=== PATIENT | male | born 1950 | race Caucasian/White ===

== ENCOUNTER 2016-07-21 13:01 | Inpatient (IN) | payer MEDICARE, OTHER ==
--- NOTE | 2016-07-21 13:27 | ED ---
SOB HPI - General Chief Complaint: Shortness of Breath Stated Complaint: BRITTON Time Seen by Provider: 07/21/16 13:01 Source: patient, RN notes reviewed Mode of arrival: EMS Limitations: no limitations - History of Present Illness Initial Comments: This is a 66-year-old male who was brought in by EMS from his doctor's office after complaining of shortness of breath for the past 4 days get a cough with yellow phlegm fevers and chills hot flashes. He also was noted have a really fast heart rate per EMS. Patient denies any chest pain except for with coughing. 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 No diagnosed history of lung disease. MD Complaint: shortness of breath, cough - Related Data Home Medications Medication Instructions Recorded Confirmed Lansoprazole [Prevacid] 30 mg PO DAILY 07/21/16 07/21/16 amLODIPine [Norvasc] 5 mg PO DAILY 07/21/16 07/21/16 Allergies Allergy/AdvReac Type Severity Reaction Status Date / Time adhesive tape AdvReac Rash/Hives Verified 07/21/16 13:17 SLEEPING AIDS AdvReac Hallucinati Uncoded 07/21/16 14:20 ons Review of Systems ROS Statement: Those systems with pertinent positive or pertinent negative responses have been documented in the HPI. ROS Other: All systems not noted in ROS Statement are negative. Past Medical History Past Medical History: COPD, CVA/TIA, Hyperlipidemia, Hypertension Additional Past Medical History / Comment(s): kidney stones History of Any Multi-Drug Resistant Organisms: None Reported Past Surgical History: Hernia Repair Past Psychological History: No Psychological Hx Reported Smoking Status: Never smoker Past Alcohol Use History: None Reported Past Drug Use History: None Reported General Exam - General Exam Comments Initial Comments: This is a well little pulmonary awake alert oriented 3 male Limitations: no limitations General appearance: alert, in no apparent distress Head exam: Present: atraumatic, normocephalic, normal inspection Eye exam: Present: normal appearance, PERRL, EOMI. Absent: scleral icterus, conjunctival injection, periorbital swelling ENT exam: Present: normal exam, mucous membranes moist Neck exam: Present: normal inspection. Absent: tenderness, meningismus, lymphadenopathy Respiratory exam: Present: wheezes, decreased breath sounds. Absent: respiratory distress, rales, rhonchi, stridor Cardiovascular Exam: Present: tachycardia, irregular rhythm. Absent: systolic murmur, diastolic murmur, rubs, gallop, clicks GI/Abdominal exam: Present: soft, normal bowel sounds. Absent: distended, tenderness, guarding, rebound, rigid Extremities exam: Present: normal inspection, full ROM, normal capillary refill. Absent: tenderness, pedal edema, joint swelling, calf tenderness Back exam: Present: normal inspection Neurological exam: Present: alert, oriented X3, CN II-XII intact Psychiatric exam: Present: normal affect, normal mood Skin exam: Present: warm, dry, intact, normal color. Absent: rash Course Vital Signs 07/21/16 07/21/16 07/21/16 13:07 13:19 13:57 Temperature 98.3 F Pulse Rate 154 H 137 H 82 Respiratory 22 18 18 Rate Blood Pressure 114/77 117/86 O2 Sat by Pulse 100 98 Oximetry 07/21/16 15:41 Temperature Pulse Rate 82 Respiratory 20 Rate Blood Pressure 106/75 O2 Sat by Pulse 98 Oximetry - Reevaluation(s) Reevaluation #1: 07/21/16 14:09 The patient was noted to convert to sinus rhythm on the monitor repeat EKG shows a rate of 85 sinus rhythm with occasional PVC. Interval 156 QRS duration 86 QT/QTC of 358/[address]-T wave changes Medical Decision Making - Medical Decision Making I did discuss findings with patient family and patient has converted to a sinus rhythm. He does also however have: Patient will be admitted with cardiology consultation did discuss the case with the hospitalist. - Lab Data Result diagrams: 07/21/16 13:21 07/21/16 13:21 Lab Results 07/21/16 07/21/16 07/21/16 Range/Units 13:21 13:21 13:21 WBC 4.9 (3.8-10.6) k/uL RBC 5.08 (4.30-5.90) m/uL Hgb 16.4 (13.0-17.5) gm/dL Hct 48.9 (39.0-53.0) % MCV 96.3 (80.0-100.0) fL MCH 32.4 (25.0-35.0) pg MCHC 33.6 (31.0-37.0) g/dL RDW 13.1 (11.5-15.5) % Plt Count 209 (150-450) k/uL Neutrophils % (Manual) 39.5 % Band Neutrophils % 19.5 % Lymphocytes % (Manual) 32.5 % Monocytes % (Manual) 7.5 % Eosinophils % (Manual) 1.0 % Neutrophils # (Manual) 2.9 (1.3-7.7) k/uL Lymphocytes # (Manual) 1.6 (1.0-4.8) k/uL Monocytes # (Manual) 0.4 (0-1.0) k/uL Eosinophils # (Manual) 0.0 (0-0.7) k/uL Nucleated RBCs 0 (0-0) /100 WBC Manual Slide Review Performed Toxic Vacuolation Present Large Platelets Present Polychromasia Present PT (9.0-12.0) sec INR (<1.1) APTT (22.0-30.0) sec Sodium 138 (137-145) mmol/L Potassium 4.6 (3.5-5.1) mmol/L Chloride 103 (98-107) mmol/L Carbon Dioxide 22 (22-30) mmol/L Anion Gap 13 mmol/L BUN 20 (9-20) mg/dL Creatinine 1.52 H (0.66-1.25) mg/dL Est GFR (MDRD) Af Amer 56 (>60 ml/min/1.73 sqM) Est GFR (MDRD) Non-Af 46 (>60 ml/min/1.73 sqM) Glucose 104 H (74-99) mg/dL Plasma Lactic Acid Dat (0.7-2.0) mmol/L Calcium 8.1 L (8.4-10.2) mg/dL Magnesium 2.1 (1.6-2.3) mg/dL Total Bilirubin 0.6 (0.2-1.3) mg/dL AST 30 (17-59) U/L ALT 23 (21-72) U/L Alkaline Phosphatase 85 (38-126) U/L Total Creatine Kinase 166 (55-170) U/L CK-MB (CK-2) 1.5 (0.0-2.4) ng/mL CK-MB (CK-2) Rel Index 0.9 Troponin I 0.310 H* (0.000-0.034) ng/mL NT-Pro-B Natriuret Pep pg/mL Total Protein 7.3 (6.3-8.2) g/dL Albumin 3.8 (3.5-5.0) g/dL Urine Color Urine Appearance (Clear) Urine pH (5.0-8.0) Ur Specific [place] (1.001-1.035) Urine Protein (Negative) Urine Glucose (UA) (Negative) Urine Ketones (Negative) Urine Blood (Negative) Urine Nitrate (Negative) Urine Bilirubin (Negative) Urine Urobilinogen (<2.0) mg/dL Ur Leukocyte Esterase (Negative) Urine RBC (0-5) /hpf Urine WBC (0-5) /hpf Urine Bacteria (None) /hpf Hyaline Casts (0-2) /lpf Urine Mucus (None) /hpf 07/21/16 07/21/16 07/21/16 Range/Units 13:21 13:21 13:21 WBC (3.8-10.6) k/uL RBC (4.30-5.90) m/uL Hgb (13.0-17.5) gm/dL Hct (39.0-53.0) % MCV (80.0-100.0) fL MCH (25.0-35.0) pg MCHC (31.0-37.0) g/dL RDW (11.5-15.5) % Plt Count (150-450) k/uL Neutrophils % (Manual) % Band Neutrophils % % Lymphocytes % (Manual) % Monocytes % (Manual) % Eosinophils % (Manual) % Neutrophils # (Manual) (1.3-7.7) k/uL Lymphocytes # (Manual) (1.0-4.8) k/uL Monocytes # (Manual) (0-1.0) k/uL Eosinophils # (Manual) (0-0.7) k/uL Nucleated RBCs (0-0) /100 WBC Manual Slide Review Toxic Vacuolation Large Platelets Polychromasia PT 10.6 (9.0-12.0) sec INR 1.0 (<1.1) APTT 26.9 (22.0-30.0) sec Sodium (137-145) mmol/L Potassium (3.5-5.1) mmol/L Chloride (98-107) mmol/L Carbon Dioxide (22-30) mmol/L Anion Gap mmol/L BUN (9-20) mg/dL Creatinine (0.66-1.25) mg/dL Est GFR (MDRD) Af Amer (>60 ml/min/1.73 sqM) Est GFR (MDRD) Non-Af (>60 ml/min/1.73 sqM) Glucose (74-99) mg/dL Plasma Lactic Acid Dat 1.4 (0.7-2.0) mmol/L Calcium (8.4-10.2) mg/dL Magnesium (1.6-2.3) mg/dL Total Bilirubin (0.2-1.3) mg/dL AST (17-59) U/L ALT (21-72) U/L Alkaline Phosphatase (38-126) U/L Total Creatine Kinase (55-170) U/L CK-MB (CK-2) (0.0-2.4) ng/mL CK-MB (CK-2) Rel Index Troponin I (0.000-0.034) ng/mL NT-Pro-B Natriuret Pep 646 pg/mL Total Protein (6.3-8.2) g/dL Albumin (3.5-5.0) g/dL Urine Color Urine Appearance (Clear) Urine pH (5.0-8.0) Ur Specific [place] (1.001-1.035) Urine Protein (Negative) Urine Glucose (UA) (Negative) Urine Ketones (Negative) Urine Blood (Negative) Urine Nitrate (Negative) Urine Bilirubin (Negative) Urine Urobilinogen (<2.0) mg/dL Ur Leukocyte Esterase (Negative) Urine RBC (0-5) /hpf Urine WBC (0-5) /hpf Urine Bacteria (None) /hpf Hyaline Casts (0-2) /lpf Urine Mucus (None) /hpf 07/21/16 Range/Units 14:05 WBC (3.8-10.6) k/uL RBC (4.30-5.90) m/uL Hgb (13.0-17.5) gm/dL Hct (39.0-53.0) % MCV (80.0-100.0) fL MCH (25.0-35.0) pg MCHC (31.0-37.0) g/dL RDW (11.5-15.5) % Plt Count (150-450) k/uL Neutrophils % (Manual) % Band Neutrophils % % Lymphocytes % (Manual) % Monocytes % (Manual) % Eosinophils % (Manual) % Neutrophils # (Manual) (1.3-7.7) k/uL Lymphocytes # (Manual) (1.0-4.8) k/uL Monocytes # (Manual) (0-1.0) k/uL Eosinophils # (Manual) (0-0.7) k/uL Nucleated RBCs (0-0) /100 WBC Manual Slide Review Toxic Vacuolation Large Platelets Polychromasia PT (9.0-12.0) sec INR (<1.1) APTT (22.0-30.0) sec Sodium (137-145) mmol/L Potassium (3.5-5.1) mmol/L Chloride (98-107) mmol/L Carbon Dioxide (22-30) mmol/L Anion Gap mmol/L BUN (9-20) mg/dL Creatinine (0.66-1.25) mg/dL Est GFR (MDRD) Af Amer (>60 ml/min/1.73 sqM) Est GFR (MDRD) Non-Af (>60 ml/min/1.73 sqM) Glucose (74-99) mg/dL Plasma Lactic Acid Dat (0.7-2.0) mmol/L Calcium (8.4-10.2) mg/dL Magnesium (1.6-2.3) mg/dL Total Bilirubin (0.2-1.3) mg/dL AST (17-59) U/L ALT (21-72) U/L Alkaline Phosphatase (38-126) U/L Total Creatine Kinase (55-170) U/L CK-MB (CK-2) (0.0-2.4) ng/mL CK-MB (CK-2) Rel Index Troponin I (0.000-0.034) ng/mL NT-Pro-B Natriuret Pep pg/mL Total Protein (6.3-8.2) g/dL Albumin (3.5-5.0) g/dL Urine Color Yellow Urine Appearance Cloudy (Clear) Urine pH 5.5 (5.0-8.0) Ur Specific [place] 1.020 (1.001-1.035) Urine Protein 1+ H (Negative) Urine Glucose (UA) Negative (Negative) Urine Ketones Negative (Negative) Urine Blood Negative (Negative) Urine Nitrate Negative (Negative) Urine Bilirubin Negative (Negative) Urine Urobilinogen <2.0 (<2.0) mg/dL Ur Leukocyte Esterase Negative (Negative) Urine RBC 1 (0-5) /hpf Urine WBC 5 (0-5) /hpf Urine Bacteria Rare H (None) /hpf Hyaline Casts 34 H (0-2) /lpf Urine Mucus Few H (None) /hpf - EKG Data -: EKG Interpreted by Me Rate: tachycardia (Rapid atrial fibrillation the rate was 157 QRS duration 88 QT /QTC at 252/[address]-T wave configuration) - Radiology Data Radiology results: report reviewed (I did review the imaging and report no acute findings.), image reviewed Critical Care Time Critical Care Time: Yes Critical Care Time: 32 minutes of critical care time which includes initial evaluation the patient after monitoring the EMS call and discussed with paramedics history physical lab and x-rays reevaluation the patient. Discussion with the patient family regarding the findings. Discussed with the admitting physician. Admission orders and documentation of the above. Disposition Clinical Impression: Non-ST elevation myocardial infarction (NSTEMI), Paroxysmal atrial fibrillation with RVR Disposition: ADMITTED IP TO THIS HOSP Condition: Stable
[2016-07-21 13:43] LABS: CH 32.6; HCT 48.9 % (39.0-53.0); HDW 2.31; HGB 16.4 gm/dL (13.0-17.5); Immature Gran Flag Moderate; MCH 32.4 pg (25.0-35.0); MCHC 33.6 g/dL (31.0-37.0); MCV 96.3 fL (80.0-100.0); Mean Platelet Volume 7.7; RBC 5.08 m/uL (4.30-5.90); RDW 13.1 % (11.5-15.5); WBC 4.9 k/uL (3.8-10.6); WBC (Perox) 4.62
--- NOTE | 2016-07-21 13:48 | XR ---
EXAMINATION TYPE: XR chest 2V DATE OF EXAM: 07/21/2016 1:36 PM COMPARISON: Prior chest x-ray 01 August 2010 HISTORY: Difficulty breathing, cough TECHNIQUE: Frontal and lateral views of the chest are obtained on a total of 3 images. FINDINGS: Patient is rotated and there are overlying cardiac leads. Cardiac mediastinal silhouette, pulmonary vascularity and jada are stable. No evident pneumonia, pneumothorax, or pleural effusion ev ident. Prominent lung volumes suggests underlying COPD. IMPRESSION: No acute cardiopulmonary process.
[2016-07-21] MEDS: HEPARIN SODIUM,PORCINE 5,000 UNIT/ML 1 ML VIAL IV ONE ×3 (13:50→14:33)
[2016-07-21 13:54] LABS: Partial Thromboplastin Time 26.9 sec (22.0-30.0); Prothrombin Time 10.6 sec (9.0-12.0)
[2016-07-21 13:55] LABS: Calcium 8.1 mg/dL (8.4-10.2); Magnesium 2.1 mg/dL (1.6-2.3); Potassium 4.6 mmol/L (3.5-5.1); Total Bilirubin 0.6 mg/dL (0.2-1.3); Total Protein 7.3 g/dL (6.3-8.2)
[2016-07-21] MEDS ORDERED: DILTIAZEM 125 MG in SODIUM CHLORIDE 0.9% 100 ML IV ONE (14:00)
[2016-07-21] MEDS: HEPARIN SODIUM,PORCINE/D5W PMX 25,000 UNIT in DEXTROSE/WATER 1 500ML.BAG IV SCH ×2 (14:15→14:34)
[2016-07-21 14:16] LABS: Creatine Kinase MB 1.5 ng/mL (0.0-2.4)
[2016-07-21 14:21] LABS: Troponin I 0.31 ng/mL (0.000-0.034)
[2016-07-21 14:22] LABS: Add Differential Manual Differential
[2016-07-21 14:26] LABS: Nucleated Red Blood Cells 0 /100 WBC (0-0)
[2016-07-21 14:36] LABS: Band Neutrophils % 19.5 %; Total Cells Counted 200; Toxic Vacuolation Present
[2016-07-21 14:38] LABS: Appearance,Urine Cloudy (Clear); Bacteria,Urine Rare /hpf; Bilirubin,Urine Negative (Negative); Glucose,Urine (UA) Negative (Negative); Ketones,Urine Negative (Negative); Leukocyte Esterase,Urine Negative (Negative); Mucus,Urine Few /hpf; Nitrite,Urine Negative (Negative); PH, Urine 5.5 (5.0-8.0); Particle Count 13283; Protein,Urine 1+ (Negative); RBC,Urine 1 /hpf (0-5); UA Billing (MACRO vs. MICRO) MICRO; Urobilinogen,Urine <2.0 mg/dL (<2.0); WBC,Urine 5 /hpf (0-5)
[2016-07-21 14:51] LABS: Manual Review Performed; Polychromasia Present
[2016-07-21 14:52] LABS: Large Platelets Present
[2016-07-21] MEDS ORDERED: NITROGLYCERIN SL TABS 0.4 MG TAB SUBLINGUAL PRN (15:45)
[2016-07-21 16:53] VITALS: BMI 25.0
[2016-07-21] MEDS: NITROGLYCERIN OINT 1 INCH/GM PACKET TOPICAL SCH (17:37)
[2016-07-21] MEDS: SODIUM CHLORIDE 0.9% 1,000 ML IV SCH (17:47)
[2016-07-21 21:10] LABS: Creatine Kinase MB 2.1 ng/mL (0.0-2.4)
[2016-07-21 21:12] LABS: Troponin I 0.344 ng/mL (0.000-0.034)
[2016-07-22 02:34] LABS: Creatine Kinase MB 1.9 ng/mL (0.0-2.4)
[2016-07-22 02:45] LABS: Troponin I 0.266 ng/mL (0.000-0.034)
[2016-07-22 07:17] LABS: Cholesterol 183 mg/dL (<200); HDL Cholesterol 42 mg/dL (40-60); Triglycerides 126 mg/dL (<150)
[2016-07-22] MEDS: NITROGLYCERIN OINT 1 INCH/GM PACKET TOPICAL SCH ×3 (07:34→11:58)
[2016-07-22] MEDS ORDERED: ATORVASTATIN 80 MG TAB PO STA (07:48)
[2016-07-22] MEDS ORDERED: ALPRAZolam 0.5 MG TAB PO PRN (07:48)
[2016-07-22] MEDS ORDERED: ALPRAZolam 0.25 MG TAB PO PRN (07:48)
[2016-07-22] MEDS ORDERED: SODIUM CHLORIDE 0.9% 1,000 ML in EMPTY BAG 1 BAG IV ONE (07:48)
[2016-07-22] MEDS ORDERED: NITROGLYCERIN SL TABS 0.4 MG TAB SUBLINGUAL PRN (07:48)
[2016-07-22] MEDS ORDERED: ASPIRIN 325 MG TAB PO STA (07:48)
--- NOTE | 2016-07-22 08:48 | CONS ---
DATE OF CONSULTATION: Mr. Goff is a 66-year-old male with a known history of borderline hypertension and diabetes who presented with symptoms of cough, not feeling well, going on for the last few days, that happened over the weekend. Yesterday he went to see Dr. Arredondo and was having episode of atrial fibrillation. He did not feel the palpitation, but he did not feel well. He is having shoulder discomfort, but predominantly when he coughs. He is not very active physically because of his back, but continues to walk. He has no exertional chest pain in the past. According to him, he underwent cardiac catheterization many years ago and no significant abnormalities were noted. He denies any PND, orthopnea, or peripheral edema. He has no history of syncope and no significant palpitation. His coronary risk factors are positive for hypertension. At times, his pressure is low and he does not take his medications. He has borderline diabetes, but he has adjusted his diet intake and he is not on any medication. On presentation to the emergency room, he had an episode of recurrent paroxysmal atrial fibrillation. His medications at home include amlodipine 5 mg daily and Prevacid. REVIEW OF SYSTEMS: RESPIRATORY SYSTEM: He had a prior history of lung disease related to his exposure to work in the [employer]. He never smoked. GI SYSTEM: He had a prior history of bleeding related to hemorrhoids. SYSTEM: No dysuria or hematuria. NERVOUS SYSTEM: Questionable history of stroke. PHYSICAL EXAMINATION: A 66-year-old male, alert, oriented, in no apparent distress. Blood pressure of 109/70 with the heart rate in the 60s. HEAD: Normocephalic. EYES: Sclerae anicteric. NECK: Good upstroke. No bruit. No jugular venous distention. LUNGS: Clear to auscultation. HEART: Regular rate and rhythm. S1, S2, no S3, no rub with systolic murmur at the base. No diastolic murmur. ABDOMEN: Soft, nontender, positive bowel sounds. No organomegaly. EXTREMITIES: No edema. Intact distal pulses. Lab data revealed troponin 0.31, 0.344, 0.266. BUN and creatinine 20 and 1.52. Hemoglobin of 16.4. Cholesterol 183, LDL of 116. Chest x-ray shows no acute infiltrate. Initial EKG revealed sinus mechanism , normal axis, rare PVCs with no acute changes. Subsequent EKG revealed atrial fibrillation with a rapid ventricular response and nonspecific ST-T wave changes. IMPRESSION: 1. Abnormal troponin consistent with non-ST segment elevation myocardial infarction. 2. Paroxysmal atrial fibrillation of unknown duration. 3. Symptoms suggestive of upper respiratory infection. 4. History of hypertension. 5. Diabetes mellitus. 6. Mild hyperlipidemia. RECOMMENDATIONS: From the cardiac standpoint, I will obtain echocardiogram with Doppler. I will start him on a beta jane, stop the IV Cardizem. I would recommend to proceed with a cardiac catheterization to further assess his status and guide his treatment and depending on those findings, further recommendation will be made regarding alf anticoagulation. I have discussed those findings with the patient as well as risks and complications. He is in full understanding and agreement. Thank you for this consult. We will follow with you.
[2016-07-22] MEDS ORDERED: ASPIRIN 325 MG TAB PO SCH (09:00)
[2016-07-22] MEDS ORDERED: amLODIPine 5 MG TAB PO SCH (09:00)
[2016-07-22] MEDS: METOPROLOL TARTRATE 25 MG TAB PO SCH ×2 (09:44→23:22)
[2016-07-22] MEDS: PANTOPRAZOLE 40 MG TABLET PO SCH (09:44)
[2016-07-22 11:51] LABS: Hemoglobin A1C 5.8 % (4.2-6.1)
[2016-07-22] MEDS ORDERED: diphenhydrAMINE 50 MG/ML 1 ML VIAL ONE (12:12)
[2016-07-22] MEDS ORDERED: fentaNYL (PF) 50 MCG/ML 2 ML AMP ONE (12:13)
[2016-07-22] MEDS ORDERED: VERAPAMIL 2.5 MG/ML 2 ML AMP ONE (12:22)
[2016-07-22] MEDS ORDERED: SODIUM CHLORIDE 0.9% (PF) 10 ML VIAL ONE (12:22)
[2016-07-22] MEDS ORDERED: HEPARIN SODIUM 1,000 UNIT/ML VIAL ONE (12:22)
[2016-07-22] MEDS ORDERED: LIDOCAINE 2% INJ 20 MG/ML (20 ML MDV) ONE (12:26)
[2016-07-22] MEDS ORDERED: diphenhydrAMINE 50 MG/ML 1 ML VIAL IVP ONE (12:30)
[2016-07-22] MEDS ORDERED: fentaNYL (PF) 50 MCG/ML 2 ML AMP IV ONE (12:30)
[2016-07-22] MEDS ORDERED: LIDOCAINE 2% (PF) 20 MG/ML 10ML SQ ONE ×2 (12:32)
[2016-07-22] MEDS ORDERED: VERAPAMIL SYRINGE (5 MG/10 ML) INTRAARTER ONE (12:33)
[2016-07-22] MEDS ORDERED: HEPARIN SODIUM 1,000 UNIT/ML VIAL IV ONE (12:48)
[2016-07-22] MEDS ORDERED: SODIUM CHLORIDE 0.9% 1,000 ML IV ONE (12:49)
[2016-07-22] MEDS ORDERED: IOHEXOL 300 MG/ML 100 ML BOTTLE IV ONE (12:51)
[2016-07-22] MEDS ORDERED: RX INFO: IV CONTRAST WAS GIVEN 1 EACH MISC MISCELLANE PRN (12:54)
[2016-07-22] MEDS ORDERED: SODIUM CHLORIDE 0.9% 1,000 ML IV SCH (13:00)
--- NOTE | 2016-07-22 17:18 | HP ---
DATE OF ADMISSION: Patient is a 66-year-old who was seen in Dr. Arredondo's office with URI-like symptoms. Patient does have bronchitis, was started on doxycycline here. Patient was found to be in atrial fibrillation. Patient has minimally elevated troponins. Patient underwent cardiac catheterization which showed some 20% to 30% occlusion in multiple vessels. Beyond that, there are no stentable lesions. Patient denied any orthopnea, PND. Patient is complaining of cough with yellowish sputum production which is getting better at this point of time. Patient denied any shortness of breath. Patient was started on flecainide. Patient is on heparin IV and anticoagulation as per Cardiology. Echocardiogram is pending at this point of time. Patient is also on beta jane. REVIEW OF SYSTEMS: CONSTITUTIONAL: No fever, no malaise, no fatigue. HEENT: No recent visual problems or hearing problems. Denied any sore throat. CARDIOVASCULAR: No chest pain, orthopnea, PND, no palpitations, no syncope. PULMONARY: As described in HPI. GASTROINTESTINAL: No diarrhea, no nausea, no vomiting, no abdominal pain. Normoactive bowel sounds. NEUROLOGICAL: No headaches, no weakness, no numbness. HEMATOLOGICAL: Denies any bleeding or petechiae. GENITOURINARY: Denies any burning micturition, frequency, or urgency. MUSCULOSKELETAL/RHEUMATOLOGICAL: Denies any joint pain, swelling, or any muscle pain. ENDOCRINE: Denies any polyuria or polydipsia. The rest of the 14 point review of systems is negative. Home medications include amlodipine and Lansoprazole. Past medical history is significant for: 1. COPD. 2. CVA. 3. TIA. 4. Gastroesophageal reflux disease. 5. Hyperlipidemia. 6. Hypertension. FAMILY HISTORY: Significant for cancer. SOCIAL HISTORY: Denied any smoking, alcohol abuse or any drug abuse. PHYSICAL EXAMINATION: VITAL SIGNS: Temperature 98.5, pulse of 59, respiratory rate of 18, blood pressure 111/70. Saturating at 97% on room air. GENERAL: The patient is alert and oriented x3, not in any acute distress. Well developed, well nourished. HEENT: Pupils are round and equally reacting to light. EOMI. No scleral icterus. No conjunctival pallor. Normocephalic, atraumatic. No pharyngeal erythema. No thyromegaly. CARDIOVASCULAR: S1 and S2 present. No murmurs, rubs, or gallops. PULMONARY: Chest is clear to auscultation, no wheezing or crackles. ABDOMEN: Soft, nontender, nondistended, normoactive bowel sounds. No palpable organomegaly. MUSCULOSKELETAL: No joint swelling or deformity. EXTREMITIES: No cyanosis, clubbing, or pedal edema. NEUROLOGICAL: Gross neurological examination did not reveal any focal deficits. SKIN: No rashes. LABORATORY DATA: Already discussed in the HPI itself. UA shows rare bacteria. Creatinine 1.52. I do not have his baseline creatinine. Chest x-ray did not show a pneumonic process or congestive heart failure changes. TSH is 5.230. T4 is 0.96, which needs to be repeated again as an outpatient in about a month. Possibility of sick euthyroid syndrome or subclinical hypothyroidism. ASSESSMENT AND PLAN: 1. Atrial fibrillation. Etiology is unknown. Anticoagulation as per Cardiology. Patient is on a beta jane and flecainide. 2. Coronary artery disease with subcritical stenosis of multiple coronary vessels. Patient has elevated troponins, probably secondary to atrial fibrillation itself. 3. Upper respiratory infection, probably bacterial bronchitis. Patient will be started on doxycycline for that. 4. Hypertension. 5. Type 2 diabetes mellitus. 6. Hyperlipidemia. 7. Sick euthyroid syndrome. 8. Renal failure; unknown whether it is acute or chronic. Patient was started on empiric IV fluids. Will see how he does. Will repeat the kidney function tomorrow. Awaiting echocardiogram.
[2016-07-22] MEDS: DOXYCYCLINE 50 MG CAP PO SCH ×2 (17:19→23:22)
[2016-07-22] MEDS: FLECAINIDE 50 MG TAB PO SCH ×2 (17:19→23:22)
[2016-07-22] MEDS: SODIUM CHLORIDE 0.9% 1,000 ML IV SCH (17:19)
[2016-07-22] MEDS: RIVAROXABAN 10 MG TAB PO SCH (17:20)
--- NOTE | 2016-07-22 23:39 | CC ---
DATE OF SERVICE: Mr. Goff is a 66-year-old male with no prior documented history of coronary artery disease, history of hypertension and borderline diabetes mellitus who recently has been complaining of episodes of progressive dyspnea and cough. He was seen by Dr. Arredondo yesterday and was noted to be in atrial fibrillation. He was subsequently transferred to the ER and had an episode of paroxysmal atrial fibrillation. He has the progressive dyspnea and there was some elevation of his troponin with no clear EKG changes, but because of his presentation and symptoms, recommendation was made regarding cardiac catheterization. The procedure as well as risks and complications were discussed with the patient, who was in full understanding and agreement. PROCEDURE: Patient was brought to the label paster in a fasting, semi-sedated state after receiving fentanyl and Benadryl. He was draped and prepped in conventional fashion. Using Xylocaine anesthesia and Seldinger technique, a 6 Yi sheath was introduced in the right radial artery. Selective right and left coronary angiography was performed using 5 Yi 3-1/2 bend right and left Favio catheters. Multiple views were taken of the arteries, including hemiaxial views that were obtained. Following that, catheter and sheaths were removed. Hemostasis was obtained with deployment of a TR band. There were no immediate complications. Patient was returned to his room in stable condition. Of note, patient received 4000 units of intravenous heparin as well as intra-arterial Verapamil. FINDINGS LEFT MAIN: This is a large-sized vessel, short in distance, bifurcating into left circumflex and left anterior descending artery. Left main coronary artery is without any significant obstructive coronary artery disease. LEFT ANTERIOR DESCENDING ARTERY: This vessel gives rise to 2 diagonal branches. The second one is large in caliber. The LAD beyond that tapers down. The LAD in the proximal and mid segments has mild intimal disease of 30% without any evidence of high-grade stenosis. LEFT CIRCUMFLEX: This is a non-dominant vessel, large in caliber, giving rise to 2 obtuse marginal branches. After the takeoff of the first obtuse marginal branch there is a plaque of about 30% to 40%. The proximal segment of the circumflex has mild intimal disease. The rest of the vessel has no high-grade stenosis. RIGHT CORONARY ARTERY: This is a large dominant vessel bifurcating into PDA and posterolateral segment and branches. The proximal and mid segments of the right coronary artery have mild intimal plaque of 20% to 30%. The rest of the vessel has no high-grade stenosis. LEFT VENTRICULOGRAM: Left ventriculogram was not performed. Duration or the procedure 23 minutes. CONCLUSION: Mild triple-vessel coronary artery disease. RECOMMENDATION: In view of the findings and anatomy, I have recommended continued medical therapy with the aggressive risk factor modifications that have been initiated. The patient will be initiated on anticoagulation in view of the episode of paroxysmal atrial fibrillation. Those findings and recommendations were discussed with the patient and his family, and they are in full understanding and agreement.
--- NOTE | 2016-07-22 23:41 | LTR ---
July 22, 2016 RE: [place] Dear Dr. Arredondo, I had the pleasure of performing cardiac catheterization on Mr. Goff at [facility] on July 22, and a full copy of the procedure note will be forwarded to you. In brief, he was found to have mild triple-vessel coronary artery disease with no evidence of high-grade stenosis. Based on those findings, I have recommended continued medical therapy with the aggressive risk factor modifications that have been initiated. Thank you again for allowing me to participate in his care. Please feel free to call with any questions. Sincerely, CONNIE SHIPLEY MD
[2016-07-23 06:04] LABS: Basophils # (A) 0.1 k/uL (0-0.2); Basophils % (A) 2 %; CHCM 33.6; Eosinophils # (A) 0.1 k/uL (0-0.7); Eosinophils % (A) 3 %; HCT 40.2 % (39.0-53.0); HDW 2.42; HGB 13.9 gm/dL (13.0-17.5); Luc # (Auto) 0.11; Luc % (Auto) 3; Lymphocytes # (A) 1.3 k/uL (1.0-4.8); Lymphocytes % (A) 36 %; MCHC 34.5 g/dL (31.0-37.0); MCV 95.5 fL (80.0-100.0); Mean Platelet Volume 7.7; Monocytes # (A) 0.2 k/uL (0-1.0); Monocytes % (A) 6 %; Neutrophils # (A) 1.8 k/uL (1.3-7.7); Neutrophils % (A) 51 %; RBC 4.21 m/uL (4.30-5.90); RDW 13.1 % (11.5-15.5); WBC 3.4 k/uL (3.8-10.6)
[2016-07-23 06:17] LABS: Anion Gap 8 mmol/L; Blood Urea Nitrogen 18 mg/dL (9-20); Carbon Dioxide 25 mmol/L (22-30); Chloride 109 mmol/L (98-107); Glucose 101 mg/dL (74-99); Non-African American GFR(MDRD) >60 (>60 ml/min/1.73 sqM); Potassium 4.7 mmol/L (3.5-5.1); Sodium 142 mmol/L (137-145)
[2016-07-23] MEDS: DOXYCYCLINE 50 MG CAP PO SCH ×2 (08:29→21:43)
[2016-07-23] MEDS: PANTOPRAZOLE 40 MG TABLET PO SCH (08:30)
[2016-07-23] MEDS: ASPIRIN 81 MG CHEW PO SCH (08:30)
[2016-07-23] MEDS: FLECAINIDE 50 MG TAB PO SCH ×2 (08:30→21:35)
[2016-07-23] MEDS: METOPROLOL TARTRATE 25 MG TAB PO SCH ×2 (08:30→21:36)
[2016-07-23] MEDS: ATORVASTATIN 40 MG TAB PO SCH (08:30)
[2016-07-23] MEDS: SODIUM CHLORIDE 0.9% 1,000 ML IV SCH (15:46)
--- NOTE | 2016-07-23 15:58 | P.PN ---
Subjective Principal diagnosis: Non-STEMI This is a 66-year-old gentleman with history of hypertension, diabetes , who presented to the hospital with symptoms of generalized malaise with associated cough. He went to see his primary care doctor prior to coming here and was having episodes of atrial fibrillation, asymptomatic. Patient also mentioned that he was having exertional chest discomfort. And presentation here patient was found to be in atrial fibrillation. He underwent a cardiac catheterization yesterday which revealed mild triple-vessel coronary artery disease, recommendations were to continue medical therapy and aggressive risk factor modification. Patient continues to be in normal sinus rhythm this morning. At pressure 132/60 with a heart rate in the 60s to 70s. WBC 3.4, hemoglobin 13.9, platelet count 163, potassium 4.7, BUN 18, creatinine 1.0. Patient denies any chest discomfort, breathing is overall stable. Objective - Vital Signs Vital signs: Vital Signs Temp 97.6 F 07/23/16 15:49 Pulse 66 07/23/16 15:49 Resp 16 07/23/16 15:49 BP 133/66 07/23/16 15:49 Pulse Ox 97 07/23/16 15:49 Intake & Output 07/22/16 07/23/16 07/23/16 18:59 06:59 18:59 Intake Total 100 240 320 Balance 100 240 320 Weight 75.5 kg Intake: IV 100 Oral 240 320 Other: Voiding Method Toilet Toilet Toilet # Voids 1 0 1 # Bowel Movements 1 - Exam PHYSICAL EXAMINATION: HEENT: Head is atraumatic, normocephalic. Pupils equal, round. Neck is supple. There is no elevated jugular venous pressure. HEART EXAMINATION: S1 and S2 1 systolic murmur is heard. CHEST EXAMINATION: Lungs are clear to auscultation and precussion. No chest wall tenderness is noted on palpation or with deep breathing. ABDOMEN: Soft, nontender. Bowel sounds are heard. No organomegaly noted. EXTREMITIES: 2+ peripheral pulses with no evidence of peripheral edema and no calf tenderness noted. Right radial site clean and dry, good distal pulse. NEUROLOGIC patient is awake, alert and oriented -3. . - Labs CBC & Chem 7: 07/23/16 05:42 07/23/16 05:42 Labs: Abnormal Lab Results - Last 24 Hours (Table) 07/23/16 07/23/16 Range/Units 05:42 05:42 WBC 3.4 L (3.8-10.6) k/uL RBC 4.21 L (4.30-5.90) m/uL Chloride 109 H (98-107) mmol/L Glucose 101 H (74-99) mg/dL Calcium 8.0 L (8.4-10.2) mg/dL Assessment and Plan (1) HTN (hypertension) Status: Acute (2) Diabetes Status: Acute (3) Hyperlipemia Status: Acute (4) Upper respiratory infection Status: Acute (5) Non-ST elevation myocardial infarction (NSTEMI) Status: Acute (6) Paroxysmal atrial fibrillation with RVR Status: Acute (7) S/P cardiac catheterization Status: Acute Plan: From cardiology's perspective, we will recommend to continue the patient on 81 mg of aspirin, Lipitor 40 mg daily, flecainide 50 mg one tablet by mouth twice a day, metoprolol tartrate 25 mg one tablet by mouth twice a day, Xarelto 20 mg daily. Increase activity as tolerated today. DNP note has been reviewed, I agree with a documented findings and plan of care. Patient was seen and examined.
[2016-07-23] MEDS: RIVAROXABAN 10 MG TAB PO SCH (16:55)
--- NOTE | 2016-07-23 18:58 | PN ---
[id number] admitted with atrial fibrillation. Patient is otherwise clinically doing well. Patient is rate-controlled because he was on and off going into atrial fibrillation all night last night. Will keep him one more night. Patient is on flecainide at this point of time, which will be continued, and metoprolol at this time. REVIEW OF SYSTEMS: CARDIOVASCULAR: No chest pain, no orthopnea, no PND, no palpitations. PULMONARY: Denied any shortness of breath. No cough or hemoptysis. GASTROINTESTINAL: No diarrhea, nausea or vomiting. No abdominal pain. Normoactive bowel sounds. NEUROLOGIC: No headaches, no weakness, no numbness. Medications were reviewed. PHYSICAL EXAMINATION: VITAL SIGNS: Temperature 97.3, pulse of 58, respiratory rate of 16. Blood pressure is 110/65. Saturating at 98% on room air. GENERAL: The patient is alert and oriented x3, not in any acute distress. Well developed, well nourished. HEENT: Pupils are round and equally reacting to light. EOMI. No scleral icterus. No conjunctival pallor. Normocephalic, atraumatic. No pharyngeal erythema. No thyromegaly. CARDIOVASCULAR: S1 and S2 present. No murmurs, rubs, or gallops. PULMONARY: Chest is clear to auscultation, no wheezing or crackles. ABDOMEN: Soft, nontender, nondistended, normoactive bowel sounds. No palpable organomegaly. MUSCULOSKELETAL: No joint swelling or deformity. EXTREMITIES: No cyanosis, clubbing, or pedal edema. NEUROLOGICAL: Gross neurological examination did not reveal any focal deficits. SKIN: No rashes. Laboratory data were reviewed. ASSESSMENT AND PLAN: 1. New-onset atrial fibrillation with mild coronary vascular disease. Patient is on beta jane and flecainide and patient was on Xarelto for anticoagulation. 2. Upper respiratory tract infection with bronchitis. 3. Hypertension. 4. Type 2 diabetes mellitus. 5. Hyperlipidemia. 6. Sick euthyroid syndrome. 7. Renal failure which improved at this point of time with IV fluid resuscitation. PLAN: To continue with present medications. Continue to monitor. Possibility of discharge tomorrow.
[2016-07-24 07:38] VITALS: RESP 17; TEMP 97.8
[2016-07-24] MEDS: DOXYCYCLINE 50 MG CAP PO SCH (07:39)
[2016-07-24] MEDS: ASPIRIN 81 MG CHEW PO SCH (07:39)
[2016-07-24] MEDS: FLECAINIDE 50 MG TAB PO SCH (07:40)
[2016-07-24] MEDS: METOPROLOL TARTRATE 25 MG TAB PO SCH (07:41)
[2016-07-24] MEDS: PANTOPRAZOLE 40 MG TABLET PO SCH (07:41)
[2016-07-24] MEDS: ATORVASTATIN 40 MG TAB PO SCH (08:41)
[2016-07-24] MEDS: SODIUM CHLORIDE 0.9% 1,000 ML IV SCH (10:59)
[2016-07-24 11:02] VITALS: BP 119/65; PULSE 55
--- NOTE | 2016-07-24 12:27 | P.PN ---
Subjective Principal diagnosis: Non-STEMI This is a 66-year-old gentleman with history of hypertension, diabetes , who presented to the hospital with symptoms of generalized malaise with associated cough. He went to see his primary care doctor prior to coming here and was having episodes of atrial fibrillation, asymptomatic. Patient also mentioned that he was having exertional chest discomfort. And presentation here patient was found to be in atrial fibrillation. He underwent a cardiac catheterization yesterday which revealed mild triple-vessel coronary artery disease, recommendations were to continue medical therapy and aggressive risk factor modification. Patient continues to be in normal sinus rhythm this morning. Blood pressure 120/60 with a heart rate in the 60s. Patient denies any chest discomfort, breathing is overall stable. Objective - Vital Signs Vital signs: Vital Signs Temp 97.8 F 07/24/16 07:37 Pulse 55 L 07/24/16 11:01 Resp 17 07/24/16 11:01 BP 119/65 07/24/16 11:01 Pulse Ox 98 07/24/16 11:01 Intake & Output 07/23/16 07/24/16 07/24/16 18:59 06:59 18:59 Intake Total 500 280 Balance 500 280 Weight 75.7 kg Intake: Oral 500 280 Other: Voiding Method Toilet Toilet Toilet # Voids 2 1 - Exam PHYSICAL EXAMINATION: HEENT: Head is atraumatic, normocephalic. Pupils equal, round. Neck is supple. There is no elevated jugular venous pressure. HEART EXAMINATION: S1 and S2 1 systolic murmur is heard. CHEST EXAMINATION: Lungs are clear to auscultation and precussion. No chest wall tenderness is noted on palpation or with deep breathing. ABDOMEN: Soft, nontender. Bowel sounds are heard. No organomegaly noted. EXTREMITIES: 2+ peripheral pulses with no evidence of peripheral edema and no calf tenderness noted. Right radial site clean and dry, good distal pulse. NEUROLOGIC patient is awake, alert and oriented -3. . - Labs CBC & Chem 7: 07/23/16 05:42 07/23/16 05:42 Assessment and Plan (1) HTN (hypertension) Status: Acute (2) Diabetes Status: Acute (3) Hyperlipemia Status: Acute (4) Upper respiratory infection Status: Acute (5) Non-ST elevation myocardial infarction (NSTEMI) Status: Acute (6) Paroxysmal atrial fibrillation with RVR Status: Acute (7) S/P cardiac catheterization Status: Acute Plan: From cardiology's perspective, we will recommend to continue the patient on 81 mg of aspirin, Lipitor 40 mg daily, flecainide 50 mg one tablet by mouth twice a day, metoprolol tartrate 25 mg one tablet by mouth twice a day, Xarelto 20 mg daily. And sublingual nitroglycerin as needed for chest pain. Patient may be able to be discharged home today from cardiology's perspective, a follow-up appointment will be made with Dr. Smith in the office post discharge. Patient has been provided prescriptions for all of his medications, one month supply of medication is also been provided to the patient. DNP note has been reviewed, I agree with a documented findings and plan of care. Patient was seen and examined.
--- NOTE | 2016-07-24 22:21 | DS ---
DATE OF ADMISSION: 07/21/2016 DATE OF DISCHARGE: 07/24/2016 This patient is a 66-year-old admitted with new-onset atrial fibrillation. Patient is rate-controlled at this point of time. Patient underwent cardiac catheterization which showed some non-occlusive coronary vascular disease and patient was started on flecainide and metoprolol. Patient is being discharged on Xarelto as well. Patient was seen and examined on the day of discharge. Vitals are stable. GENERAL: The patient is alert and oriented x3, not in any acute distress. Well developed, well nourished. HEENT: Pupils are round and equally reacting to light. EOMI. No scleral icterus. No conjunctival pallor. Normocephalic, atraumatic. No pharyngeal erythema. No thyromegaly. CARDIOVASCULAR: S1 and S2 present. No murmurs, rubs, or gallops. PULMONARY: Chest is clear to auscultation, no wheezing or crackles. ABDOMEN: Soft, nontender, nondistended, normoactive bowel sounds. No palpable organomegaly. MUSCULOSKELETAL: No joint swelling or deformity. EXTREMITIES: No cyanosis, clubbing, or pedal edema. NEUROLOGICAL: Gross neurological examination did not reveal any focal deficits. SKIN: No rashes. FINAL DIAGNOSES: 1. New-onset atrial fibrillation with mild coronary vascular disease. Patient ( ) flecainide and Xarelto with well-controlled heart rate. 2. Upper respiratory tract infection with bronchitis, for which patient will be discharged on doxycycline. 3. Hypertension. 4. Type 2 diabetes mellitus. 5. Hyperlipidemia. 6. Sick euthyroid syndrome, for which patient will need repeat TSH in about a month. 7. Renal failure, which improved. Patient has acute renal failure secondary to prerenal azotemia, resolved at this point of time. Please refer to my depart summary for details of discharge medication. Patient will follow with Dr. Judy Smith in one week, Dr. Rosibel Arredondo in 3 days. Spent greater than 35 minutes in total discharge process.
--- NOTE | 2016-07-28 10:19 | ECHOF ---
Referral Reason:afib MEASUREMENTS -------- HEIGHT: 172.7 cm WEIGHT: 75.3 kg BP: 109/71 RVIDd: 3.0 cm (< 3.3) IVSd: 1.1 cm (0.6 - 1.1) LVIDd: 5.0 cm (3.9 - 5.3) LVPWd: 1.0 cm (0.6 - 1.1) IVSs: 2.0 cm LVIDs: 3.3 cm LVPWs: 1.7 cm LAESV Index (A-L): 20.11 ml/m Ao Diam: 3.6 cm (2.0 - 3.7) AV Cusp: 1.9 cm (1.5 - 2.6) LA Diam: 3.2 cm (2.7 - 3.8) MV EXCURSION: 6.182 mm (> 18.000) MV EF SLOPE: 34 mm/s (70 - 150) EPSS: 0.9 cm MV E Artie: 0.45 m/s MV DecT: 259 ms MV A Artie: 0.45 m/s MV E/A Ratio: 1.01 AR PHT: 1802 ms RAP: 5.00 mmHg RVSP: 25.42 mmHg FINDINGS -------- Sinus rhythm with extra systolic beats. This was a technically good study. Left ventricular wall thickness is normal. Overall left ventricular systolic function is normal with, an EF between 55 - 60 %. The right ventricle is normal in size. Normal LA size by volume 22+/-6 ml/m2. The right atrium is normal in size. The aortic valve is trileaflet and appears structurally normal. There is mild aortic regurgitation. The mitral valve leaflets are mildly thickened. Mild mitral annular calcification present. Mild mitral regurgitation is present. Mild tricuspid regurgitation present. Right ventricular systolic pressure is normal at < 35 mmHg. Pulmonic valve appears structurally normal. The aortic root is mildy dilated. The inferior vena cava is mildly dilated. Echo free space may represent effusion or a pericardial fat pad. CONCLUSIONS -------- 1. Sinus rhythm with extra systolic beats. 2. The mitral valve leaflets are mildly thickened. 3. Mild mitral annular calcification present. 4. Mild mitral regurgitation is present. 5. Mild tricuspid regurgitation present. 6. Right ventricular systolic pressure is normal at < 35 mmHg. 7. Pulmonic valve appears structurally normal. 8. The aortic root is mildy dilated. 9. The inferior vena cava is mildly dilated. 10. Echo free space may represent effusion or a pericardial fat pad. 11. This was a technically good study. 12. Left ventricular wall thickness is normal. 13. Overall left ventricular systolic function is normal with, an EF between 55 - 60 %. 14. The right ventricle is normal in size. 15. Normal LA size by volume 22+/-6 ml/m2. 16. The right atrium is normal in size. 17. The aortic valve is trileaflet and appears structurally normal. 18. There is mild aortic regurgitation. CLIENT RELATIONS REPRESENTATIVE: Antonio Hansen RDCS
== END 2016-07-24 14:53 | disposition home or self-care (01) | DRG 287 ==
LOC: EC 13:01 → 6SEL 15:45
PROVIDERS: ADMIT Internal Medicine; ATTEND Internal Medicine
PROC: B2111ZZ Fluoroscopy of Multiple Coronary Arteries using Low Osmolar Contrast (ICD-10-PCS; 2016-07-22)
PROC: B2151ZZ Fluoroscopy of Left Heart using Low Osmolar Contrast (ICD-10-PCS; 2016-07-22)
PROC: 4A023N7 Measurement of Cardiac Sampling and Pressure, Left Heart, Percutaneous Approach (ICD-10-PCS; principal; 2016-07-22 12:00)
DX: I48.0 Paroxysmal atrial fibrillation (principal); N17.9 Acute kidney failure, unspecified; J44.9 Chronic obstructive pulmonary disease, unspecified; I10 Essential (primary) hypertension; E78.5 Hyperlipidemia, unspecified; E07.81 Sick-euthyroid syndrome; I25.10 Atherosclerotic heart disease of native coronary artery without angina pectoris; R07.89 Other chest pain; R50.9 Fever, unspecified; I49.3 Ventricular premature depolarization; E11.9 Type 2 diabetes mellitus without complications; J06.9 Acute upper respiratory infection, unspecified; K21.9 Gastro-esophageal reflux disease without esophagitis; R74.8 Abnormal levels of other serum enzymes; R53.81 Other malaise; K64.9 Unspecified hemorrhoids; Z80.9 Family history of malignant neoplasm, unspecified; Z86.73 Personal history of transient ischemic attack (TIA), and cerebral infarction without residual deficits; Z79.899 Other long term (current) drug therapy; Z87.442 Personal history of urinary calculi; Z88.8 Allergy status to other drugs, medicaments and biological substances; Z91.048 Other nonmedicinal substance allergy status; Z57.5 Occupational exposure to toxic agents in other industries
CPT/HCPCS: 36415; 71020; 80048; 80053; 80061; 81001; 82550; 82553; 83036; 83605; 83735; 83880; 84439; 84443; 84484; 85025; 85610; 85730; 87040; 93005; 93306; 93458; 96365; 96366; 96376; 99291

== ENCOUNTER → 2016-09-29 | Outpatient (CLI) | payer MEDICARE, OTHER ==
--- NOTE | 2016-09-29 20:38 | CONS ---
DATE OF CONSULTATION: REASON FOR CONSULTATION: This is a 66-year-old male patient with CAD and paroxysmal atrial fibrillation coming in for a sleep evaluation. His has noted the patient stops breathing on multiple occasions in the middle of the night and he snores very loudly. No recent weight gain. He goes to bed around 10:00 p.m., wakes up at 6:00 a.m. in the morning and he wakes up frequently in the middle of the night and his sleep seems to be quite fragmented. During the day, he does not have much of hypersomnia or sleepiness. His [place] score is only at 7. No nocturnal seizures. No restlessness in the lower extremities. No nocturnal angina or shortness of breath. No recent weight gain or weight loss. Very poor dental condition. Multiple missing teeth and there may be some slight overbite. PAST MEDICAL HISTORY: 1. CAD. 2. Previous myocardial infarction. 3. Paroxysmal atrial fibrillation. 4. History of cerebrovascular accident. PAST SURGICAL HISTORY: Hemorrhoidectomy and hernia repair. DRUG ALLERGIES ARE TO LATEX. Outpatient medication list includes: 1. Hydrocodone APAP. 2. Xarelto. 3. Prevacid. 4. Metoprolol. 5. Flecainide. SOCIAL HISTORY: The patient is a nonsmoker. No history of alcohol. No history of IV drugs. FAMILY HISTORY: Negative for sleep breathing disorder. REVIEW OF SYSTEMS: Twelve-point review of systems was done. The patient denies choking or waking up gasping for air in the middle of the night. He has no ( ) and he wakes up frequently for urination at least 3 to 4 times in the middle of the night. Poor dental hygiene. Multiple missing teeth. No sleepwalking or sleeptalking. No palpitations. Occasional heartburn at nighttime. No depression. No anxiety. Twelve-point review of systems was done; otherwise and the positive findings were mentioned above. BP is 136/95, pulse 60, respirations 16, temperature 97.7, saturation 96% on room air. Weight is 171. Height is 5 feet 8 inches. Neck size is 15-1/4 inches, BMI is 26. GENERAL APPEARANCE: Calm, comfortable. HEENT: Multiple missing teeth both in the upper and lower jaw. The patient has some crowding posterior pharynx. Mallampati class III. There is no goiter, neck masses. Slight overbite. LUNGS: Clear to auscultation. HEART: Heart sounds are regular rate and rhythm. Normal S1, S2. No S3, no S4. No murmurs. ABDOMEN: Soft, nontender. No organomegaly. EXTREMITIES: No edema. No cyanosis or clubbing. IMPRESSION: Obstructive sleep apnea suspected, currently under investigation. My suspicion for obstructive sleep apnea is low based on his underlying symptoms and cardiovascular disease. A screening polysomnogram will be conducted. PLAN: 1. Proceed with PSG. 2. We will make further recommendations based on the results.
== END ==
LOC: SLEEP 13:03
PROVIDERS: ATTEND Internal Medicine Critical Care Medicine
DX: R06.83 Snoring (principal); Z79.891 Long term (current) use of opiate analgesic; Z79.01 Long term (current) use of anticoagulants; Z79.899 Other long term (current) drug therapy
CPT/HCPCS: 99204; 99211

== ENCOUNTER 2023-12-23 21:56 | Inpatient (IN) | payer MEDICARE, OTHER ==
--- NOTE | 2023-12-23 22:38 | ED ---
Arrhythmia/Palpitations HPI - General Chief Complaint: Arrhythmia/Palpitations Stated Complaint: Chest Pain Time Seen by Provider: 12/23/23 22:08 Source: patient, EMS Mode of arrival: EMS Limitations: no limitations - History of Present Illness Initial Comments: Patient is a 73-year-old man who states that he has not been feeling well going back 8 or 9 weeks or so. He states that he has been seeing his primary physician and client insights consultant. Today and into the evening he was feeling worse than he had been. He is experiencing lightheadedness when he stands. He is short of breath. He feels irregular heartbeat. Patient denies chest pain. He has a cough but not productive. He is not having change in urination or bowel movements but he does have some ankle swelling bilaterally. He notes that his client insights consultant had him double some of his medications but he does not recall which ones. MD Complaint: "heart racing" -: hour(s) Context: occurred during rest Arrhythmia History: atrial fibrillation Associated Symptoms: shortness of breath, near-syncope - Related Data Home Medications Medication Instructions Recorded Confirmed Lansoprazole [Prevacid] 30 mg PO HS PRN 07/21/16 12/24/23 Diltiazem Cd [Cardizem CD] 240 mg PO HS 12/24/23 12/24/23 Empagliflozin [Jardiance] 10 mg PO HS 12/24/23 12/24/23 Evolocumab [Repatha Sureclick] 140 mg SQ Q14D 12/24/23 12/24/23 Furosemide [Lasix] 40 mg PO DAILY 12/24/23 12/24/23 Losartan Potassium 50 mg PO HS 12/24/23 12/24/23 Metoprolol Succinate (ER) [Toprol 25 mg PO BID 12/24/23 12/24/23 Xl] Rivaroxaban [Xarelto] 20 mg PO HS 12/24/23 12/24/23 Previous Rx's Medication Instructions Recorded Nitroglycerin Sl Tabs [Nitrostat] 0.4 mg SUBLINGUAL Q5M PRN #25 tab 07/24/16 Allergies Allergy/AdvReac Type Severity Reaction Status Date / Time adhesive tape AdvReac Rash/Hives Verified 12/24/23 08:17 Iodinated Contrast Media AdvReac Nausea & Verified 12/24/23 08:17 Vomiting SLEEPING AIDS AdvReac Hallucinati Uncoded 12/24/23 08:17 ons Review of Systems ROS Statement: Those systems with pertinent positive or pertinent negative responses have been documented in the HPI. ROS Other: All systems not noted in ROS Statement are negative. Constitutional: Denies: fever, chills Respiratory: Reports: cough, dyspnea Cardiovascular: Reports: palpitations, dyspnea on exertion, orthopnea, edema. Denies: chest pain, syncope Gastrointestinal: Reports: nausea. Denies: abdominal pain, vomiting, diarrhea Genitourinary: Denies: dysuria, hematuria Musculoskeletal: Denies: back pain Skin: Denies: rash Neurological: Denies: headache, weakness, numbness Past Medical History Past Medical History: Chest Pain / Angina, COPD, CVA/TIA, GERD/Reflux, Hyperlipidemia, Hypertension Additional Past Medical History / Comment(s): kidney stones, seen for abnormal heart rhythm unsure what was wrong. History of Any Multi-Drug Resistant Organisms: None Reported Past Surgical History: Hernia Repair, Orthopedic Surgery Additional Past Surgical History / Comment(s): wrist surgery Past Anesthesia/Blood Transfusion Reactions: Motion Sickness, Postoperative Nausea & Vomiting (PONV) Past Psychological History: No Psychological Hx Reported Smoking Status: Never smoker Past Alcohol Use History: None Reported Past Drug Use History: None Reported - Past Family History Father Family Medical History: Cancer Mother Family Medical History: Cancer Brother(s) Family Medical History: Cancer General Exam Limitations: no limitations General appearance: alert, in no apparent distress Head exam: Present: atraumatic, normocephalic Eye exam: Present: normal appearance. Absent: scleral icterus, conjunctival injection ENT exam: Present: normal oropharynx Neck exam: Present: normal inspection Respiratory exam: Present: normal lung sounds bilaterally. Absent: respiratory distress, wheezes, rales, rhonchi, stridor, accessory muscle use Cardiovascular Exam: Present: tachycardia, irregular rhythm, normal heart sounds. Absent: systolic murmur, diastolic murmur, rubs, gallop GI/Abdominal exam: Present: soft. Absent: distended, tenderness, guarding, rebound, rigid, mass Extremities exam: Present: normal inspection, normal capillary refill. Absent: pedal edema, calf tenderness Back exam: Present: normal inspection. Absent: CVA tenderness (R), CVA tenderness (L) Neurological exam: Present: alert Skin exam: Present: warm, dry, intact, normal color. Absent: rash Course Vital Signs 12/23/23 12/23/23 12/24/23 22:01 23:11 00:30 Temperature 98.3 F Pulse Rate 131 H 135 H 102 H Respiratory 18 18 18 Rate Blood Pressure 119/100 124/99 115/91 O2 Sat by Pulse 99 96 94 L Oximetry 12/24/23 12/24/23 12/24/23 02:00 03:00 04:00 Temperature Pulse Rate 115 H 101 H 122 H Respiratory 16 16 20 Rate Blood Pressure 99/79 100/74 102/65 O2 Sat by Pulse 95 94 L 95 Oximetry 12/24/23 12/24/23 12/24/23 05:13 05:19 05:25 Temperature Pulse Rate 116 H 101 H 117 H Respiratory 20 18 20 Rate Blood Pressure 127/100 O2 Sat by Pulse 95 Oximetry 12/24/23 12/24/23 12/24/23 05:38 06:21 07:00 Temperature Pulse Rate 106 H 96 116 H Respiratory 18 18 16 Rate Blood Pressure 112/85 118/93 115/93 O2 Sat by Pulse 96 97 97 Oximetry 12/24/23 12/24/23 12/24/23 09:00 10:00 12:00 Temperature Pulse Rate 118 H 120 H 100 Respiratory 16 18 16 Rate Blood Pressure 129/95 110/89 91/65 O2 Sat by Pulse 97 99 96 Oximetry 12/24/23 12/24/23 12/24/23 14:00 18:00 19:58 Temperature Pulse Rate 99 125 H 98 Respiratory 16 16 Rate Blood Pressure 112/84 111/91 O2 Sat by Pulse 96 96 Oximetry 12/24/23 12/24/23 12/24/23 20:04 20:28 21:38 Temperature Pulse Rate 112 H 112 H 111 H Respiratory 20 18 Rate Blood Pressure 124/85 104/76 O2 Sat by Pulse 96 94 L Oximetry EKG Findings - EKG Results: EKG: interpreted by ERMD, normal axis EKG shows: tachycardia (133 bpm), atrial fibrillation - Blocks, Thompson, Hypertrophy, ST Abn: Repolarization changes or abnormalities: nonspecific abnormality, ST segment, and/or T wave Medical Decision Making - Medical Decision Making The patient had chest x-ray that I interpreted as showing probable small pleural effusion. No acute infiltrate or pneumothorax. Was pt. sent in by a medical professional or institution (ELDA Noble, FLOORING INSTALLER, urgent care, hospital, or custodial...) When possible be specific @ -[No] Did you speak to anyone other than the patient for history (EMS, parent, family, police, friend...)? What history was obtained from this source @ -[No] Did you review nursing and triage notes (agree or disagree)? Why? @ -[I reviewed and agree with nursing and triage notes] Were old charts reviewed (outside hosp., previous admission, EMS record, old EKG, old radiological studies, urgent care reports/EKG's, custodial records)? Report findings @ -[No old charts were reviewed] Differential Diagnosis (chest pain, altered mental status, abdominal pain women, abdominal pain men, vaginal bleeding, weakness, fever, dyspnea, syncope, headache, dizziness, GI bleed, back pain, seizure, CVA, palpatations, mental health, musculoskeletal)? @ -[not applicable] EKG interpreted by me (3pts min.). @ -[I interpreted as above X-rays interpreted by me (1pt min.). @ -[I interpreted as above CT interpreted by me (1pt min.). @ -[None done] U/S interpreted by me (1pt. min.). @ -[None done] What testing was considered but not performed or refused? (CT, X-rays, U/S, labs)? Why? @ -[None] What meds were considered but not given or refused? Why? @ -[None] Did you discuss the management of the patient with other professionals (pro fessionals i.e. ELDA Noble, FLOORING INSTALLER, lab, RT, psych nurse, rn social work, care analyst, teacher, product safety officer, case packer and sealer)? Give summary @ -Case discussed with admitting physician and treatment recommendations are incorporated Was smoking cessation discussed for >3mins.? @ -[No] Was critical care preformed (if so, how long)? @ -[No] Were there social determinants of health that impacted care today? How? (Homelessness, low income, unemployed, alcoholism, drug addiction, transportation, low edu. Level, literacy, decrease access to med. care, shelter, rehab)? @ -[No] Was there de-escalation of care discussed even if they declined (Discuss DNR or withdrawal of care, Hospice)? DNR status @ -[No] What co-morbidities impacted this encounter? (DM, HTN, Smoking, COPD, CAD, Cancer, CVA, ARF, Chemo, Hep., AIDS, mental health diagnosis, sleep apnea, morbid obesity)? @ -[None] Was patient admitted / discharged? Hospital course, mention meds given and route, prescriptions, significant lab abnormalities, going to OR and other pertinent info. @ -[Patient is 73-year-old man here to have evaluation for constellation of symptoms including dyspnea, lightheadedness, palpitations. Patient is in atrial fibrillation with rapid ventricular rate. Patient started on medications, will have cardiology consultation. Undiagnosed new problem with uncertain prognosis? @ -[No] Drug Therapy requiring intensive monitoring for toxicity (Heparin, Nitro, Insulin, Cardizem)? @ -[Cardizem Were any procedures done? @ -[No] Diagnosis/symptom? @ -[Acute atrial fibrillation with rapid ventricular rate Acute, or Chronic, or Acute on Chronic? @ -[Acute on chronic Uncomplicated (without systemic symptoms) or Complicated (systemic symptoms)? @ -[Complicated by dyspnea Side effects of treatment? @ -[No] Exacerbation, Progression, or Severe Exacerbation? @ -[No] Poses a threat to life or bodily function? How? (Chest pain, [place], NH, pneumonia, PE, COPD, DKA, ARF, appy, cholecystitis, CVA, Diverticulitis, Homicidal, Suicidal, threat to staff... and all critical care pts) @ -[Yes - Lab Data Result diagrams: 12/25/23 11:14 12/27/23 08:13 Lab Results 12/23/23 12/23/23 12/23/23 Range/Units 22:30 22:30 22:30 WBC 7.6 (3.8-10.6) k/uL RBC 4.34 (4.30-5.90) m/uL Hgb 13.9 (13.0-17.5) gm/dL Hct 42.5 (39.0-53.0) % MCV 97.9 (80.0-100.0) fL MCH 31.9 (25.0-35.0) pg MCHC 32.6 (31.0-37.0) g/dL RDW 14.0 (11.5-15.5) % Plt Count 267 (150-450) k/uL MPV 7.3 Neutrophils % 67 % Lymphocytes % 22 % Monocytes % 5 % Eosinophils % 4 % Basophils % 1 % Neutrophils # 5.0 (1.3-7.7) k/uL Lymphocytes # 1.7 (1.0-4.8) k/uL Monocytes # 0.4 (0-1.0) k/uL Eosinophils # 0.3 (0-0.7) k/uL Basophils # 0.1 (0-0.2) k/uL Hypochromasia Slight PT 14.1 H (10.0-12.5) sec INR 1.3 H (<1.2) APTT 26.5 (22.0-30.0) sec Sodium 139 (137-145) mmol/L Potassium 4.6 (3.5-5.1) mmol/L Chloride 110 H (98-107) mmol/L Carbon Dioxide 20 L (22-30) mmol/L Anion Gap 9 mmol/L BUN 24 H (9-20) mg/dL Creatinine 0.96 (0.66-1.25) mg/dL Est GFR (CKD-EPI)AfAm >90 (>60 ml/min/1.73 sqM) Est GFR (CKD-EPI)NonAf 79 (>60 ml/min/1.73 sqM) Glucose 108 H (74-99) mg/dL Calcium 8.8 (8.4-10.2) mg/dL Magnesium 2.0 (1.6-2.3) mg/dL Total Bilirubin 1.7 H (0.2-1.3) mg/dL AST 29 (17-59) U/L ALT 26 (4-49) U/L Alkaline Phosphatase 157 H (38-126) U/L Troponin I (0.000-0.034) ng/mL Total Protein 6.6 (6.3-8.2) g/dL Albumin 3.6 (3.5-5.0) g/dL 12/23/23 Range/Units 22:30 WBC (3.8-10.6) k/uL RBC (4.30-5.90) m/uL Hgb (13.0-17.5) gm/dL Hct (39.0-53.0) % MCV (80.0-100.0) fL MCH (25.0-35.0) pg MCHC (31.0-37.0) g/dL RDW (11.5-15.5) % Plt Count (150-450) k/uL MPV Neutrophils % % Lymphocytes % % Monocytes % % Eosinophils % % Basophils % % Neutrophils # (1.3-7.7) k/uL Lymphocytes # (1.0-4.8) k/uL Monocytes # (0-1.0) k/uL Eosinophils # (0-0.7) k/uL Basophils # (0-0.2) k/uL Hypochromasia PT (10.0-12.5) sec INR (<1.2) APTT (22.0-30.0) sec Sodium (137-145) mmol/L Potassium (3.5-5.1) mmol/L Chloride (98-107) mmol/L Carbon Dioxide (22-30) mmol/L Anion Gap mmol/L BUN (9-20) mg/dL Creatinine (0.66-1.25) mg/dL Est GFR (CKD-EPI)AfAm (>60 ml/min/1.73 sqM) Est GFR (CKD-EPI)NonAf (>60 ml/min/1.73 sqM) Glucose (74-99) mg/dL Calcium (8.4-10.2) mg/dL Magnesium (1.6-2.3) mg/dL Total Bilirubin (0.2-1.3) mg/dL AST (17-59) U/L ALT (4-49) U/L Alkaline Phosphatase (38-126) U/L Troponin I 0.023 (0.000-0.034) ng/mL Total Protein (6.3-8.2) g/dL Albumin (3.5-5.0) g/dL Disposition Clinical Impression: Atrial fibrillation with rapid ventricular response Disposition: ADMITTED IP TO THIS HOSP Condition: Fair Is patient prescribed a controlled substance at d/c from ED?: No
[2023-12-23 22:44] LABS: Basophils # (A) 0.1 k/uL (0-0.2); Basophils % (A) 1 %; Eosinophils # (A) 0.3 k/uL (0-0.7); Eosinophils % (A) 4 %; HCT 42.5 % (39.0-53.0); HGB 13.9 gm/dL (13.0-17.5); Hypochromasia Slight; Lymphocytes # (A) 1.7 k/uL (1.0-4.8); Lymphocytes % (A) 22 %; MCH 31.9 pg (25.0-35.0); MCHC 32.6 g/dL (31.0-37.0); MCV 97.9 fL (80.0-100.0); Mean Platelet Volume 7.3; Monocytes # (A) 0.4 k/uL (0-1.0); Monocytes % (A) 5 %; Neutrophils % (A) 67 %; Platelet Count 267 k/uL (150-450); RBC 4.34 m/uL (4.30-5.90); WBC 7.6 k/uL (3.8-10.6)
[2023-12-23 22:58] LABS: ALT 26 U/L (4-49); AST 29 U/L (17-59); African American GFR (CKD) >90 (>60 ml/min/1.73 sqM); Albumin 3.6 g/dL (3.5-5.0); Alkaline Phosphatase 157 U/L (38-126); Anion Gap 9 mmol/L; Blood Urea Nitrogen 24 mg/dL (9-20); Calcium 8.8 mg/dL (8.4-10.2); Carbon Dioxide 20 mmol/L (22-30); Chloride 110 mmol/L (98-107); Glucose 108 mg/dL (74-99); Non-African American GFR(CKD) 79 (>60 ml/min/1.73 sqM); Potassium 4.6 mmol/L (3.5-5.1); Sodium 139 mmol/L (137-145); Total Bilirubin 1.7 mg/dL (0.2-1.3); Total Protein 6.6 g/dL (6.3-8.2)
[2023-12-23] MEDS: DILTIAZEM 125 MG in SODIUM CHLORIDE 0.9% 100 ML IV SCH (23:07)
[2023-12-23] MEDS: DILTIAZEM DRIP BOLUS FROM BAG 1 MG SOLN IV ONE (23:07)
[2023-12-23] MEDS: ASPIRIN 81 MG PO STA (23:16)
[2023-12-23 23:35] LABS: INR 1.3 (<1.2); Partial Thromboplastin Time 26.5 sec (22.0-30.0); Prothrombin Time 14.1 sec (10.0-12.5)
[2023-12-24] MEDS: DILTIAZEM DRIP BOLUS FROM BAG 1 MG SOLN IV ONE (00:14)
--- NOTE | 2023-12-24 00:49 | XR ---
EXAM: XR Chest, 1 View CLINICAL HISTORY: XR Reason: dysrhythmia TECHNIQUE: Frontal view of the chest. COMPARISON: March 30, 2017 FINDINGS: Lungs: Hazy increased density in the lower right hemithorax with blunted costophrenic angle consistent with small right pleural effusion and mild right basilar pneumonia, atelectasis, or edema. Pleural space: See above. Heart: The cardiac silhouette is moderately enlarged, increased since previous. Mediastinum: Unremarkable. Normal mediastinal contour. Bones/joints: Mild osteophytosis in the lower thoracic spine. No acute fracture. Vasculature: The aortic arch is mildly tortuous, similar to previous. IMPRESSION: 1. Hazy increased density in the lower right hemithorax with blunted costophrenic angle consistent with small right pleural effusion and mild right basilar pneumonia, atelectasis, or edema. 2. The cardiac silhouette is moderately enlarged, increased since previous.
[2023-12-24] MEDS: AZITHROMYCIN 500 MG TAB PO STA (04:59)
[2023-12-24] MEDS: ALBUTEROL NEBULIZED 2.5 MG/3 ML INHALATION STA (05:13)
[2023-12-24] MEDS: NITROGLYCERIN SL TABS 0.4 MG TAB SUBLINGUAL PRN ×2 (05:27→20:44)
[2023-12-24] MEDS ORDERED: ATORVASTATIN 40 MG TAB PO SCH (09:00)
[2023-12-24] MEDS ORDERED: METOPROLOL TARTRATE 25 MG TAB PO SCH (09:00)
[2023-12-24] MEDS ORDERED: FLECAINIDE 50 MG TAB PO SCH (09:00)
[2023-12-24] MEDS: RIVAROXABAN 20 MG TAB PO SCH (09:38)
[2023-12-24] MEDS: PANTOPRAZOLE 40 MG TABLET PO SCH (09:38)
--- NOTE | 2023-12-24 16:49 | P.HPIM ---
History of Present Illness H&P Date: 12/24/23 Chief Complaint: Palpitations 73-year-old male patient with history of hypertension, hyperlipidemia, COPD, GERD, CVA/TIA, who states that he has not been feeling well going back 8 or 9 weeks or so. He states that he has been seeing his primary physician and newsstand vendor. Today and into the evening he was feeling worse than he had been. He is experiencing lightheadedness when he stands. He is short of breath. He feels irregular heartbeat. Patient denies chest pain. He has a cough but not productive. He is not having change in urination or bowel movements but he does have some ankle swelling bilaterally. He notes that his newsstand vendor had him double some of his medications but he does not recall which ones. Blood work completed in ED reveals a WBC of 7.6, hemoglobin of 13.9 and platelet count of 267, sodium 139, potassium 4.6, BUNs/creatinine of 24/0.96 and blood glucose of 108, total bilirubin of 1.7 EKG reveals atrial fibrillation with RVR Review of Systems REVIEW OF SYSTEMS: CONSTITUTIONAL: No fever, no malaise, no fatigue. HEENT: No recent visual problems or hearing problems. Denied any sore throat. CARDIOVASCULAR: No chest pain, orthopnea, PND, no palpitations, no syncope. PULMONARY: No shortness of breath, no cough, no hemoptysis. GASTROINTESTINAL: No diarrhea, no nausea, no vomiting, no abdominal pain. NEUROLOGICAL: No headaches, no weakness, no numbness. HEMATOLOGICAL: Denies any bleeding or petechiae. GENITOURINARY: Denies any burning micturition, frequency, or urgency. MUSCULOSKELETAL/RHEUMATOLOGICAL: Denies any joint pain, swelling, or any muscle pain. ENDOCRINE: Denies any polyuria or polydipsia. The rest of the 14-point review of systems is negative. Past Medical History Past Medical History: Chest Pain / Angina, COPD, CVA/TIA, GERD/Reflux, Hyperlipidemia, Hypertension Additional Past Medical History / Comment(s): kidney stones, seen for abnormal heart rhythm unsure what was wrong. History of Any Multi-Drug Resistant Organisms: None Reported Past Surgical History: Hernia Repair, Orthopedic Surgery Additional Past Surgical History / Comment(s): wrist surgery Past Anesthesia/Blood Transfusion Reactions: Motion Sickness, Postoperative Nausea & Vomiting (PONV) Past Psychological History: No Psychological Hx Reported Smoking Status: Never smoker Past Alcohol Use History: None Reported Past Drug Use History: None Reported - Past Family History Father Family Medical History: Cancer Mother Family Medical History: Cancer Brother(s) Family Medical History: Cancer Medications and Allergies Home Medications Medication Instructions Recorded Confirmed Type Lansoprazole [Prevacid] 30 mg PO HS PRN 07/21/16 12/24/23 History Nitroglycerin Sl Tabs [Nitrostat] 0.4 mg SUBLINGUAL Q5M PRN #25 tab 07/24/16 12/24/23 Rx Diltiazem Cd [Cardizem CD] 240 mg PO HS 12/24/23 12/24/23 History Empagliflozin [Jardiance] 10 mg PO HS 12/24/23 12/24/23 History Evolocumab [Repatha Sureclick] 140 mg SQ Q14D 12/24/23 12/24/23 History Furosemide [Lasix] 40 mg PO DAILY 12/24/23 12/24/23 History Losartan Potassium 50 mg PO HS 12/24/23 12/24/23 History Metoprolol Succinate (ER) [Toprol 25 mg PO BID 12/24/23 12/24/23 History Xl] Rivaroxaban [Xarelto] 20 mg PO HS 12/24/23 12/24/23 History Allergies Allergy/AdvReac Type Severity Reaction Status Date / Time adhesive tape AdvReac Rash/Hives Verified 12/24/23 08:17 Iodinated Contrast Media AdvReac Nausea & Verified 12/24/23 08:17 Vomiting SLEEPING AIDS AdvReac Hallucinati Uncoded 12/24/23 08:17 ons Physical Exam Vitals: Vital Signs Temp Pulse Resp BP Pulse Ox 12/24/23 09:00 118 H 16 129/95 97 12/24/23 07:00 116 H 16 115/93 97 12/24/23 06:21 96 18 118/93 97 12/24/23 05:38 106 H 18 112/85 96 12/24/23 05:25 117 H 20 127/100 95 12/24/23 05:19 101 H 18 12/24/23 05:13 116 H 20 12/24/23 04:00 122 H 20 102/65 95 12/24/23 03:00 101 H 16 100/74 94 L 12/24/23 02:00 115 H 16 99/79 95 12/24/23 00:30 102 H 18 115/91 94 L 12/23/23 23:11 135 H 18 124/99 96 12/23/23 22:01 98.3 F 131 H 18 119/100 99 Intake and Output 12/23/23 12/24/23 12/24/23 22:59 06:59 14:59 Other: Weight 83.915 kg General appearance: alert, in no apparent distress Head exam: Present: atraumatic, normocephalic Eye exam: Present: normal appearance. Absent: scleral icterus, conjunctival injection ENT exam: Present: normal oropharynx Neck exam: Present: normal inspection Respiratory exam: Present: normal lung sounds bilaterally. Absent: respiratory distress, wheezes, rales, rhonchi, stridor, accessory muscle use Cardiovascular Exam: Present: tachycardia, irregular rhythm, normal heart sounds. Absent: systolic murmur, diastolic murmur, rubs, gallop GI/Abdominal exam: Present: soft. Absent: distended, tenderness, guarding, rebound, rigid, mass Extremities exam: Present: normal inspection, normal capillary refill. Absent: pedal edema, calf tenderness Back exam: Present: normal inspection. Absent: CVA tenderness (R), CVA tenderness (L) Neurological exam: Present: alert Skin exam: Present: warm, dry, intact, normal color. Absent: rash Results CBC & Chem 7: 12/23/23 22:30 12/23/23 22:30 Labs: Abnormal Lab Results - Last 24 Hours (Table) 12/23/23 12/23/23 Range/Units 22:30 22:30 PT 14.1 H (10.0-12.5) sec INR 1.3 H (<1.2) Chloride 110 H (98-107) mmol/L Carbon Dioxide 20 L (22-30) mmol/L BUN 24 H (9-20) mg/dL Glucose 108 H (74-99) mg/dL Total Bilirubin 1.7 H (0.2-1.3) mg/dL Alkaline Phosphatase 157 H (38-126) U/L Assessment and Plan Assessment: 1. Atrial fibrillation with RVR -Patient remains on IV Cardizem infusion at rate of 5 mg/h; we will titrate to keep heart rate below 110 -Continue with Xarelto 20 mg daily -We will admit to telemetry and monitor EKG and trend troponin -Recommend 2D echo Cardiology is consulted 2. Hyperbilirubinemia; patient denies any specific complaints; rest of liver enzymes are within normal limits -We will repeat liver enzymes in next 24 hours with plans to obtain right upper quadrant ultrasound if bilirubin remains elevated 3. Hypertension; patient takes Cardizem to 40 mg at home along with Lasix 40 mg daily, losartan 50 mg nightly and metoprolol 25 mg twice daily 4. History of CHF; stable on Lasix 40 mg daily, losartan 50 mg nightly and Jardiance 10 mg daily 5. Gastroesophageal reflux disease; continue with PPI 6. Hyperlipidemia; patient takes Repatha 140 mg subcu q. 14 days DVT prophylaxis; SCDs/Xarelto CODE STATUS; full code
[2023-12-24] MEDS: DILTIAZEM ORAL 60 MG TAB PO SCH (18:46)
[2023-12-24] MEDS: MAGNESIUM SULFATE-D5W PMX 1 GM in DEXTROSE/WATER 1 100ML.BAG IVPB SCH (18:46)
[2023-12-24] MEDS: methylPREDNISolone SOD SUCCI 40 MG/ML 1 ML VIAL IV SCH (18:50)
[2023-12-24] MEDS: SPIRONOLACTONE 25 MG TAB PO SCH (18:58)
[2023-12-24] MEDS: BUDESONIDE 0.25 MG/2 ML NEBU INHALATION SCH (19:13)
[2023-12-24] MEDS: IPRATROPIUM-ALBUTEROL 3 ML NEB INHALATION SCH (19:56)
[2023-12-24] MEDS: METOPROLOL SUCCINATE (ER) 25 MG TAB.ER.24H PO SCH (20:45)
[2023-12-24] MEDS: LOSARTAN 50 MG TAB PO SCH (20:45)
[2023-12-24] MEDS ORDERED: DAPAGLIFLOZIN PROPANEDIOL 5 MG TABLET PO SCH (21:00)
--- NOTE | 2023-12-24 22:17 | P.CRDCN ---
History of Present Illness Consult date: 12/24/23 History of present illness: HISTORY OF PRESENTING ILLNESS 73-year-old with PMH of HTN, dyslipidemia, COPD, CVA, GERD, prior history of atrial fibrillation on Xarelto. He presents to the hospital because of worsening shortness of breath, palpitation symptoms. Patient to use diuretics inhaler at home and since then he was having significantly high heart rates. On admission his ECG showed atrial fibrillation with RVR. Hb 13, BUN 24, creatinine 0.6, tropes were negative, BNP 2800, REVIEW OF SYSTEMS 14 point review of system is negative except what is mentioned above in HPI. PHYSICAL EXAMINATION Vital signs reviewed. Head: Normocephalic. Eyes: Sclerae nonicteric. Neck: Brisk carotid upstroke, elevated JVD Lungs: Diminished breath sounds, crackles and wheezing audible in bilateral lung bates mild rhonchi audible Heart: Irregularly irregular pulse S1-S2, no S3, no murmur or rub. Abdomen: Soft nontender, positive bowel sounds. Extremities: 1+ edema, intact distal pulses. Neuro: Alert, oritented, no focal deficits. Detailed neuro exam was not performe d. ASSESSMENT Acute hypoxic respiratory failure due to CHF and COPD exacerbation A-fib RVR Acute CHF exacerbation, EF unknown Acute COPD exacerbation PLAN Metoprolol 25 mg twice daily, Xarelto 20, Aldactone 12.5, losartan 50, Lasix 40, Farxiga 10 Obtain echocardiogram Obtain procalcitonin level Obtain TSH level Start inhaler therapy with DuoNeb and inhaled corticosteroids Give 3 doses of stress dose steroids. Further to be assessed by primary rounding team Jai Moeller MD, FACC, RPVI Thank you for allowing [facility] to participate in this patient's care. Feel free to reach out in case of any followup questions. Past Medical History Past Medical History: Chest Pain / Angina, COPD, CVA/TIA, GERD/Reflux, Hyperlipidemia, Hypertension Additional Past Medical History / Comment(s): kidney stones, seen for abnormal heart rhythm unsure what was wrong. History of Any Multi-Drug Resistant Organisms: None Reported Past Surgical History: Hernia Repair, Orthopedic Surgery Additional Past Surgical History / Comment(s): wrist surgery Past Anesthesia/Blood Transfusion Reactions: Motion Sickness, Postoperative Nausea & Vomiting (PONV) Past Psychological History: No Psychological Hx Reported Smoking Status: Never smoker Past Alcohol Use History: None Reported Past Drug Use History: None Reported - Past Family History Father Family Medical History: Cancer Mother Family Medical History: Cancer Brother(s) Family Medical History: Cancer Medications and Allergies Home Medications Medication Instructions Recorded Confirmed Type Lansoprazole [Prevacid] 30 mg PO HS PRN 07/21/16 12/24/23 History Nitroglycerin Sl Tabs [Nitrostat] 0.4 mg SUBLINGUAL Q5M PRN #25 tab 07/24/16 12/24/23 Rx Diltiazem Cd [Cardizem CD] 240 mg PO HS 12/24/23 12/24/23 History Empagliflozin [Jardiance] 10 mg PO HS 12/24/23 12/24/23 History Evolocumab [Repatha Sureclick] 140 mg SQ Q14D 12/24/23 12/24/23 History Furosemide [Lasix] 40 mg PO DAILY 12/24/23 12/24/23 History Losartan Potassium 50 mg PO HS 12/24/23 12/24/23 History Metoprolol Succinate (ER) [Toprol 25 mg PO BID 12/24/23 12/24/23 History Xl] Rivaroxaban [Xarelto] 20 mg PO HS 12/24/23 12/24/23 History Allergies Allergy/AdvReac Type Severity Reaction Status Date / Time adhesive tape AdvReac Rash/Hives Verified 12/24/23 08:17 Iodinated Contrast Media AdvReac Nausea & Verified 12/24/23 08:17 Vomiting SLEEPING AIDS AdvReac Hallucinati Uncoded 12/24/23 08:17 ons Physical Exam Vitals: Vital Signs Pulse Resp BP Pulse Ox 12/24/23 21:38 111 H 18 104/76 94 L 12/24/23 20:28 112 H 20 124/85 96 12/24/23 20:04 112 H 12/24/23 19:58 98 12/24/23 18:00 125 H 16 111/91 96 12/24/23 14:00 99 16 112/84 96 12/24/23 12:00 100 16 91/65 96 12/24/23 10:00 120 H 18 110/89 99 12/24/23 09:00 118 H 16 129/95 97 12/24/23 07:00 116 H 16 115/93 97 12/24/23 06:21 96 18 118/93 97 12/24/23 05:38 106 H 18 112/85 96 12/24/23 05:25 117 H 20 127/100 95 12/24/23 05:19 101 H 18 12/24/23 05:13 116 H 20 12/24/23 04:00 122 H 20 102/65 95 12/24/23 03:00 101 H 16 100/74 94 L 12/24/23 02:00 115 H 16 99/79 95 12/24/23 00:30 102 H 18 115/91 94 L 12/23/23 23:11 135 H 18 124/99 96 Intake and Output 12/24/23 12/24/23 12/24/23 06:59 14:59 22:59 Intake Total 85.75 Balance 85.75 Intake: Intake, IV Titration 85.75 Amount Diltiazem 125 mg In 85.75 Sodium Chloride 0.9% 100 ml @ 5 MG/HR 5 mls/hr IV .Q24H [facility] Rx#:[id number] Results 12/23/23 22:30 12/23/23 22:30 Cardiac Enzymes 12/23/23 12/23/23 12/24/23 Range/Units 22:30 22:30 07:21 AST 29 (17-59) U/L Troponin I 0.023 0.027 (0.000-0.034) ng/mL Coagulation 12/23/23 Range/Units 22:30 PT 14.1 H (10.0-12.5) sec APTT 26.5 (22.0-30.0) sec CBC 12/23/23 Range/Units 22:30 WBC 7.6 (3.8-10.6) k/uL RBC 4.34 (4.30-5.90) m/uL Hgb 13.9 (13.0-17.5) gm/dL Hct 42.5 (39.0-53.0) % Plt Count 267 (150-450) k/uL Comprehensive Metabolic Panel 12/23/23 Range/Units 22:30 Sodium 139 (137-145) mmol/L Potassium 4.6 (3.5-5.1) mmol/L Chloride 110 H (98-107) mmol/L Carbon Dioxide 20 L (22-30) mmol/L BUN 24 H (9-20) mg/dL Creatinine 0.96 (0.66-1.25) mg/dL Glucose 108 H (74-99) mg/dL Calcium 8.8 (8.4-10.2) mg/dL AST 29 (17-59) U/L ALT 26 (4-49) U/L Alkaline Phosphatase 157 H (38-126) U/L Total Protein 6.6 (6.3-8.2) g/dL Albumin 3.6 (3.5-5.0) g/dL Current Medications Generic Name Dose Route Start Last Admin Trade Name Freq PRN Reason Stop Dose Admin Albuterol/Ipratropium 3 ml 12/24/23 20:00 12/24/23 19:56 Ipratropium-Albuterol 3 Ml Neb INHALATION 3 ml RT-QID SOHAIL Administration Dapagliflozin 10 mg 12/25/23 08:00 Dapagliflozin Propanediol 10 Mg Tablet PO HS SOHAIL Diltiazem HCl 60 mg 12/24/23 18:15 12/24/23 18:57 Diltiazem Oral 60 Mg Tab PO 60 mg QID SOHAIL Administration Furosemide 40 mg 12/25/23 09:00 Furosemide 40 Mg Tab PO DAILY SOHAIL Diltiazem HCl 125 mg/ Sodium 125 mls @ 5 mls/hr 12/23/23 23:00 12/24/23 16:16 Chloride IV 5 mg/hr .Q24H SOHAIL 5 mls/hr Administration 5 MG/HR Losartan Potassium 50 mg 12/24/23 21:00 12/24/23 20:45 Losartan 50 Mg Tab PO 50 mg HS SOHAIL Administration Methylprednisolone Sodium Succinate 40 mg 12/24/23 18:30 12/24/23 18:50 Methylprednisolone Sod Succi 40 Mg/Ml 1 Ml Vial IV 12/25/23 21:01 40 mg Q12HR SOHAIL Administration Metoprolol Succinate 25 mg 12/24/23 21:00 12/24/23 20:45 Metoprolol Succinate (Er) 25 Mg Tab.Er.24h PO 25 mg BID SOHAIL Administration Nitroglycerin 0.4 mg 12/24/23 02:28 12/24/23 20:44 Nitroglycerin Sl Tabs 0.4 Mg Tab SUBLINGUAL 0.4 mg Q5M PRN Administration Chest Pain Pantoprazole Sodium 40 mg 12/24/23 09:00 12/24/23 09:38 Pantoprazole 40 Mg Tablet PO 40 mg DAILY SOHAIL Administration Rivaroxaban 20 mg 12/25/23 14:00 Rivaroxaban 20 Mg Tab PO HS [facility] Protocol Spironolactone 12.5 mg 12/24/23 18:30 12/24/23 18:58 Spironolactone 25 Mg Tab PO 12.5 mg DAILY [facility] Administration Intake and Output 12/24/23 12/24/23 12/24/23 06:59 14:59 22:59 Intake Total 85.75 Balance 85.75 Intake: Intake, IV Titration 85.75 Amount Diltiazem 125 mg In 85.75 Sodium Chloride 0.9% 100 ml @ 5 MG/HR 5 mls/hr IV .Q24H [facility] Rx#:[id number] 12/23/23 22:30 12/23/23 22:30
--- NOTE | 2023-12-24 22:17 | P.PN ---
Subjective Progress Note Date: 12/24/23 HISTORY OF PRESENTING ILLNESS 73-year-old with PMH of HTN, dyslipidemia, COPD, CVA, GERD, prior history of atrial fibrillation on Xarelto. He presents to the hospital because of worsening shortness of breath, palpitation symptoms. Patient to use diuretics inhaler at home and since then he was having significantly high heart rates. On admission his ECG showed atrial fibrillation with RVR. Hb 13, BUN 24, creatinine 0.6, tropes were negative, BNP 2800, REVIEW OF SYSTEMS 14 point review of system is negative except what is mentioned above in HPI. PHYSICAL EXAMINATION Vital signs reviewed. Head: Normocephalic. Eyes: Sclerae nonicteric. Neck: Brisk carotid upstroke, elevated JVD Lungs: Diminished breath sounds, crackles and wheezing audible in bilateral lung bates mild rhonchi audible Heart: Irregularly irregular pulse S1-S2, no S3, no murmur or rub. Abdomen: Soft nontender, positive bowel sounds. Extremities: 1+ edema, intact distal pulses. Neuro: Alert, oritented, no focal deficits. Detailed neuro exam was not performed. ASSESSMENT Acute hypoxic respiratory failure due to CHF and COPD exacerbation A-fib RVR Acute CHF exacerbation, EF unknown Acute COPD exacerbation PLAN Metoprolol 25 mg twice daily, Xarelto 20, Aldactone 12.5, losartan 50, Lasix 40, Farxiga 10 Obtain echocardiogram Obtain procalcitonin level Obtain TSH level Start inhaler therapy with DuoNeb and inhaled corticosteroids Give 3 doses of stress dose steroids. Further to be assessed by primary rounding team Jai Moeller MD, FACC, RPVI Thank you for allowing [facility] to participate in this patient's care. Feel free to reach out in case of any followup questions. Objective - Vital Signs Vital signs: Vital Signs Temp 98.3 F 12/23/23 22:01 Pulse 111 H 12/24/23 21:38 Resp 18 12/24/23 21:38 BP 104/76 12/24/23 21:38 Pulse Ox 94 L 12/24/23 21:38 FiO2 Intake & Output 12/24/23 12/24/23 12/25/23 06:59 18:59 06:59 Intake Total 85.75 Balance 85.75 Weight 83.915 kg Intake: Intake, IV Titration 85.75 Amount Diltiazem 125 mg In 85.75 Sodium Chloride 0.9% 100 ml @ 5 MG/HR 5 mls/hr IV .Q24H [facility] Rx#:[id number] - Labs CBC & Chem 7: 12/23/23 22:30 12/23/23 22:30 Labs: Abnormal Lab Results - Last 24 Hours (Table) 12/23/23 12/23/23 Range/Units 22:30 22:30 PT 14.1 H (10.0-12.5) sec INR 1.3 H (<1.2) Chloride 110 H (98-107) mmol/L Carbon Dioxide 20 L (22-30) mmol/L BUN 24 H (9-20) mg/dL Glucose 108 H (74-99) mg/dL Total Bilirubin 1.7 H (0.2-1.3) mg/dL Alkaline Phosphatase 157 H (38-126) U/L
[2023-12-25] MEDS: FUROSEMIDE 40 MG TAB PO SCH (08:42)
[2023-12-25] MEDS: DAPAGLIFLOZIN PROPANEDIOL 10 MG TABLET PO SCH (08:45)
[2023-12-25 11:59] LABS: Basophils % (A) 0 %; Eosinophils % (A) 0 %; HCT 45.7 % (39.0-53.0); HGB 14.6 gm/dL (13.0-17.5); Hypochromasia Moderate; Lymphocytes # (A) 0.5 k/uL (1.0-4.8); Lymphocytes % (A) 5 %; MCH 31.6 pg (25.0-35.0); MCHC 31.8 g/dL (31.0-37.0); MCV 99.3 fL (80.0-100.0); Mean Platelet Volume 7.4; Monocytes # (A) 0.2 k/uL (0-1.0); Monocytes % (A) 2 %; Neutrophils # (A) 9.5 k/uL (1.3-7.7); Neutrophils % (A) 92 %; Platelet Count 342 k/uL (150-450); RDW 14.1 % (11.5-15.5); WBC 10.3 k/uL (3.8-10.6)
[2023-12-25 12:09] LABS: African American GFR (CKD) 84 (>60 ml/min/1.73 sqM); Anion Gap 9 mmol/L; Blood Urea Nitrogen 25 mg/dL (9-20); Calcium 8.9 mg/dL (8.4-10.2); Carbon Dioxide 22 mmol/L (22-30); Chloride 108 mmol/L (98-107); Glucose 153 mg/dL (74-99); Non-African American GFR(CKD) 73 (>60 ml/min/1.73 sqM); Potassium 4.4 mmol/L (3.5-5.1); Sodium 139 mmol/L (137-145)
[2023-12-25] MEDS: RIVAROXABAN 20 MG TAB PO SCH (12:38)
[2023-12-25] MEDS: AZITHROMYCIN 500 MG TAB PO SCH (12:38)
--- NOTE | 2023-12-25 16:13 | P.PN ---
Subjective Progress Note Date: 12/25/23 73-year-old male patient with history of hypertension, hyperlipidemia, COPD, GERD, CVA/TIA, who states that he has not been feeling well going back 8 or 9 weeks or so. 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 Today and into the evening he was feeling worse than he had been. He is experiencing lightheadedness when he stands. He is short of breath. He feels irregular heartbeat. Patient denies chest pain. He has a cough but not productive. He is not having change in urination or bowel movements but he does have some ankle swelling bilaterally. He notes that his baked and graphite inspector had him double some of his medications but he does not recall which ones. Blood work completed in ED reveals a WBC of 7.6, hemoglobin of 13.9 and platelet count of 267, sodium 139, potassium 4.6, BUNs/creatinine of 24/0.96 and blood glucose of 108, total bilirubin of 1.7 EKG reveals atrial fibrillation with RVR -- Patient remains rate controlled on metoprolol 25 mg twice daily; remains on Xarelto 20 mg daily -Acute exacerbation CHF; cardiology recommending to continue on with diuresis with Lasix 40 mg every 12 hours, Aldactone 12.5 mg daily; Farxiga 10 mg daily has been added -Acute exacerbation COPD; Solu-Medrol 40 mg IV every 12 hours; plan to transition to oral; continue with bronchodilator nebulizer treatments Objective - Vital Signs Vital signs: Vital Signs Temp 97.6 F 12/25/23 03:50 Pulse 112 H 12/25/23 09:27 Resp 16 12/25/23 08:00 BP 118/74 12/25/23 08:00 Pulse Ox 97 12/25/23 08:00 FiO2 Intake & Output 12/24/23 12/25/23 12/25/23 18:59 06:59 18:59 Intake Total 85.75 120 Output Total 200 Balance 85.75 -200 120 Weight 78.7 kg Intake: Intake, IV Titration 85.75 Amount Diltiazem 125 mg In 85.75 Sodium Chloride 0.9% 100 ml @ 5 MG/HR 5 mls/hr IV .Q24H [facility] Rx#:[id number] Oral 120 Output: Urine 200 Other: Voiding Method Urinal Urinal # Voids 1 # Bowel Movements 1 - Exam General appearance: alert, in no apparent distress Head exam: Present: atraumatic, normocephalic Eye exam: Present: normal appearance. Absent: scleral icterus, conjunctival injection ENT exam: Present: normal oropharynx Neck exam: Present: normal inspection Respiratory exam: Present: normal lung sounds bilaterally. Absent: respiratory distress, wheezes, rales, rhonchi, stridor, accessory muscle use Cardiovascular Exam: Present: tachycardia, irregular rhythm, normal heart sounds. Absent: systolic murmur, diastolic murmur, rubs, gallop GI/Abdominal exam: Present: soft. Absent: distended, tenderness, guarding, rebound, rigid, mass Extremities exam: Present: normal inspection, normal capillary refill. Absent: pedal edema, calf tenderness Back exam: Present: normal inspection. Absent: CVA tenderness (R), CVA tenderness (L) Neurological exam: Present: alert Skin exam: Present: warm, dry, intact, normal color. Absent: rash - Labs CBC & Chem 7: 12/25/23 11:14 12/25/23 11:14 Assessment and Plan Assessment: 1. Atrial fibrillation with RVR -Patient remains on IV Cardizem infusion at rate of 5 mg/h; we will titrate to keep heart rate below 110 -Continue with Xarelto 20 mg daily -We will admit to telemetry and monitor EKG and trend troponin -Recommend 2D echo Cardiology is consulted 2. Hyperbilirubinemia; patient denies any specific complaints; rest of liver enzymes are within normal limits -We will repeat liver enzymes in next 24 hours with plans to obtain right upper quadrant ultrasound if bilirubin remains elevated 3. Hypertension; patient takes Cardizem to 40 mg at home along with Lasix 40 mg daily, losartan 50 mg nightly and metoprolol 25 mg twice daily 4. History of CHF; stable on Lasix 40 mg daily, losartan 50 mg nightly and Jardiance 10 mg daily 5. Gastroesophageal reflux disease; continue with PPI 6. Hyperlipidemia; patient takes Repatha 140 mg subcu q. 14 days DVT prophylaxis; SCDs/Xarelto CODE STATUS; full code
[2023-12-25] MEDS: BUDESONIDE 0.5 MG/2 ML NEBU INHALATION SCH (16:15)
--- NOTE | 2023-12-25 20:10 | P.PN ---
Subjective Progress Note Date: 12/25/23 HISTORY OF PRESENTING ILLNESS 73-year-old with PMH of HTN, dyslipidemia, COPD, CVA, GERD, prior history of atrial fibrillation on Xarelto. He presents to the hospital because of worsening shortness of breath, palpitation symptoms. Patient to use diuretics inhaler at home and since then he was having significantly high heart rates. On admission his ECG showed atrial fibrillation with RVR. Hb 13, BUN 24, creatinine 0.6, tropes were negative, BNP 2800, Progress note 12/25/2023 Patient is still significantly tight. Continues to have significant wheezing, still has atrial fibrillation with RVR PHYSICAL EXAMINATION Vital signs reviewed. Head: Normocephalic. Eyes: Sclerae nonicteric. Neck: Brisk carotid upstroke, elevated JVD Lungs: Diminished breath sounds, crackles and wheezing audible in bilateral lung bates mild rhonchi audible Heart: Irregularly irregular pulse S1-S2, no S3, no murmur or rub. Abdomen: Soft nontender, positive bowel sounds. Extremities: 1+ edema, intact distal pulses. Neuro: Alert, oritented, no focal deficits. Detailed neuro exam was not performed. ASSESSMENT Acute hypoxic respiratory failure due to CHF and COPD exacerbation A-fib RVR Acute CHF exacerbation, EF unknown Acute COPD exacerbation PLAN Metoprolol 25 mg twice daily, Xarelto 20, Aldactone 12.5, losartan 50, Lasix 40, Farxiga 10 Obtain echocardiogram Obtain procalcitonin level Obtain TSH level Start inhaler therapy with DuoNeb and inhaled corticosteroids Give 3 doses of stress dose steroids. Further to be assessed by primary rounding team Add Pulmicort, consider pulmonology consult Once respiratory status stabilizes, and if patient's continues to maintain atrial fibrillation, consider cardioversion Outpatient ischemic evaluation recommended Jai Moeller MD, FACC, RPVI Thank you for allowing [facility] to participate in this patient's care. Feel free to reach out in case of any followup questions. Objective - Vital Signs Vital signs: Vital Signs Temp 97.6 F 12/25/23 19:47 Pulse 120 H 12/25/23 19:47 Resp 16 12/25/23 19:47 BP 111/84 12/25/23 19:47 Pulse Ox 94 L 12/25/23 19:47 FiO2 Intake & Output 08/08/1412/25/23 12/26/23 06:59 18:59 06:59 Intake Total 440 Output Total 200 700 Balance -200 -260 Weight 78.7 kg Intake: Oral 440 Output: Urine 200 700 Other: Voiding Method Urinal Urinal # Voids 1 # Bowel Movements 1 - Labs CBC & Chem 7: 12/25/23 11:14 12/25/23 11:14 Labs: Abnormal Lab Results - Last 24 Hours (Table) 12/25/23 12/25/23 Range/Units 11:14 11:14 Neutrophils # 9.5 H (1.3-7.7) k/uL Lymphocytes # 0.5 L (1.0-4.8) k/uL Chloride 108 H (98-107) mmol/L BUN 25 H (9-20) mg/dL Glucose 153 H (74-99) mg/dL
[2023-12-26 06:55] LABS: Chol/HDL Ratio 3.19 Ratio; LDL Cholesterol,Calculated 100.7 mg/dL (0.0-131.0); VLDL Calculation 18.04 mg/dL (5.00-40.00)
[2023-12-26 08:13] LABS: African American GFR (CKD) 72 (>60 ml/min/1.73 sqM); Anion Gap 6 mmol/L; Blood Urea Nitrogen 34 mg/dL (9-20); Calcium 8.9 mg/dL (8.4-10.2); Carbon Dioxide 24 mmol/L (22-30); Chloride 109 mmol/L (98-107); Glucose 124 mg/dL (74-99); Non-African American GFR(CKD) 62 (>60 ml/min/1.73 sqM); Potassium 5.1 mmol/L (3.5-5.1); Sodium 139 mmol/L (137-145)
--- NOTE | 2023-12-26 18:29 | P.PN ---
Subjective Progress Note Date: 12/26/23 HISTORY OF PRESENTING ILLNESS 73-year-old with PMH of HTN, dyslipidemia, COPD, CVA, GERD, prior history of atrial fibrillation on Xarelto. He presents to the hospital because of worsening shortness of breath, palpitation symptoms. Patient to use diuretics inhaler at home and since then he was having significantly high heart rates. On admission his ECG showed atrial fibrillation with RVR. Hb 13, BUN 24, creatinine 0.6, tropes were negative, BNP 2800, Progress note 12/25/2023 Patient is still significantly tight. Continues to have significant wheezing, still has atrial fibrillation with RVR 12/26/23 Patient seen and examined at bedside this a.m. He continues to still have significant wheezing and conversational dyspnea he still is in atrial fibrillation with RVR. PHYSICAL EXAMINATION Vital signs reviewed. Head: Normocephalic. Eyes: Sclerae nonicteric. Neck: Brisk carotid upstroke, elevated JVD Lungs: Diminished breath sounds, crackles and wheezing audible in bilateral lung bates mild rhonchi audible Heart: Irregularly irregular pulse S1-S2, no S3, no murmur or rub. Abdomen: Soft nontender, positive bowel sounds. Extremities: 1+ edema, intact distal pulses. Neuro: Alert, oritented, no focal deficits. Detailed neuro exam was not performed. ASSESSMENT Acute hypoxic respiratory failure due to CHF and COPD exacerbation A-fib RVR Acute CHF exacerbation, EF unknown Acute COPD exacerbation PLAN Consider Pulmonology cosult Metoprolol 25 mg twice daily, Xarelto 20, Aldactone 12.5, losartan 50, Lasix 40, Farxiga 10 Start inhaler therapy with DuoNeb and inhaled corticosteroids Give 3 doses of stress dose steroids. Further to be assessed by primary rounding team Add Pulmicort, consider pulmonology consult Once respiratory status stabilizes, and if patient's continues to maintain atrial fibrillation, consider DOLORES cardioversion Outpatient ischemic evaluation recommended Jai Moeller MD, FACC, RPVI Thank you for allowing [facility] to participate in this patient's care. Feel free to reach out in case of any followup questions. Objective - Vital Signs Vital signs: Vital Signs Temp 97.3 F L 12/26/23 08:00 Pulse 104 H 12/26/23 16:00 Resp 16 08/04/24 16:00 BP 116/79 12/26/23 16:00 Pulse Ox 96 12/26/23 16:00 FiO2 Intake & Output 12/25/23 12/26/23 12/26/23 18:59 06:59 18:59 Intake Total 440 480 Output Total 700 650 650 Balance -260 -650 -170 Weight 78.6 kg Intake: Oral 440 480 Output: Urine 700 650 650 Other: Voiding Method Urinal Urinal Urinal - Labs CBC & Chem 7: 12/25/23 11:14 12/26/23 07:35 Labs: Abnormal Lab Results - Last 24 Hours (Table) 12/26/23 Range/Units 07:35 Chloride 109 H (98-107) mmol/L BUN 34 H (9-20) mg/dL Glucose 124 H (74-99) mg/dL
[2023-12-27 00:21] VITALS: TEMP 97.7
[2023-12-27] MEDS: IPRATROPIUM-ALBUTEROL 3 ML NEB INHALATION PRN (04:30)
[2023-12-27 05:24] VITALS: BP 119/86; PULSE 111; RESP 22
[2023-12-27] MEDS: FUROSEMIDE 10 MG/ML 4 ML VIAL IV STA (05:52)
[2023-12-27] MEDS ORDERED: PANTOPRAZOLE 40 MG TABLET PO ONE (09:59)
[2023-12-27] MEDS ORDERED: METOPROLOL SUCCINATE (ER) 25 MG TAB.ER.24H PO ONE ×2 (09:59→20:57)
[2023-12-27] MEDS ORDERED: DILTIAZEM ORAL 60 MG TAB ONE ×4 (09:59→20:57)
[2023-12-27] MEDS ORDERED: FUROSEMIDE 40 MG TAB ONE (09:59)
[2023-12-27] MEDS ORDERED: SPIRONOLACTONE 25 MG TAB ONE (09:59)
[2023-12-27] MEDS ORDERED: IPRATROPIUM-ALBUTEROL 3 ML NEB ONE (19:36)
[2023-12-27] MEDS ORDERED: BUDESONIDE 0.5 MG/2 ML NEBU ONE (19:36)
[2023-12-27] MEDS ORDERED: LOSARTAN 50 MG TAB ONE (20:57)
[2023-12-27] MEDS ORDERED: RIVAROXABAN 20 MG TAB PO ONE (20:57)
[2023-12-27] MEDS ORDERED: DAPAGLIFLOZIN PROPANEDIOL 10 MG TABLET ONE (20:57)
[2023-12-28] MEDS ORDERED: IPRATROPIUM-ALBUTEROL 3 ML NEB ONE ×5 (05:56→20:22)
[2023-12-28] MEDS ORDERED: guaiFENesin SYRUP 100MG/5ML 200 MG/10 ML CUP ONE ×2 (06:05)
[2023-12-28] MEDS ORDERED: BUDESONIDE 0.5 MG/2 ML NEBU ONE ×2 (07:55→20:22)
[2023-12-28] MEDS ORDERED: METOPROLOL SUCCINATE (ER) 25 MG TAB.ER.24H PO ONE ×2 (07:56→19:58)
[2023-12-28] MEDS ORDERED: SPIRONOLACTONE 25 MG TAB ONE (07:56)
[2023-12-28] MEDS ORDERED: PANTOPRAZOLE 40 MG TABLET PO ONE (07:56)
[2023-12-28] MEDS ORDERED: DILTIAZEM ORAL 60 MG TAB ONE ×4 (07:56→19:58)
[2023-12-28] MEDS ORDERED: FUROSEMIDE 40 MG TAB ONE (07:56)
[2023-12-28] MEDS ORDERED: LOSARTAN 50 MG TAB ONE (19:57)
[2023-12-28] MEDS ORDERED: DAPAGLIFLOZIN PROPANEDIOL 10 MG TABLET ONE (19:58)
[2023-12-28] MEDS ORDERED: RIVAROXABAN 20 MG TAB PO ONE (19:58)
[2023-12-28] MEDS ORDERED: METOPROLOL SUCCINATE (ER) 50 MG TAB.ER.24H PO ONE (20:03)
[2023-12-29] MEDS ORDERED: BUDESONIDE 0.5 MG/2 ML NEBU ONE ×2 (00:01→07:52)
[2023-12-29] MEDS ORDERED: IPRATROPIUM-ALBUTEROL 3 ML NEB ONE ×3 (00:01→11:52)
[2023-12-29] MEDS ORDERED: FUROSEMIDE 10 MG/ML 4 ML VIAL ONE ×2 (01:04)
[2023-12-29 03:19] LABS: Glucose,Whole Blood 112 mg/dL (70-110)
[2023-12-29] MEDS ORDERED: SPIRONOLACTONE 25 MG TAB ONE (08:36)
[2023-12-29] MEDS ORDERED: DILTIAZEM ORAL 60 MG TAB ONE ×4 (08:36→19:51)
[2023-12-29] MEDS ORDERED: PANTOPRAZOLE 40 MG TABLET PO ONE (08:36)
[2023-12-29] MEDS ORDERED: FUROSEMIDE 40 MG TAB ONE (08:36)
[2023-12-29] MEDS ORDERED: METOPROLOL SUCCINATE (ER) 25 MG TAB.ER.24H PO ONE ×2 (08:36→19:51)
[2023-12-29] MEDS ORDERED: METOPROLOL SUCCINATE (ER) 50 MG TAB.ER.24H PO ONE (08:38)
[2023-12-29] MEDS ORDERED: DAPAGLIFLOZIN PROPANEDIOL 10 MG TABLET ONE (19:51)
[2023-12-29] MEDS ORDERED: RIVAROXABAN 20 MG TAB PO ONE (19:51)
[2023-12-29] MEDS ORDERED: LOSARTAN 50 MG TAB ONE (19:51)
[2023-12-30] MEDS ORDERED: BUDESONIDE 0.5 MG/2 ML NEBU ONE ×3 (00:01→20:00)
[2023-12-30] MEDS ORDERED: IPRATROPIUM-ALBUTEROL 3 ML NEB ONE ×4 (00:01→20:00)
[2023-12-30] MEDS ORDERED: PANTOPRAZOLE 40 MG TABLET PO ONE (08:55)
[2023-12-30] MEDS ORDERED: SPIRONOLACTONE 25 MG TAB ONE (08:55)
[2023-12-30] MEDS ORDERED: FUROSEMIDE 40 MG TAB ONE (08:56)
[2023-12-30] MEDS ORDERED: DILTIAZEM ORAL 60 MG TAB ONE ×4 (08:56→20:57)
[2023-12-30] MEDS ORDERED: METOPROLOL SUCCINATE (ER) 50 MG TAB.ER.24H PO ONE (08:56)
[2023-12-30] MEDS ORDERED: LOSARTAN 50 MG TAB ONE (20:56)
[2023-12-30] MEDS ORDERED: RIVAROXABAN 20 MG TAB PO ONE (20:57)
[2023-12-30] MEDS ORDERED: DAPAGLIFLOZIN PROPANEDIOL 10 MG TABLET ONE (20:57)
[2023-12-30] MEDS ORDERED: METOPROLOL SUCCINATE (ER) 25 MG TAB.ER.24H PO ONE (20:57)
[2023-12-31] MEDS ORDERED: IPRATROPIUM-ALBUTEROL 3 ML NEB ONE ×2 (07:51→19:37)
[2023-12-31] MEDS ORDERED: BUDESONIDE 0.5 MG/2 ML NEBU ONE ×2 (07:51→19:37)
[2023-12-31] MEDS ORDERED: SPIRONOLACTONE 25 MG TAB ONE (09:47)
[2023-12-31] MEDS ORDERED: PANTOPRAZOLE 40 MG TABLET PO ONE (09:47)
[2023-12-31] MEDS ORDERED: DILTIAZEM ORAL 60 MG TAB ONE ×2 (09:48→14:36)
[2023-12-31] MEDS ORDERED: METOPROLOL SUCCINATE (ER) 25 MG TAB.ER.24H PO ONE (09:48)
[2023-12-31] MEDS ORDERED: FUROSEMIDE 40 MG TAB ONE (09:48)
[2023-12-31] MEDS ORDERED: predniSONE 20 MG TAB ONE (14:33)
[2024-01-02] MEDS ORDERED: carvediloL 3.125 MG TAB ONE (21:29)
[2024-01-02] MEDS ORDERED: INSULIN ASPART (NovoLOG) 100 UNIT/ML VIAL SQ ONE (21:30)
[2024-01-02] MEDS ORDERED: HYDROmorphone 1 MG/ML 1 ML SYRINGE ONE ×2 (21:30)
[2024-01-02] MEDS ORDERED: HEPARIN SODIUM,PORCINE 5,000 UNIT/ML 1 ML VIAL ONE (23:23)
[2024-01-02] MEDS ORDERED: HYDROcodone/APAP 5-325MG 1 EACH TAB ONE ×2 (23:23)
[2024-01-03] MEDS ORDERED: INSULIN ASPART (NovoLOG) 100 UNIT/ML VIAL SQ ONE ×2 (06:23→20:14)
[2024-01-03] MEDS ORDERED: HYDROmorphone 1 MG/ML 1 ML SYRINGE ONE ×2 (06:30)
[2024-01-03] MEDS ORDERED: hydrALAZINE HCL 50 MG TAB ONE (20:13)
[2024-01-03] MEDS ORDERED: carvediloL 12.5 MG TAB ONE (20:14)
[2024-01-03] MEDS ORDERED: HEPARIN SODIUM,PORCINE 5,000 UNIT/ML 1 ML VIAL ONE (23:26)
[2024-01-19 11:29] LABS: Glucose 124 mg/dL (74-99); Sodium 138 mmol/L (137-145)
[2024-01-19 11:30] LABS: African American GFR (CKD) 67 (>60 ml/min/1.73 sqM); Anion Gap 9 mmol/L; Blood Urea Nitrogen 39 mg/dL (9-20); Calcium 9.1 mg/dL (8.4-10.2); Carbon Dioxide 21 mmol/L (22-30); Chloride 108 mmol/L (98-107); Non-African American GFR(CKD) 58 (>60 ml/min/1.73 sqM)
--- NOTE | 2024-01-20 23:23 | CONS ---
CONSULTATION HISTORY OF PRESENT ILLNESS: Mr. Goff is a 73-year-old gentleman, followed for some time by Dr. Smith. He has a longstanding history of aortic insufficiency and cardiomyopathy. Recently, he has become increasingly fatigued and dyspneic to the point where he really cannot do very much at all. Echocardiogram shows reduced ejection fraction with an ejection fraction around 32%. There is global hypokinesis with severe inferobasilar akinesis. The patient has a history of previous stenting of the RCA. Cardiac catheterization demonstrates occlusion of the RCA with filling of the PDA by tict-pe-xnyeg collaterals. The right ventricular function is diminished. There is a large acute marginal branch that fills from the right from the occluded right coronary artery. The left-sided vessels have only mild disease. Echocardiogram reveals moderate aortic insufficiency with sphpwyya-[id number] mitral insufficiency, and moderate tricuspid insufficiency. DOLORES confirms the presence of 3+ MR, 3+ aortic insufficiency as well as moderate tricuspid regurgitation. Left ventricular function is severely diminished, and right ventricular function is also significantly diminished. Met with the patient and his . I explained to them that he is already on fairly maximal medical therapy, and this is not helping him, explained to them that if we operate on his heart, we can make the valves more efficient. We cannot guarantee improvement in the left ventricular function. However, planned operation would be aortic valve replacement, mitral valve repair, and modified Valdez-maze for chronic atrial fibrillation, possible tricuspid repair as well as bypass of the PDA and acute marginal branches. I explained to the patient that his risk is at least 10% to 20%, and then, he really should take some time thinking about this. The patient said he is not worth the damn the way he is and that if this can help make him better, he would be willing to take the risk for the surgery. He does have some bad teeth that need to be pulled, and we gave him the paperwork for obtaining a dental clearance. He does have a history of sleep apnea, for which he does not wear CPAP, and we gave him a referral to see Dr. Macedo. I would like to get complete pulmonary function testing on him, carotid duplex, and noncontrast CT of the chest to evaluate the ascending aorta as well as the lungs and saphenous vein mapping. Following obtaining these studies, we will schedule a date for his surgery. MMODL / IJN: [id number] /
--- NOTE | 2024-01-27 17:08 | CDI ---
Documentation Clarification Form Date: 01/27/2024 04:57:08 PM From: Yue Jones Phone: Admit Date: 12/24/2023 02:28:00 AM Patient Name: Nicolas Goff Visit Number: [id number] Discharge Date: 12/31/2023 08:10:00 PM ATTENTION: The Clinical Documentation Specialists (CDI) and [facility] Coding Staff appreciate your assistance in clarifying documentation. Please respond to the clarification below the line at the bottom and electronically sign. The CDI & [facility] Coding staff will review the response and follow-up if needed. Please note: Queries are made part of the Legal Health Record. If you have any questions, please contact the author of this message via ITS. Doctor/Provider: Javad Esparza Your patient has the documented diagnosis of AcuteCHFexacerbation per Progress Note 8/2. Additional information regarding the type of CHF is requested. History/Risk Factors: 73yo M, chronic A Fib, HTN, HLD, AECOPD, GERD,Hx CVA/TIA, ACHRF Clinical Indicators: VS/Pulse OX: 94-99 BNP: 2860 Echocardiogram:reducedEF with an EF around 32%.There is global hypokinesis with severe inferobasilarakinesis. Chest x ray: Hazy increaseddensityin the lower right hemithorax with blunted costophrenic angle consistent with small rightpleural effusionand mild RT basilarpneumonia,atelectasis, oredema. 2. The cardiac silhouette is moderatelyenlarged, increased since previous. Treatment: stable on Lasix 40 mg daily, losartan 50 mg nightly and Jardiance 10 mg daily; Obtainechocardiogram. Obtain procalcitonin level. Obtain TSH level. Start inhalertherapywith DuoNeb and inhaled corticosteroids. Give 3 doses ofstressdose steroids. Further to be assessed by primary rounding team. In your professional opinion, can you please clarify the type of CHF if known? [ @@@ ] Acute on Chronic Systolic Heart Failure (reduced EF) [ ] Other, please specify [ ] Unable to determine (Template Last Revised: June 2020) MTDD
== END 2023-12-31 20:10 | disposition home or self-care (01) | DRG 308 ==
LOC: EC 21:56 → 3SCARD 12-24 02:28
PROVIDERS: ADMIT Internal Medicine; ATTEND Internal Medicine
DX: I48.20 Chronic atrial fibrillation, unspecified (principal); I50.23 Acute on chronic systolic (congestive) heart failure; J96.01 Acute respiratory failure with hypoxia; J44.1 Chronic obstructive pulmonary disease with (acute) exacerbation; I42.9 Cardiomyopathy, unspecified; I11.0 Hypertensive heart disease with heart failure; I08.3 Combined rheumatic disorders of mitral, aortic and tricuspid valves; E78.5 Hyperlipidemia, unspecified; E80.6 Other disorders of bilirubin metabolism; K21.9 Gastro-esophageal reflux disease without esophagitis; G47.30 Sleep apnea, unspecified; Z79.84 Long term (current) use of oral hypoglycemic drugs; Z79.01 Long term (current) use of anticoagulants; Z79.899 Other long term (current) drug therapy; Z91.048 Other nonmedicinal substance allergy status; Z91.041 Radiographic dye allergy status; Z88.8 Allergy status to other drugs, medicaments and biological substances; Z86.73 Personal history of transient ischemic attack (TIA), and cerebral infarction without residual deficits
CPT/HCPCS: 36415; 71045; 80048; 80053; 80061; 83735; 83880; 84145; 84443; 84484; 85025; 85610; 85730; 93005; 94640; 94760; 96365; 96366; 96368; 99285

== ENCOUNTER 2024-01-11 06:44 | Day surgery (SDC) | payer MEDICARE, OTHER ==
[~2024-01-11 06:44] MED LIST: BENZOCAINE SPRAY 1 EACH MM ONE; HEPARIN SODIUM,PORCINE 10,000 UNIT/ML 1 ML VIAL ONE; SODIUM CHLORIDE 0.9% 1,000 ML BAG ONE; SODIUM CHLORIDE 0.9% 250 ML BAG ONE
[2024-01-11] MEDS ORDERED: ASPIRIN 325 MG TAB ONE ×2 (06:53)
[2024-01-11] MEDS ORDERED: HEPARIN SODIUM 1,000 UN/ML (10ML VL) ONE ×2 (09:30)
[2024-01-11] MEDS ORDERED: MIDAZOLAM 2 MG/2 ML VIAL ONE ×2 (09:30)
[2024-01-11] MEDS ORDERED: fentaNYL (PF) 50 MCG/ML 2 ML AMP ONE ×2 (09:30)
[2024-01-11] MEDS ORDERED: VERAPAMIL 2.5 MG/ML 2 ML AMP ONE ×2 (09:30)
[2024-01-11] MEDS ORDERED: LIDOCAINE 1% INJ 10MG/ML (20 ML MDV) ONE ×2 (09:30)
[2024-01-11] MEDS ORDERED: methylPREDNISolone SOD SUCCI 125 MG/2 ML VIAL ONE ×2 (10:01)
[2024-01-11] MEDS: IOPAMIDOL-370 200ML BTL INJ ONE (10:45)
--- NOTE | 2024-01-14 15:56 | CC ---
CARDIAC CATHETERIZATION REPORT Mr. Goff is a 73-year-old male, with a history of mild CAD by cardiac catheterization in 2006, who recently presented with symptoms of progressive dyspnea, evidence of CHF, and atrial fibrillation with significant progression of his valvular disease. In view of that, recommendation was made regarding cardiac catheterization. The procedure as well as risks and complications were discussed with the patient, who is in full understanding and agreement. PROCEDURE DESCRIPTION: Patient was brought to the labor custodian in a fasting, semi-sedated state after receiving fentanyl and Benadryl and achieving moderate conscious sedated state. Using Xylocaine anesthesia and Seldinger technique, a 6-Wallisian sheath was introduced in the right radial artery. Subsequently, the intravenous catheter in the right basilic vein was exchanged to a 6-Wallisian sheath, right heart catheterization was performed using [place]- [place] catheter. Multiple pressure and samples were obtained. Cardiac output by thermodilution was calculated. Following that, selective right and left coronary angiography performed with 5-Wallisian 3.5 bend right and left Favio catheter. Multiple views of the coronary arteries including rob-axial views were obtained. Following that, a 5-Wallisian tight pigtail catheter was slid into the ascending aorta and URDU view of the ascending aorta was performed. Following that, catheter and sheath were removed. Hemostasis was obtained with deployment of a TR band on the right radial artery and compression of the venous access. The patient was returned to his room in stable condition. Of note, the patient received a total of 4000 units of intravenous heparin. There was no immediate complication. HEMODYNAMICS: Pulmonary artery systolic pressure of 40 with a diastolic of 15 and a mean of 27 mmHg. Pulmonary capillary wedge pressure V-wave of 22 with a mean of 20 mmHg. Right ventricular systolic pressure of 38 with an end-diastolic of 4 mmHg. Right atrium, V- wave of 8 with a mean of 5 mmHg. Cardiac output by thermodilution of 4.5 L/minute and cardiac index of 2.4 L/minute/m sq. Right atrial saturation of 67%, pulmonary artery saturation of 68%, femoral arterial saturation 94%. Cardiac output by Denise of 4.8 L/minute with an index of 2.5 L/minute/sq m. CORONARIES: 1. Left main: This is a large-sized vessel bifurcating into left circumflex, left anterior descending artery. Left main coronary artery has no significant obstructive disease. 2. Left anterior descending coronary artery: This is a large-sized vessel reaching to the apex giving rise to a large diagonal branch. The LAD has mild intimal disease in the mid segment of 20% to 30% without any high-grade stenosis. 3. Left circumflex: This is a large nondominant vessel giving rise to a large first obtuse marginal branch, that has a 20% to 30% plaque proximally. The AV groove, left circumflex after the takeoff of the first obtuse marginal branch has a 50% to 60% eccentric lesion. The rest of the vessel has no high-grade stenosis. 4. Right coronary artery: This vessel is totally occluded proximally with minimal antegrade flow. There is collateral from the septal erp manager towards the distal RCA, the PDA, and the PLV. LEFT VENTRICULOGRAM: Left ventriculogram was not performed. AORTOGRAM: Aortogram was performed in the URDU view and revealed evidence of 3 to 4+ aortic regurgitation. CONCLUSION: 1. Chronically occluded proximal RCA. 2. Mild pulmonary hypertension. 3. 3 to 4+ aortic regurgitation. RECOMMENDATIONS: I will continue medical therapy at this time. The patient will be further evaluated regarding the need to undergo multivalvular intervention. In the meantime, I will continue on maximal medical treatment and depending on his progress, further recommendations will be made. Those findings and recommendations were discussed with the patient and his family, and they are in full understanding and agreement. DURATION OF SEDATION: 34 minutes. DEE DEE / EMILY: [id number] /
== END 2024-01-11 15:05 | disposition home or self-care (01) ==
LOC: CATHCVL 06:44
PROVIDERS: ATTEND Internal Medicine Interventional Cardiology
DX: I08.1 Rheumatic disorders of both mitral and tricuspid valves (principal); I25.10 Atherosclerotic heart disease of native coronary artery without angina pectoris; I27.20 Pulmonary hypertension, unspecified; Z79.01 Long term (current) use of anticoagulants; Z79.899 Other long term (current) drug therapy
CPT/HCPCS: 93456; 93567

== ENCOUNTER 2024-01-27 15:41 | Inpatient (IN) | payer MEDICARE ==
--- NOTE | 2024-01-27 15:58 | ED ---
SOB HPI - General Chief Complaint: Shortness of Breath Stated Complaint: SOB, abn labs Time Seen by Provider: 01/27/24 15:56 Source: patient Mode of arrival: wheelchair Limitations: no limitations - History of Present Illness Initial Comments: 73-year-old male who is a patient of Dr. Christianson presents to the emergency department reporting palpitations. He states that they started around 1 PM. He came to the hospital to have preop testing and laboratory studies. Admits to a history of A-fib and states he will have occasional palpitations but lasts for only 15 minutes and then he bounces out of it. States today it has lasted much longer than he is used to. He did take his morning medications and denies any missed doses. He is on Xarelto. Patient does have planned cardiothoracic surgery with Dr. Ye. He denies any chest pain. No other alleviating, precipitating or modifying factors - Related Data Home Medications Medication Instructions Recorded Confirmed Diltiazem Cd [Cardizem CD] 240 mg PO HS 12/24/23 01/27/24 Empagliflozin [Jardiance] 10 mg PO HS 12/24/23 01/27/24 Evolocumab [Repatha Sureclick] 140 mg SQ Q14D 12/24/23 01/27/24 Furosemide [Lasix] 40 mg PO DAILY 12/24/23 01/27/24 Losartan Potassium 50 mg PO HS 12/24/23 01/27/24 Rivaroxaban [Xarelto] 20 mg PO DIRECTED 12/24/23 01/27/24 Metoprolol Succinate (ER) [Toprol 50 mg PO DAILY 01/27/24 01/27/24 Xl] Previous Rx's Medication Instructions Recorded Nitroglycerin Sl Tabs [Nitrostat] 0.4 mg SUBLINGUAL Q5M PRN #25 tab 07/24/16 Allergies Allergy/AdvReac Type Severity Reaction Status Date / Time adhesive tape AdvReac Rash/Hives Verified 01/27/24 18:09 Iodinated Contrast Media AdvReac Nausea & Verified 01/27/24 18:09 Vomiting SLEEPING AIDS AdvReac Hallucinati Uncoded 01/27/24 18:09 ons Review of Systems ROS Statement: Those systems with pertinent positive or pertinent negative responses have been documented in the HPI. ROS Other: All systems not noted in ROS Statement are negative. Past Medical History Past Medical History: Chest Pain / Angina, COPD, CVA/TIA, GERD/Reflux, Hyperlipidemia, Hypertension Additional Past Medical History / Comment(s): kidney stones, seen for abnormal heart rhythm unsure what was wrong. History of Any Multi-Drug Resistant Organisms: None Reported Past Surgical History: Hernia Repair, Orthopedic Surgery Additional Past Surgical History / Comment(s): wrist surgery Past Anesthesia/Blood Transfusion Reactions: Motion Sickness, Postoperative Nausea & Vomiting (PONV) Past Psychological History: No Psychological Hx Reported Smoking Status: Never smoker Past Alcohol Use History: None Reported Past Drug Use History: None Reported - Past Family History Father Family Medical History: Cancer Mother Family Medical History: Cancer Brother(s) Family Medical History: Cancer General Exam Limitations: no limitations General appearance: alert, in no apparent distress Head exam: Present: atraumatic, normocephalic, normal inspection Eye exam: Present: normal appearance, PERRL, EOMI. Absent: scleral icterus, conjunctival injection, periorbital swelling ENT exam: Present: normal exam, mucous membranes moist Neck exam: Present: normal inspection. Absent: tenderness, meningismus, lymphadenopathy Respiratory exam: Present: normal lung sounds bilaterally. Absent: respiratory distress, wheezes, rales, rhonchi, stridor Cardiovascular Exam: Present: tachycardia, irregular rhythm, normal heart sounds. Absent: systolic murmur, diastolic murmur, rubs, gallop, clicks GI/Abdominal exam: Present: soft, normal bowel sounds. Absent: distended, tenderness, guarding, rebound, rigid Extremities exam: Present: normal inspection, full ROM, normal capillary refill. Absent: tenderness, pedal edema, joint swelling, calf tenderness Back exam: Present: normal inspection Neurological exam: Present: alert, oriented X3, CN II-XII intact Psychiatric exam: Present: normal affect, normal mood Skin exam: Present: warm, dry, intact, normal color. Absent: rash Course Vital Signs 01/27/24 01/27/24 01/27/24 15:42 16:30 17:50 Temperature 98.2 F Pulse Rate 133 H 134 H 115 H Respiratory 18 20 20 Rate Blood Pressure 144/106 138/104 133/99 O2 Sat by Pulse 98 97 97 Oximetry 01/27/24 01/27/24 01/27/24 20:00 20:24 20:44 Temperature Pulse Rate 100 103 H 110 H Respiratory 15 Rate Blood Pressure 129/98 O2 Sat by Pulse 96 Oximetry 01/27/24 22:00 Temperature Pulse Rate 90 Respiratory 20 Rate Blood Pressure 120/97 O2 Sat by Pulse 96 Oximetry Medical Decision Making - Medical Decision Making Was pt. sent in by a medical professional or institution (ELDA Noble, FLOOR SANDING MACHINE OPERATOR, urgent care, hospital, or long-term...) When possible be specific @ -Patient was sent in from the outpatient lab Did you speak to anyone other than the patient for history (EMS, parent, family, police, friend...)? What history was obtained from this source @ -No Did you review nursing and triage notes (agree or disagree)? Why? @ -I reviewed and agree with nursing and triage notes Were old charts reviewed (outside hosp., previous admission, EMS record, old EKG, old radiological studies, urgent care reports/EKG's, long-term records)? Report findings @ -No old charts were reviewed Differential Diagnosis (chest pain, altered mental status, abdominal pain women, abdominal pain men, vaginal bleeding, weakness, fever, dyspnea, syncope, headache, dizziness, GI bleed, back pain, seizure, CVA, palpatations, mental health, musculoskeletal)? @ -Differential Palpitations Ventricular arrhythmias, atrial arrhythmias, myocardial infarction, anemia, thyrotoxicosis, electrolyte imbalance, hypokalemia, pulmonary embolism, pulmonary disease, drugs, alcohol, anxiety, stress.... This is not meant to be an all-inclusive list. EKG interpreted by me (3pts min.). @ -Yes and demonstrates A-fib with a rate of 133. QRS 106. QTc of 376. No acute ST segment elevations or depressions X-rays interpreted by me (1pt min.). @ -yes and demonstrates no acute process CT interpreted by me (1pt min.). @ -None done U/S interpreted by me (1pt. min.). @ -None done What testing was considered but not performed or refused? (CT, X-rays, U/S, labs)? Why? @ -None What meds were considered but not given or refused? Why? @ -None Did you discuss the management of the patient with other professionals (professionals i.e. , ELDA, FLOOR SANDING MACHINE OPERATOR, lab, RT, psych nurse, social science research assistant, senior enterprise architect, teacher, chief safety officer, high risk case manager)? Give summary @ -Spoke with Charmaine from [facility] for admission Was smoking cessation discussed for >3mins.? @ -No Was critical care preformed (if so, how long)? @ -40 minutes for management of Cardizem drip Were there social determinants of health that impacted care today? How? (Homelessness, low income, unemployed, alcoholism, drug addiction, transportation, low edu. Level, literacy, decrease access to med. care, usp, rehab)? @ -No Was there de-escalation of care discussed even if they declined (Discuss DNR or withdrawal of care, Hospice)? DNR status @ -No What co-morbidities impacted this encounter? (DM, HTN, Smoking, COPD, CAD, Cancer, CVA, ARF, Chemo, Hep., AIDS, mental health diagnosis, sleep apnea, morbid obesity)? @ -A-fib, valvular disease Was patient admitted / discharged? Hospital course, mention meds given and route, prescriptions, significant lab abnormalities, going to OR and other pertinent info. @ -On arrival patient seen and evaluated in room 5. He does arrive in A-fib with RVR. He is placed on the cardiac monitor technician. IV is established. Laboratory studies are conducted. Chest x-ray is performed. Patient initiated on a Cardizem drip. He does have improvement in his heart rate to less than 100. He does not convert at this time. Patient will be admitted for cardiology consultation. Spoke with Charmaine for the admission Undiagnosed new problem with uncertain prognosis? @ -No Drug Therapy requiring intensive monitoring for toxicity (Heparin, Nitro, Insulin, Cardizem)? @ -No Were any procedures done? @ -No Diagnosis/symptom? @ -Acute palpitations, A-fib with RVR Acute, or Chronic, or Acute on Chronic? @ -Acute on chronic Uncomplicated (without systemic symptoms) or Complicated (systemic symptoms)? @ -Complicated Side effects of treatment? @ -No Exacerbation, Progression, or Severe Exacerbation? @ -No Poses a threat to life or bodily function? How? (Chest pain, [place], GA, pneumonia, PE, COPD, DKA, ARF, appy, cholecystitis, CVA, Diverticulitis, Homicidal, Suicidal, threat to staff... and all critical care pts) @ -No - Lab Data Result diagrams: 01/27/24 16:36 01/27/24 16:36 Lab Results 01/27/24 01/27/24 01/27/24 Range/Units 16:36 16:36 16:36 WBC 8.6 (3.8-10.6) k/uL RBC 4.26 L (4.30-5.90) m/uL Hgb 13.4 (13.0-17.5) gm/dL Hct 41.3 (39.0-53.0) % MCV 97.0 (80.0-100.0) fL MCH 31.4 (25.0-35.0) pg MCHC 32.4 (31.0-37.0) g/dL RDW 14.2 (11.5-15.5) % Plt Count 283 (150-450) k/uL MPV 7.2 Neutrophils % 67 % Lymphocytes % 21 % Monocytes % 4 % Eosinophils % 6 % Basophils % 1 % Neutrophils # 5.8 (1.3-7.7) k/uL Lymphocytes # 1.8 (1.0-4.8) k/uL Monocytes # 0.4 (0-1.0) k/uL Eosinophils # 0.5 (0-0.7) k/uL Basophils # 0.1 (0-0.2) k/uL Sodium 140 (137-145) mmol/L Potassium 4.5 (3.5-5.1) mmol/L Chloride 109 H (98-107) mmol/L Carbon Dioxide 26 (22-30) mmol/L Anion Gap 5 mmol/L BUN 18 (9-20) mg/dL Creatinine 0.92 (0.66-1.25) mg/dL Est GFR (CKD-EPI)AfAm >90 (>60 ml/min/1.73 sqM) Est GFR (CKD-EPI)NonAf 83 (>60 ml/min/1.73 sqM) Glucose 91 (74-99) mg/dL Calcium 8.9 (8.4-10.2) mg/dL Magnesium 1.8 (1.6-2.3) mg/dL Total Bilirubin 1.1 (0.2-1.3) mg/dL AST 25 (17-59) U/L ALT 20 (4-49) U/L Alkaline Phosphatase 128 H (38-126) U/L Troponin I <0.012 (0.000-0.034) ng/mL Total Protein 6.7 (6.3-8.2) g/dL Albumin 3.7 (3.5-5.0) g/dL TSH 1.450 (0.465-4.680) mIU/L Disposition Clinical Impression: Atrial fibrillation with RVR Disposition: ADMITTED IP TO THIS HOSP Condition: Stable Is patient prescribed a controlled substance at d/c from ED?: No Time of Disposition: 18:40 Decision to Admit Reason: Admit from EC Decision Date: 01/27/24 Decision Time: 18:40
[2024-01-27] MEDS: DILTIAZEM DRIP BOLUS FROM BAG 1 MG SOLN IV ONE ×2 (16:48→19:27)
[2024-01-27] MEDS: DILTIAZEM 125 MG in SODIUM CHLORIDE 0.9% 100 ML IV SCH (16:50)
[2024-01-27] MEDS: MAGNESIUM SULFATE-D5W PMX 1 GM in DEXTROSE/WATER 1 100ML.BAG IVPB ONE (16:51)
--- NOTE | 2024-01-27 17:10 | XR ---
EXAMINATION TYPE: XR chest 2V DATE OF EXAM: 01/27/2024 COMPARISON: 12/23/2023 INDICATION: Dysrhythmia, short of breath TECHNIQUE: Frontal and lateral views of the chest are obtained. FINDINGS: The heart size is enlarged. The pulmonary vasculature is normal. Previous right lower lobe infiltrate has largely resolved.. IMPRESSION: 1. Cardiomegaly
[2024-01-27 17:13] LABS: Basophils # (A) 0.1 k/uL (0-0.2); Basophils % (A) 1 %; Eosinophils # (A) 0.5 k/uL (0-0.7); Eosinophils % (A) 6 %; HCT 41.3 % (39.0-53.0); HGB 13.4 gm/dL (13.0-17.5); Lymphocytes # (A) 1.8 k/uL (1.0-4.8); Lymphocytes % (A) 21 %; MCH 31.4 pg (25.0-35.0); MCHC 32.4 g/dL (31.0-37.0); Mean Platelet Volume 7.2; Monocytes # (A) 0.4 k/uL (0-1.0); Monocytes % (A) 4 %; Neutrophils # (A) 5.8 k/uL (1.3-7.7); Neutrophils % (A) 67 %; Platelet Count 283 k/uL (150-450); RBC 4.26 m/uL (4.30-5.90); RDW 14.2 % (11.5-15.5); WBC 8.6 k/uL (3.8-10.6)
[2024-01-27 17:27] LABS: ALT 20 U/L (4-49); AST 25 U/L (17-59); African American GFR (CKD) >90 (>60 ml/min/1.73 sqM); Albumin 3.7 g/dL (3.5-5.0); Alkaline Phosphatase 128 U/L (38-126); Anion Gap 5 mmol/L; Blood Urea Nitrogen 18 mg/dL (9-20); Calcium 8.9 mg/dL (8.4-10.2); Carbon Dioxide 26 mmol/L (22-30); Chloride 109 mmol/L (98-107); Glucose 91 mg/dL (74-99); Magnesium 1.8 mg/dL (1.6-2.3); Non-African American GFR(CKD) 83 (>60 ml/min/1.73 sqM); Potassium 4.5 mmol/L (3.5-5.1); Sodium 140 mmol/L (137-145); Total Bilirubin 1.1 mg/dL (0.2-1.3); Total Protein 6.7 g/dL (6.3-8.2)
[2024-01-27] MEDS ORDERED: NALOXONE 0.4 MG/ML 1 ML VIAL IV PRN (18:40)
[2024-01-27] MEDS: IPRATROPIUM-ALBUTEROL 3 ML NEB INHALATION STA (20:23)
[2024-01-27] MEDS: DAPAGLIFLOZIN PROPANEDIOL 5 MG TABLET PO SCH (20:39)
[2024-01-27] MEDS: RIVAROXABAN 20 MG TAB PO SCH (20:40)
[2024-01-28 05:57] LABS: Basophils # (A) 0.1 k/uL (0-0.2); Basophils % (A) 1 %; Eosinophils # (A) 0.5 k/uL (0-0.7); Eosinophils % (A) 8 %; HCT 41.6 % (39.0-53.0); HGB 13.3 gm/dL (13.0-17.5); Lymphocytes # (A) 1.5 k/uL (1.0-4.8); Lymphocytes % (A) 25 %; MCH 30.9 pg (25.0-35.0); MCV 96.6 fL (80.0-100.0); Mean Platelet Volume 6.9; Monocytes # (A) 0.4 k/uL (0-1.0); Monocytes % (A) 6 %; Neutrophils # (A) 3.6 k/uL (1.3-7.7); Neutrophils % (A) 59 %; Platelet Count 280 k/uL (150-450); RBC 4.31 m/uL (4.30-5.90); RDW 14.2 % (11.5-15.5)
[2024-01-28 06:12] LABS: African American GFR (CKD) >90 (>60 ml/min/1.73 sqM); Anion Gap 7 mmol/L; Blood Urea Nitrogen 16 mg/dL (9-20); Calcium 8.8 mg/dL (8.4-10.2); Carbon Dioxide 24 mmol/L (22-30); Chloride 107 mmol/L (98-107); Glucose 88 mg/dL (74-99); Non-African American GFR(CKD) 86 (>60 ml/min/1.73 sqM); Potassium 4.1 mmol/L (3.5-5.1); Sodium 138 mmol/L (137-145)
[2024-01-28] MEDS: IPRATROPIUM-ALBUTEROL 3 ML NEB INHALATION PRN (08:04)
[2024-01-28] MEDS: FUROSEMIDE 40 MG TAB PO SCH (08:54)
[2024-01-28] MEDS: METOPROLOL SUCCINATE (ER) 50 MG TAB.ER.24H PO SCH (08:54)
[2024-01-28] MEDS ORDERED: METOPROLOL SUCCINATE (ER) 50 MG TAB.ER.24H PO SCH (09:00)
--- NOTE | 2024-01-28 10:31 | P.CRDCN ---
History of Present Illness History of present illness: HISTORY OF PRESENT ILLNESS: This is a 73-year-old male with a past medical history significant for hypertension, hyperlipidemia, severe aortic regurgitation, permanent atrial fibrillation, and CAD. Patient follows in the office with Dr. Smith. We have been asked to see the patient in consultation for A-fib with RVR. Patient examined at the bedside in the emergency room. Patient states he was getting some test performed yesterday that were ordered by Dr. Ye for his upcoming valve surgery. He states that he was feeling short of breath and came to the emergency room for further evaluation. The patient was found to be in A-fib with RVR. He remains in atrial fibrillation with controlled ventricular rate at the time of examination. He is currently on IV Cardizem at 10 mg an hour. He denies any chest pain or pressure. DIAGNOSTICS: - EKG reveals A-fib with RVR - Chest xray cardiomegaly - Laboratory data: WBC 6.0. Hemoglobin 13.3. Platelet count 280. Sodium 138. Potassium 4.1. BUN 16. Creatinine 0.88. Troponin negative x 3. TSH 1.450. - Current home cardiac medications include losartan 50 mg at night, Jardiance 10 mg at night, Xarelto 20 mg daily, metoprolol succinate 50 mg daily, Lasix 40 mg daily, Repatha 140 mg every 14 days, and Cardizem CD 240 mg at night -Patient underwent DOLORES in December 2023 revealing ejection fraction 32%, moderate to severe AR, PFO, moderate MR, moderate TR - Cardiac catheterization history on January 11, 2024 revealed chronically occluded proximal RCA, mild pulm hypertension, 3-4+ aortic regurgitation REVIEW OF SYSTEMS: At the time of my exam: CONSTITUTIONAL: Denies fever or chills. HEENT: Denies blurred vision, vision changes, or eye pain. Denies hemoptysis CARDIOVASCULAR: Denies chest pain. Denies orthopnea. Denies PND. Denies palpitations RESPIRATORY: Denies shortness of breath. GASTROINTESTINAL: Denies abdominal pain. Denies nausea or vomiting. HEMATOLOGIC: Denies bleeding disorders. GENITOURINARY: Denies any blood in urine. SKIN: Denies pruitis. Denies rash. PHYSICAL EXAM: VITAL SIGNS: Reviewed. GENERAL: Well-developed in no acute distress. HEENT: Head is normocephalic. Pupils are equal, round. Sclerae anicteric. Mucous membranes of the mouth are moist. Neck supple. No JVD or thyromegaly LUNGS: Respirations even and unlabored. Lungs essentially clear to auscultation bilaterally. HEART: Regular rate and rhythm. S1 and S2 heard. Systolic murmur noted. ABDOMEN: Soft. Nondistended. Nontender. EXTREMITIES: Normal range of motion. No clubbing or cyanosis. Peripheral pulses intact. No lower extremity edema NEUROLOGIC: Awake and alert. Oriented x 3. ASSESSMENT: Permanent atrial fibrillation with RVR Valvular heart disease including moderate to severe AR, moderate MR, moderate TR Coronary artery disease with chronically occluded proximal RCA Nonischemic cardiomyopathy Hypertension Hyperlipidemia PLAN: Continue IV Cardizem for [address] Garcia Hold oral cardizem. Do not resume at discharge. Increase oral metoprolol to 50 mg twice a day. Will increase dosage tomorrow to 100 mg twice a day per Dr. Garcia Continue telemetry monitoring Further recommendations pending patient course Nurse practitioner note has been reviewed by physician. Signing provider agrees with the documented findings, assessment, and plan of care documented by FOREST MANAGEMENT PROFESSOR as a scribe. Past Medical History Past Medical History: Atrial Fibrillation, Chest Pain / Angina, COPD, CVA/TIA, GERD/Reflux, Hyperlipidemia, Hypertension Additional Past Medical History / Comment(s): kidney stones, seen for abnormal heart rhythm unsure what was wrong. "leaky valves" History of Any Multi-Drug Resistant Organisms: None Reported Past Surgical History: Hernia Repair, Orthopedic Surgery Additional Past Surgical History / Comment(s): wrist surgery Past Anesthesia/Blood Transfusion Reactions: Motion Sickness, Postoperative Nausea & Vomiting (PONV) Past Psychological History: No Psychological Hx Reported Smoking Status: Never smoker Past Alcohol Use History: None Reported Past Drug Use History: None Reported - Past Family History Father Family Medical History: Cancer Mother Family Medical History: Cancer Brother(s) Family Medical History: Cancer Medications and Allergies Home Medications Medication Instructions Recorded Confirmed Type Nitroglycerin Sl Tabs [Nitrostat] 0.4 mg SUBLINGUAL Q5M PRN #25 tab 07/24/16 01/27/24 Rx Diltiazem Cd [Cardizem CD] 240 mg PO HS 12/24/23 01/27/24 History Empagliflozin [Jardiance] 10 mg PO HS 12/24/23 01/27/24 History Evolocumab [Repatha Sureclick] 140 mg SQ Q14D 12/24/23 01/27/24 History Furosemide [Lasix] 40 mg PO DAILY 12/24/23 01/27/24 History Losartan Potassium 50 mg PO HS 12/24/23 01/27/24 History Rivaroxaban [Xarelto] 20 mg PO DIRECTED 12/24/23 01/27/24 History Metoprolol Succinate (ER) [Toprol 50 mg PO DAILY 01/27/24 01/27/24 History Xl] Allergies Allergy/AdvReac Type Severity Reaction Status Date / Time adhesive tape AdvReac Rash/Hives Verified 01/27/24 18:09 Iodinated Contrast Media AdvReac Nausea & Verified 01/27/24 18:09 Vomiting SLEEPING AIDS AdvReac Hallucinati Uncoded 01/27/24 18:09 ons Physical Exam Vitals: Vital Signs Temp Pulse Pulse Resp BP BP Pulse Ox 01/28/24 08:11 73 16 01/28/24 08:04 77 16 01/28/24 07:51 97.9 F 80 20 123/96 96 01/28/24 03:27 78 17 120/86 97 01/27/24 23:25 82 17 116/80 96 01/27/24 22:00 90 20 120/97 96 01/27/24 20:44 110 H 01/27/24 20:24 103 H 01/27/24 20:00 100 15 129/98 96 01/27/24 17:50 115 H 20 133/99 97 01/27/24 16:30 134 H 20 138/104 97 01/27/24 15:42 98.2 F 133 H 18 144/106 98 Intake and Output 01/27/24 01/28/24 01/28/24 22:59 06:59 14:59 Intake Total 63.667 Output Total 500 Balance -436.333 Intake: Intake, IV Titration 63.667 Amount Diltiazem 125 mg In 63.667 Sodium Chloride 0.9% 100 ml @ 10 MG/HR 10 mls/hr IV .[id number] [facility] Rx#: [id number] Output: Urine 500 Other: Voiding Method Urinal Urinal Weight 77.111 kg 77.111 kg Results 01/28/24 05:31 01/28/24 05:31 Cardiac Enzymes 01/27/24 01/27/24 01/27/24 Range/Units 16:36 16:36 21:22 AST 25 (17-59) U/L Troponin I <0.012 0.015 (0.000-0.034) ng/mL 01/28/24 Range/Units 00:47 AST (17-59) U/L Troponin I 0.018 (0.000-0.034) ng/mL CBC 01/27/24 01/28/24 Range/Units 16:36 05:31 WBC 8.6 6.0 (3.8-10.6) k/uL RBC 4.26 L 4.31 (4.30-5.90) m/uL Hgb 13.4 13.3 (13.0-17.5) gm/dL Hct 41.3 41.6 (39.0-53.0) % Plt Count 283 280 (150-450) k/uL Comprehensive Metabolic Panel 01/27/24 01/28/24 Range/Units 16:36 05:31 Sodium 140 138 (137-145) mmol/L Potassium 4.5 4.1 (3.5-5.1) mmol/L Chloride 109 H 107 (98-107) mmol/L Carbon Dioxide 26 24 (22-30) mmol/L BUN 18 16 (9-20) mg/dL Creatinine 0.92 0.88 (0.66-1.25) mg/dL Glucose 91 88 (74-99) mg/dL Calcium 8.9 8.8 (8.4-10.2) mg/dL AST 25 (17-59) U/L ALT 20 (4-49) U/L Alkaline Phosphatase 128 H (38-126) U/L Total Protein 6.7 (6.3-8.2) g/dL Albumin 3.7 (3.5-5.0) g/dL Current Medications Generic Name Dose Route Start Last Admin Trade Name Freq PRN Reason Stop Dose Admin Albuterol/Ipratropium 3 ml 01/27/24 20:43 01/28/24 08:04 Ipratropium-Albuterol 3 Ml Neb INHALATION 3 ml RT-QID PRN Administration Shortness Of Breath Or Wheezing Dapagliflozin 5 mg 01/27/24 21:00 01/27/24 20:40 Dapagliflozin Propanediol 5 Mg Tablet PO 5 mg HS SOHAIL Administration Furosemide 40 mg 01/28/24 09:00 01/28/24 08:54 Furosemide 40 Mg Tab PO 40 mg DAILY SOHAIL Administration Metoprolol Succinate 50 mg 01/28/24 09:00 01/28/24 08:54 Metoprolol Succinate (Er) 50 Mg Tab.Er.24h PO 50 mg BID SOHAIL Administration Naloxone HCl 0.2 mg 01/27/24 18:40 Naloxone 0.4 Mg/Ml 1 Ml Vial IV Q2M PRN Opioid Reversal Rivaroxaban 20 mg 01/27/24 19:15 01/27/24 20:40 Rivaroxaban 20 Mg Tab PO 20 mg W/SUPPER SOHAIL Administration Protocol Intake and Output 01/27/24 01/28/24 01/28/24 22:59 06:59 14:59 Intake Total 63.667 Output Total 500 Balance -436.333 Intake: Intake, IV Titration 63.667 Amount Diltiazem 125 mg In 63.667 Sodium Chloride 0.9% 100 ml @ 10 MG/HR 10 mls/hr IV .[id number] [facility] Rx#: [id number] Output: Urine 500 Other: Voiding Method Urinal Urinal Weight 77.111 kg 77.111 kg 01/28/24 05:31 01/28/24 05:31
[2024-01-28] MEDS: DILTIAZEM 125 MG in SODIUM CHLORIDE 0.9% 100 ML IV SCH (11:42)
--- NOTE | 2024-01-28 12:02 | P.HPIM ---
History of Present Illness H&P Date: 01/28/24 Patient is a 73-year-old male with A-fib maintained on Xarelto who presented to the emergency department yesterday afternoon with palpitations and shortness of breath that started while he was undergoing pre-op clearance, ordered by Dr. Ye. Normally these palpitations last 15 minutes or less at this time and has not stopped. He was found to be in atrial fibrillation with rapid ventricular rate. He endorses compliance with his medications and denies any missed doses. He has a planned cardiothoracic surgery with Dr. Ye for CABG, aortic valve repair/replacement, and mitral valve repair/replacement "soon" with no set date. He has no associated symptoms or aggravating/relieving factors. He is currently in A-fib with controlled ventricular rate on IV Cardizem. He denies chest pain, shortness of breath, chills, abdominal pain, or extremity swelling. He endorses mild shortness of breath and mildly productive cough. EKG showed atrial fibrillation with rapid ventricular rate. Chest x-ray showed cardiomegaly. Labs unremarkable, troponins: <0.012, 0.015, 0.018. BP 120s/90s, HR initially 130s - given Cardizem drip and heart rate has been controlled. Currently in A-fib with controlled ventricular rate. COPD ED documentation reviewed. Review of systems: Pertinent positives and negatives as discussed in HPI, a complete review of systems was performed and all other systems are negative. 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 Physical examination: Vital signs reviewed General: non toxic, no distress, appears at stated age, normal weight Derm: no unusual rashes/lesions, warm Head: atraumatic, normocephalic, symmetric Eyes: EOMI, no lid lag, anicteric sclera, pupils equal round reactive to light ENT: Nose and ears atraumatic Neck: No cervical lymphadenopathy, trachea midline, supple Mouth: no lip lesion, mucus membranes moist Cardiovascular: S1S2 present, systolic murmur noted, no rubs or gallops Lungs: CTA bilateral, no rhonchi, no rales, no accessory muscle use Abdominal: soft, nontender to palpation, no guarding Ext: muscle strength 5 out of 5 in all 4 extremities grossly, no gross muscle atrophy, no contractures, positive dorsalis pedis pulse bilateral, no edema Neuro: CN II-XI grossly intact, no gross focal neuro deficits Psych: Alert, oriented, appropriate affect and mood Assessment/Plan: #. Permanent atrial fibrillation with rapid ventricular rate Cardiology consulted Continue meds as per cardiology #. Hypertension Continue telemetry monitoring Continue meds as per cardiology Chronic conditions: Atrial fibrillation with rapid ventricular rate, COPD, hypertension, hyperlipidemia, valvular heart disease including moderate to severe AR, moderate MR, moderate TR, coronary artery disease with chronically occluded proximal RCA The patient is admitted with an anticipated less than than 2 midnight stay for evaluation of palpitations. CODE STATUS: Full code Discussed with: Patient Anticipated discharge place: Home Past Medical History Past Medical History: Atrial Fibrillation, Chest Pain / Angina, COPD, CVA/TIA, GERD/Reflux, Hyperlipidemia, Hypertension Additional Past Medical History / Comment(s): kidney stones, seen for abnormal heart rhythm unsure what was wrong. "leaky valves" History of Any Multi-Drug Resistant Organisms: None Reported Past Surgical History: Hernia Repair, Orthopedic Surgery Additional Past Surgical History / Comment(s): wrist surgery Past Anesthesia/Blood Transfusion Reactions: Motion Sickness, Postoperative Nausea & Vomiting (PONV) Past Psychological History: No Psychological Hx Reported Smoking Status: Never smoker Past Alcohol Use History: None Reported Past Drug Use History: None Reported - Past Family History Father Family Medical History: Cancer Mother Family Medical History: Cancer Brother(s) Family Medical History: Cancer Medications and Allergies Home Medications Medication Instructions Recorded Confirmed Type Nitroglycerin Sl Tabs [Nitrostat] 0.4 mg SUBLINGUAL Q5M PRN #25 tab 07/24/16 01/27/24 Rx Diltiazem Cd [Cardizem CD] 240 mg PO HS 12/24/23 01/27/24 History Empagliflozin [Jardiance] 10 mg PO HS 12/24/23 01/27/24 History Evolocumab [Repatha Sureclick] 140 mg SQ Q14D 12/24/23 01/27/24 History Furosemide [Lasix] 40 mg PO DAILY 12/24/23 01/27/24 History Losartan Potassium 50 mg PO HS 12/24/23 01/27/24 History Rivaroxaban [Xarelto] 20 mg PO DIRECTED 12/24/23 01/27/24 History Metoprolol Succinate (ER) [Toprol 50 mg PO DAILY 01/27/24 01/27/24 History Xl] Allergies Allergy/AdvReac Type Severity Reaction Status Date / Time adhesive tape AdvReac Rash/Hives Verified 01/27/24 18:09 Iodinated Contrast Media AdvReac Nausea & Verified 01/27/24 18:09 Vomiting SLEEPING AIDS AdvReac Hallucinati Uncoded 01/27/24 18:09 ons Physical Exam Vitals: Vital Signs Temp Pulse Pulse Resp BP BP Pulse Ox 01/28/24 03:27 78 17 120/86 97 01/27/24 23:25 82 17 116/80 96 01/27/24 22:00 90 20 120/97 96 01/27/24 20:44 110 H 01/27/24 20:24 103 H 01/27/24 20:00 100 15 129/98 96 01/27/24 17:50 115 H 20 133/99 97 01/27/24 16:30 134 H 20 138/104 97 01/27/24 15:42 98.2 F 133 H 18 144/106 98 Intake and Output 01/27/24 01/28/24 01/28/24 22:59 06:59 14:59 Intake Total 63.667 Output Total 500 Balance -436.333 Intake: Intake, IV Titration 63.667 Amount Diltiazem 125 mg In 63.667 Sodium Chloride 0.9% 100 ml @ 10 MG/HR 10 mls/hr IV .[id number] [facility] Rx#: [id number] Output: Urine 500 Other: Voiding Method Urinal Urinal Weight 77.111 kg 77.111 kg Results CBC & Chem 7: 01/28/24 05:31 01/28/24 05:31 Labs: Abnormal Lab Results - Last 24 Hours (Table) 01/27/24 01/27/24 Range/Units 16:36 16:36 RBC 4.26 L (4.30-5.90) m/uL Chloride 109 H (98-107) mmol/L Alkaline Phosphatase 128 H (38-126) U/L Thrombosis Risk Factor Assmnt - Choose All That Apply Any of the Below Risk Factors Present?: No Other Risk Factors: Yes Each Risk Factor Represents 2 Points: Age 61-74 years Other congenital or acquired thrombophilia - If yes, enter type in comment: No Thrombosis Risk Factor Assessment Total Risk Factor Score: 2 Thrombosis Risk Factor Assessment Level: Low Risk
--- NOTE | 2024-01-29 14:02 | P.PN ---
Subjective Progress Note Date: 01/29/24 Progress note Patient is doing well from cardiovascular standpoint. His heart rate is around 80s, atrial fibrillation rate controlled, no signs of congestive heart failure exacerbation. Appears to be euvolemic with normal JVP and no swelling in the legs HISTORY OF PRESENT ILLNESS: This is a 73-year-old male with a past medical history significant for hypertension, hyperlipidemia, severe aortic regurgitation, permanent atrial fibrillation, and CAD. Patient follows in the office with Dr. Smith. We have been asked to see the patient in consultation for A-fib with RVR. Patient examined at the bedside in the emergency room. Patient states he was getting some test performed yesterday that were ordered by Dr. Ye for his upcoming valve surgery. He states that he was feeling short of breath and came to the emergency room for further evaluation. The patient was found to be in A-fib with RVR. He remains in atrial fibrillation with controlled ventricular rate at the time of examination. He is currently on IV Cardizem at 10 mg an hour. He denies any chest pain or pressure. DIAGNOSTICS: - EKG reveals A-fib with RVR - Chest xray cardiomegaly - Laboratory data: WBC 6.0. Hemoglobin 13.3. Platelet count 280. Sodium 138. Potassium 4.1. BUN 16. Creatinine 0.88. Troponin negative x 3. TSH 1.450. - Current home cardiac medications include losartan 50 mg at night, Jardiance 10 mg at night, Xarelto 20 mg daily, metoprolol succinate 50 mg daily, Lasix 40 mg daily, Repatha 140 mg every 14 days, and Cardizem CD 240 mg at night -Patient underwent DOLORES in December 2023 revealing ejection fraction 32%, moderate to severe AR, PFO, moderate MR, moderate TR - Cardiac catheterization history on January 11, 2024 revealed chronically occluded proximal RCA, mild pulm hypertension, 3-4+ aortic regurgitation PHYSICAL EXAM: VITAL SIGNS: Reviewed. GENERAL: Well-developed in no acute distress. HEENT: Head is normocephalic. Pupils are equal, round. Sclerae anicteric. Mucous membranes of the mouth are moist. Neck supple. No JVD or thyromegaly LUNGS: Respirations even and unlabored. Lungs essentially clear to auscultation bilaterally. HEART: Regular rate and rhythm. S1 and S2 heard. Systolic murmur noted. ABDOMEN: Soft. Nondistended. Nontender. EXTREMITIES: Normal range of motion. No clubbing or cyanosis. Peripheral pulses intact. No lower extremity edema NEUROLOGIC: Awake and alert. Oriented x 3. ASSESSMENT: Permanent atrial fibrillation with RVR Valvular heart disease including moderate to severe AR, moderate MR, moderate TR Coronary artery disease with chronically occluded proximal RCA Nonischemic cardiomyopathy Hypertension Hyperlipidemia PLAN: Discontinue Cardizem drip. Do not resume Cardizem on discharge. Increase metoprolol succinate to 100 mg twice daily Continue SGLT2. Continue Lasix 40 mg daily. Add Aldactone 12.5 mg daily Monitor telemetry Replace magnesium with 1 g of magnesium sulfate If blood pressure and heart rate are stable tomorrow, cleared to be discharged tomorrow a.m. Patient will eventually need surgical aortic valve replacement and mitral valve repair along with possible grafting of right coronary artery. He is being scheduled to follow-up with Dr. Ye. Please make sure that patient has a follow-up with Dr. Ye the time of discharge. Objective - Vital Signs Vital signs: Vital Signs Temp 98.4 F 01/29/24 08:43 Pulse 90 01/29/24 12:58 Resp 15 01/29/24 11:21 BP 124/80 01/29/24 11:21 Pulse Ox 97 01/29/24 11:21 FiO2 Intake & Output 01/28/24 01/29/24 01/29/24 18:59 06:59 18:59 Intake Total 118 776 Balance 118 776 Weight 73.3 kg Intake: Oral 118 776 Other: Voiding Method Urinal Urinal Urinal # Voids 1 - Labs CBC & Chem 7: 01/28/24 05:31 01/28/24 05:31
[2024-01-29] MEDS: METOPROLOL SUCCINATE (ER) 25 MG TAB.ER.24H PO STA ×2 (14:12)
[2024-01-29] MEDS: MAGNESIUM SULFATE-D5W PMX 1 GM in DEXTROSE/WATER 1 100ML.BAG IVPB ONE (14:13)
[2024-01-29] MEDS: SPIRONOLACTONE 25 MG TAB PO SCH (14:17)
--- NOTE | 2024-01-29 15:44 | P.PN ---
Subjective Progress Note Date: 01/29/24 Patient is a 73-year-old male with A-fib maintained on Xarelto who presented to the emergency department yesterday afternoon with palpitations and shortness of breath that started while he was undergoing pre-op clearance, ordered by Dr. Ye. Normally these palpitations last 15 minutes or less at this time and has not stopped. He was found to be in atrial fibrillation with rapid ventricular rate. He endorses compliance with his medications and denies any missed doses. He has a planned cardiothoracic surgery with Dr. Ye for CABG, aortic valve repair/replacement, and mitral valve repair/replacement "soon" with no set date. He has no associated symptoms or aggravating/relieving factors. Eliana carter is currently in A-fib with controlled ventricular rate on IV Cardizem. He denies chest pain, shortness of breath, chills, abdominal pain, or extremity swelling. He endorses mild shortness of breath and mildly productive cough. On admission: EKG showed atrial fibrillation with rapid ventricular rate. Chest x-ray showed cardiomegaly. Labs unremarkable, troponins: <0.012, 0.015, 0.018. BP 120s/90s, HR initially 130s - given Cardizem drip and heart rate has been controlled. Currently in A-fib with controlled ventricular rate. 01/28. Patient seen and examined sitting comfortably in bed. He states that he feels better and the palpitations have improved. Denies chest pain, abdominal p ain, nausea, vomiting. Endorses mild shortness of breath unchanged from prior. Patient still in A-fib with controlled ventricular rate. Review of systems: Pertinent positives and negatives as discussed in HPI, a complete review of systems was performed and all other systems are negative. Physical examination: Vital signs reviewed General: non toxic, no distress, appears at stated age, normal weight Derm: no unusual rashes/lesions, warm Head: atraumatic, normocephalic, symmetric Eyes: EOMI, no lid lag, anicteric sclera, pupils equal round reactive to light ENT: Nose and ears atraumatic Neck: No cervical lymphadenopathy, trachea midline, supple Mouth: no lip lesion, mucus membranes moist Cardiovascular: S1S2 present, systolic murmur noted, no rubs or gallops Lungs: CTA bilateral, no rhonchi, no rales, no accessory muscle use Abdominal: soft, nontender to palpation, no guarding Ext: muscle strength 5 out of 5 in all 4 extremities grossly, no gross muscle atrophy, no contractures, positive dorsalis pedis pulse bilateral, no edema Neuro: CN II-XI grossly intact, no gross focal neuro deficits Psych: Alert, oriented, appropriate affect and mood Assessment/Plan: #. Permanent atrial fibrillation with rapid ventricular rate #. Valvular heart disease including moderate to severe AR, moderate MR, moderate TR #. Coronary artery disease with chronically occluded proximal RCA #. Nonischemic cardiomyopathy #. Hypertension #. Hyperlipidemia Continue telemetry monitoring Medication recommendations per cardiology If blood pressure and heart rate are stable tomorrow, cleared to be discharged tomorrow morning - per cardiology Attestation: I have personally seen and examined the patient with Resident, reviewed the documentation and participated and agree with the assessment and p kasey as written. Objective - Vital Signs Vital signs: Vital Signs Temp 98.4 F 01/29/24 08:43 Pulse 90 01/29/24 12:58 Resp 15 01/29/24 11:21 BP 124/80 01/29/24 11:21 Pulse Ox 97 01/29/24 11:21 FiO2 Intake & Output 01/28/24 01/29/24 01/29/24 18:59 06:59 18:59 Intake Total 118 776 Balance 118 776 Weight 73.3 kg Intake: Oral 118 776 Other: Voiding Method Urinal Urinal Urinal # Voids 1 3 - Labs CBC & Chem 7: 01/28/24 05:31 01/28/24 05:31
[2024-01-29] MEDS ORDERED: METOPROLOL SUCCINATE (ER) 50 MG TAB.ER.24H PO SCH (21:00)
[2024-01-29] MEDS: METOPROLOL SUCCINATE (ER) 100 MG TAB.ER.24H PO SCH (21:12)
[2024-01-29] MEDS: DAPAGLIFLOZIN PROPANEDIOL 10 MG TABLET PO SCH (21:12)
[2024-01-29] MEDS: guaiFENesin SYRUP 100MG/5ML 200 MG/10 ML CUP PO PRN (21:13)
--- NOTE | 2024-01-29 23:33 | XR ---
EXAM: XR chest 1V portable CLINICAL INDICATION:Male, 73 years old with history of Cough/congestion; [facility] COMPARISON: 01/27/2024 TECHNIQUE: Chest single view. FINDINGS: The heart size is stably moderately enlarged. Tortuous aorta again noted.. The pulmonary vasculature is normal. Lungs appear essentially unchanged with no new or worsening infiltrate, pleural effusion, or pneumoth orax. Osseous structures appear grossly stable and intact. IMPRESSION: Cardiomegaly without evidence of failure. No significant interval change.
[2024-01-30 01:03] LABS: Glucose,Whole Blood 100 mg/dL (70-110)
[2024-01-30] MEDS: DILTIAZEM 125 MG in SODIUM CHLORIDE 0.9% 100 ML IV SCH (03:52)
[2024-01-30] MEDS: SYMBICORT 80-4.5 MCG INHALER INHALATION SCH (14:43)
[2024-01-30] MEDS: ACETYLCYSTEINE 800 MG/4 ML VIAL INHALATION STA (15:12)
--- NOTE | 2024-01-30 15:52 | P.PN ---
Subjective Progress Note Date: 01/30/24 Interval History: Patient is a 73-year-old male with A-fib maintained on Xarelto who presented to the emergency department yesterday afternoon with palpitations and shortness of breath that started while he was undergoing pre-op clearance, ordered by Dr. Ye. Normally these palpitations last 15 minutes or less at this time and has not stopped. He was found to be in atrial fibrillation with rapid karlos tricular rate. He endorses compliance with his medications and denies any missed doses. He has a planned cardiothoracic surgery with Dr. Ye for CABG, aortic valve repair/replacement, and mitral valve repair/replacement "soon" with no set date. He has no associated symptoms or aggravating/relieving factors. He is currently in A-fib with controlled ventricular rate on IV Cardizem. He denies chest pain, shortness of breath, chills, abdominal pain, or extremity swelling. He endorses mild shortness of breath and mildly productive cough. On admission: EKG showed atrial fibrillation with rapid ventricular rate. Chest x-ray showed cardiomegaly. Labs unremarkable, troponins: <0.012, 0.015, 0.018. BP 120s/90s, HR initially 130s - given Cardizem drip and heart rate has been controlled. Currently in A-fib with controlled ventricular rate. 01/28. Patient seen and examined sitting comfortably in bed. He states that he feels better and the palpitations have improved. Denies chest pain, abdominal pain, nausea, vomiting. Endorses mild shortness of breath unchanged from prior. Patient still in A-fib with controlled ventricular rate. 01/30/2024--- patient went into A-fib with RVR overnight again, required Cardizem drip overnight. Remains on Xarelto. Asymptomatic. Assessment and plan: #. Permanent atrial fibrillation with rapid ventricular rate #. Valvular heart disease including moderate to severe AR, moderate MR, moderate TR #. Coronary artery disease with chronically occluded proximal RCA #. Nonischemic cardiomyopathy #. Hypertension #. Hyperlipidemia Plan: Initially required Cardizem drip, later on turned off, went into atrial fibrillation with RVR overnight again requiring Cardizem again. Continue metoprolol, Xarelto. Cardiology consultedfollowing Continue home meds including Lasix, SGLT2 inhibitor, Aldactone added per cardiology. Monitor with tractor engine mechanic electrolytes and replace as needed. Patient being worked up for aortic valve replacement and mitral valve repair along with grafting of RCA with Dr. Ye as outpatient. PHYSICAL EXAMINATION: GENERAL: The patient is A&O x3, NAD HEENT: EOMI, Sclerae anicteric, Moist Mucous membranes Neck: Supple, Non tender, No JVD PULMONARY: Equal breath souds B/L, No wheezing, No crackles. CARDIOVASCULAR: S1, S2 present. No murmurs, rubs, or gallops. ABDOMEN: Soft, nontender, nondistended, normoactive bowel sounds. No guarding or rebound tenderness. MUSCULOSKELETAL: No edema, No cyanosis. No clubbing. Normal ROM. Intact peripheral pulses. EXTREMITIES: No cyanosis, clubbing, or pedal edema. NEUROLOGICAL: CN 2-12 grossly intact. No FND Skin: No Rash REVIEW OF SYSTEMS: CONSTITUTIONAL: No fever or chills. CARDIOVASCULAR: No chest pain, palpitations or syncope. PULMONARY: No shortness of breath, no cough, sore throat. GASTROINTESTINAL: No nausea, vomiting, diarrhea, abdominal pain. : No Dysuria, urgency, frequency. Extremities: No edema. NEUROLOGICAL: No headaches, no weakness, or numbness Dictation was produced using [employer] dictation software. please excuse any grammatical, word or spelling errors. Objective - Vital Signs Vital signs: Vital Signs Temp 97.9 F 01/30/24 08:09 Pulse 68 01/30/24 15:31 Resp 16 01/30/24 15:25 BP 96/64 01/30/24 15:25 Pulse Ox 96 01/30/24 15:25 FiO2 Intake & Output 01/29/24 01/30/24 01/30/24 18:59 06:59 18:59 Intake Total 1316 458.833 Balance 1316 458.833 Weight 72.1 kg Intake: Intake, IV Titration 98.833 Amount Diltiazem 125 mg In 98.833 Sodium Chloride 0.9% 100 ml @ 10 MG/HR 10 mls/hr IV .[id number] [facility] Rx#: [id number] Oral 1316 360 Other: Voiding Method Urinal Urinal # Voids 3 2 - Labs CBC & Chem 7: 01/28/24 05:31 01/28/24 05:31
--- NOTE | 2024-01-30 18:35 | P.PN ---
Subjective Progress Note Date: 01/30/24 Progress note Patient is doing well from cardiovascular standpoint. His heart rate is around 80s, atrial fibrillation rate controlled, no signs of congestive heart failure exacerbation. Appears to be euvolemic with normal JVP and no swelling in the legs January 30, 2024, Last night patient had a rapid response called because of respiratory distress. On today's evaluation I feel that patient is having moderate COPD exacerbation. On examination he has diffuse wheezing in bilateral lung bates. Chest x-ray does not show significant congestion or pneumonia. I will start him on breathing treatments with albuterol, Symbicort and Mucomyst. Would recommend primary team to evaluate. HISTORY OF PRESENT ILLNESS: This is a 73-year-old male with a past medical history significant for hypertension, hyperlipidemia, severe aortic regurgitation, permanent atrial fibrillation, and CAD. Patient follows in the office with Dr. Smith. We have been asked to see the patient in consultation for A-fib with RVR. Patient examined at the bedside in the emergency room. Patient states he was getting some test performed yesterday that were ordered by Dr. Ye for his upcoming valve surgery. He states that he was feeling short of breath and came to the emergency room for further evaluation. The patient was found to be in A-fib with RVR. He remains in atrial fibrillation with controlled ventricular rate at the time of examination. He is currently on IV Cardizem at 10 mg an hour. He denies any chest pain or pressure. DIAGNOSTICS: - EKG reveals A-fib with RVR - Chest xray cardiomegaly - Laboratory data: WBC 6.0. Hemoglobin 13.3. Platelet count 280. Sodium 138. Potassium 4.1. BUN 16. Creatinine 0.88. Troponin negative x 3. TSH 1.450. - Current home cardiac medications include losartan 50 mg at night, Jardiance 10 mg at night, Xarelto 20 mg daily, metoprolol succinate 50 mg daily, Lasix 40 mg daily, Repatha 140 mg every 14 days, and Cardizem CD 240 mg at night -Patient underwent DOLORES in December 2023 revealing ejection fraction 32%, moderate to severe AR, PFO, moderate MR, moderate TR - Cardiac catheterization history on January 11, 2024 revealed chronically occluded proximal RCA, mild pulm hypertension, 3-4+ aortic regurgitation PHYSICAL EXAM: VITAL SIGNS: Reviewed. GENERAL: Well-developed in no acute distress. HEENT: Head is normocephalic. Pupils are equal, round. Sclerae anicteric. Mucous membranes of the mouth are moist. Neck supple. No JVD or thyromegaly LUNGS: Respirations even and unlabored. Lungs essentially clear to auscultation bilaterally. HEART: Regular rate and rhythm. S1 and S2 heard. Systolic murmur noted. ABDOMEN: Soft. Nondistended. Nontender. EXTREMITIES: Normal range of motion. No clubbing or cyanosis. Peripheral pulses intact. No lower extremity edema NEUROLOGIC: Awake and alert. Oriented x 3. ASSESSMENT: Permanent atrial fibrillation with RVR, currently rate controlled Moderate to severe exacerbation Valvular heart disease including moderate to severe AR, moderate MR, moderate TR Coronary artery disease with chronically occluded proximal RCA Nonischemic cardiomyopathy Hypertension Hyperlipidemia PLAN: Discontinue Cardizem drip. Do not resume Cardizem on discharge. Continue metoprolol succinate to 100 mg twice daily Continue SGLT2. Continue Lasix 40 mg daily. Aldactone 12.5 mg daily Monitor telemetry Mucomyst, albuterol, Symbicort. Request primary team to evaluate for COPD exacerbation. Consult CT surgery to make sure patient has appropriate follow-up for valvular surgery, possible RCA CABG and maze procedure. Anticipate discharge in next 24 to 48 hours Objective - Vital Signs Vital signs: Vital Signs Temp 97.9 F 01/30/24 08:09 Pulse 68 01/30/24 15:31 Resp 16 01/30/24 15:25 BP 96/64 01/30/24 15:25 Pulse Ox 96 01/30/24 15:25 FiO2 Intake & Output 01/29/24 01/30/24 01/30/24 18:59 06:59 18:59 Intake Total 1316 578.833 Balance 1316 578.833 Weight 72.1 kg Intake: Intake, IV Titration 98.833 Amount Diltiazem 125 mg In 98.833 Sodium Chloride 0.9% 100 ml @ 10 MG/HR 10 mls/hr IV .[id number] [facility] Rx#: [id number] Oral 1316 480 Other: Voiding Method Urinal Urinal # Voids 3 2 - Labs CBC & Chem 7: 01/28/24 05:31 01/28/24 05:31
[2024-01-30] MEDS ORDERED: SYMBICORT 80-4.5 MCG INHALER INHALATION SCH (20:00)
[2024-01-31] MEDS: DEXTROSE 5% IN WATER 100 ML with AMIODARONE 150 MG IV ONE (08:32)
[2024-01-31] MEDS: AMIODARONE 360 MG in DEXTROSE 5% IN WATER 200 ML IV ONE (08:50)
--- NOTE | 2024-01-31 11:47 | P.PN ---
Subjective Progress Note Date: 01/31/24 HISTORY OF PRESENT ILLNESS: This is a 73-year-old male with a past medical history significant for hype rtension, hyperlipidemia, severe aortic regurgitation, permanent atrial fibrillation, and CAD. Patient follows in the office with Dr. Smith. We have been asked to see the patient in consultation for A-fib with RVR. Patient examined at the bedside in the emergency room. Patient states he was getting some test performed yesterday that were ordered by Dr. Ye for his upcoming valve surgery. He states that he was feeling short of breath and came to the emergency room for further evaluation. The patient was found to be in A-fib with RVR. He remains in atrial fibrillation with controlled ventricular rate at the time of examination. He is currently on IV Cardizem at 10 mg an hour. He denies any chest pain or pressure. DIAGNOSTICS: - EKG reveals A-fib with RVR - Chest xray cardiomegaly - Laboratory data: WBC 6.0. Hemoglobin 13.3. Platelet count 280. Sodium 138. Potassium 4.1. BUN 16. Creatinine 0.88. Troponin negative x 3. TSH 1.450. - Current home cardiac medications include losartan 50 mg at night, Jardiance 10 mg at night, Xarelto 20 mg daily, metoprolol succinate 50 mg daily, Lasix 40 mg daily, Repatha 140 mg every 14 days, and Cardizem CD 240 mg at night -Patient underwent DOLORES in December 2023 revealing ejection fraction 32%, moderate to severe AR, PFO, moderate MR, moderate TR - Cardiac catheterization history on January 11, 2024 revealed chronically occluded proximal RCA, mild pulm hypertension, 3-4+ aortic regurgitation Progress note Patient is doing well from cardiovascular standpoint. His heart rate is around 80s, atrial fibrillation rate controlled, no signs of congestive heart failure exacerbation. Appears to be euvolemic with normal JVP and no swelling in the legs January 30, 2024, Last night patient had a rapid response called because of respiratory distress. On today's evaluation I feel that patient is having moderate COPD exacerbation. On examination he has diffuse wheezing in bilateral lung bates. Chest x-ray does not show significant congestion or pneumonia. I will start him on breathing treatments with albuterol, Symbicort and Mucomyst. Would recommend primary team to evaluate. 01/30 Patient is seen today in follow-up. Patient is in A-fib with RVR at 141 bpm. Blood pressure 122/90. Patient is maintained on Toprol-XL 100 mg twice daily. He has been on and off Cardizem twice during this hospitalization. Bilateral wheezing PHYSICAL EXAM: VITAL SIGNS: Reviewed. GENERAL: Well-developed in no acute distress. HEENT: Head is normocephalic. Pupils are equal, round. Sclerae anicteric. Mucous membranes of the mouth are moist. Neck supple. No JVD or thyromegaly LUNGS: Respirations even and unlabored. Lungs wheezing and crackles bilaterally. HEART: Irregular rate and rhythm. S1 and S2 heard. Systolic murmur noted. Tachycardic ABDOMEN: Soft. Nondistended. Nontender. EXTREMITIES: Normal range of motion. No clubbing or cyanosis. Peripheral pulses intact. No lower extremity edema NEUROLOGIC: Awake and alert. Oriented x 3. ASSESSMENT: Permanent atrial fibrillation with RVR, currently RVR Moderate to severe exacerbation Valvular heart disease including moderate to severe AR, moderate MR, moderate TR Coronary artery disease with chronically occluded proximal RCA Nonischemic cardiomyopathy Hypertension Hyperlipidemia PLAN: Start patient on amiodarone bolus followed by drip. Continue metoprolol succinate 100 mg twice daily Continue SGLT2. Continue Lasix 40 mg daily. Aldactone 12.5 mg daily Resume aldactone Monitor telemetry Request primary team to evaluate for COPD exacerbation. Consult CT surgery to make sure patient has appropriate follow-up for valvular surgery, possible RCA CABG and maze procedure. Nurse practitioner note has been reviewed, I agree with documented findings and plan of care. Patient was seen and examined. Objective - Vital Signs Vital signs: Vital Signs Temp 97.2 F L 01/30/24 20:10 Pulse 129 H 01/31/24 04:20 Resp 16 01/31/24 04:20 BP 122/90 01/31/24 04:20 Pulse Ox 95 01/31/24 04:20 FiO2 Intake & Output 01/30/24 01/31/24 01/31/24 18:59 06:59 18:59 Intake Total 578.833 Balance 578.833 Weight 71 kg Intake: Intake, IV Titration 98.833 Amount Diltiazem 125 mg In 98.833 Sodium Chloride 0.9% 100 ml @ 10 MG/HR 10 mls/hr IV .[id number] [facility] Rx#: [id number] Oral 480 Other: # Voids 2 1 - Labs CBC & Chem 7: 01/28/24 05:31 01/28/24 05:31
--- NOTE | 2024-01-31 12:12 | P.PN ---
Subjective Progress Note Date: 01/31/24 Patient is a 73-year-old male with A-fib maintained on Xarelto who presented to the emergency department yesterday afternoon with palpitations and shortness of breath that started while he was undergoing pre-op clearance, ordered by Dr. Ye. Normally these palpitations last 15 minutes or less at this time and has not stopped. He was found to be in atrial fibrillation with rapid ventricular rate. He endorses compliance with his medications and denies any missed doses. He has a planned cardiothoracic surgery with Dr. Ye for CABG, aortic valve repair/replacement, and mitral valve repair/replacement "soon" with no set date. He has no associated symptoms or aggravating/relieving factors. Eliana carter is currently in A-fib with controlled ventricular rate on IV Cardizem. He denies chest pain, shortness of breath, chills, abdominal pain, or extremity swelling. He endorses mild shortness of breath and mildly productive cough. On admission: EKG showed atrial fibrillation with rapid ventricular rate. Chest x-ray showed cardiomegaly. Labs unremarkable, troponins: <0.012, 0.015, 0.018. BP 120s/90s, HR initially 130s - given Cardizem drip and heart rate has been controlled. Currently in A-fib with controlled ventricular rate. 01/28. Patient seen and examined sitting comfortably in bed. He states that he feels better and the palpitations have improved. Denies chest pain, abdominal p ain, nausea, vomiting. Endorses mild shortness of breath unchanged from prior. Patient still in A-fib with controlled ventricular rate. 01/29. Patient went into A-fib with RVR overnight again, required Cardizem drip overnight. Remains on Xarelto. Asymptomatic. 01/30. Patient still in A-fib with RVR. Endorses continued cough and shortness of breath with exertion. Cardizem drip stopped. Currently on amiodarone drip. Review of systems: Pertinent positives and negatives as discussed in HPI, a complete review of systems was performed and all other systems are negative. Physical examination: Vital signs reviewed General: non toxic, no distress, appears at stated age, normal weight Derm: no unusual rashes/lesions, warm Head: atraumatic, normocephalic, symmetric Eyes: EOMI, no lid lag, anicteric sclera, pupils equal round reactive to light ENT: Nose and ears atraumatic Neck: No cervical lymphadenopathy, trachea midline, supple Mouth: no lip lesion, mucus membranes moist Cardiovascular: S1S2 present, systolic murmur noted, no rubs or gallops Lungs: CTA bilateral, bilateral wheezing present, no rhonchi, no rales, no accessory muscle use Abdominal: soft, nontender to palpation, no guarding Ext: muscle strength 5 out of 5 in all 4 extremities grossly, no gross muscle atrophy, no contractures, positive dorsalis pedis pulse bilateral, no edema Neuro: CN II-XI grossly intact, no gross focal neuro deficits Psych: Alert, oriented, appropriate affect and mood Assessment/Plan: #. Permanent atrial fibrillation with rapid ventricular rate #. Valvular heart disease including moderate to severe AR, moderate MR, moderate TR #. Coronary artery disease with chronically occluded proximal RCA #. Nonischemic cardiomyopathy #. Hypertension #. Hyperlipidemia Continue telemetry monitoring Medication recommendations per cardiology . Dr. Nakita MD I have performed a history and physical examination and medical decision making of this patient, discussed the same with the the resident, and agree with the assessment and plan as written. I performed brief physical exam. Objective - Vital Signs Vital signs: Vital Signs Temp 97.2 F L 01/30/24 20:10 Pulse 129 H 01/31/24 04:20 Resp 16 01/31/24 04:20 BP 122/90 01/31/24 04:20 Pulse Ox 95 01/31/24 04:20 FiO2 Intake & Output 01/30/24 01/31/24 01/31/24 18:59 06:59 18:59 Intake Total 578.833 Balance 578.833 Weight 71 kg Intake: Intake, IV Titration 98.833 Amount Diltiazem 125 mg In 98.833 Sodium Chloride 0.9% 100 ml @ 10 MG/HR 10 mls/hr IV .[id number] [facility] Rx#: [id number] Oral 480 Other: # Voids 2 1 - Labs CBC & Chem 7: 01/28/24 05:31 01/28/24 05:31
[2024-01-31] MEDS: predniSONE 20 MG TAB PO SCH (13:47)
[2024-01-31] MEDS: PANTOPRAZOLE 40 MG TABLET PO SCH (13:47)
[2024-01-31] MEDS: AMIODARONE 450 MG in DEXTROSE 5% IN WATER 250 ML IV SCH (14:31)
--- NOTE | 2024-01-31 14:54 | P.GSCN ---
History of Present Illness Consult date: 01/31/24 Reason for Consult: Valvular heart disease with moderate to severe aortic valve insufficiency, moderate mitral valve regurgitation, moderate tricuspid valve regurgitation and coronary artery disease with chronically occluded proximal right coronary artery. He has a past medical history significant for hypertension, hyperlipidemia, severe aortic valve insufficiency, persistent atrial fibrillation on Xarelto for anticoagulation as an outpatient, coronary artery disease, cardiomyopathy with an ejection fraction of around 30%, COPD, obstructive sleep apnea without home CPAP use, CVA/TIA, is a lifetime non-smoker and has poor dentition. The patient was seen by Dr. Ye in the office on January 20, 2024 for evaluation of his valvular heart disease and coronary artery disease. During the patient's visit with Dr. Ye, it was explained to the patient that he would be a high risk patient of at least 10 to 20% and some preoperative workup was initiated at that time. The patient's dental clearance is pending and once his dental clearance has been obtained he will be scheduled for aortic valve replacement, mitral valve repair, modified Valdez-Maze and possible tricuspid valve repair, as well as coronary artery bypass grafting of the PDA and acute marginal branches. According to the patient he was undergoing some preoperative workup here at the hospital when he started to feel short of breath and came to the emergency department for further evaluation and treatment recommendations. A twelve-lead EKG was completed and the patient was found to be in atrial fibrillation with rapid ventricular response. He was subsequently started on a Cardizem drip and admitted to the hospital. He denies any fever, chills, nausea, vomiting, diarrhea, constipation, headache, presyncope, syncope, chest pain or chest pressure. Serial troponins were negative x 3. S ubsequently, due to the patient being known to our service a consult was placed to Dr. Kee Ye for further evaluation and treatment recommendations. Requesting physician: Judy Smith History of present illness: This is a 73-year-old gentleman who follows on an outpatient basis with Dr. Rosibel Arredondo for his primary care and with Dr. Smith for his cardiology care. Review of Systems A review of systems was completed and was negative except as mentioned in the HPI. Past Medical History Past Medical History: Atrial Fibrillation, Chest Pain / Angina, COPD, CVA/TIA, GERD/Reflux, Hyperlipidemia, Hypertension Additional Past Medical History / Comment(s): kidney stones, seen for abnormal heart rhythm unsure what was wrong. "leaky valves" History of Any Multi-Drug Resistant Organisms: None Reported Past Surgical History: Hernia Repair, Orthopedic Surgery Additional Past Surgical History / Comment(s): wrist surgery Past Anesthesia/Blood Transfusion Reactions: Motion Sickness, Postoperative Nausea & Vomiting (PONV) Past Psychological History: No Psychological Hx Reported Smoking Status: Never smoker Past Alcohol Use History: None Reported Past Drug Use History: None Reported - Past Family History Father Family Medical History: Cancer Mother Family Medical History: Cancer Brother(s) Family Medical History: Cancer Medications and Allergies Home Medications Medication Instructions Recorded Confirmed Type Nitroglycerin Sl Tabs [Nitrostat] 0.4 mg SUBLINGUAL Q5M PRN #25 tab 07/24/16 01/27/24 Rx Diltiazem Cd [Cardizem CD] 240 mg PO HS 12/24/23 01/27/24 History Empagliflozin [Jardiance] 10 mg PO HS 12/24/23 01/27/24 History Evolocumab [Repatha Sureclick] 140 mg SQ Q14D 12/24/23 01/27/24 History Furosemide [Lasix] 40 mg PO DAILY 12/24/23 01/27/24 History Losartan Potassium 50 mg PO HS 12/24/23 01/27/24 History Rivaroxaban [Xarelto] 20 mg PO DIRECTED 12/24/23 01/27/24 History Metoprolol Succinate (ER) [Toprol 50 mg PO DAILY 01/27/24 01/27/24 History Xl] Allergies Allergy/AdvReac Type Severity Reaction Status Date / Time adhesive tape AdvReac Rash/Hives Verified 01/27/24 18:09 Iodinated Contrast Media AdvReac Nausea & Verified 01/27/24 18:09 Vomiting SLEEPING AIDS AdvReac Hallucinati Uncoded 01/27/24 18:09 ons Surgical - Exam Vital Signs Temp Pulse Resp BP Pulse Ox 98.2 F 133 H 18 144/106 98 01/27/24 15:42 01/27/24 15:42 01/27/24 15:42 01/27/24 15:42 01/27/24 15:42 - General well developed, well nourished, no distress, no pain, chronically ill - Eyes PERRL, normal ocular movement, no pale, no icteric - ENT normal pinna, normal nares, normal mucosa, no hearing loss, no congestion, poor custodial - Neck No lymphadenopathy, neck is supple. no masses, no bruits, trachea midline, no venous distension - Respiratory Respirations are symmetrical and nonlabored. Essentially clear throughout, diminished to his bilateral bases. No wheezes, rhonchi or crackles. - Cardiovascular Irregular rhythm and tachycardic rate. S1 and S2 present, negative for S3 or gallop. Positive systolic murmur. - Abdomen Abdomen is soft, nontender and nondistended. Active bowel sounds present all 4 abdominal quadrants. No guarding or rigidity. - Genitourinary Deferred - Rectum Deferred - Integumentary Skin is warm and dry. No clubbing or cyanosis is present. no rash, no growths, no abnormal pigmentation - Neurologic No focal deficits. - Musculoskeletal Strength is equal bilateral. normal gait, normal posture - Psychiatric oriented to time, oriented to person, oriented to place, speech is normal, memory intact Results - Labs 01/28/24 05:31 01/28/24 05:31 - Imaging CT scan - chest: report reviewed, image reviewed EKG: image reviewed Assessment and Plan Assessment: Persistent atrial fibrillation with rapid ventricular response, on Xarelto for anticoagulation as an outpatient Valvular heart disease including moderate to severe aortic insufficiency, moderate mitral regurg, moderate tricuspid regurg Coronary artery disease with chronically occluded proximal RCA Nonischemic cardiomyopathy, with an ejection fraction of 30% Hypertension Hyperlipidemia COPD Obstructive sleep apnea without home CPAP use History of CVA/TIA Lifetime non-smoker Plan: The patient was seen and examined at his bedside on the third floor cardiac stepdown unit in conjunction with Dr. Kee Ye, his chart and diagnostics were reviewed. The patient's preoperative testing and preoperative teaching is in progress. The patient is still trying to obtain dental clearance as he needs some dental work done according to the patient. Once the patient's dental clearance has been obtained he will be scheduled for surgery, aortic valve replacement, mitral valve repair, modified Valdez-Maze and possible tricuspid valve repair, as well as coronary artery bypass grafting of the PDA and acute marginal branches to be completed by Dr. Kee Ye. The patient has been instructed to contact Dr. Ye's office once his dental clearance has been obtained. Dr. Ye discussed with the patient how important obtaining the preoperative testing and preoperative clearance are as the patient is already considered a high risk surgical candidate. Medical management and other comorbidities per primary care and cardiology service. We will continue to follow the patient on an as-needed basis. Please contact for further questions. Thank you for this consult and we look forward to working with you in the care of this patient. I have personally seen and examined the patient, performed the documentation and the assessment and plan as written. Number of minutes spent on the visit: 30. LORENE Morales Time with Patient: Greater than 30
[2024-01-31] MEDS: LOSARTAN 50 MG TAB PO SCH (20:30)
[2024-02-01] MEDS: AMIODARONE 200 MG TAB PO SCH (08:46)
--- NOTE | 2024-02-01 10:39 | P.PN ---
Subjective Progress Note Date: 02/01/24 Principal diagnosis: Valvular heart disease with moderate to severe aortic valve insufficiency, moderate mitral valve regurgitation, moderate tricuspid valve regurgitation and coronary artery disease with chronically occluded proximal right coronary artery. He has a past medical history significant for hypertension, hyperlipidemia, severe aortic valve insufficiency, persistent atrial fibrillation on Xarelto for anticoagulation as an outpatient, coronary artery disease, cardiomyopathy with an ejection fraction of around 30%, COPD, obstructive sleep apnea without home CPAP use, CVA/TIA, is a lifetime non-smoker and has poor dentition. The patient was seen and examined in follow-up today February 01, 2024 at his bedside on the third floor cardiac stepdown unit. The patient is up ambulating in his room without difficulty, he is awake, alert, oriented x 3 and is in no acute apparent distress. Discussed with the patient the importance of following up with [facility] for care of his poor dentition. 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 The patient states that he understands the instructions and will follow-up with [facility] upon discharge. The patient has been instructed to call Dr. Ye's office after his dental care has been completed and he will be scheduled for surgery as discussed with Dr. Ye. Objective - Vital Signs Vital signs: Vital Signs Temp 97.5 F L 02/01/24 08:00 Pulse 116 H 02/01/24 08:00 Resp 21 02/01/24 08:00 BP 117/83 02/01/24 08:00 Pulse Ox 96 02/01/24 08:00 FiO2 Intake & Output 01/31/24 02/01/24 02/01/24 18:59 06:59 18:59 Intake Total 1080 0 Balance 1080 0 Weight 71.5 kg Intake: Oral 1080 0 Other: Voiding Method Urinal Toilet Toilet # Voids 2 1 - Exam CONSTITUTIONAL: Up ambulating in his room, appears comfortable, cooperative, no apparent acute distress. HEENT: Neck is supple, no JVD, no lymphadenopathy. Poor dentition. RESPIRATORY: Lungs sounds essentially clear throughout, diminished to his bilateral bases. Respirations are symmetrical and nonlabored. CARDIOVASCULAR: Irregular rhythm and tachycardic rate. S1 and S2 present, negative for S3 or gallop. Positive systolic murmur. GASTROINTESTINAL: Abdomen soft, nontender, nondistended. Active bowel sounds present 4 quadrants. Tolerating diet. Passing flatus. No guarding or rigidity. GENITOURINARY: Continues to void. INTEGUMENTARY: Skin is warm and dry with no evidence of clubbing or cyanosis. NEUROLOGIC: Cranial nerves II through XII intact. No focal deficits. MUSKULOSKELETAL: Able to move all extremities, strength equal bilaterally, although has some residual right-sided weakness to his right arm status post TIA several years ago. PSYCHIATRIC: Alert and oriented to person place and time, appropriate affect, intact judgment and insight. - Allied health notes Allied health notes reviewed: nursing - Labs CBC & Chem 7: 01/28/24 05:31 01/28/24 05:31 Assessment and Plan Assessment: Persistent atrial fibrillation with rapid ventricular response, on Xarelto for anticoagulation as an outpatient Valvular heart disease including moderate to severe aortic insufficiency, moderate mitral regurg, moderate tricuspid regurg Coronary artery disease with chronically occluded proximal RCA Nonischemic cardiomyopathy, with an ejection fraction of 30% Hypertension Hyperlipidemia COPD Obstructive sleep apnea without home CPAP use History of CVA/TIA with some residual right upper extremity weakness Lifetime non-smoker Plan: Reinforced with the patient the importance of following up with [facility] to have his dental work completed to clear him for cardiac surgery. He has been instructed once his dental work has been completed to please call Dr. Ye's office to schedule surgery. Medical management and other comorbidities per primary care and cardiology services. We will continue to follow the patient on an as-needed basis. Time with Patient: Less than 30
[2024-02-01 11:56] VITALS: BP 103/76; PULSE 111; RESP 15; TEMP 97.8
--- NOTE | 2024-02-01 12:40 | P.DS ---
Providers Date of admission: 01/31/24 07:27 Attending physician: Ermias Tavarez Consults: 01/27/24 18:52 Consult Physician Urgent Consulting Provider: [facility] Consult Reason/Comments: afib with rvr Do you want consulting provider notified?: Yes 01/30/24 18:31 Consult Physician Routine Consulting Provider: Kee Ye Consult Reason/Comments: Making sure patient is on schedule for valve surgery, will need MAZE Do you want consulting provider notified?: Yes Primary care physician: Rosibel Mace MD I have performed a history and physical examination and medical decision making of this patient, discussed the same with the the resident, and agree with the assessment and plan as written. I performed brief physical exam. Hospital Course: Discharge diagnoses; #. Permanent atrial fibrillation with rapid ventricular rate #. Valvular heart disease including moderate to severe AR, moderate MR, moderate TR #. Coronary artery disease with chronically occluded proximal RCA #. Nonischemic cardiomyopathy #. Hypertension #. Hyperlipidemia Hospital course; Patient is a 73-year-old male with A-fib maintained on Xarelto who presented to the emergency department yesterday afternoon with palpitations and shortness of breath that started while he was undergoing pre-op clearance, ordered by Dr. Ye. Normally these palpitations last 15 minutes or less at this time and has not stopped. He was found to be in atrial fibrillation with rapid ventricular rate. He endorses compliance with his medications and denies any missed doses. He has a planned cardiothoracic surgery with Dr. Ye for CABG, aortic valve repair/replacement, and mitral valve repair/replacement "soon" with no set date. He has no associated symptoms or aggravating/relieving factors. He is currently in A-fib with controlled ventricular rate on IV Cardizem. He denies chest pain, shortness of breath, chills, abdominal pain, or extremity swelling. He endorses mild shortness of breath and mildly productive cough. On admission: EKG showed atrial fibrillation with rapid ventricular rate. Chest x-ray showed cardiomegaly. Labs unremarkable, troponins: <0.012, 0.015, 0.018. BP 120s/90s, HR initially 130s - given Cardizem drip and heart rate has been controlled. Currently in A-fib with controlled ventricular rate. 01/28. Patient seen and examined sitting comfortably in bed. He states that he feels better and the palpitations have improved. Denies chest pain, abdominal pain, nausea, vomiting. Endorses mild shortness of breath unchanged from prior. Patient still in A-fib with controlled ventricular rate. 01/29. Patient went into A-fib with RVR overnight again, required Cardizem drip overnight. Remains on Xarelto. Asymptomatic. 01/30. Patient still in A-fib with RVR. Endorses continued cough and shortness of breath with exertion. Cardizem drip stopped. Currently on amiodarone drip. 01/31 - Patient seen at bedside today. Per cardiothoracic surgery consult the patient's preoperative testing and preoperative teaching is in progress. Stating the patient is still attempting to obtain dental clearance as he needs some dental work done, and once he has done that he will be scheduled for surgery. The patient is due to undergo an aortic valve replacement, mitral valve repair, modified Coxmaze and possible tricuspid valve repair, as well as coronary artery bypass grafting of the PDA and acute marginal branches to be completed by Dr. Kee Ye. He continues to be in atrial fibrillation with RVR, noting ST segment depressions and inverted T waves on most recent telemetry reading. Patient's blood pressure is 117/85, heart rate of 108, oxygen saturation 96% on room air. Patient has been cleared for discharge by cardiology as well as cardiothoracic surgery. Cardiothoracic surgery discussed the importance of the patient following up with [facility] to acquire clearance needed for possible surgical procedure down the line. Patient states understanding of this, and knows to call Dr. Ye's office following his dental care being completed. PHYSICAL EXAMINATION: GENERAL: The patient is alert and oriented x3, not in any acute distress. Well developed, well nourished. HEENT: Pupils are round and equally reacting to light. EOMI. No scleral icterus. No conjunctival pallor. Normocephalic, atraumatic. No pharyngeal erythema. No thyromegaly. CARDIOVASCULAR: S1 and S2 present. No murmurs, rubs, or gallops. PULMONARY: Chest is clear to auscultation, no wheezing or crackles. ABDOMEN: Soft, nontender, nondistended, normoactive bowel sounds. No palpable organomegaly. MUSCULOSKELETAL: No joint swelling or deformity. EXTREMITIES: No cyanosis, clubbing, or pedal edema. NEUROLOGICAL: Gross neurological examination did not reveal any focal deficits. SKIN: No rashes. Dictation was produced using Tagged dictation software. please excuse any grammatical, word or spelling errors. Patient Condition at Discharge: Stable Plan - Discharge Summary New Discharge Prescriptions: New Amiodarone [Cordarone] 100 mg PO DAILY #88 tablet predniSONE See Taper PO DIRECTED 12 Days #30 tab Metoprolol Succinate (ER) [Toprol XL] 100 mg PO BID 30 Days #60 tab Spironolactone [Aldactone] 12.5 mg PO DAILY 30 Days #15 tab Discontinued Nitroglycerin Sl Tabs [Nitrostat] 0.4 mg SUBLINGUAL Q5M PRN #25 tab PRN Reason: Chest Pain Empagliflozin [Jardiance] 10 mg PO HS Diltiazem Cd [Cardizem CD] 240 mg PO HS Evolocumab [Repatha Sureclick] 140 mg SQ Q14D Metoprolol Succinate (ER) [Toprol Xl] 50 mg PO DAILY Losartan Potassium 50 mg PO HS Rivaroxaban [Xarelto] 20 mg PO DIRECTED Furosemide [Lasix] 40 mg PO DAILY Discharge Medication List Amiodarone [Cordarone] 100 mg PO DAILY #88 tablet 02/01/24 [Rx] Metoprolol Succinate (ER) [Toprol XL] 100 mg PO BID 30 Days #60 tab 02/01/24 [Rx] Spironolactone [Aldactone] 12.5 mg PO DAILY 30 Days #15 tab 02/01/24 [Rx] predniSONE See Taper PO DIRECTED 12 Days #30 tab 02/01/24 [Rx] Follow up Appointment(s)/Referral(s): Judy Smith MD [STAFF PHYSICIAN] - 1 Week (Call to make follow up appointment. ) Kee Ye MD [STAFF PHYSICIAN] - 2 Weeks (Follow up with Dr. Ye following dental work to move forward regarding procedure.) Rosibel Arredondo MD [Primary Care Provider] - 1-2 days Patient Instructions/Handouts: A-fib (Atrial Fibrillation) (DC) Discharge Disposition: HOME SELF-CARE
--- NOTE | 2024-02-01 13:50 | P.PN ---
Subjective Progress Note Date: 02/01/24 HISTORY OF PRESENT ILLNESS: This is a 73-year-old male with a past medical history significant for hype rtension, hyperlipidemia, severe aortic regurgitation, permanent atrial fibrillation, and CAD. Patient follows in the office with Dr. Smith. We have been asked to see the patient in consultation for A-fib with RVR. Patient examined at the bedside in the emergency room. Patient states he was getting some test performed yesterday that were ordered by Dr. Ye for his upcoming valve surgery. He states that he was feeling short of breath and came to the emergency room for further evaluation. The patient was found to be in A-fib with RVR. He remains in atrial fibrillation with controlled ventricular rate at the time of examination. He is currently on IV Cardizem at 10 mg an hour. He denies any chest pain or pressure. DIAGNOSTICS: - EKG reveals A-fib with RVR - Chest xray cardiomegaly - Laboratory data: WBC 6.0. Hemoglobin 13.3. Platelet count 280. Sodium 138. Potassium 4.1. BUN 16. Creatinine 0.88. Troponin negative x 3. TSH 1.450. - Current home cardiac medications include losartan 50 mg at night, Jardiance 10 mg at night, Xarelto 20 mg daily, metoprolol succinate 50 mg daily, Lasix 40 mg daily, Repatha 140 mg every 14 days, and Cardizem CD 240 mg at night -Patient underwent DOLORES in December 2023 revealing ejection fraction 32%, moderate to severe AR, PFO, moderate MR, moderate TR - Cardiac catheterization history on January 11, 2024 revealed chronically occluded proximal RCA, mild pulm hypertension, 3-4+ aortic regurgitation Progress note Patient is doing well from cardiovascular standpoint. His heart rate is around 80s, atrial fibrillation rate controlled, no signs of congestive heart failure exacerbation. Appears to be euvolemic with normal JVP and no swelling in the legs January 30, 2024, Last night patient had a rapid response called because of respiratory distress. On today's evaluation I feel that patient is having moderate COPD exacerbation. On examination he has diffuse wheezing in bilateral lung bates. Chest x-ray does not show significant congestion or pneumonia. I will start him on breathing treatments with albuterol, Symbicort and Mucomyst. Would recommend primary team to evaluate. 01/30 Patient is seen today in follow-up. Patient is in A-fib with RVR at 141 bpm. Blood pressure 122/90. Patient is maintained on Toprol-XL 100 mg twice daily. He has been on and off Cardizem twice during this hospitalization. Bilateral wheezing 01/31 Yesterday, patient was started on amnio bolus followed by amiodarone drip. He remains in atrial fibrillation heart rate is in the 100-110 range. Blood pressure 103/76, pulse ox 96% on room air. Regarding open heart surgery, patient is waiting to complete some dental issues before this is scheduled. PHYSICAL EXAM: VITAL SIGNS: Reviewed. GENERAL: Well-developed in no acute distress. HEENT: Head is normocephalic. Pupils are equal, round. Sclerae anicteric. Mucous membranes of the mouth are moist. Neck supple. No JVD or thyromegaly LUNGS: Respirations even and unlabored. Lungs wheezing and crackles bilaterally. HEART: Irregular rate and rhythm. S1 and S2 heard. Systolic murmur noted. Tachycardic ABDOMEN: Soft. Nondistended. Nontender. EXTREMITIES: Normal range of motion. No clubbing or cyanosis. Peripheral pulses intact. No lower extremity edema NEUROLOGIC: Awake and alert. Oriented x 3. ASSESSMENT: Permanent atrial fibrillation with RVR, currently RVR Moderate to severe exacerbation Valvular heart disease including moderate to severe AR, moderate MR, moderate TR Coronary artery disease with chronically occluded proximal RCA Nonischemic cardiomyopathy Hypertension Hyperlipidemia PLAN: Transition IV amiodarone to 400 mg twice daily with tapering dose, prescription has been sent to his pharmacy Continue metoprolol succinate 100 mg twice daily Continue SGLT2. Continue Lasix 40 mg daily. Aldactone 12.5 mg daily Patient is cleared for discharge from cardiology May follow-up in the office in 1 to 2 weeks. Nurse practitioner note has been reviewed, I agree with documented findings and plan of care. Patient was seen and examined. Objective - Vital Signs Vital signs: Vital Signs Temp 98.7 F 02/01/24 03:57 Pulse 108 H 02/01/24 03:57 Resp 18 02/01/24 03:57 BP 117/85 02/01/24 03:57 Pulse Ox 96 02/01/24 03:57 FiO2 Intake & Output 01/31/24 02/01/24 02/01/24 18:59 06:59 18:59 Intake Total 1080 0 Balance 1080 0 Weight 71.5 kg Intake: Oral 1080 0 Other: Voiding Method Urinal Toilet # Voids 2 1 - Labs CBC & Chem 7: 01/28/24 05:31 01/28/24 05:31
== END 2024-02-04 15:21 | disposition home or self-care (01) | DRG 309 ==
LOC: EC 15:41 → 3NCARDOBS 18:40 → 3SCARD 18:40 → UNDOADMOB 18:40 → 3SCARD 18:53 → UNDOADMOB 18:53 → INTOOBSV 18:53 → 3SCARD 20:30 → OBSVTOIN 01-31 07:27 → INTOOBSV 01-31 07:27 → UNDODISIN 02-01 14:03
PROVIDERS: ADMIT Hospitalist; ATTEND Hospitalist
DX: I48.21 Permanent atrial fibrillation (principal); J44.1 Chronic obstructive pulmonary disease with (acute) exacerbation; I42.8 Other cardiomyopathies; I25.82 Chronic total occlusion of coronary artery; I10 Essential (primary) hypertension; I25.10 Atherosclerotic heart disease of native coronary artery without angina pectoris; I08.3 Combined rheumatic disorders of mitral, aortic and tricuspid valves; G47.33 Obstructive sleep apnea (adult) (pediatric); E78.5 Hyperlipidemia, unspecified; Z79.01 Long term (current) use of anticoagulants; Z79.84 Long term (current) use of oral hypoglycemic drugs; Z79.899 Other long term (current) drug therapy; Z91.041 Radiographic dye allergy status; Z86.73 Personal history of transient ischemic attack (TIA), and cerebral infarction without residual deficits
CPT/HCPCS: 71045; 80048; 84484; 85025; 87636; 93005; 94640; 96365; 96366; 96367; 99291

== ENCOUNTER → 2024-01-27 | Outpatient (CLI) | payer MEDICARE ==
[2024-01-27 16:38] LABS: Basophils # (A) 0.1 k/uL (0-0.2); Basophils % (A) 1 %; Eosinophils # (A) 0.5 k/uL (0-0.7); Eosinophils % (A) 7 %; HCT 44.1 % (39.0-53.0); Hypochromasia Slight; Lymphocytes # (A) 1.8 k/uL (1.0-4.8); Lymphocytes % (A) 23 %; MCH 31.4 pg (25.0-35.0); MCHC 31.8 g/dL (31.0-37.0); MCV 98.5 fL (80.0-100.0); Mean Platelet Volume 7.3; Monocytes # (A) 0.4 k/uL (0-1.0); Monocytes % (A) 5 %; Neutrophils % (A) 64 %; Platelet Count 305 k/uL (150-450); RBC 4.48 m/uL (4.30-5.90); RDW 14.1 % (11.5-15.5); WBC 7.8 k/uL (3.8-10.6)
[2024-01-27 16:46] LABS: African American GFR (CKD) 84 (>60 ml/min/1.73 sqM); Anion Gap 5 mmol/L; Blood Urea Nitrogen 18 mg/dL (9-20); Carbon Dioxide 29 mmol/L (22-30); Chloride 107 mmol/L (98-107); Glucose 95 mg/dL (74-99); Non-African American GFR(CKD) 73 (>60 ml/min/1.73 sqM); Potassium 4.8 mmol/L (3.5-5.1); Sodium 141 mmol/L (137-145)
[2024-01-27 16:47] LABS: Partial Thromboplastin Time 23.7 sec (22.0-30.0); Prothrombin Time 10.7 sec (10.0-12.5)
[2024-01-27 19:00] LABS: Appearance,Urine Clear (Clear); Bilirubin,Urine Negative (Negative); Blood,Urine Negative (Negative); Color,Urine Yellow (Yellow); Ketones,Urine Negative (Negative); Nitrite,Urine Negative (Negative); Specific Gravity,Urine 1.019 (1.001-1.030); Urobilinogen,Urine 0.2 E.U./DL
== END | disposition home or self-care (01) ==
LOC: LABPAT 14:30
PROVIDERS: ATTEND Thoracic Surgery (Cardiothoracic Vascular Surgery)
DX: Z01.818 Encounter for other preprocedural examination
CPT/HCPCS: 36415; 80051; 81003; 82565; 82947; 84520; 85025; 85610; 85730; 86850; 86900; 86901; 87070; 87086

== ENCOUNTER → 2024-01-27 | Outpatient (CLI) | payer MEDICARE ==
--- NOTE | 2024-01-27 14:45 | CT ---
EXAMINATION TYPE: CT chest wo con CT DLP: 255.4 mGycm, Automated exposure control for dose reduction was used. DATE OF EXAM: 01/27/2024 2:18 PM COMPARISON: 03/30/2017 CLINICAL INDICATION: Male, 73 years old with history of I25.10 ATHSCL HEART DISEASE OF NATIV, I35.0, I34.0; PHH, heart disease TECHNIQUE: Multiple axial images were obtained through the chest. Sagittal and coronal reformats were created for review. Contrast used: mL of (None if empty) Oral contrast used: (None if empty) FINDINGS: LUNGS/ PLEURA: No airspace consolidation, pneumothorax or pleural effusion. Intrafissural lymph nodes along the left major fissure. AIRWAY: Dilation of the lower lobe airways. HEART: Size within normal limits. Mild atherosclerosis of the coronary arteries. MEDIASTINUM: No gross evidence of adenopathy. VASCULATURE: No aortic aneurysm. MUSCULOSKELETAL: No acute osseous abnormalities SOFT TISSUES/LYMPH NODES: Unremarkable. LOWER NECK: No significant findings. UPPER ABDOMEN: Nonobstructing bilateral renal calculi measuring up to 5 mm in the right and 2 mm in t he left. IMPRESSION: 1. Mild atherosclerosis of the coronary arteries. The heart is prominent in size. 2. Right lower lobe large airways demonstrating dilation correlate for COPD.. 3. No acute process. Follow up recommendations for incidental pulmonary nodules, if there are any, are per [employer] [employer] or [employer]. https://radiopaedia.org/articles/rirtqkcloq-[email or web address]?lang=us
--- NOTE | 2024-01-27 15:13 | US ---
EXAMINATION TYPE: US vein mapping BILAT DATE OF EXAM: 01/27/2024 3:03 PM COMPARISON: NONE CLINICAL INDICATION: Male, 73 years old with history of I25.10 ATHSCL HEART DISEASE OF NATIV, I35.0, I34.0; open heart SIDE PERFORMED: Bilateral TECHNIQUE: Lower extremity saphenous vein is examined and measured utilizing real time linear array sonography. DUPLEX FINDINGS: Greater Saphenous: Color flow seen Lesser Saphenous: Color flow seen Measurements in mm: Right Greater Saphenous: Groin: 7.5 x 7.4 mm High Thigh: 8.3 x 6.4 mm Mid Thigh: 3.2 x 2.3 mm Above Knee: 3.0 x 2.2 mm Knee: 2.7 x 1.9 mm Below Knee: 2.3 x 1.5 mm Mid Calf: 2.0 x 1.2 mm At Ankle: 2.9 x 2.5 mm Left Greater Saphenous: Groin: 4.1 x 5.5 mm High Thigh: 5.0 x 3.5 mm Mid Thigh: 3.1 x 2.9 mm Above Knee: 5.0 x 3.4 mm Knee: 3.8 x 3.3 mm Below Knee: 3.6 x 3.1 mm Mid Calf: 4.9 x 3.2 mm At Ankle: 3.4 x 2.7 mm IMPRESSION: 1. Bilateral GSV measurements listed above. 2. Performing surgeon to determine viability as conduit.
--- NOTE | 2024-01-27 15:50 | US ---
EXAMINATION TYPE: US carotid duplex BILAT DATE OF EXAM: 01/27/2024 COMPARISON: NONE CLINICAL INDICATION: Male, 73 years old with history of I25.10 ATHSCL HEART DISEASE OF NATIV, I35.0, I34.0; TECHNIQUE: Carotid duplex ultrasound examination. Indirect Doppler criteria was utilized. FINDINGS: EXAM MEASUREMENTS: RIGHT: Peak Systolic Velocity (PSV) cm/sec ----- Right CCA: 61.1 ----- Right ICA: 64.4 ----- Right ECA: 38.2 ICA/CCA ratio: 1.1 RIGHT: End Diastole cm/sec ----- Right CCA: 19.3 ----- Right ICA: 35.8 ----- Right ECA: 8.3 LEFT: Peak Systolic Velocity (PSV) cm/sec ----- Left CCA: 77.5 ----- Left ICA: 54.1 ----- Left ECA: 47.2 ICA/CCA ratio: 0.7 LEFT: End Diastole cm/sec ----- Left CCA: 25.9 ----- Left ICA: 22.3 ----- Left ECA: 12.0 VERTEBRALS (direction of flow): Right Vertebral: Antegrade Left Vertebral: Antegrade Rhythm: Arrhythmia DATA OPERATIONS DIRECTOR NOTES: No plaque seen. No significantly elevated velocities seen IMPRESSION: No hemodynamically significant internal carotid artery stenosis on either side. Criteria for Assigning % of Stenosis / Diameter reduction (Estimation based on the indirect measurements of the internal carotid artery velocities (ICA PSV). 1. Normal (no stenosis)=ICA PSV < 125 cm/s: ratio < 2.0: ICA EDV<40 cm/s. 2. Less than 50% stenosis=ICA PSV < 125 cm/s: ratio < 2.0: ICA EDV<40 cm/s. 3. 50 to 69% stenosis=ICA PSV of 125 to 230 cm/s: ration 2.0 ? 4.0: ICA EDV 40-100 cm/s. 4. Greater than 70% stenosis to near occlusion= ICA PSV > 230 cm/s: ratio > 4.0: ICA EDV > 100 cm/s. 5. Near occlusion= ICA PSV velocities may be low or undetectable: variable ratio and ICA EDV. 6. Total occlusion=unable to detect flow.
== END | disposition home or self-care (01) ==
LOC: RADCTMAIN 13:49
PROVIDERS: ATTEND Thoracic Surgery (Cardiothoracic Vascular Surgery)
DX: Z01.818 Encounter for other preprocedural examination (principal); I25.10 Atherosclerotic heart disease of native coronary artery without angina pectoris; I35.0 Nonrheumatic aortic (valve) stenosis; I34.0 Nonrheumatic mitral (valve) insufficiency
CPT/HCPCS: 71250; 93880; 93970

== ENCOUNTER → 2024-02-04 | Outpatient (CLI) | payer MEDICARE ==
--- NOTE | 2024-02-04 16:00 | US ---
EXAMINATION TYPE: US arterial LE single level DATE OF EXAM: 02/04/2024 3:46 PM CLINICAL INDICATION: Male, 73 years old with history of OPEN HEART; Pre op cardiac surgery History of: Smoker: No Hypertension: Yes Diabetic: No Hyperlipidemia: Yes TIA/CVA: Yes - 12+ years ago Previous Vascular Surgery: No [place]: No Vascular Ulcers: No Claudication: No Gangrene: No Doppler Waveforms: Right: Biphasic Left: Biphasic Right Brachial Pressure: 117 Left Brachial Pressure: 124 Ankle-Brachial Indices: Right: 1.23 Left: 1.31 (Vessel hardening > 1.4; Normal 0.9 - 1.4, Moderate 0.7 - 0.9, Severe 0.5-0.7) IMPRESSION: Normal ankle brachial indices bilaterally.
--- NOTE | 2024-02-04 17:17 | P.PN ---
Progress Note - Text Progress Note Date: 02/04/24 A 5 m walk score was completed with the patient today and the patient tolerated well, time 1: 2.06 seconds, time 2: 2.31 seconds, time 3: 2.15 seconds. There is no restratification STS score for the surgery the patient is undergoing. A clinical frailty score was calculated, with a score equaling 3.
[2024-02-04 20:46] LABS: Hepatitis A Antibody IgM Nonreactive (Nonreactive); Hepatitis B Core IgM Nonreactive (Nonreactive); Hepatitis B Surface Antigen Nonreactive (Nonreactive); Hepatitis C IgG Antibody Nonreactive (Nonreactive)
== END | disposition home or self-care (01) ==
LOC: LABWHC1 13:05
PROVIDERS: ATTEND Thoracic Surgery (Cardiothoracic Vascular Surgery)
DX: Z01.818 Encounter for other preprocedural examination (principal); I34.0 Nonrheumatic mitral (valve) insufficiency; I25.10 Atherosclerotic heart disease of native coronary artery without angina pectoris; I35.0 Nonrheumatic aortic (valve) stenosis
CPT/HCPCS: 36415; 80074; 83036; 93922

== ENCOUNTER 2024-02-10 05:54 | Inpatient (IN) | payer MEDICARE ==
[~2024-02-10 05:54] MED LIST changes: +ALBUMIN HUMAN 25% 50 ML IV ONE; +ALBUMIN HUMAN 5% 500 ML IVPB ONE; +ATORVASTATIN 10 MG TAB PO ONE; -BENZOCAINE SPRAY 1 EACH MM ONE; +CALCIUM CHLORIDE 100 MG/ML 10 ML SYRINGE IV ONE; +CARDIOPLEGIC SOLN (K+ 16 MEQ/L 1,000 ML with SODIUM BICARB (1 MEQ/ML) 20 ML, LIDOCAINE ... PERFUSION ONE; +CHLORHEXIDINE GLUCONATE 15 ML CUP MUCOUS MEM ONE; +CLEVIDIPINE BUTYRATE 25 MG in EMPTY BAG 1 BAG IV ONE; +HEPARIN SODIUM 1,000 UN/ML (10ML VL) IV ONE; +HEPARIN SODIUM,PORCINE (1 ML) 5,000 UNIT in SODIUM CHLORIDE 0.9% 500 ML 500 ML IV ONE; -HEPARIN SODIUM,PORCINE 10,000 UNIT/ML 1 ML VIAL ONE; +INSULIN REGULAR 100 UNIT in SODIUM CHLORIDE 0.9% 100 ML IV ONE; +MAGNESIUM SULFATE 16.24 MEQ in EMPTY SYRINGE 1 SYR IV ONE; +MANNITOL 25% 12.5 GM/50 ML VIAL IV ONE; +NITROGLYCERIN SL TABS 0.4 MG TAB SUBLINGUAL ONE; +NITROGLYCERIN-D5W PMX 25 MG/250 ML BTL IV ONE; +NITROGLYCERIN-D5W PMX 50 MG in DEXTROSE/WATER 1 250ML.BAG IV ONE; +NOREPINEPHRINE 4 MG in SODIUM CHLORIDE 0.9% 250 ML IV ONE; +PAPAVERINE 360 MG in SODIUM CHLORIDE 0.9% 90 ML IV ONE; +PHENYLEPHRINE 10 MG/ML VIAL IV ONE; +PHENYLEPHRINE 40 MG in SODIUM CHLORIDE 0.9% 250 ML IV ONE; +PROTAMINE SULFATE 10 MG/ML 25 ML VIAL IV ONE; +PROTAMINE SULFATE 250 MG in EMPTY BAG 1 BAG IV ONE; +SODIUM BICARB 8.4% 50 ML SYR (1 MEQ/ML) IV ONE; -SODIUM CHLORIDE 0.9% 1,000 ML BAG ONE; +SODIUM CHLORIDE 0.9% 1,000 ML IV ONE; -SODIUM CHLORIDE 0.9% 250 ML BAG ONE; +TRANEXAMIC ACID 2,000 MG in SODIUM CHLORIDE 0.9% 80 ML IV ONE; +ceFAZolin 1,000 MG in SODIUM CHLORIDE 0.9% IRRIGATIO 1,000 ML IRRIGATION ONE; +propofoL 1,000 MG/100 ML VIAL IV ONE
[2024-02-10] MEDS ORDERED: EPINEPHrine 4 MG in DEXTROSE 5% IN WATER 250 ML IV ONE (06:30)
[2024-02-10] MEDS: LACTATED RINGERS 1,000 ML IV ONE (06:30)
[2024-02-10] MEDS: IV FLUID CONTINUATION 1,000 ML IV ONE (06:30)
[2024-02-10] MEDS: METOPROLOL TARTRATE 5 MG/5 ML VIAL IVP STA (06:35)
[2024-02-10 06:41] LABS: Glucose,Whole Blood 110 mg/dL (70-110)
[2024-02-10] MEDS: ASPIRIN 325 MG TAB PO ONE (07:04)
[2024-02-10] MEDS: ONDANSETRON 4 MG/2 ML VIAL IVP STA (07:22)
[2024-02-10] MEDS: DEXTROSE 5% IN WATER 100 ML with AMIODARONE 150 MG IV ONE (08:10)
[2024-02-10] MEDS: AMIODARONE 360 MG in DEXTROSE 5% IN WATER 200 ML IV ONE (08:22)
[2024-02-10] MEDS ORDERED: Potassium Replacement Protocol 1 EACH MISC MISCELLANE PRN (08:24)
[2024-02-10] MEDS ORDERED: ACETAMINOPHEN TAB 325 MG TAB PO PRN (08:24)
[2024-02-10] MEDS ORDERED: Magnesium Replacement Protocol 1 EACH MISC MISCELLANE PRN (08:24)
[2024-02-10] MEDS: METOPROLOL TARTRATE 12.5 MG TAB PO ONE (08:44)
[2024-02-10 09:07] LABS: Glucose,Whole Blood 103 mg/dL (70-110)
[2024-02-10 09:15] LABS: Basophils # (A) 0.1 k/uL (0-0.2); Basophils % (A) 1 %; Eosinophils # (A) 0.5 k/uL (0-0.7); Eosinophils % (A) 7 %; HCT 42.8 % (39.0-53.0); HGB 13.6 gm/dL (13.0-17.5); Lymphocytes # (A) 1.1 k/uL (1.0-4.8); Lymphocytes % (A) 15 %; MCH 31.1 pg (25.0-35.0); MCHC 31.7 g/dL (31.0-37.0); MCV 98.2 fL (80.0-100.0); Mean Platelet Volume 6.9; Monocytes # (A) 0.2 k/uL (0-1.0); Monocytes % (A) 2 %; Neutrophils # (A) 5.5 k/uL (1.3-7.7); Neutrophils % (A) 74 %; Platelet Count 301 k/uL (150-450); RBC 4.36 m/uL (4.30-5.90); RDW 14.5 % (11.5-15.5); WBC 7.5 k/uL (3.8-10.6)
[2024-02-10] MEDS ORDERED: DEXTROSE 50% SYRINGE 50 ML IVP PRN ×2 (09:38)
--- NOTE | 2024-02-10 10:04 | P.CNPUL ---
History of Present Illness Consult date: 02/10/24 Requesting physician: Kee Ye Chief complaint: Valvular heart disease. History of present illness: Pulmonary consult dated February 10, 2024. This is a 73-year-old male who is scheduled to have aortic valve replacement, mitral valve repair, and a Valdez-Maze procedure. Apparently, the surgery will be done on February 10. He comes to the intensive care unit, for further monitoring and management. He is placed in room 251. The patient is currently on a couple liters of oxygen. He is getting saline at 20 cc an hour. He is getting amiodarone drip at 1 mg/min. The surgery will be done either today or tomorrow. The patient also has a history of atrial fibrillation. The patient apparently will be coming back to the intensive care unit, with a balloon pump. In addition to atrial fibrillation, and valvular heart disease, the patient does have a history of hypertension. Also, the patient has a history of hyperlipidemia, gastroesophageal reflux disease, CVA, and angina. Laboratory data today includes a white count 7.5, hemoglobin 13.6, hematocrit 42.8, and a platelet count of 301,000. Glucose is 103. Magnesium is 1.9. Review of Systems REVIEW OF SYSTEMS: CONSTITUTIONAL: [Negative.] NEUROLOGIC: [ Negative.] HEENT: [ Negative.] CARDIAC: Palpitations. PULMONARY: Shortness of breath. GI: [Negative.] : [Negative.] RHEUMATOLOGIC: [ Negative.] IMMUNOLOGIC: [ Negative.] ENDOCRINE: [Negative. ] DERMATOLOGIC: [Negative.] Past Medical History Past Medical History: Atrial Fibrillation, Chest Pain / Angina, COPD, CVA/TIA, GERD/Reflux, Hyperlipidemia, Hypertension, Osteoarthritis (OA) Additional Past Medical History / Comment(s): Edema in feet. Hx CVA 12-13 yrs ago, had right arm weakness, which resolved. Hx multiple TIA's. Hx kidney stones. "2 leaky valves, vein 99% blocked." Migraines. History of Any Multi-Drug Resistant Organisms: None Reported Past Surgical History: Hernia Repair, Orthopedic Surgery Additional Past Surgical History / Comment(s): Left wrist surgery, inguinal hernia repair with mesh, colonoscopies. Past Anesthesia/Blood Transfusion Reactions: Motion Sickness, Postoperative Nausea & Vomiting (PONV) Additional Past Anesthesia/Blood Transfusion Reaction / Comment(s): "PONV from Iodine." Smoking Status: Never smoker - Past Family History Father Family Medical History: Cancer Mother Family Medical History: Cancer Brother(s) Family Medical History: Cancer Daughter(s) Family Medical History: Cancer Medications and Allergies Home Medications Medication Instructions Recorded Confirmed Type Albuterol Nebulized [Ventolin 2.5 mg INHALATION QID PRN 02/07/24 02/10/24 History Nebulized] Diltiazem Cd [Cardizem CD] 240 mg PO HS 02/07/24 02/10/24 History Empagliflozin [Jardiance] 10 mg PO DAILY 02/07/24 02/10/24 History Evolocumab [Repatha Sureclick] 0 mg SQ Q14D 02/07/24 02/10/24 History Furosemide [Lasix] 40 mg PO DAILY 02/07/24 02/10/24 History Losartan [Cozaar] 50 mg PO DAILY 02/07/24 02/10/24 History Metoprolol Succinate (ER) [Toprol 50 mg PO BID 02/07/24 02/10/24 History Xl] Nitroglycerin Sl Tabs [Nitrostat] 0.4 mg SUBLINGUAL Q5M PRN 02/07/24 02/10/24 History Rivaroxaban [Xarelto] 15 mg PO DAILY 02/07/24 02/10/24 History Allergies Allergy/AdvReac Type Severity Reaction Status Date / Time adhesive tape AdvReac Rash/Hives Verified 02/04/24 13:22 Iodinated Contrast Media AdvReac Nausea & Verified 02/04/24 13:22 Vomiting steroids Allergy Heart Uncoded 02/04/24 13:34 racing SLEEPING AIDS AdvReac Hallucinati Uncoded 02/04/24 13:22 ons Physical Exam Osteopathic Statement: *. No significant issues noted on an osteopathic structural exam other than those noted in the History and Physical/Consult. Vitals: Vital Signs Temp Pulse Pulse Resp BP BP Pulse Ox 02/10/24 09:00 97.6 F 94 17 116/88 93 L 02/10/24 08:50 89 13 116/88 95 02/10/24 08:40 101 H 21 94 L 02/10/24 08:35 59 H 02/10/24 08:30 104 H 18 124/75 99 02/10/24 08:10 107 H 16 115/73 99 02/10/24 07:22 120 H 16 112/73 99 02/10/24 07:10 118 H 16 121/79 99 02/10/24 07:00 120 H 16 126/81 98 02/10/24 06:40 116 H 16 132/91 97 02/10/24 06:24 97.5 F L 132 H 18 120/94 98 Intake and Output 02/09/24 02/10/24 02/10/24 22:59 06:59 14:59 Intake Total 100 Balance 100 Intake: IV 100 Other: Weight 74 kg No acute distress, oriented 3. Currently on 2 L. HEENT examination is grossly unremarkable. Mucous membranes are moist. No oral lesions. Neck supple. Full range of motion. No adenopathy thyromegaly or neck vein distention. Cardiovascular examination reveals an irregular rhythm and rate. Heart rate 97 bpm. No heart murmur. Lungs reveal clear breath sounds. Breath sounds are equal bilaterally. No adventitious lung sounds including wheezes rhonchi or crackles. Abdomen soft bowel sounds are heard. No masses or tenderness. Extremities are intact. No cyanosis clubbing or edema. Skin is without rash or lesion. Neurologic examination is brief but nonfocal. Results - Laboratory Findings CBC and BMP: 02/10/24 08:51 02/10/24 06:38 Abnormal lab findings: Abnormal Labs 02/04/24 14:57 Crossmatch See Detail - Diagnostic Findings Chest x-ray: image reviewed Assessment and Plan Assessment: Valvular heart disease, which will require a aortic valve replacement, and mitr al valve repair. History of atrial fibrillation with rapid ventricular response. History of hypertension. History of hyperlipidemia. History of CVA. History of gastroesophageal reflux disease. Lifelong non-smoker. Plan: Plan dated February 10, 2024. The patient is seen in the intensive care unit. The patient just came back from the catheterization laboratory. The patient will have either surgery today or tomorrow. He is anticipated to have an aortic valve replacement and mitral valve repair, as well as a Valdez-Maze procedure. The patient is a lifelong non- smoker. He is currently on nasal O2 at 2 L. He is getting saline at 20 cc an hour. He is also on amiodarone at 1 mg/min. Labs, x-rays, medications are reviewed. We will continue to follow make recommendations along the way. Time with Patient: Greater than 30
[2024-02-10] MEDS: LACTATED RINGERS 1,000 ML IV SCH (10:20)
[2024-02-10] MEDS: FUROSEMIDE 10 MG/ML 4 ML VIAL IV SCH (10:44)
[2024-02-10] MEDS: METOPROLOL TARTRATE 50 MG TAB PO SCH (10:44)
[2024-02-10] MEDS: PANTOPRAZOLE 40 MG/10 ML VIAL IV SCH (10:45)
[2024-02-10 11:11] LABS: Glucose,Whole Blood 103 mg/dL (70-110)
[2024-02-10] MEDS: INSULIN ASPART (NovoLOG) 100 UNIT/ML VIAL SQ SCH (11:39)
--- NOTE | 2024-02-10 12:23 | P.GSHP ---
History of Present Illness H&P Date: 02/10/24 Chief Complaint: Valvular heart disease with moderate to severe aortic valve insufficiency This is a 73-year-old gentleman who follows outpatient with Dr. Arredondo for primary care and Dr. Smith for cardiology. He has a previous medical history of hypertension, hyperlipidemia, severe aortic valve insufficiency, persistent atrial fibrillation on Xarelto for anticoagulation as an outpatient, coronary artery disease, cardiomyopathy/heart failure with reduced ejection fraction, COPD, obstructive sleep apnea without home CPAP use, CVA/TIA, and lifelong non- smoker. He has been coming increasingly fatigued and dyspneic to the point where he really could not do much at all. He was evaluated by Dr. Smith with echocardiogram and heart catheterization. Echo demonstrated reduced ejection fraction around 32%, global hypokinesis with severe inferobasilar akinesis, moderate aortic sufficiency with moderate to severe mitral insufficiency and moderate tricuspid insufficiency. Heart catheterization demonstrated occlusion of the right coronary artery with filling of the PDA by [id number] collaterals, large acute marginal branch that fills from the occluded right coronary artery and mild disease of the left sided vessels. Of note the patient has had stenting to the RCA in the past. For further evaluation the patient underwent DOLORES confirming presence of 3+ mitral regurgitation, 3+ aortic insufficiency, as well as moderate tricuspid regurgitation with diminished left ventricular systolic function and right ventricular function. The patient was seen by Dr. Ye in the office on January 20, 2024. He was recommended to undergo aortic valve replacement, mitral valve repair, possible tricuspid valve repair, modified Valdez-Maze for his chronic atrial fibrillation, as well as coronary bypass. At that time it was explained to the patient that he would be considered very high risk and he may take some time to think about it, at which time the patient was adamant he wanted surgery. He did have to obtain dental clearance and then would be scheduled for surgery electively. Unfortunately not long after the patient did present to the emergency room at [facility] with heart failure symptoms and rapid atrial ventricular response. He was treated and released, obtained dental clearance and presented back to [facility] for elective surgery this morning February 10, 2024. Again he was found to be in rapid atrial fibrillation and surgery was postponed until tomorrow to try and gain control of his heart rate. - Review of Systems Comment: Review of systems was completed and was negative except as noted - Cardiovascular Cardiovascular: Reports decreased exercise tolerance, Reports rapid heart beat, Reports shortness of breath Past Medical History Past Medical History: Atrial Fibrillation, Coronary Artery Disease (CAD), Chest Pain / Angina, Heart Failure, COPD, CVA/TIA, GERD/Reflux, Hyperlipidemia, Hypertension, Osteoarthritis (OA) Additional Past Medical History / Comment(s): Edema in feet. Hx CVA 12-13 yrs ago, had right arm weakness, which resolved. Hx multiple TIA's. Hx kidney stones. Migraines. History of Any Multi-Drug Resistant Organisms: None Reported Past Surgical History: Hernia Repair, Orthopedic Surgery Additional Past Surgical History / Comment(s): Left wrist surgery, inguinal hernia repair with mesh, colonoscopies. Past Anesthesia/Blood Transfusion Reactions: Motion Sickness, Postoperative Nausea & Vomiting (PONV) Additional Past Anesthesia/Blood Transfusion Reaction / Comment(s): "PONV from Iodine." Past Psychological History: No Psychological Hx Reported Smoking Status: Never smoker Past Alcohol Use History: None Reported Past Drug Use History: None Reported - Past Family History Father Family Medical History: Cancer Mother Family Medical History: Cancer Brother(s) Family Medical History: Cancer Daughter(s) Family Medical History: Cancer Medications and Allergies Home Medications Medication Instructions Recorded Confirmed Type Albuterol Nebulized [Ventolin 2.5 mg INHALATION QID PRN 02/07/24 02/10/24 History Nebulized] Diltiazem Cd [Cardizem CD] 240 mg PO HS 02/07/24 02/10/24 History Empagliflozin [Jardiance] 10 mg PO DAILY 02/07/24 02/10/24 History Evolocumab [Repatha Sureclick] 0 mg SQ Q14D 02/07/24 02/10/24 History Furosemide [Lasix] 40 mg PO DAILY 02/07/24 02/10/24 History Losartan [Cozaar] 50 mg PO DAILY 02/07/24 02/10/24 History Metoprolol Succinate (ER) [Toprol 50 mg PO BID 02/07/24 02/10/24 History Xl] Nitroglycerin Sl Tabs [Nitrostat] 0.4 mg SUBLINGUAL Q5M PRN 02/07/24 02/10/24 History Rivaroxaban [Xarelto] 15 mg PO DAILY 02/07/24 02/10/24 History Allergies Allergy/AdvReac Type Severity Reaction Status Date / Time adhesive tape AdvReac Rash/Hives Verified 02/04/24 13:22 Iodinated Contrast Media AdvReac Nausea & Verified 02/04/24 13:22 Vomiting steroids Allergy Heart Uncoded 02/04/24 13:34 racing SLEEPING AIDS AdvReac Hallucinati Uncoded 02/04/24 13:22 ons Surgical - Exam Vital Signs Temp Pulse Resp BP Pulse Ox 97.5 F L 132 H 18 120/94 98 02/10/24 06:24 02/10/24 06:24 02/10/24 06:24 02/10/24 06:24 02/10/24 06:24 CONSTITUTIONAL: Awake and alert, appears comfortable, cooperative, well- developed, well-nourished, no pain, no acute distress EYES: Pupils equal, round, reactive to light, normal ocular movement ENT: Moist mucous membranes without oral lesions present NECK: No masses, no bruits, trachea midline RESPIRATORY: Lungs sounds clear to auscultation bilaterally. Respirations even, nonlabored. Currently on room air with oxygen saturation 95%. Strong cough. No chest wall deformities. No clubbing or cyanosis present CARDIOVASCULAR: S1, S2 present, systolic murmur present. Irregular rate and rhythm, atrial fibrillation on telemetry. Palpable peripheral pulses bilaterally. No edema present GASTROINTESTINAL: Abdomen soft, nontender, nondistended without masses or organomegaly noted. There is no rebound or guarding present. Active bowel sounds present 4 quadrants. GENITOURINARY: Deferred INTEGUMENTARY: Skin is warm and dry NEUROLOGIC: Cranial nerves II through XII intact, normal coordination, no obvious motor or sensory deficits, speech is normal MUSKULOSKELETAL: Able to move all extremities, strength equal bilaterally except some mild residual right arm weakness, normal posture PSYCHIATRIC: Alert and oriented to person place and time, appropriate affect, intact judgment and insight CLINICAL FRAILTY SCORE 3 Results - Labs 02/10/24 08:51 02/10/24 06:38 Diabetes panel 02/10/24 Range/Units 06:38 Potassium 4.2 (3.5-5.1) mmol/L Pituitary panel 02/10/24 Range/Units 06:38 Potassium 4.2 (3.5-5.1) mmol/L Adrenal panel 02/10/24 Range/Units 06:38 Potassium 4.2 (3.5-5.1) mmol/L Assessment and Plan Assessment: Severe aortic insufficiency, moderate mitral regurgitation, moderate tricuspid regurgitation Persistent atrial fibrillation, on Xarelto for anticoagulation, last dose 02/06/24 Cardiomyopathy/heart failure with reduced ejection fraction Coronary artery disease History of hypertension Hyperlipidemia COPD Obstructive sleep apnea without home CPAP use CVA/TIA Lifelong non-smoker Plan: Our plan is for aortic valve replacement, mitral valve repair, possible tricuspid valve repair, coronary artery bypass, modified Valdez-Maze, ligation of left atrial appendage, and placement of intra-aortic balloon pump tomorrow, February 11, [address] Ye Patient will be n.p.o. after midnight Continue current medication regimen, amiodarone IV started and to be continued until surgery Continue to hold Xarelto, Cozaar, Cardizem Wean O2 as tolerated Increase activity as tolerated Cardiology, internal medicine, price accuracy supervisor consulted Incentive spirometry ordered and should be encouraged Will continue to monitor and make further recommendations as appropriate
[2024-02-10] MEDS: ALBUTEROL NEBULIZED 2.5 MG/3 ML INHALATION PRN (12:46)
[2024-02-10] MEDS ORDERED: MD COMMUNICATION TO PHARMACY 1 EACH MISC PO ONE ×3 (13:49)
[2024-02-10] MEDS ORDERED: PHENYLEPHRINE 10 MG/ML VIAL IV ONE (13:49)
[2024-02-10] MEDS: AMIODARONE 450 MG in DEXTROSE 5% IN WATER 250 ML IV SCH (14:26)
[2024-02-10 15:00] LABS: ALT 18 U/L (4-49); AST 25 U/L (17-59); African American GFR (CKD) 74 (>60 ml/min/1.73 sqM); Albumin 3.6 g/dL (3.5-5.0); Alkaline Phosphatase 108 U/L (38-126); Anion Gap 7 mmol/L; Blood Urea Nitrogen 20 mg/dL (9-20); Calcium 8.8 mg/dL (8.4-10.2); Carbon Dioxide 27 mmol/L (22-30); Chloride 106 mmol/L (98-107); Glucose 119 mg/dL (74-99); Non-African American GFR(CKD) 64 (>60 ml/min/1.73 sqM); Potassium 4.7 mmol/L (3.5-5.1); Sodium 140 mmol/L (137-145); Total Protein 6.3 g/dL (6.3-8.2)
[2024-02-10] MEDS: ALBUTEROL NEBULIZED 2.5 MG/3 ML INHALATION SCH (15:20)
[2024-02-10 17:26] LABS: Glucose,Whole Blood 155 mg/dL (70-110)
[2024-02-10 22:02] LABS: Glucose,Whole Blood 99 mg/dL (70-110)
[2024-02-10] MEDS: SENNOSIDES 8.6 MG TAB PO SCH (22:03)
[2024-02-10] MEDS: MAGNESIUM SULFATE-D5W PMX 1 GM in DEXTROSE/WATER 1 100ML.BAG IVPB ONE (22:03)
--- NOTE | 2024-02-10 22:58 | CONS ---
CONSULTATION REASON FOR CONSULTATION: Regarding COPD and other medical issues, requested by Cardiothoracic Surgery. HISTORY OF PRESENT ILLNESS: This is a 73-year-old gentleman with a past medical history of multiple medical problems including COPD, history of atrial fibrillation, who is being admitted for severe aortic insufficiency, moderate mitral regurgitation, and moderate tricuspid regurgitation, persistent atrial fibrillation for aortic valve replacement, aortic valve repair and possible tricuspid valve repair and multiple other problems. The patient is monitored in ICU at this time. The patient is currently stable. The patient has some wheezing. Bronchodilators ordered. There is no history of any fever, rigors, or chills. PAST MEDICAL HISTORY: History of atrial fibrillation, COPD, CHF. Rest of the history and rest of the chart is also reviewed. HOME MEDICATIONS: Reviewed include Xarelto, dose and rest of medications reviewed. ALLERGIES: Reviewed include steroids. FAMILY HISTORY: History of cancer. SOCIAL HISTORY: No history of smoking, or alcohol. 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 REVIEW OF SYSTEMS: A 14-point review is negative except as mentioned earlier. PHYSICAL EXAMINATION: VITAL SIGNS: Pulse is 75, blood pressure 109/84, respirations 18. CHEST: Conjunctivae normal. CARDIOVASCULAR: S1, S2 normal with ejection systolic murmur. RESPIRATIONS: Bilateral scattered rhonchi and crackles. Expiratory wheezing. ABDOMEN: Soft. LEGS: No edema. NERVOUS SYSTEM: Nonfocal. LABORATORY DATA: CBC within normal limits. Otherwise, previous chemistry was also normal. ASSESSMENT: 1. Severe aortic insufficiency, moderate mitral regurgitation, moderate tricuspid regurgitation. 2. Persistent atrial fibrillation. 3. Cardiomyopathy. 4. History of coronary artery disease. 5. Hypertension. 6. Hyperlipidemia. 7. Chronic obstructive pulmonary disease. 8. Degenerative joint disease. 9. History of cerebrovascular accident remotely. RECOMMENDATIONS AND DISCUSSION: In this 73-year-old gentleman, who presented with multiple complex medical issues, we will monitor the patient closely. Continue the current medications, continue symptomatic treatment. Otherwise, at this time, I would recommend resume the home medications, bronchodilators. Closely monitor. A carotid ultrasound showed no hemodynamically significant stenosis. Closely follow with Cardiothoracic Surgery. Further recommendations to follow. MMODL / IJN: [id number] /
[2024-02-11] MEDS: ALBUTEROL NEBULIZED 2.5 MG/3 ML INHALATION PRN (00:30)
[2024-02-11] MEDS ORDERED: ATORVASTATIN 10 MG TAB PO ONE (05:00)
[2024-02-11] MEDS ORDERED: LACTATED RINGERS 1,000 ML IV SCH (05:00)
[2024-02-11] MEDS ORDERED: ASPIRIN 325 MG TAB PO ONE (05:00)
[2024-02-11] MEDS ORDERED: ALBUMIN HUMAN 25% 50 ML in EMPTY BAG 1 BAG IVPB ONE (05:00)
[2024-02-11] MEDS ORDERED: PROTAMINE SULFATE 10 MG/ML 25 ML VIAL IV ONE ×2 (05:00→07:55)
[2024-02-11] MEDS ORDERED: METOPROLOL TARTRATE 25 MG TAB PO ONE (05:00)
[2024-02-11] MEDS ORDERED: CHLORHEXIDINE GLUCONATE 15 ML CUP MUCOUS MEM ONE (05:00)
[2024-02-11] MEDS ORDERED: INSULIN REGULAR 100 UNIT in SODIUM CHLORIDE 0.9% 100 ML IV SCH (05:00)
[2024-02-11] MEDS ORDERED: NOREPINEPHRINE 4 MG in SODIUM CHLORIDE 0.9% 250 ML IV SCH (05:00)
[2024-02-11] MEDS ORDERED: SODIUM CHLORIDE 0.9% 1,000 ML IV SCH (05:00)
[2024-02-11] MEDS ORDERED: CALCIUM CHLORIDE 100 MG/ML 10 ML SYRINGE IVP ONE (05:00)
[2024-02-11] MEDS ORDERED: HEPARIN SODIUM,PORCINE (1 ML) 5,000 UNIT in SODIUM CHLORIDE 0.9% 500 ML 500 ML IV ONE (05:00)
[2024-02-11] MEDS ORDERED: ALBUMIN HUMAN 5% 500 ML in EMPTY BAG 1 BAG IVPB ONE ×6 (05:00)
[2024-02-11] MEDS ORDERED: PHENYLEPHRINE 40 MG in SODIUM CHLORIDE 0.9% 250 ML IV ONE (05:00)
[2024-02-11] MEDS ORDERED: CARDIOPLEGIC SOLN (K+ 16 MEQ/L 1,000 ML with SOD BICARB SYR 8.4% (1 MEQ/ML) 20 ML, LIDO... PERFUSION NR (05:00)
[2024-02-11] MEDS ORDERED: PROTAMINE SULFATE 250 MG in EMPTY BAG 1 BAG IV ONE (05:00)
[2024-02-11] MEDS ORDERED: HEPARIN SODIUM 1,000 UN/ML (10ML VL) IV ONE (05:00)
[2024-02-11] MEDS ORDERED: NITROGLYCERIN-D5W PMX 50 MG in DEXTROSE/WATER 1 250ML.BAG IV SCH ×2 (05:00→13:57)
[2024-02-11] MEDS ORDERED: NITROGLYCERIN-D5W PMX 25 MG/250 ML BTL IV ONE (05:00)
[2024-02-11] MEDS ORDERED: MANNITOL 25% 12.5 GM/50 ML VIAL IV ONE ×2 (05:00)
[2024-02-11] MEDS ORDERED: MAGNESIUM SULFATE 16.24 MEQ in EMPTY SYRINGE 1 SYR IV ONE (05:00)
[2024-02-11] MEDS ORDERED: CLEVIDIPINE BUTYRATE 25 MG in EMPTY BAG 1 BAG IV SCH (05:00)
[2024-02-11] MEDS ORDERED: TRANEXAMIC ACID 2,000 MG in SODIUM CHLORIDE 0.9% 80 ML IV ONE (05:00)
[2024-02-11] MEDS ORDERED: ceFAZolin 1,000 MG in SODIUM CHLORIDE 0.9% IRRIGATIO 1,000 ML IRRIGATION ONE (05:00)
[2024-02-11] MEDS ORDERED: SODIUM BICARB 8.4% 50 ML SYR (1 MEQ/ML) IV ONE (05:00)
[2024-02-11] MEDS ORDERED: PAPAVERINE 360 MG in SODIUM CHLORIDE 0.9% 90 ML IV ONE (05:00)
[2024-02-11] MEDS ORDERED: EPINEPHrine 4 MG in DEXTROSE 5% IN WATER 250 ML IV ONE (06:30)
[2024-02-11] MEDS ORDERED: HEPARIN SODIUM,PORCINE 10,000 UNIT/ML 1 ML VIAL ONE (07:55)
[2024-02-11] MEDS ORDERED: EPINEPHrine 10 ML SYRINGE (0.1 MG/ML) ONE (07:55)
[2024-02-11] MEDS ORDERED: NOREPINEPHRINE 1 MG/ML 4 ML VIAL IV ONE (07:55)
[2024-02-11] MEDS ORDERED: NITROGLYCERIN-D5W PMX 50 MG/250 ML BOTTLE IV ONE (07:55)
[2024-02-11] MEDS ORDERED: fentaNYL (PF) 50 MCG/ML 50 ML VIAL ONE (07:55)
[2024-02-11] MEDS ORDERED: HEPARIN SODIUM,PORCINE 5,000 UNIT/ML 1 ML VIAL ONE (07:55)
[2024-02-11] MEDS ORDERED: VECURONIUM 10 MG VIAL IV ONE (07:55)
[2024-02-11] MEDS ORDERED: PROPOFOL 10 MG/ML 20 ML VIAL IV ONE (07:55)
[2024-02-11] MEDS ORDERED: TRANEXAMIC 1,000 MG/100ML-NACL PREMIX BAG ONE (07:55)
[2024-02-11] MEDS ORDERED: MIDAZOLAM HCL 10 MG/10 ML VIAL ONE (07:55)
[2024-02-11 08:25] LABS: ABG Base Excess -0.1 mmol/L; ABG Glucose Whole Blood 137 mg/dL (75-99); ABG HCO3 25 mmol/L (21-25); ABG Hematocrit 43 % (34.0-46.0); ABG Ionized Calcium 4.6 mg/dL (4.5-5.3); ABG Lactic Acid Whole Blood 0.9 mmol/L (0.5-1.6); ABG Oxygen Saturation 97.4 % (94-97); ABG PCO2 43 mmHg (35-45); ABG PH 7.38 (7.35-7.45); ABG PO2 117 mmHg (83-108); ABG Potassium Whole Blood 4.9 mmol/L (3.4-4.5); ABG Sodium Whole Blood 141 mmol/L (135-146); ABG TCO2 23 mmol/L (19-24); Allen Test Performed? Yes
[2024-02-11] MEDS ORDERED: VASOPRESSIN 20 UNIT in SODIUM CHLORIDE 0.9% 50 ML IV ONE (09:15)
[2024-02-11] MEDS: SODIUM CHLORIDE 0.9% 500 ML 500 ML with HEPARIN SODIUM,PORCINE (1 ML) 5,000 UNIT IV ONE (09:44)
[2024-02-11] MEDS: ceFAZolin 1,000 MG in SODIUM CHLORIDE 0.9% 1,000 ML IRRIGATION ONE (09:45)
[2024-02-11] MEDS: PAPAVERINE 360 MG in SODIUM CHLORIDE 0.9% 90 ML IV ONE (09:45)
[2024-02-11 09:51] LABS: ABG Base Excess -0.2 mmol/L; ABG Glucose Whole Blood 125 mg/dL (75-99); ABG HCO3 25 mmol/L (21-25); ABG Hematocrit 38 % (34.0-46.0); ABG Ionized Calcium 4.4 mg/dL (4.5-5.3); ABG Lactic Acid Whole Blood 0.8 mmol/L (0.5-1.6); ABG Oxygen Saturation 99.4 % (94-97); ABG PCO2 40 mmHg (35-45); ABG PO2 245 mmHg (83-108); ABG Potassium Whole Blood 4.4 mmol/L (3.4-4.5); ABG Sodium Whole Blood 141 mmol/L (135-146); ABG TCO2 22 mmol/L (19-24); Allen Test Performed? Yes
--- NOTE | 2024-02-11 09:54 | P.ANPRN ---
Procedure Note - Anesthesia - Invasive Line Right Arterial Line Time Out Performed: Yes Date of Procedure: 02/11/24 Time of Procedure: 07:30 Location of Patient: PreOp Preparation: Sterile Prep, Sterile Dressing Arterial Line Location: Briachial Ultrasound Used: Yes Purpose - Visualization and Identification of Vasculature: Yes Needle Guage: 20 Image Stored and Saved: Yes Narrative: After several attempts at radial arterial line placement by APPRENTICE ARCHITECT, right antebrachial region prepped and draped. Lidocaine 1% 3 ml infiltrated subq. 20 g needle guided by ultrasound into R brachial artery. Pulsatile flow obtained. Wire inserted and catheter inserted over wire. Line sutured in place and sterile antibacterial dressing applied. Right Central Line Time Out Performed: Yes Date of Procedure: 02/11/24 Time of Procedure: 07:40 Location of Patient: PreOp Preparation: Sterile Prep, Sterile Dressing Central Line Location: Internal Jugular Ultrasound Used: Yes Purpose - Visualization and Identification of Vasculature: Yes Needle Guage: 18 Image Stored and Saved: Yes Narrative: Right neck prepped and draped. 1% lidocaine 5 ml infiltrated subq. Under ultrasound guidance, 18 g needle inserted into RIJ. Wire inserted and position in R IJ confirmed on u/s. Small incision over wire and Cordis inserted using Seldinger technique. Line sutured in place and sterile antibacterial dressing applied. Right [place] Time Out Performed: Yes Date of Procedure: 02/11/24 Time of Procedure: 07:50 Location of Patient: PreOp Preparation: Sterile Prep, Sterile Dressing [place] Line Location: Internal Jugular Ultrasound Used: No Purpose - Visualization and Identification of Vasculature: No Image Stored and Saved: No Narrative: JR had all ports flushed and balloon tested. Advanced to 20 cm. Balloon inflated. Advanced until RV and then PA waveforms obtained. Balloon deflated and line secured at 49 cm. Position confirmed on DOLORES
--- NOTE | 2024-02-11 10:18 | P.PN ---
Subjective Progress Note Date: 02/11/24 Principal diagnosis: Valvular heart disease. Pulmonary consult dated February 10, 2024. This is a 73-year-old male who is scheduled to have aortic valve replacement, mitral valve repair, and a Valdez-Maze procedure. Apparently, the surgery will be done on February 10. He comes to the intensive care unit, for further monitoring and management. He is placed in room 251. The patient is currently on a couple liters of oxygen. He is getting saline at 20 cc an hour. He is ge tting amiodarone drip at 1 mg/min. The surgery will be done either today or tomorrow. The patient also has a history of atrial fibrillation. The patient apparently will be coming back to the intensive care unit, with a balloon pump. In addition to atrial fibrillation, and valvular heart disease, the patient does have a history of hypertension. Also, the patient has a history of hyperlipidemia, gastroesophageal reflux disease, CVA, and angina. Laboratory data today includes a white count 7.5, hemoglobin 13.6, hematocrit 42.8, and a platelet count of 301,000. Glucose is 103. Magnesium is 1.9. Progress note dated February 11, 2024. 73-year-old male seen in consultation yesterday. The patient has a history of valvular heart disease, and will have surgery today, with Dr. Ye. The patient is expected to have an aortic valve replacement, mitral valve replacement, possible tricuspid valve replacement, possible bypass grafting, and insertion of the intra-aortic balloon pump. Currently, the patient is on room air. In no acute distress. No new laboratory data today. Laboratory data from yesterday have been reviewed. The patient was on amiodarone, for his atrial fibrillation, but that has been discontinued. Objective - Vital Signs Vital signs: Vital Signs Temp 98.1 F 02/11/24 05:05 Pulse 96 02/11/24 06:14 Resp 12 02/11/24 06:00 BP 114/102 02/11/24 06:00 Pulse Ox 93 L 02/11/24 06:00 FiO2 Intake & Output 02/10/24 02/11/24 02/11/24 18:59 06:59 18:59 Intake Total 620 340 3 Output Total 1750 225 Balance -1130 115 3 Intake: IV 80 340 3 0.9 @ KVO 80 240 Magnesium Sulfate-D5w Pmx 100 1 gm In Dextrose/Water 1 100ml.bag @ 100 mls/hr IVPB ONCE ONE Rx#: [id number] Oral 540 Output: Urine 1750 225 Other: Voiding Method Urinal Urinal # Voids 1 # Bowel Movements 1 1 - Exam No acute distress, oriented 3. Currently on room air. Saturations are 95%. HEENT examination is grossly unremarkable. Mucous membranes are moist. No oral lesions. Neck supple. Full range of motion. No adenopathy thyromegaly or neck vein distention. Cardiovascular examination reveals an irregular rhythm and rate. Heart rate 96 bpm. No heart murmur. Lungs reveal clear breath sounds. Breath sounds are equal bilaterally. No adventitious lung sounds including wheezes rhonchi or crackles. Abdomen soft bowel sounds are heard. No masses or tenderness. Extremities are intact. No cyanosis clubbing or edema. Skin is without rash or lesion. Neurologic examination is brief but nonfocal. - Labs CBC & Chem 7: 02/10/24 08:51 02/10/24 08:51 Labs: Abnormal Lab Results - Last 24 Hours (Table) 02/04/24 02/10/24 02/10/24 Range/Units 14:57 08:51 17:24 Glucose 119 H (74-99) mg/dL POC Glucose (mg/dL) 155 H (70-110) mg/dL Crossmatch See Detail Assessment and Plan Assessment: Valvular heart disease, which will require a aortic valve replacement, and mitral valve repair. In addition, the patient may need a bypass, tricuspid valve repair, insertion of a intra-aortic balloon pump, and Valdez-Maze procedure. History of atrial fibrillation with rapid ventricular response. History of hypertension. History of hyperlipidemia. History of CVA. History of gastroesophageal reflux disease. Lifelong non-smoker. Plan: Plan dated February 10, 2024. The patient is seen in the intensive care unit. The patient just came back from the catheterization laboratory. The patient will have either surgery today or tomorrow. He is anticipated to have an aortic valve replacement and mitral valve repair, as well as a Valdez-Maze procedure. The patient is a lifelong non- smoker. He is currently on nasal O2 at 2 L. He is getting saline at 20 cc an hour. He is also on amiodarone at 1 mg/min. Labs, x-rays, medications are reviewed. We will continue to follow make recommendations along the way. Plan dated February 11, 2024. I will see the patient after surgery, for ventilator management, and general ICU management. Labs, x-rays, medications are reviewed. We will continue to follow make recommendations along the way. No additional recommendations at this time. Time with Patient: Less than 30
[2024-02-11 10:25] LABS: ABG Base Excess 4.5 mmol/L; ABG Glucose Whole Blood 101 mg/dL (75-99); ABG HCO3 28 mmol/L (21-25); ABG Hematocrit 29 % (34.0-46.0); ABG Ionized Calcium 3.7 mg/dL (4.5-5.3); ABG Lactic Acid Whole Blood 1.1 mmol/L (0.5-1.6); ABG Oxygen Saturation >99.4 % (94-97); ABG PCO2 37 mmHg (35-45); ABG PH 7.49 (7.35-7.45); ABG PO2 413 mmHg (83-108); ABG Potassium Whole Blood 4.3 mmol/L (3.4-4.5); ABG Sodium Whole Blood 143 mmol/L (135-146); Allen Test Performed? Yes
[2024-02-11 11:06] LABS: ABG Base Excess 2.3 mmol/L; ABG Glucose Whole Blood 85 mg/dL (75-99); ABG HCO3 26 mmol/L (21-25); ABG Hematocrit 31 % (34.0-46.0); ABG Ionized Calcium 4.1 mg/dL (4.5-5.3); ABG Lactic Acid Whole Blood 1.6 mmol/L (0.5-1.6); ABG Oxygen Saturation >99.4 % (94-97); ABG PCO2 36 mmHg (35-45); ABG PH 7.47 (7.35-7.45); ABG Potassium Whole Blood 4.7 mmol/L (3.4-4.5); ABG Sodium Whole Blood 141 mmol/L (135-146); Allen Test Performed? Yes
[2024-02-11 11:37] LABS: ABG Base Excess 1.3 mmol/L; ABG Glucose Whole Blood 88 mg/dL (75-99); ABG HCO3 25 mmol/L (21-25); ABG Hematocrit 30 % (34.0-46.0); ABG Ionized Calcium 4.2 mg/dL (4.5-5.3); ABG Lactic Acid Whole Blood 1.6 mmol/L (0.5-1.6); ABG Oxygen Saturation >99.4 % (94-97); ABG PCO2 36 mmHg (35-45); ABG PH 7.45 (7.35-7.45); ABG Potassium Whole Blood 4.8 mmol/L (3.4-4.5); ABG Sodium Whole Blood 141 mmol/L (135-146); Allen Test Performed? Yes
[2024-02-11 12:05] LABS: ABG Base Excess 0.9 mmol/L; ABG Glucose Whole Blood 97 mg/dL (75-99); ABG HCO3 24 mmol/L (21-25); ABG Hematocrit 28 % (34.0-46.0); ABG Lactic Acid Whole Blood 1.6 mmol/L (0.5-1.6); ABG Oxygen Saturation >99.4 % (94-97); ABG PCO2 33 mmHg (35-45); ABG PH 7.47 (7.35-7.45); ABG PO2 381 mmHg (83-108); ABG Potassium Whole Blood 4.9 mmol/L (3.4-4.5); ABG Sodium Whole Blood 141 mmol/L (135-146); Allen Test Performed? Yes
[2024-02-11 13:08] LABS: ABG PO2 >420 mmHg (83-108)
[2024-02-11 13:09] LABS: ABG PO2 >420 mmHg (83-108)
[2024-02-11 13:19] LABS: ABG Base Excess -1.4 mmol/L; ABG Glucose Whole Blood 126 mg/dL (75-99); ABG HCO3 24 mmol/L (21-25); ABG Hematocrit 31 % (34.0-46.0); ABG Ionized Calcium 3.8 mg/dL (4.5-5.3); ABG Lactic Acid Whole Blood 1.6 mmol/L (0.5-1.6); ABG Oxygen Saturation 99.3 % (94-97); ABG PCO2 40 mmHg (35-45); ABG PH 7.38 (7.35-7.45); ABG Potassium Whole Blood 4.2 mmol/L (3.4-4.5); ABG Sodium Whole Blood 142 mmol/L (135-146); ABG TCO2 22 mmol/L (19-24); Allen Test Performed? Yes
[2024-02-11 13:38] LABS: ABG PO2 >420 mmHg (83-108)
--- NOTE | 2024-02-11 13:49 | P.ANPRN ---
Procedure Note - Anesthesia - DOLORES Intraop Pre Bypass DOLORES Intraop - Anesthesia Indication: CAD, AI, MR, TR Date of Procedure: 02/11/24 Pre-operative Diagnosis: CAD, AI, MR, TR Post-operative Diagnosis: CAD, AI, MR Surgeon: Kee Ye Left Ventricle: EF 30%, severe global hypokinesis. Akinesis anterior, septal and inferior guerra Ejection Fraction: Other Regional Wall Motion Abnormalities: Other Left Ventricle Hypertrophy: Yes R. Ventricle Function: Hypokinesis Moderate Anatomy: Trileaflet Aortic Stenosis: None Aortic Regurgitation: Moderate Other Findings: Trileaflet w/ RCC smaller leading to asymetry. AI jet posteriorly directed Mitral Valve: Type 3B Mitral Stenosis: None Mitral Regurgitation: Moderate Tricuspid Stenosis: None Tricuspid Regurgitation: Trace Pulmonic Stenosis: None Pulmonic Regurgitation: None R. Atrial Dilation: No R. Atrial PFO: Yes (L to R shunt) L. Atrial Dilation: Yes Aortic Dissection: No Aortic Calcification: Mild Plural Effusion: None - DOLORES Intraop Post Bypass DOLORES Intraop Post Bypass Procedure Performed: CABG x 1, AVR, MVr, LA appendage ligation, cryoablation Left Ventricle: EF 40% w/ improved anterior, septal and inferior wall motion Ejection Fraction: Normal R. Ventricle Function: Hypokinesis Mild Aortic Valve: Mean 13 mmHg, No perivalvular leak Mitral Valve: Trace MR, Mean 3 mmHg, no periprosthetic ring leak Tricuspid: Unchanged Pulmonic: Unchanged Aortic Dissection: No
[2024-02-11] MEDS ORDERED: Magnesium Replacement Protocol 1 EACH MISC MISCELLANE PRN (13:57)
[2024-02-11] MEDS ORDERED: METOCLOPRAMIDE 5 MG/ML 2 ML VIAL IVP PRN (13:57)
[2024-02-11] MEDS ORDERED: Potassium Replacement Protocol 1 EACH MISC MISCELLANE PRN (13:57)
[2024-02-11] MEDS ORDERED: DEXTROSE 50% SYRINGE 50 ML IVP PRN ×2 (13:57)
[2024-02-11] MEDS ORDERED: hydrALAZINE HCL 20 MG/ML 1 ML VIAL IVP PRN (13:57)
[2024-02-11 14:40] LABS: Glucose,Whole Blood 153 mg/dL (70-110)
[2024-02-11] MEDS: IPRATROPIUM-ALBUTEROL 3 ML NEB INHALATION SCH ×2 (14:48→20:15)
--- NOTE | 2024-02-11 14:53 | P.PN ---
Subjective Progress Note Date: 02/11/24 This is a 73-year-old male who was recently admitted under cardiothoracic services for moderate to severe aortic valve insufficiency and undergoing aortic valve replacement, mitral valve repair, possible tricuspid valve repair, modified Valdez-Maze for his chronic A-fib as well as coronary bypass. Patient remains in surgery and will await official report as he was tentatively scheduled for 02/10/2024 although found to be in atrial fibrillation with RVR. Multiple consultations following and patient will be in the ICU after surgery. Patient follows with Dr. Arredondo outpatient with significant history of COPD, atrial fibrillation, severe aortic insufficiency with moderate mitral regurgitation and tricuspid regurgitation in need of surgical intervention as patient continued to be symptomatic. Patient considered high risk although persistent and adamant to proceed with surgery. Will await official surgery report and follow with consultations in the ICU. Review of systems: Unable to assess as patient is in surgery Active Medications Albuterol/Ipratropium (Ipratropium-Albuterol 3 Ml Neb) 3 ml INHALATION RT-Q2H PRN PRN Reason: Shortness Of Breath Or Wheezing Albuterol/Ipratropium (Ipratropium-Albuterol 3 Ml Neb) 3 ml INHALATION RT-Q4H [facility] Stop: 02/11/24 19:44 Last Admin: 02/11/24 14:48 Dose: Not Given Albuterol/Ipratropium (Ipratropium-Albuterol 3 Ml Neb) 3 ml INHALATION RT-QID [facility] Aspirin (Aspirin 325 Mg Tab) 325 mg PO DAILY [facility] Atorvastatin Calcium (Atorvastatin 40 Mg Tab) 40 mg PO DAILY [facility] Benzocaine/Menthol (Benzocaine/Menthol Lozeng 1 Each Lozenge) 1 each MUCOUS MEM Q2H PRN PRN Reason: Sore Throat Bisacodyl (Bisacodyl 10 Mg Supp) 10 mg RECTAL DAILY PRN PRN Reason: Constipation Clopidogrel Bisulfate (Clopidogrel 75 Mg Tab) 75 mg PO DAILY [facility] Dextrose/Water (Dextrose 50% Syringe 50 Ml) 25 ml IVP PER PROTOCOL PRN; Protocol PRN Reason: Hypoglycemia Dextrose/Water (Dextrose 50% Syringe 50 Ml) 50 ml IVP PER PROTOCOL PRN; Protocol PRN Reason: Hypoglycemia Heparin Sodium (Porcine) (Heparin Sodium,Porcine 5,000 Unit/Ml 1 Ml Vial) 5,000 unit SQ Q8HR [facility] Hydralazine HCl (Hydralazine Hcl 20 Mg/Ml 1 Ml Vial) 10 mg IVP Q1H PRN PRN Reason: Blood Pressure - High Clevidipine 25 mg/ IV Solution 50 mls @ 2 mls/hr IV .Q24H [facility]; Protocol Norepinephrine Bitartrate 4 mg (/ Sodium Chloride) 254 mls @ 5.639 mls/hr IV .Q24H [facility]; Protocol Epinephrine HCl 4 mg/ Dextrose (/Water) 250 mls @ 2.775 mls/hr IV .Q24H [facility]; Protocol Albumin Human 250 ml/ IV (Solution) 250 mls @ 250 mls/hr IVPB Q1HR PRN; Protocol PRN Reason: For Volume Stop: 02/13/24 13:56 Propofol 1,000 mg/ IV Solution 100 mls @ 0 mls/hr IV .Q0M [facility]; Protocol Dexmedetomidine HCl 400 mcg/ (IV Solution) 100 mls @ 0 mls/hr IV .Q0M [facility]; Protocol Stop: 02/12/24 13:59 Acetaminophen 1,000 mg/ IV (Solution) 100 mls @ 400 mls/hr IVPB Q6HR [facility] Stop: 02/12/24 12:14 Cefazolin Sodium 2 gm/ Sodium (Chloride) 50 mls @ 100 mls/hr IVPB Q8HR [facility]; Protocol Stop: 02/12/24 08:29 Calcium Gluconate/Sodium (Chloride 2 gm/ IV Solution) 100 mls @ 100 mls/hr IVPB ONCE PRN PRN Reason: Ionized Calcium less than 4.4 Stop: 03/12/24 13:56 Insulin Human Regular 100 unit (/ Sodium Chloride) 101 mls @ 0 mls/hr IV .Q0M [facility]; Protocol Milrinone Lactate/Dextrose 20 (mg/ IV Solution) 100 mls @ 8.325 mls/hr IV .Q12H1M [facility] Sodium Chloride (Saline 0.9%) 1,000 mls @ 50 mls/hr IV .Q20H [facility] Amiodarone HCl 450 mg/ (Dextrose/Water) 250 mls @ 16.667 mls/hr IV .Q15H [facility]; Protocol Magnesium Hydroxide (Magnesium Hydroxide 2,400 Mg/30 Ml Cup) 2,400 mg PO BID PRN PRN Reason: Constipation Metoclopramide HCl (Metoclopramide 5 Mg/Ml 2 Ml Vial) 10 mg IVP Q4H PRN PRN Reason: Nausea And Vomiting Metoprolol Tartrate (Metoprolol Tartrate 12.5 Mg Tab) 12.5 mg PO BID [facility] Miscellaneous Information (Potassium Replacement Protocol 1 Each Misc) 1 each MISCELLANE DAILY PRN; Protocol PRN Reason: Per Protocol Miscellaneous Information (Magnesium Replacement Protocol 1 Each Misc) 1 each MISCELLANE DAILY PRN; Protocol PRN Reason: Per Protocol Ondansetron HCl (Ondansetron 4 Mg/2 Ml Vial) 4 mg IVP Q6HR PRN PRN Reason: Nausea And Vomiting Oxycodone HCl (Oxycodone Hcl 5 Mg Tab) 5 mg PO Q4HR PRN PRN Reason: Moderate Pain (Scale 4 to 6) Oxycodone HCl (Oxycodone Hcl 5 Mg Tab) 10 mg PO Q4HR PRN PRN Reason: Severe Pain (Scale 7 to 10) Pantoprazole Sodium (Pantoprazole 40 Mg/10 Ml Vial) 40 mg IVP DAILY [facility] Senna/Docusate Sodium (Sennosides-Docusate Sodium 1 Each Tab) 2 each PO HS [facility] Sodium Chloride (Sodium Chloride 0.9% Flush 10 Ml Syringe) 10 ml IV BID [facility] PHYSICAL EXAMINATION: GENERAL: The patient is alert and oriented x4, Well developed, well nourished. HEENT: Pupils are round and equally reacting to light. EOMI. no scleral icterus. No conjunctival pallor. Normocephalic, atraumatic. No pharyngeal erythema. No thyromegaly. CARDIOVASCULAR: S1 and S2 muffled PULMONARY: diminished breath sounds bilaterally with no wheezing, coarse rhonchi noted. ABDOMEN: soft. Nontender on exam. non-distended, normoactive bowel sounds. No palpable organomegaly. MUSCULOSKELETAL: No joint swelling or deformity. EXTREMITIES: No cyanosis, clubbing, or pedal edema. NEUROLOGICAL: Gross neurological examination did not reveal any focal deficits. SKIN: No rashes. Assessment: Severe aortic insufficiency, moderate mitral and tricuspid regurgitation Persistent atrial fibrillation history, acute atrial fibrillation with RVR yesterday and surgery was postponed till today 02/11/2024 Cardiomyopathy History of coronary artery disease History of hypertension History of hyperlipidemia Chronic obstructive pulmonary disease history History of degenerative joint disease History of CVA GI prophylaxis DVT prophylaxis Full code Plan: Recommend to continue with current medications and management per CT surgery services. Patient is considered high risk although adamant and persistent with proceeding with surgery and will await official surgical report Appropriate home medications reviewed and resumed and will monitor closely We will continue to follow and make further recommendations pending clinical course Thank you kindly for this consultation. The impression and plan of care has been dictated by Charmaine Stover, nurse practitioner as directed. Dr. Corby MD I have performed a history and examination and MDM of this patient, discussed the same with the dictator, and agree with the dictator's assessment and plan as written ,documented as a scribe. Based on total visit time, I have performed more than 50% of the visit. Any additional findings or plans will be noted. Objective - Vital Signs Vital signs: Vital Signs Temp 98.1 F 02/11/24 05:05 Pulse 96 02/11/24 06:14 Resp 12 02/11/24 06:00 BP 114/102 02/11/24 06:00 Pulse Ox 93 L 02/11/24 06:00 FiO2 Intake & Output 02/10/24 02/11/24 02/11/24 18:59 06:59 18:59 Intake Total 620 340 3 Output Total 1750 225 Balance -1130 115 3 Intake: IV 80 340 3 0.9 @ KVO 80 240 Magnesium Sulfate-D5w Pmx 100 1 gm In Dextrose/Water 1 100ml.bag @ 100 mls/hr IVPB ONCE ONE Rx#: [id number] Oral 540 Output: Urine 1750 225 Other: Voiding Method Urinal Urinal # Voids 1 # Bowel Movements 1 1 - Labs CBC & Chem 7: 02/10/24 08:51 02/10/24 08:51 Labs: Abnormal Lab Results - Last 24 Hours (Table) 02/04/24 02/10/24 02/10/24 Range/Units 14:57 08:51 17:24 Glucose 119 H (74-99) mg/dL POC Glucose (mg/dL) 155 H (70-110) mg/dL Crossmatch See Detail
[2024-02-11 15:09] LABS: ABG Base Excess -1.3 mmol/L; ABG HCO3 24 mmol/L (21-25); ABG PCO2 40 mmHg (35-45); ABG PH 7.38 (7.35-7.45); ABG PO2 405 mmHg (83-108); ABG TCO2 25 mmol/L (19-24)
[2024-02-11 15:11] LABS: Allen Test Performed? no
[2024-02-11] MEDS: INSULIN REGULAR 100 UNIT in SODIUM CHLORIDE 0.9% 100 ML IV SCH (15:11)
[2024-02-11] MEDS: AMIODARONE 450 MG in DEXTROSE 5% IN WATER 250 ML IV SCH (15:14)
[2024-02-11] MEDS: NOREPINEPHRINE 4 MG in SODIUM CHLORIDE 0.9% 250 ML IV SCH (15:16)
[2024-02-11] MEDS: EPINEPHrine 4 MG in DEXTROSE 5% IN WATER 250 ML IV SCH (15:16)
[2024-02-11] MEDS: MILRINONE-D5W PMX 20 MG in DEXTROSE/WATER 1 100ML.BAG IV SCH (15:24)
[2024-02-11] MEDS: SODIUM CHLORIDE 0.9% 1,000 ML IV SCH (15:24)
--- NOTE | 2024-02-11 15:24 | P.OP ---
Date of Procedure: 02/11/24 Preoperative Diagnosis: Coronary artery disease, aortic valvular insufficiency, mitral valvular insufficiency, chronic atrial fibrillation, patent foramen valve, chronic systolic heart failure Postoperative Diagnosis: Same Procedure(s) Performed: CABG x 1 with vein graft to PDA and endovascular vein harvest, aortic valve replacement with 23 mm Avalus bovine pericardial valve, mitral valve annuloplasty with 28 mm physio 2 ring, modified Valdez-Maze procedure with complete left-sided lesion sets including both RF and cryoablation was and 40 mm AtriCure clip to base of left atrial appendage, closure of patent foramen ovale, right femoral transcutaneous placement of intra-aortic balloon pump. Implants: 23 mm bovine pericardial valve, 28 mm mitral annuloplasty ring, 40 mm AtriClip, intra-aortic balloon pump Anesthesia: GETA Surgeon: Kee Ye [employer] Specialist #1: Ray Kaur [employer] Ret[employer] Specialist #2: Gabriel Armstrong Estimated Blood Loss (ml): 500 IV fluids (ml): 2,000 Urine output (ml): 300 Pathology: none sent (Aortic valve) Condition: critical Disposition: ICU Indications for Procedure: 73-year-old male presents with worsening heart failure. Workup by Dr. Smith revealed moderate to severe aortic insufficiency, moderate mitral insufficiency, severe left ventricular dysfunction with left ventricular ejection fraction of 30%, complete occlusion of the right coronary artery with [id number] collaterals, patent foramen ovale. The patient was seen in the office and scheduled for surgery. Several days prior to surgery he presented in congestive heart failure with a hemoglobin of 5-1/2. He was resuscitated and no source of the bleeding was ever identified. He spent nearly a month in the hospital recuperating from this event. He was discharged home and readmitted at this time for elective surgery. On the day of admission he was noted to be in A-fib with RVR. He had developed the A-fib during the previous admission. It a bit unresponsive to cardioversion. It was decided to delay his surgery by 1 day in order to obtain control of his atrial fibrillation before operating. Operative Findings: DOLORES demonstrated moderate mitral regurgitation which was central with normal valve structural function. Left ventricular ejection fraction was markedly diminished with global hypokinesia. Aortic insufficiency was moderate. There was no tricuspid regurgitation. Right ventricular function was good. Good PDA target was identified intraoperatively. Good saphenous vein was harvested. Right femoral arterial line had been placed and we were easily able to pass a wire into the descending thoracic aorta. On completion of the operation, DOLORES demonstrated improved left ventricular ejection fraction with much better motion of the anterior wall, granted this was with inotropic and balloon support. Repaired mitral valve demonstrated only trivial mitral regurgitation. Replaced aortic valve demonstrated excellent valvular function with no paravalvular leak and low gradient across the aortic valve. Completion DOLORES demonstrated excellent occlusion of the left atrial appendage at its base. Description of Procedure: Patient was brought to the operating room and placed supine on the operating table. Monitoring lines have been placed in the preop holding area. General anesthesia was induced and the anterior torso and bilateral lower extremities were sterilely prepped and draped in standard fashion. Saphenous vein was harvested from the left thigh using endovascular harvest technique and was of good quality. It was prepared on the back table. A right femoral arterial line was easily placed and a wire threaded proximally into the descending thoracic aorta under DOLORES guidance. Femoral arterial line was placed over the wire and it was removed. Femoral arterial line was flushed with heparin saline and capped. Was secured in place with silk suture. Midline sternotomy was performed. Left pleural space was opened widely. A small rent was made in the right pleural space. The pericardium was opened in the midline. The heart was exposed with pericardial sutures. Patient was systemically heparinized. Patient was cannulated for cardiopulmonary bypass with a 7 mm soft flow cannula in the distal ascending aorta, 34 mm straight venous cannula through the right atrial a ppendage into the inferior vena cava and a 28 right angle cannula in the superior vena cava. Antegrade and retrograde cardioplegia lines were placed in standard fashion. Patient was placed on cardiopulmonary bypass and stabilized. Caval tapes were passed. Blunt dissection was carried out around the right- sided pulmonary veins and they were encircled and a AtriCure clamp placed across the left atrium at the insertion of the right sided pulmonary veins. The atrium was ablated with 3 parallel lines here. Next we exposed the left sided pulmonary veins. The ligament of Carmelo was divided with electrocautery. We encircled the pulmonary veins and ablated the left atrium at the insertion of the left pulmonary veins with 3 parallel lines using the AtriCure clamp. 40 mm AtriCure cure clip was placed at the base of the left atrial appendage. Aorta was now crossclamped and the heart arrested with cold antegrade followed by retrograde cardioplegia. Posterior descending coronary artery was opened proximally and grafted with a saphenous vein using running 7-0 Prolene suture. On completion of the graft, it was flushed with cold blood cardioplegia and flushed easily. It was connected to the same line that delivered retrograde cardioplegia and intermittent doses of retrograde cardioplegia were given at the appropriate time intervals through the remainder of the cross-clamp time. Next, the interatrial groove was developed and the left atrium entered through the interatrial groove. There was a large patent foramen ovale and this was closed with running 4-0 Prolene suture. Rupesh retractor was used to expose the mitral valve. Cryoablation was performed from the atriotomy incision onto the posterior annulus of the mitral valve. Roof and floor lesions were created connecting the previously performed pulmonary vein lesions using the AtriCure clamp. Annuloplasty sutures were placed circumferentially around the entire annulus of the mitral valve. The anterior leaflet was sized and a 28 mm physio 2 ring was chosen. Annuloplasty sutures were passed through the ring it was seated and the sutures were secured with core knots. The valve was tested and noted to be competent. The left atriotomy was closed with running 3-0 Prolene suture. Left atrial vent was left in place and the suture was not tied at this point in time. Epicardial cryoablation line was performed from the coronary sinus onto the atriotomy. Transverse aortotomy was performed the aortic valve was visualized. The aortic valve was excised. Circumferential valve sutures of pledgeted 2-0 Tycron were placed with the pledgets on the ventricular side to allow a supra annular valvular implantation. The annulus was sized and a 23 mm Medtronic Avalus bovine pericardial valve prosthesis was chosen. It was opened onto the field and appropriately washed. Valve sutures were placed through the sewing ring of the valve and the valve was seated without difficulty. The sutures were secured with core knots. Coronary ostia were free. Aortotomy was closed with a running 2 layer 4-0 Prolene closure. Proximal anastomosis of the vein graft was performed to the ascending aorta with a 4 mm punch hole. 6-0 Prolene suture was used for the anastomosis. Vein was cut to appropriate length performed prior to anastomosis. On completion of the anastomosis, bulldog clamp was applied to the graft. The patient was placed in Trendelenburg. Left atrial vent was removed and the left atrial suture was tied after appropriate de-airing maneuvers. Cross-clamp was removed and the vein graft de-aired with needle holes and opened. Retrograde cardioplegia line was removed and atrial and ventricular pacing wires were placed. Patient was AV paced. Patient was de- aired in standard fashion under DOLORES guidance and then the aortic vent line was removed and reinforced with 4 oh pledgeted Prolene suture. Guidewire was threaded from the right femoral artery catheter up into the descending thoracic aorta under DOLORES guidance and catheter removed. The site was dilated with a two- stage dilator and intra-aortic balloon pump was placed sheathless into the descending thoracic aorta and positioned with DOLORES. Intra-aortic balloon pumping was then begun. Patient was weaned from cardiopulmonary bypass with the use of some Primacor, epinephrine and Levophed. He easily and remained hemodynamically stable. Heparin was reversed with protamine and hemostasis was obtained throughout. He was somewhat oozy and was given 2 rounds of platelets as well as 2 units of fresh frozen plasma. Good hemostasis was thus obtained. The left pleural space was drained with a 32 Slovak chest tube. The pericardial space was drained with 236 Slovak chest tubes. These were brought out through separate stab incisions and secured with 0 Ethibond sutures. After assuring good hemostasis and hemodynamic stability, chest was irrigated with antibiotic solution and the sternum closed with 8 sternal wires. Fascia was closed with 0 Ethibond. Subcutaneous and subcuticular layers were closed with layers of Vicryl suture. Patient was transferred to ICU in stable hemodynamic condition with inotropes and balloon pump running. No packed red blood cells were transfused.
--- NOTE | 2024-02-11 15:36 | XR ---
EXAMINATION TYPE: XR chest 1V portable DATE OF EXAM: 02/11/2024 Comparison: 01/29/2024 Clinical History: 73-year-old male Post Operative Cardiac Surgery Findings: ET and NG tubes satisfactory. Mediastinal drain is present. 2 left-sided chest tubes. Right IJ [place]-G anz catheter tip at the proximal right main pulmonary artery level. Median sternotomy wires with elia loplasty ring. The heart is enlarged and there is diffuse interstitial opacity with patchy bibasilar opacity. Suspec t trace left pleural effusion. No appreciable pneumothorax. Some mild subcutaneous emphysema at the b ase of the neck on both sides. Impression: 1. Median sternotomy with annuloplasty ring. 2. Correlate for CHF with mild interstitial pulmonary edema. 3. Trace left pleural effusion with patchy bibasilar densities, likely patchy pulmonary edema. [facility], , 02/11/2024 3:33 PM
[2024-02-11 15:54] LABS: Glucose,Whole Blood 165 mg/dL (70-110)
[2024-02-11 16:01] LABS: Basophils % (A) 0 %; Eosinophils # (A) 0.3 k/uL (0-0.7); Eosinophils % (A) 2 %; HCT 28.4 % (39.0-53.0); Lymphocytes # (A) 1.1 k/uL (1.0-4.8); Lymphocytes % (A) 7 %; MCH 31.4 pg (25.0-35.0); MCHC 32.1 g/dL (31.0-37.0); MCV 97.7 fL (80.0-100.0); Mean Platelet Volume 7.9; Monocytes # (A) 0.5 k/uL (0-1.0); Monocytes % (A) 3 %; Neutrophils # (A) 13.6 k/uL (1.3-7.7); Neutrophils % (A) 87 %; Platelet Count 196 k/uL (150-450); RDW 14.4 % (11.5-15.5); WBC 15.5 k/uL (3.8-10.6)
[2024-02-11 16:25] LABS: HGB 9.1 gm/dL (13.0-17.5)
[2024-02-11 16:28] LABS: INR 1.2 (<1.2); Partial Thromboplastin Time 25.3 sec (22.0-30.0); Prothrombin Time 12.7 sec (10.0-12.5)
[2024-02-11 16:32] LABS: Ionized Calcium 4.2 mg/dL (4.5-5.3)
[2024-02-11 16:42] LABS: ALT 16 U/L (4-49); African American GFR (CKD) 86 (>60 ml/min/1.73 sqM); Albumin 2.7 g/dL (3.5-5.0); Anion Gap 6 mmol/L; Blood Urea Nitrogen 21 mg/dL (9-20); Calcium 7.6 mg/dL (8.4-10.2); Carbon Dioxide 24 mmol/L (22-30); Chloride 109 mmol/L (98-107); Glucose 136 mg/dL (74-99); Non-African American GFR(CKD) 74 (>60 ml/min/1.73 sqM); Sodium 139 mmol/L (137-145); Total Bilirubin 1.2 mg/dL (0.2-1.3); Total Protein 4.6 g/dL (6.3-8.2)
[2024-02-11 16:44] LABS: AST 70 U/L (17-59); Alkaline Phosphatase 49 U/L (38-126); Magnesium 3.5 mg/dL (1.6-2.3); Potassium 4.4 mmol/L (3.5-5.1)
[2024-02-11] MEDS: CLEVIDIPINE BUTYRATE 25 MG in EMPTY BAG 1 BAG IV SCH (16:58)
[2024-02-11 17:04] LABS: Glucose,Whole Blood 173 mg/dL (70-110)
[2024-02-11] MEDS: HEPARIN SODIUM,PORCINE 5,000 UNIT/ML 1 ML VIAL SQ SCH (17:07)
[2024-02-11] MEDS: ACETAMINOPHEN IV (For NPO) 1,000 MG in EMPTY BAG 1 BAG IVPB SCH (17:42)
[2024-02-11 17:44] LABS: Basophils % (A) 0 %; Eosinophils % (A) 0 %; HCT 28.1 % (39.0-53.0); HGB 9.2 gm/dL (13.0-17.5); Lymphocytes # (A) 0.7 k/uL (1.0-4.8); Lymphocytes % (A) 4 %; MCHC 32.7 g/dL (31.0-37.0); Monocytes # (A) 0.4 k/uL (0-1.0); Monocytes % (A) 3 %; Neutrophils # (A) 14.4 k/uL (1.3-7.7); Neutrophils % (A) 92 %; Platelet Count 202 k/uL (150-450); RBC 2.86 m/uL (4.30-5.90); RDW 14.5 % (11.5-15.5); WBC 15.6 k/uL (3.8-10.6)
[2024-02-11 18:02] LABS: Glucose,Whole Blood 153 mg/dL (70-110)
[2024-02-11] MEDS: CALCIUM GLUCONATE IN NACL 2 GM in SALINE 1 100ML.BAG IVPB PRN (18:17)
[2024-02-11 19:00] LABS: Glucose,Whole Blood 146 mg/dL (70-110)
[2024-02-11] MEDS: ALBUMIN HUMAN 5% 250 ML in EMPTY BAG 1 BAG IVPB PRN (19:34)
[2024-02-11 20:01] LABS: Glucose,Whole Blood 145 mg/dL (70-110)
[2024-02-11 20:41] LABS: Basophils % (A) 0 %; Eosinophils % (A) 0 %; HGB 8.6 gm/dL (13.0-17.5); Lymphocytes # (A) 0.6 k/uL (1.0-4.8); Lymphocytes % (A) 4 %; MCH 32.3 pg (25.0-35.0); MCHC 33.1 g/dL (31.0-37.0); MCV 97.7 fL (80.0-100.0); Monocytes # (A) 0.4 k/uL (0-1.0); Monocytes % (A) 3 %; Neutrophils # (A) 12.4 k/uL (1.3-7.7); Neutrophils % (A) 92 %; Platelet Count 186 k/uL (150-450); RBC 2.66 m/uL (4.30-5.90); RDW 14.4 % (11.5-15.5); WBC 13.5 k/uL (3.8-10.6)
[2024-02-11 21:21] LABS: Glucose,Whole Blood 134 mg/dL (70-110)
[2024-02-11] MEDS: SENNOSIDES-DOCUSATE SODIUM 1 EACH TAB PO SCH (21:43)
[2024-02-11 22:04] LABS: Glucose,Whole Blood 125 mg/dL (70-110)
[2024-02-11 22:56] LABS: Glucose,Whole Blood 124 mg/dL (70-110)
[2024-02-11 23:53] LABS: Glucose,Whole Blood 117 mg/dL (70-110)
[2024-02-12 01:01] LABS: Glucose,Whole Blood 126 mg/dL (70-110)
[2024-02-12 01:52] LABS: Glucose,Whole Blood 124 mg/dL (70-110)
[2024-02-12 02:55] LABS: Glucose,Whole Blood 118 mg/dL (70-110)
[2024-02-12 04:02] LABS: Glucose,Whole Blood 110 mg/dL (70-110)
[2024-02-12 05:14] LABS: Glucose,Whole Blood 135 mg/dL (70-110)
[2024-02-12 06:03] LABS: Basophils % (A) 0 %; Eosinophils % (A) 0 %; HCT 21.8 % (39.0-53.0); HGB 7.3 gm/dL (13.0-17.5); Lymphocytes # (A) 1.4 k/uL (1.0-4.8); Lymphocytes % (A) 15 %; MCH 32.4 pg (25.0-35.0); MCHC 33.4 g/dL (31.0-37.0); MCV 97.1 fL (80.0-100.0); Mean Platelet Volume 8.5; Monocytes # (A) 0.5 k/uL (0-1.0); Monocytes % (A) 6 %; Neutrophils # (A) 7.4 k/uL (1.3-7.7); Neutrophils % (A) 78 %; Platelet Count 152 k/uL (150-450); RBC 2.24 m/uL (4.30-5.90); RDW 15.3 % (11.5-15.5); WBC 9.4 k/uL (3.8-10.6)
[2024-02-12 06:04] LABS: ABG Base Excess -2.7 mmol/L; ABG HCO3 22 mmol/L (21-25); ABG PCO2 37 mmHg (35-45); ABG PH 7.39 (7.35-7.45); ABG PO2 218 mmHg (83-108); ABG TCO2 23 mmol/L (19-24); Allen Test Performed? Yes
[2024-02-12 06:10] LABS: Ionized Calcium 4.4 mg/dL (4.5-5.3)
[2024-02-12 06:20] LABS: ALT 12 U/L (4-49); AST 73 U/L (17-59); African American GFR (CKD) 75 (>60 ml/min/1.73 sqM); Albumin 3.2 g/dL (3.5-5.0); Alkaline Phosphatase 49 U/L (38-126); Anion Gap -1 mmol/L; Blood Urea Nitrogen 24 mg/dL (9-20); Calcium 7.7 mg/dL (8.4-10.2); Carbon Dioxide 25 mmol/L (22-30); Chloride 110 mmol/L (98-107); Glucose 123 mg/dL (74-99); Magnesium 2.7 mg/dL (1.6-2.3); Non-African American GFR(CKD) 65 (>60 ml/min/1.73 sqM); Potassium 4.5 mmol/L (3.5-5.1); Sodium 134 mmol/L (137-145); Total Bilirubin 0.9 mg/dL (0.2-1.3); Total Protein 4.9 g/dL (6.3-8.2)
[2024-02-12 06:49] LABS: Glucose,Whole Blood 121 mg/dL (70-110)
[2024-02-12] MEDS: CALCIUM GLUCONATE IN NACL 1 GM in SALINE 1 100ML.BAG IVPB ONE (06:54)
--- NOTE | 2024-02-12 07:10 | P.PN ---
Subjective Progress Note Date: 02/12/24 Principal diagnosis: Severe aortic insufficiency, moderate mitral regurgitation Persistent atrial fibrillation, on Xarelto for anticoagulation, last dose 02/06/24 Patent foramen ovale Cardiomyopathy/chronic heart failure with reduced ejection fraction Coronary artery disease History of hypertension Hyperlipidemia COPD Obstructive sleep apnea without home CPAP use CVA/TIA Lifelong non-smoker POD #1 CABG x 1 with vein graft to PDA and endovascular vein harvest, aortic valve replacement with 23 mm Avalus bovine pericardial valve, mitral valve annuloplasty with 28 mm physio 2 ring, modified Valdez-Maze procedure with complete left-sided lesion sets including both RF and cryoablation and 40 mm AtriCure clip to base of left atrial appendage, closure of patent foramen ovale, right femoral transcutaneous placement of intra-aortic balloon pump The patient was seen and examined this morning laying in bed in the intensive care unit, remains mechanically ventilated and sedated. Currently atrially paced at 70 bpm, however nursing did have significant difficulty with capture on the pacemaker last night. Underlying rhythm is junctional with heart rate in the 50s. Hemodynamically stable on epi, levo, Primacor, amiodarone. Intra- aortic balloon pump in place with 1:1 augmentation. Per nursing patient does open his eyes and follow commands, moves all extremities. Right internal jugular [place]/Cordis, right brachial arterial line, mediastinal/left pleural chest tubes present. Chest x-ray, labs reviewed. Objective - Vital Signs Vital signs: Vital Signs Temp 98.4 F 02/12/24 04:00 Pulse 70 02/12/24 06:15 Resp 17 02/12/24 06:15 BP 114/72 02/11/24 14:56 Pulse Ox 98 02/12/24 06:15 FiO2 40 02/12/24 06:06 Intake & Output 02/11/24 02/11/24 02/12/24 06:59 18:59 06:59 Intake Total 340 9505.370 4383.220 Output Total 225 1790 735 Balance 115 -300.188 4113.220 Weight 80.1 kg Intake: IV 985 142 7934 0.9 @ KVO 240 ACETAMINOPHEN IV (For NPO 200 ) 1,000 mg In Empty Bag 1 bag @ 400 mls/hr IVPB Q6HR [facility] Rx#:[id number] Albumin Human 5% 250 ml 1250 In Empty Bag 1 bag @ 250 mls/hr IVPB Q1HR PRN Rx#: [id number] CO/CI 240 170 Magnesium Sulfate-D5w Pmx 100 1 gm In Dextrose/Water 1 100ml.bag @ 100 mls/hr IVPB ONCE ONE Rx#: [id number] Sodium Chloride 0.9% 1, 200 550 000 ml @ 50 mls/hr IV . Q20H [facility] Rx#:[id number] ceFAZolin 2 gm In Sodium 50 Chloride 0.9% 50 ml @ 100 mls/hr IVPB ONCE ONE Rx# :[id number] pressure bag 36 99 Intake, IV Titration 25.845 603.220 Amount Amiodarone 450 mg In 250 Dextrose 5% in Water 250 ml @ 0.5 MG/MIN 16.667 mls/hr IV .Q15H [facility] Rx#: [id number] EPINEPHrine 4 mg In 18.177 Dextrose 5% in Water 250 ml @ 0.01 MCG/KG/MIN 2. 775 mls/hr IV .Q24H [facility] Rx#:[id number] Insulin Regular 100 unit 7.668 37.791 In Sodium Chloride 0.9% 100 ml @ Per Protocol IV .Q0M [facility] Rx#:[id number] Milrinone-D5w Pmx 20 mg 59.968 In Dextrose/Water 1 100ml .bag @ 0.375 MCG/KG/MIN 8 .325 mls/hr IV .Q12H1M [facility] Rx#:[id number] Norepinephrine 4 mg In 104.834 Sodium Chloride 0.9% 250 ml @ 0.02 MCG/KG/MIN 5. 639 mls/hr IV .Q24H [facility] Rx#:[id number] propofoL 1,000 mg In 150.627 Empty Bag 1 bag @ Titrate IV .Q0M [facility] Rx#: [id number] Blood Product 1104 Ffp 24 Pher Acda Unit 385 [id number] Ffp 24 Pher Acda Cnt1 0 Unit [id number] Platelet Pheresis Pas 358 Psoralen Unit [id number] Platelet Pheresis Pas 361 Psoralen Unit [id number] Output: Chest Tube Drainage 360 370 Chest Tube Left Pleural 0 90 Chest Tube Mediastinal 360 280 Urine 225 930 365 Estimated Blood Loss 500 Other: Voiding Method Urinal Indwelling Catheter Indwelling Catheter # Bowel Movements 1 ABP, PAP, CO, CI - Last Documented Arterial Blood Pressure 98/56 Pulmonary Artery Pressure 33/17 Cardiac Output 3.8 Cardiac Index 2 - Exam CONSTITUTIONAL: Appears comfortable, no acute distress, remains sedated and mechanically ventilated RESPIRATORY: Lungs sounds coarse in the bases bilaterally. Respirations even, nonlabored. Currently ventilator settings assist-control mode, FiO2 40%, tidal volume 500, respiratory rate 14, PEEP of 5. 8.5 ET tube present, 24 at the lip. CARDIOVASCULAR: S1, S2 present. Regular rate and rhythm, atrially paced on telemetry with underlying rhythm junctional in the 50s. Sternum stable. Palpable peripheral pulses bilaterally. No edema present. No calf pain or tenderness noted. Heart hugger, antiembolism stockings, SCDs present. GASTROINTESTINAL: Abdomen soft, nontender, nondistended. Hypoactive bowel sounds present 4 quadrants. OG tube present to low intermittent suction, minimal output GENITOURINARY: Osuna present draining clear, yellow urine. Output overnight 25-40 mL per hour INTEGUMENTARY: Skin is warm and dry with evidence of good perfusion. Anterior chest incision well approximated and covered with dry intact dressing. Left thigh EVH site well approximated without redness or drainage. NEUROLOGIC: Cranial nerves II through XII intact MUSKULOSKELETAL: Currently sedated but able to move all extremities per nursing PSYCHIATRIC: Currently sedated but does wake up and follow commands per nursing INVASIVE LINES AND TUBES: Mediastinal/left pleural chest tubes present and connected to wall suction, no air leaks present. Mediastinal tube with 180 mL serosanguineous drainage overnight, 650 mL since surgery. Left pleural chest tube with 60 mL serosanguineous drainage overnight, 120 mL since surgery. A/V epicardial pacemaker wires present, connected to generator, AAI mode with rate 70 bpm. Right internal jugular [place]/Cordis, right brachial arterial line present. Last CO/CI 4.8/2.6, PA 37/18, CVP 16. - Allied health notes Allied health notes reviewed: nursing - Labs CBC & Chem 7: 02/12/24 05:30 02/12/24 05:30 Labs: Abnormal Lab Results - Last 24 Hours (Table) 02/04/24 02/11/24 02/11/24 Range/Units 14:57 08:29 09:56 WBC (3.8-10.6) k/uL RBC (4.30-5.90) m/uL Hgb (13.0-17.5) gm/dL Hct (39.0-53.0) % Neutrophils # (1.3-7.7) k/uL Lymphocytes # (1.0-4.8) k/uL PT (10.0-12.5) sec INR (<1.2) ABG pH (7.35-7.45) ABG pCO2 (35-45) mmHg ABG pO2 117 H 245 H (83-108) mmHg ABG HCO3 (21-25) mmol/L ABG Total CO2 (19-24) mmol/L ABG O2 Saturation 97.4 H 99.4 H (94-97) % ABG Hematocrit (34.0-46.0) % ABG Potassium 4.9 H (3.4-4.5) mmol/L ABG Ionized Calcium 4.4 L (4.5-5.3) mg/dL ABG Glucose 137 H 125 H (75-99) mg/dL Hemoglobin 12.5 L (13.0-17.5) gm/dL Sodium (137-145) mmol/L Chloride (98-107) mmol/L BUN (9-20) mg/dL Glucose (74-99) mg/dL POC Glucose (mg/dL) (70-110) mg/dL Calcium (8.4-10.2) mg/dL Ionized Calcium Enrrique (4.5-5.3) mg/dL Magnesium (1.6-2.3) mg/dL AST (17-59) U/L Total Protein (6.3-8.2) g/dL Albumin (3.5-5.0) g/dL Arterial Blood Potassium 4.9 H (3.4-4.5) mmol/L Arterial Blood Glucose 137 H 125 H (75-99) mg/dL Crossmatch See Detail 02/11/24 02/11/24 02/11/24 Range/Units 10:29 11:10 11:42 WBC (3.8-10.6) k/uL RBC (4.30-5.90) m/uL Hgb (13.0-17.5) gm/dL Hct (39.0-53.0) % Neutrophils # (1.3-7.7) k/uL Lymphocytes # (1.0-4.8) k/uL PT (10.0-12.5) sec INR (<1.2) ABG pH 7.49 H 7.47 H (7.35-7.45) ABG pCO2 (35-45) mmHg ABG pO2 413 H >420 H >420 H (83-108) mmHg ABG HCO3 28 H 26 H (21-25) mmol/L ABG Total CO2 (19-24) mmol/L ABG O2 Saturation >99.4 H >99.4 H >99.4 H (94-97) % ABG Hematocrit 29 L 31 L 30 L (34.0-46.0) % ABG Potassium 4.7 H 4.8 H (3.4-4.5) mmol/L ABG Ionized Calcium 3.7 L 4.1 L 4.2 L (4.5-5.3) mg/dL ABG Glucose 101 H (75-99) mg/dL Hemoglobin 9.5 L 10.1 L 9.7 L (13.0-17.5) gm/dL Sodium (137-145) mmol/L Chloride (98-107) mmol/L BUN (9-20) mg/dL Glucose (74-99) mg/dL POC Glucose (mg/dL) (70-110) mg/dL Calcium (8.4-10.2) mg/dL Ionized Calcium Enrrique (4.5-5.3) mg/dL Magnesium (1.6-2.3) mg/dL AST (17-59) U/L Total Protein (6.3-8.2) g/dL Albumin (3.5-5.0) g/dL Arterial Blood Potassium 4.7 H 4.8 H (3.4-4.5) mmol/L Arterial Blood Glucose 101 H (75-99) mg/dL Crossmatch 02/11/24 02/11/24 02/11/24 Range/Units 12:10 13:30 14:38 WBC (3.8-10.6) k/uL RBC (4.30-5.90) m/uL Hgb (13.0-17.5) gm/dL Hct (39.0-53.0) % Neutrophils # (1.3-7.7) k/uL Lymphocytes # (1.0-4.8) k/uL PT (10.0-12.5) sec INR (<1.2) ABG pH 7.47 H (7.35-7.45) ABG pCO2 33 L (35-45) mmHg ABG pO2 381 H >420 H (83-108) mmHg ABG HCO3 (21-25) mmol/L ABG Total CO2 (19-24) mmol/L ABG O2 Saturation >99.4 H 99.3 H (94-97) % ABG Hematocrit 28 L 31 L (34.0-46.0) % ABG Potassium 4.9 H (3.4-4.5) mmol/L ABG Ionized Calcium 4.0 L 3.8 L (4.5-5.3) mg/dL ABG Glucose 126 H (75-99) mg/dL Hemoglobin 9.3 L 10.0 L (13.0-17.5) gm/dL Sodium (137-145) mmol/L Chloride (98-107) mmol/L BUN (9-20) mg/dL Glucose (74-99) mg/dL POC Glucose (mg/dL) 153 H (70-110) mg/dL Calcium (8.4-10.2) mg/dL Ionized Calcium Enrrique (4.5-5.3) mg/dL Magnesium (1.6-2.3) mg/dL AST (17-59) U/L Total Protein (6.3-8.2) g/dL Albumin (3.5-5.0) g/dL Arterial Blood Potassium 4.9 H (3.4-4.5) mmol/L Arterial Blood Glucose 126 H (75-99) mg/dL Crossmatch 02/11/24 02/11/24 02/11/24 Range/Units 14:38 14:38 14:38 WBC 15.5 H (3.8-10.6) k/uL RBC 2.90 L (4.30-5.90) m/uL Hgb 9.1 L D (13.0-17.5) gm/dL Hct 28.4 L (39.0-53.0) % Neutrophils # 13.6 H (1.3-7.7) k/uL Lymphocytes # (1.0-4.8) k/uL PT 12.7 H (10.0-12.5) sec INR 1.2 H (<1.2) ABG pH (7.35-7.45) ABG pCO2 (35-45) mmHg ABG pO2 (83-108) mmHg ABG HCO3 (21-25) mmol/L ABG Total CO2 (19-24) mmol/L ABG O2 Saturation (94-97) % ABG Hematocrit (34.0-46.0) % ABG Potassium (3.4-4.5) mmol/L ABG Ionized Calcium (4.5-5.3) mg/dL ABG Glucose (75-99) mg/dL Hemoglobin (13.0-17.5) gm/dL Sodium (137-145) mmol/L Chloride 109 H (98-107) mmol/L BUN 21 H (9-20) mg/dL Glucose 136 H (74-99) mg/dL POC Glucose (mg/dL) (70-110) mg/dL Calcium 7.6 L (8.4-10.2) mg/dL Ionized Calcium Enrrique 4.2 L (4.5-5.3) mg/dL Magnesium 3.5 H (1.6-2.3) mg/dL AST 70 H (17-59) U/L Total Protein 4.6 L (6.3-8.2) g/dL Albumin 2.7 L (3.5-5.0) g/dL Arterial Blood Potassium (3.4-4.5) mmol/L Arterial Blood Glucose (75-99) mg/dL Crossmatch 02/11/24 02/11/24 02/11/24 Range/Units 15:08 15:52 17:03 WBC (3.8-10.6) k/uL RBC (4.30-5.90) m/uL Hgb (13.0-17.5) gm/dL Hct (39.0-53.0) % Neutrophils # (1.3-7.7) k/uL Lymphocytes # (1.0-4.8) k/uL PT (10.0-12.5) sec INR (<1.2) ABG pH (7.35-7.45) ABG pCO2 (35-45) mmHg ABG pO2 405 H (83-108) mmHg ABG HCO3 (21-25) mmol/L ABG Total CO2 25 H (19-24) mmol/L ABG O2 Saturation 100.0 H (94-97) % ABG Hematocrit (34.0-46.0) % ABG Potassium (3.4-4.5) mmol/L ABG Ionized Calcium (4.5-5.3) mg/dL ABG Glucose (75-99) mg/dL Hemoglobin 9.4 L (13.0-17.5) gm/dL Sodium (137-145) mmol/L Chloride (98-107) mmol/L BUN (9-20) mg/dL Glucose (74-99) mg/dL POC Glucose (mg/dL) 165 H 173 H (70-110) mg/dL Calcium (8.4-10.2) mg/dL Ionized Calcium Enrrique (4.5-5.3) mg/dL Magnesium (1.6-2.3) mg/dL AST (17-59) U/L Total Protein (6.3-8.2) g/dL Albumin (3.5-5.0) g/dL Arterial Blood Potassium (3.4-4.5) mmol/L Arterial Blood Glucose (75-99) mg/dL Crossmatch 02/11/24 02/11/24 02/11/24 Range/Units 17:30 17:59 18:58 WBC 15.6 H (3.8-10.6) k/uL RBC 2.86 L (4.30-5.90) m/uL Hgb 9.2 L (13.0-17.5) gm/dL Hct 28.1 L (39.0-53.0) % Neutrophils # 14.4 H (1.3-7.7) k/uL Lymphocytes # 0.7 L (1.0-4.8) k/uL PT (10.0-12.5) sec INR (<1.2) ABG pH (7.35-7.45) ABG pCO2 (35-45) mmHg ABG pO2 (83-108) mmHg ABG HCO3 (21-25) mmol/L ABG Total CO2 (19-24) mmol/L ABG O2 Saturation (94-97) % ABG Hematocrit (34.0-46.0) % ABG Potassium (3.4-4.5) mmol/L ABG Ionized Calcium (4.5-5.3) mg/dL ABG Glucose (75-99) mg/dL Hemoglobin (13.0-17.5) gm/dL Sodium (137-145) mmol/L Chloride (98-107) mmol/L BUN (9-20) mg/dL Glucose (74-99) mg/dL POC Glucose (mg/dL) 153 H 146 H (70-110) mg/dL Calcium (8.4-10.2) mg/dL Ionized Calcium Enrrique (4.5-5.3) mg/dL Magnesium (1.6-2.3) mg/dL AST (17-59) U/L Total Protein (6.3-8.2) g/dL Albumin (3.5-5.0) g/dL Arterial Blood Potassium (3.4-4.5) mmol/L Arterial Blood Glucose (75-99) mg/dL Crossmatch 02/11/24 02/11/24 02/11/24 Range/Units 19:59 20:30 21:20 WBC 13.5 H (3.8-10.6) k/uL RBC 2.66 L (4.30-5.90) m/uL Hgb 8.6 L (13.0-17.5) gm/dL Hct 26.0 L (39.0-53.0) % Neutrophils # 12.4 H (1.3-7.7) k/uL Lymphocytes # 0.6 L (1.0-4.8) k/uL PT (10.0-12.5) sec INR (<1.2) ABG pH (7.35-7.45) ABG pCO2 (35-45) mmHg ABG pO2 (83-108) mmHg ABG HCO3 (21-25) mmol/L ABG Total CO2 (19-24) mmol/L ABG O2 Saturation (94-97) % ABG Hematocrit (34.0-46.0) % ABG Potassium (3.4-4.5) mmol/L ABG Ionized Calcium (4.5-5.3) mg/dL ABG Glucose (75-99) mg/dL Hemoglobin (13.0-17.5) gm/dL Sodium (137-145) mmol/L Chloride (98-107) mmol/L BUN (9-20) mg/dL Glucose (74-99) mg/dL POC Glucose (mg/dL) 145 H 134 H (70-110) mg/dL Calcium (8.4-10.2) mg/dL Ionized Calcium Enrrique (4.5-5.3) mg/dL Magnesium (1.6-2.3) mg/dL AST (17-59) U/L Total Protein (6.3-8.2) g/dL Albumin (3.5-5.0) g/dL Arterial Blood Potassium (3.4-4.5) mmol/L Arterial Blood Glucose (75-99) mg/dL Crossmatch 02/11/24 02/11/24 02/11/24 Range/Units 22:02 22:55 23:50 WBC (3.8-10.6) k/uL RBC (4.30-5.90) m/uL Hgb (13.0-17.5) gm/dL Hct (39.0-53.0) % Neutrophils # (1.3-7.7) k/uL Lymphocytes # (1.0-4.8) k/uL PT (10.0-12.5) sec INR (<1.2) ABG pH (7.35-7.45) ABG pCO2 (35-45) mmHg ABG pO2 (83-108) mmHg ABG HCO3 (21-25) mmol/L ABG Total CO2 (19-24) mmol/L ABG O2 Saturation (94-97) % ABG Hematocrit (34.0-46.0) % ABG Potassium (3.4-4.5) mmol/L ABG Ionized Calcium (4.5-5.3) mg/dL ABG Glucose (75-99) mg/dL Hemoglobin (13.0-17.5) gm/dL Sodium (137-145) mmol/L Chloride (98-107) mmol/L BUN (9-20) mg/dL Glucose (74-99) mg/dL POC Glucose (mg/dL) 125 H 124 H 117 H (70-110) mg/dL Calcium (8.4-10.2) mg/dL Ionized Calcium Enrrique (4.5-5.3) mg/dL Magnesium (1.6-2.3) mg/dL AST (17-59) U/L Total Protein (6.3-8.2) g/dL Albumin (3.5-5.0) g/dL Arterial Blood Potassium (3.4-4.5) mmol/L Arterial Blood Glucose (75-99) mg/dL Crossmatch 02/12/24 02/12/24 02/12/24 Range/Units 00:59 01:50 02:53 WBC (3.8-10.6) k/uL RBC (4.30-5.90) m/uL Hgb (13.0-17.5) gm/dL Hct (39.0-53.0) % Neutrophils # (1.3-7.7) k/uL Lymphocytes # (1.0-4.8) k/uL PT (10.0-12.5) sec INR (<1.2) ABG pH (7.35-7.45) ABG pCO2 (35-45) mmHg ABG pO2 (83-108) mmHg ABG HCO3 (21-25) mmol/L ABG Total CO2 (19-24) mmol/L ABG O2 Saturation (94-97) % ABG Hematocrit (34.0-46.0) % ABG Potassium (3.4-4.5) mmol/L ABG Ionized Calcium (4.5-5.3) mg/dL ABG Glucose (75-99) mg/dL Hemoglobin (13.0-17.5) gm/dL Sodium (137-145) mmol/L Chloride (98-107) mmol/L BUN (9-20) mg/dL Glucose (74-99) mg/dL POC Glucose (mg/dL) 126 H 124 H 118 H (70-110) mg/dL Calcium (8.4-10.2) mg/dL Ionized Calcium Enrrique (4.5-5.3) mg/dL Magnesium (1.6-2.3) mg/dL AST (17-59) U/L Total Protein (6.3-8.2) g/dL Albumin (3.5-5.0) g/dL Arterial Blood Potassium (3.4-4.5) mmol/L Arterial Blood Glucose (75-99) mg/dL Crossmatch 02/12/24 02/12/24 02/12/24 Range/Units 05:07 05:30 05:30 WBC (3.8-10.6) k/uL RBC 2.24 L (4.30-5.90) m/uL Hgb 7.3 L (13.0-17.5) gm/dL Hct 21.8 L (39.0-53.0) % Neutrophils # (1.3-7.7) k/uL Lymphocytes # (1.0-4.8) k/uL PT (10.0-12.5) sec INR (<1.2) ABG pH (7.35-7.45) ABG pCO2 (35-45) mmHg ABG pO2 (83-108) mmHg ABG HCO3 (21-25) mmol/L ABG Total CO2 (19-24) mmol/L ABG O2 Saturation (94-97) % ABG Hematocrit (34.0-46.0) % ABG Potassium (3.4-4.5) mmol/L ABG Ionized Calcium (4.5-5.3) mg/dL ABG Glucose (75-99) mg/dL Hemoglobin (13.0-17.5) gm/dL Sodium 134 L (137-145) mmol/L Chloride 110 H (98-107) mmol/L BUN 24 H (9-20) mg/dL Glucose 123 H (74-99) mg/dL POC Glucose (mg/dL) 135 H (70-110) mg/dL Calcium 7.7 L (8.4-10.2) mg/dL Ionized Calcium Enrrique 4.4 L (4.5-5.3) mg/dL Magnesium 2.7 H (1.6-2.3) mg/dL AST 73 H (17-59) U/L Total Protein 4.9 L (6.3-8.2) g/dL Albumin 3.2 L (3.5-5.0) g/dL Arterial Blood Potassium (3.4-4.5) mmol/L Arterial Blood Glucose (75-99) mg/dL Crossmatch 02/12/24 02/12/24 Range/Units 05:57 06:47 WBC (3.8-10.6) k/uL RBC (4.30-5.90) m/uL Hgb (13.0-17.5) gm/dL Hct (39.0-53.0) % Neutrophils # (1.3-7.7) k/uL Lymphocytes # (1.0-4.8) k/uL PT (10.0-12.5) sec INR (<1.2) ABG pH (7.35-7.45) ABG pCO2 (35-45) mmHg ABG pO2 218 H (83-108) mmHg ABG HCO3 (21-25) mmol/L ABG Total CO2 (19-24) mmol/L ABG O2 Saturation 100.0 H (94-97) % ABG Hematocrit (34.0-46.0) % ABG Potassium (3.4-4.5) mmol/L ABG Ionized Calcium (4.5-5.3) mg/dL ABG Glucose (75-99) mg/dL Hemoglobin 7.5 L (13.0-17.5) gm/dL Sodium (137-145) mmol/L Chloride (98-107) mmol/L BUN (9-20) mg/dL Glucose (74-99) mg/dL POC Glucose (mg/dL) 121 H (70-110) mg/dL Calcium (8.4-10.2) mg/dL Ionized Calcium Enrrique (4.5-5.3) mg/dL Magnesium (1.6-2.3) mg/dL AST (17-59) U/L Total Protein (6.3-8.2) g/dL Albumin (3.5-5.0) g/dL Arterial Blood Potassium (3.4-4.5) mmol/L Arterial Blood Glucose (75-99) mg/dL Crossmatch - Imaging and Cardiology Chest x-ray: image reviewed Assessment and Plan Assessment: Severe aortic insufficiency, status post aortic valve replacement Moderate mitral regurgitation, status post mitral valve annuloplasty Persistent atrial fibrillation, on Xarelto for anticoagulation, last dose 4, status post modified Valdez-Maze procedure with complete left-sided lesion sets including both RF and cryoablation and 40 mm AtriCure clip to base of left atrial appendage Patent foramen ovale, status post closure Cardiomyopathy/chronic heart failure with reduced ejection fraction, EF 30-35%, status post placement of intra-aortic balloon pump Coronary artery disease, status post single-vessel CABG History of hypertension Hyperlipidemia Diabetes with preoperative hemoglobin A1c 7%, on Jardiance outpatient Moderate COPD, preoperative FEV1 55% of predicted, DLCO 77% of predicted Obstructive sleep apnea without home CPAP use CVA 12 years ago Lifelong non-smoker Family history of premature coronary artery disease with father diagnosed in his 50s Plan: Continue to maximize medical therapy with aspirin, statin, Plavix. Hold beta- jane for now while patient has underlying bradycardia and remains on pressors, wean pressors as tolerated Continue Primacor, will decrease to 0.2 after balloon pump pulled Continue amiodarone for A-fib prophylaxis, transition to oral. Will restart anticoagulation at discharge Wean from mechanical ventilation. Once extubated encourage incentive spirometry use 10 times every hour while awake. Bronchodilators per pulmonology Once extubated increase activity as tolerated. PT/OT/cardiac rehab consulted Will monitor daily labs and x-rays. Electrolyte replacement per protocol GI/DVT prophylaxis Insulin management per internal medicine, patient should remain on IV insulin for 48 hours then may switch to subcutaneous per protocol Pain control per current medication regimen IABP placed to 1:2 augmentation, will monitor for 2 hours then likely discontinue Continue chest tubes for another 24 hours, monitor output Continue Osuna catheter for another 24 hours, continue to record strict accurate intake and output Continue [place]/Cordis for another 24 hours More recommendations to follow
--- NOTE | 2024-02-12 07:19 | XR ---
EXAMINATION TYPE: XR chest 1V portable DATE OF EXAM: 02/12/2024 COMPARISON: 02/11/2024 INDICATION: Postop cardiac surgery TECHNIQUE: Single frontal view of the chest is obtained. FINDINGS: The heart size is enlarged. The pulmonary vasculature is normal. Left lower lobe silhouetting the diaphragm may be present. Pleural effusion be considered. Some plat elike atelectasis appears to be in the right lower lobe. Left-sided chest tube is present. Endotracheal tube above the brennan. [place]-Edin catheter is present. Nasogastric tube tip in the proximal left upper quadrant abdomen. Mediastinal present. IMPRESSION: 1. Multiple lines and catheters discussed above. 2. Left lower lobe atelectasis and/or pleural effusion. Some minimal atelectasis may be right lung. [facility], , 02/12/2024 7:17 AM
[2024-02-12 07:57] LABS: Glucose,Whole Blood 108 mg/dL (70-110)
[2024-02-12] MEDS: ATORVASTATIN 40 MG TAB PO SCH (08:13)
[2024-02-12] MEDS: PANTOPRAZOLE 40 MG/10 ML VIAL IVP SCH (08:13)
[2024-02-12] MEDS: CLOPIDOGREL 75 MG TAB PO SCH (08:13)
[2024-02-12] MEDS: ASPIRIN 325 MG TAB PO SCH (08:13)
[2024-02-12] MEDS ORDERED: MAGNESIUM HYDROXIDE 2,400 MG/30 ML CUP PO PRN (09:00)
[2024-02-12] MEDS ORDERED: bisacodyL 10 MG SUPP RECTAL PRN (09:00)
[2024-02-12] MEDS ORDERED: METOPROLOL TARTRATE 12.5 MG TAB PO SCH (09:00)
[2024-02-12 09:14] LABS: Glucose,Whole Blood 120 mg/dL (70-110)
[2024-02-12] MEDS: AMIODARONE 200 MG TAB PO SCH (09:20)
--- NOTE | 2024-02-12 09:43 | P.PN ---
Subjective Progress Note Date: 02/12/24 Principal diagnosis: Valvular heart disease. Pulmonary consult dated February 10, 2024. This is a 73-year-old male who is scheduled to have aortic valve replacement, mitral valve repair, and a Valdez-Maze procedure. Apparently, the surgery will be done on February 10. He comes to the intensive care unit, for further monitoring and management. He is placed in room 251. The patient is currently on a couple liters of oxygen. He is getting saline at 20 cc an hour. He is ge tting amiodarone drip at 1 mg/min. The surgery will be done either today or tomorrow. The patient also has a history of atrial fibrillation. The patient apparently will be coming back to the intensive care unit, with a balloon pump. In addition to atrial fibrillation, and valvular heart disease, the patient does have a history of hypertension. Also, the patient has a history of hyperlipidemia, gastroesophageal reflux disease, CVA, and angina. Laboratory data today includes a white count 7.5, hemoglobin 13.6, hematocrit 42.8, and a platelet count of 301,000. Glucose is 103. Magnesium is 1.9. Progress note dated February 11, 2024. 73-year-old male seen in consultation yesterday. The patient has a history of valvular heart disease, and will have surgery today, with Dr. Ye. The patient is expected to have an aortic valve replacement, mitral valve replacement, possible tricuspid valve replacement, possible bypass grafting, and insertion of the intra-aortic balloon pump. Currently, the patient is on room air. In no acute distress. No new laboratory data today. Laboratory data from yesterday have been reviewed. The patient was on amiodarone, for his atrial fibrillation, but that has been discontinued. Progress note dated February 15, 2024. This is a 74-year-old male who is postoperative day #1. The patient had a one- vessel bypass grafting, aortic valve replacement, mitral valve repair, a modified Valdez-Maze procedure, closure of a patent foramen ovale, insertion of an intra-aortic balloon pump. The patient is seen today in room 267. The patient remains on mechanical ventilator. Ventilator settings include volume assist- control, rate 14, tidal volume 500, FiO2 40%, PEEP of 5. Blood gases done on the same settings, except 50%, show pO2 of 218, pCO2 of 37, and pH is 7.39. The patient is on a number of drips including epinephrine at 0.01 mcg/kg/min, saline at 50 cc an hour, amiodarone at 0.5 mcg/min, Primacor 0.3 mcg/kg/min, norepinephrine at 0.8 mcg/min, propofol at 25 mcg/kg/min, and insulin is currently on hold. White count is 9.4, hemoglobin 7.3, hematocrit 21.8, platelet count is 152,000. Sodium 134, potassium 4.5, chlorides 110, CO2 25, BUN 24, and creatinine 1.13. Glucose is 120. Calcium is 7.7. Albumin is 3.2. Chest x-ray shows some small effusion, and left lower lobe atelectasis. Objective - Vital Signs Vital signs: Vital Signs Temp 98.1 F 02/12/24 08:00 Pulse 70 02/12/24 09:17 Resp 15 02/12/24 09:00 BP 114/72 02/11/24 14:56 Pulse Ox 100 02/12/24 09:00 FiO2 40 02/12/24 09:00 Intake & Output 02/11/24 02/12/24 02/12/24 18:59 06:59 18:59 Intake Total 3784.144 8956.086 382.623 Output Total 1790 735 170 Balance -545.717 8997.086 212.623 Weight 80.1 kg Intake: IV 479 2319 267 ACETAMINOPHEN IV (For NPO 200 ) 1,000 mg In Empty Bag 1 bag @ 400 mls/hr IVPB Q6HR [facility] Rx#:[id number] Albumin Human 5% 250 ml 1250 In Empty Bag 1 bag @ 250 mls/hr IVPB Q1HR PRN Rx#: [id number] CO/CI 240 170 60 Sodium Chloride 0.9% 1, 200 550 130 000 ml @ 30 mls/hr IV . Q24H [facility] Rx#:[id number] ceFAZolin 2 gm In Sodium 50 50 Chloride 0.9% 50 ml @ 100 mls/hr IVPB ONCE ONE Rx# :[id number] pressure bag 36 99 27 Intake, IV Titration 25.845 709.086 115.623 Amount Amiodarone 450 mg In 250 Dextrose 5% in Water 250 ml @ 0.5 MG/MIN 16.667 mls/hr IV .Q15H [facility] Rx#: [id number] Calcium Gluconate in NaCl 100 1 gm In Saline 1 100ml. bag @ 100 mls/hr IVPB ONCE ONE Rx#:[id number] EPINEPHrine 4 mg In 18.177 105.866 12.719 Dextrose 5% in Water 250 ml @ 0.01 MCG/KG/MIN 2. 775 mls/hr IV .Q24H [facility] Rx#:[id number] Insulin Regular 100 unit 7.668 37.791 2.904 In Sodium Chloride 0.9% 100 ml @ Per Protocol IV .Q0M [facility] Rx#:[id number] Milrinone-D5w Pmx 20 mg 59.968 In Dextrose/Water 1 100ml .bag @ 0.3 MCG/KG/MIN 6. 66 mls/hr IV .Q15H1M [facility] Rx#:[id number] Norepinephrine 4 mg In 104.834 Sodium Chloride 0.9% 250 ml @ 0.02 MCG/KG/MIN 5. 639 mls/hr IV .Q24H [facility] Rx#:[id number] propofoL 1,000 mg In 150.627 Empty Bag 1 bag @ Titrate IV .Q0M [facility] Rx#: [id number] Blood Product 1104 Ffp 24 Pher Acda Unit 385 [id number] Ffp 24 Pher Acda Cnt1 0 Unit [id number] Platelet Pheresis Pas 358 Psoralen Unit [id number] Platelet Pheresis Pas 361 Psoralen Unit [id number] Output: Chest Tube Drainage 360 370 75 Chest Tube Left Pleural 0 90 5 Chest Tube Mediastinal 360 280 70 Urine 930 365 95 Estimated Blood Loss 500 Other: Voiding Method Indwelling Catheter Indwelling Catheter ABP, PAP, CO, CI - Last Documented Arterial Blood Pressure 126/62 Pulmonary Artery Pressure 36/17 Cardiac Output 4.4 Cardiac Index 2.3 - Exam No acute distress, sedated, with an orally placed endotracheal tube. HEENT examination is grossly unremarkable. Mucous membranes are moist. No oral lesions. Neck supple. Full range of motion. No adenopathy thyromegaly or neck vein dis tention. Cardiovascular examination reveals an irregular rhythm and rate. Heart rate 70 bpm. No heart murmur. Lungs reveal clear breath sounds. Breath sounds are equal bilaterally. No adventitious lung sounds including wheezes rhonchi or crackles. Abdomen soft bowel sounds are heard. No masses or tenderness. Extremities are intact. No cyanosis clubbing or edema. Skin is without rash or lesion. Neurologic examination is unable to be evaluated. - Labs CBC & Chem 7: 02/12/24 05:30 02/12/24 05:30 Labs: Abnormal Lab Results - Last 24 Hours (Table) 02/04/24 02/11/24 02/11/24 Range/Units 14:57 08:29 09:56 WBC (3.8-10.6) k/uL RBC (4.30-5.90) m/uL Hgb (13.0-17.5) gm/dL Hct (39.0-53.0) % Neutrophils # (1.3-7.7) k/uL Lymphocytes # (1.0-4.8) k/uL PT (10.0-12.5) sec INR (<1.2) ABG pH (7.35-7.45) ABG pCO2 (35-45) mmHg ABG pO2 117 H 245 H (83-108) mmHg ABG HCO3 (21-25) mmol/L ABG Total CO2 (19-24) mmol/L ABG O2 Saturation 97.4 H 99.4 H (94-97) % ABG Hematocrit (34.0-46.0) % ABG Potassium 4.9 H (3.4-4.5) mmol/L ABG Ionized Calcium 4.4 L (4.5-5.3) mg/dL ABG Glucose 137 H 125 H (75-99) mg/dL Hemoglobin 12.5 L (13.0-17.5) gm/dL Sodium (137-145) mmol/L Chloride (98-107) mmol/L BUN (9-20) mg/dL Glucose (74-99) mg/dL POC Glucose (mg/dL) (70-110) mg/dL Calcium (8.4-10.2) mg/dL Ionized Calcium Enrrique (4.5-5.3) mg/dL Magnesium (1.6-2.3) mg/dL AST (17-59) U/L Total Protein (6.3-8.2) g/dL Albumin (3.5-5.0) g/dL Arterial Blood Potassium 4.9 H (3.4-4.5) mmol/L Arterial Blood Glucose 137 H 125 H (75-99) mg/dL Crossmatch See Detail 02/11/24 02/11/24 02/11/24 Range/Units 10:29 11:10 11:42 WBC (3.8-10.6) k/uL RBC (4.30-5.90) m/uL Hgb (13.0-17.5) gm/dL Hct (39.0-53.0) % Neutrophils # (1.3-7.7) k/uL Lymphocytes # (1.0-4.8) k/uL PT (10.0-12.5) sec INR (<1.2) ABG pH 7.49 H 7.47 H (7.35-7.45) ABG pCO2 (35-45) mmHg ABG pO2 413 H >420 H >420 H (83-108) mmHg ABG HCO3 28 H 26 H (21-25) mmol/L ABG Total CO2 (19-24) mmol/L ABG O2 Saturation >99.4 H >99.4 H >99.4 H (94-97) % ABG Hematocrit 29 L 31 L 30 L (34.0-46.0) % ABG Potassium 4.7 H 4.8 H (3.4-4.5) mmol/L ABG Ionized Calcium 3.7 L 4.1 L 4.2 L (4.5-5.3) mg/dL ABG Glucose 101 H (75-99) mg/dL Hemoglobin 9.5 L 10.1 L 9.7 L (13.0-17.5) gm/dL Sodium (137-145) mmol/L Chloride (98-107) mmol/L BUN (9-20) mg/dL Glucose (74-99) mg/dL POC Glucose (mg/dL) (70-110) mg/dL Calcium (8.4-10.2) mg/dL Ionized Calcium Enrrique (4.5-5.3) mg/dL Magnesium (1.6-2.3) mg/dL AST (17-59) U/L Total Protein (6.3-8.2) g/dL Albumin (3.5-5.0) g/dL Arterial Blood Potassium 4.7 H 4.8 H (3.4-4.5) mmol/L Arterial Blood Glucose 101 H (75-99) mg/dL Crossmatch 02/11/24 02/11/24 02/11/24 Range/Units 12:10 13:30 14:38 WBC (3.8-10.6) k/uL RBC (4.30-5.90) m/uL Hgb (13.0-17.5) gm/dL Hct (39.0-53.0) % Neutrophils # (1.3-7.7) k/uL Lymphocytes # (1.0-4.8) k/uL PT (10.0-12.5) sec INR (<1.2) ABG pH 7.47 H (7.35-7.45) ABG pCO2 33 L (35-45) mmHg ABG pO2 381 H >420 H (83-108) mmHg ABG HCO3 (21-25) mmol/L ABG Total CO2 (19-24) mmol/L ABG O2 Saturation >99.4 H 99.3 H (94-97) % ABG Hematocrit 28 L 31 L (34.0-46.0) % ABG Potassium 4.9 H (3.4-4.5) mmol/L ABG Ionized Calcium 4.0 L 3.8 L (4.5-5.3) mg/dL ABG Glucose 126 H (75-99) mg/dL Hemoglobin 9.3 L 10.0 L (13.0-17.5) gm/dL Sodium (137-145) mmol/L Chloride (98-107) mmol/L BUN (9-20) mg/dL Glucose (74-99) mg/dL POC Glucose (mg/dL) 153 H (70-110) mg/dL Calcium (8.4-10.2) mg/dL Ionized Calcium Enrrique (4.5-5.3) mg/dL Magnesium (1.6-2.3) mg/dL AST (17-59) U/L Total Protein (6.3-8.2) g/dL Albumin (3.5-5.0) g/dL Arterial Blood Potassium 4.9 H (3.4-4.5) mmol/L Arterial Blood Glucose 126 H (75-99) mg/dL Crossmatch 02/11/24 02/11/24 02/11/24 Range/Units 14:38 14:38 14:38 WBC 15.5 H (3.8-10.6) k/uL RBC 2.90 L (4.30-5.90) m/uL Hgb 9.1 L D (13.0-17.5) gm/dL Hct 28.4 L (39.0-53.0) % Neutrophils # 13.6 H (1.3-7.7) k/uL Lymphocytes # (1.0-4.8) k/uL PT 12.7 H (10.0-12.5) sec INR 1.2 H (<1.2) ABG pH (7.35-7.45) ABG pCO2 (35-45) mmHg ABG pO2 (83-108) mmHg ABG HCO3 (21-25) mmol/L ABG Total CO2 (19-24) mmol/L ABG O2 Saturation (94-97) % ABG Hematocrit (34.0-46.0) % ABG Potassium (3.4-4.5) mmol/L ABG Ionized Calcium (4.5-5.3) mg/dL ABG Glucose (75-99) mg/dL Hemoglobin (13.0-17.5) gm/dL Sodium (137-145) mmol/L Chloride 109 H (98-107) mmol/L BUN 21 H (9-20) mg/dL Glucose 136 H (74-99) mg/dL POC Glucose (mg/dL) (70-110) mg/dL Calcium 7.6 L (8.4-10.2) mg/dL Ionized Calcium Enrrique 4.2 L (4.5-5.3) mg/dL Magnesium 3.5 H (1.6-2.3) mg/dL AST 70 H (17-59) U/L Total Protein 4.6 L (6.3-8.2) g/dL Albumin 2.7 L (3.5-5.0) g/dL Arterial Blood Potassium (3.4-4.5) mmol/L Arterial Blood Glucose (75-99) mg/dL Crossmatch 02/11/24 02/11/24 02/11/24 Range/Units 15:08 15:52 17:03 WBC (3.8-10.6) k/uL RBC (4.30-5.90) m/uL Hgb (13.0-17.5) gm/dL Hct (39.0-53.0) % Neutrophils # (1.3-7.7) k/uL Lymphocytes # (1.0-4.8) k/uL PT (10.0-12.5) sec INR (<1.2) ABG pH (7.35-7.45) ABG pCO2 (35-45) mmHg ABG pO2 405 H (83-108) mmHg ABG HCO3 (21-25) mmol/L ABG Total CO2 25 H (19-24) mmol/L ABG O2 Saturation 100.0 H (94-97) % ABG Hematocrit (34.0-46.0) % ABG Potassium (3.4-4.5) mmol/L ABG Ionized Calcium (4.5-5.3) mg/dL ABG Glucose (75-99) mg/dL Hemoglobin 9.4 L (13.0-17.5) gm/dL Sodium (137-145) mmol/L Chloride (98-107) mmol/L BUN (9-20) mg/dL Glucose (74-99) mg/dL POC Glucose (mg/dL) 165 H 173 H (70-110) mg/dL Calcium (8.4-10.2) mg/dL Ionized Calcium Enrrique (4.5-5.3) mg/dL Magnesium (1.6-2.3) mg/dL AST (17-59) U/L Total Protein (6.3-8.2) g/dL Albumin (3.5-5.0) g/dL Arterial Blood Potassium (3.4-4.5) mmol/L Arterial Blood Glucose (75-99) mg/dL Crossmatch 02/11/24 02/11/24 02/11/24 Range/Units 17:30 17:59 18:58 WBC 15.6 H (3.8-10.6) k/uL RBC 2.86 L (4.30-5.90) m/uL Hgb 9.2 L (13.0-17.5) gm/dL Hct 28.1 L (39.0-53.0) % Neutrophils # 14.4 H (1.3-7.7) k/uL Lymphocytes # 0.7 L (1.0-4.8) k/uL PT (10.0-12.5) sec INR (<1.2) ABG pH (7.35-7.45) ABG pCO2 (35-45) mmHg ABG pO2 (83-108) mmHg ABG HCO3 (21-25) mmol/L ABG Total CO2 (19-24) mmol/L ABG O2 Saturation (94-97) % ABG Hematocrit (34.0-46.0) % ABG Potassium (3.4-4.5) mmol/L ABG Ionized Calcium (4.5-5.3) mg/dL ABG Glucose (75-99) mg/dL Hemoglobin (13.0-17.5) gm/dL Sodium (137-145) mmol/L Chloride (98-107) mmol/L BUN (9-20) mg/dL Glucose (74-99) mg/dL POC Glucose (mg/dL) 153 H 146 H (70-110) mg/dL Calcium (8.4-10.2) mg/dL Ionized Calcium Enrrique (4.5-5.3) mg/dL Magnesium (1.6-2.3) mg/dL AST (17-59) U/L Total Protein (6.3-8.2) g/dL Albumin (3.5-5.0) g/dL Arterial Blood Potassium (3.4-4.5) mmol/L Arterial Blood Glucose (75-99) mg/dL Crossmatch 02/11/24 02/11/24 02/11/24 Range/Units 19:59 20:30 21:20 WBC 13.5 H (3.8-10.6) k/uL RBC 2.66 L (4.30-5.90) m/uL Hgb 8.6 L (13.0-17.5) gm/dL Hct 26.0 L (39.0-53.0) % Neutrophils # 12.4 H (1.3-7.7) k/uL Lymphocytes # 0.6 L (1.0-4.8) k/uL PT (10.0-12.5) sec INR (<1.2) ABG pH (7.35-7.45) ABG pCO2 (35-45) mmHg ABG pO2 (83-108) mmHg ABG HCO3 (21-25) mmol/L ABG Total CO2 (19-24) mmol/L ABG O2 Saturation (94-97) % ABG Hematocrit (34.0-46.0) % ABG Potassium (3.4-4.5) mmol/L ABG Ionized Calcium (4.5-5.3) mg/dL ABG Glucose (75-99) mg/dL Hemoglobin (13.0-17.5) gm/dL Sodium (137-145) mmol/L Chloride (98-107) mmol/L BUN (9-20) mg/dL Glucose (74-99) mg/dL POC Glucose (mg/dL) 145 H 134 H (70-110) mg/dL Calcium (8.4-10.2) mg/dL Ionized Calcium Enrrique (4.5-5.3) mg/dL Magnesium (1.6-2.3) mg/dL AST (17-59) U/L Total Protein (6.3-8.2) g/dL Albumin (3.5-5.0) g/dL Arterial Blood Potassium (3.4-4.5) mmol/L Arterial Blood Glucose (75-99) mg/dL Crossmatch 02/11/24 02/11/24 02/11/24 Range/Units 22:02 22:55 23:50 WBC (3.8-10.6) k/uL RBC (4.30-5.90) m/uL Hgb (13.0-17.5) gm/dL Hct (39.0-53.0) % Neutrophils # (1.3-7.7) k/uL Lymphocytes # (1.0-4.8) k/uL PT (10.0-12.5) sec INR (<1.2) ABG pH (7.35-7.45) ABG pCO2 (35-45) mmHg ABG pO2 (83-108) mmHg ABG HCO3 (21-25) mmol/L ABG Total CO2 (19-24) mmol/L ABG O2 Saturation (94-97) % ABG Hematocrit (34.0-46.0) % ABG Potassium (3.4-4.5) mmol/L ABG Ionized Calcium (4.5-5.3) mg/dL ABG Glucose (75-99) mg/dL Hemoglobin (13.0-17.5) gm/dL Sodium (137-145) mmol/L Chloride (98-107) mmol/L BUN (9-20) mg/dL Glucose (74-99) mg/dL POC Glucose (mg/dL) 125 H 124 H 117 H (70-110) mg/dL Calcium (8.4-10.2) mg/dL Ionized Calcium Enrrique (4.5-5.3) mg/dL Magnesium (1.6-2.3) mg/dL AST (17-59) U/L Total Protein (6.3-8.2) g/dL Albumin (3.5-5.0) g/dL Arterial Blood Potassium (3.4-4.5) mmol/L Arterial Blood Glucose (75-99) mg/dL Crossmatch 02/12/24 02/12/24 02/12/24 Range/Units 00:59 01:50 02:53 WBC (3.8-10.6) k/uL RBC (4.30-5.90) m/uL Hgb (13.0-17.5) gm/dL Hct (39.0-53.0) % Neutrophils # (1.3-7.7) k/uL Lymphocytes # (1.0-4.8) k/uL PT (10.0-12.5) sec INR (<1.2) ABG pH (7.35-7.45) ABG pCO2 (35-45) mmHg ABG pO2 (83-108) mmHg ABG HCO3 (21-25) mmol/L ABG Total CO2 (19-24) mmol/L ABG O2 Saturation (94-97) % ABG Hematocrit (34.0-46.0) % ABG Potassium (3.4-4.5) mmol/L ABG Ionized Calcium (4.5-5.3) mg/dL ABG Glucose (75-99) mg/dL Hemoglobin (13.0-17.5) gm/dL Sodium (137-145) mmol/L Chloride (98-107) mmol/L BUN (9-20) mg/dL Glucose (74-99) mg/dL POC Glucose (mg/dL) 126 H 124 H 118 H (70-110) mg/dL Calcium (8.4-10.2) mg/dL Ionized Calcium Enrrique (4.5-5.3) mg/dL Magnesium (1.6-2.3) mg/dL AST (17-59) U/L Total Protein (6.3-8.2) g/dL Albumin (3.5-5.0) g/dL Arterial Blood Potassium (3.4-4.5) mmol/L Arterial Blood Glucose (75-99) mg/dL Crossmatch 02/12/24 02/12/24 02/12/24 Range/Units 05:07 05:30 05:30 WBC (3.8-10.6) k/uL RBC 2.24 L (4.30-5.90) m/uL Hgb 7.3 L (13.0-17.5) gm/dL Hct 21.8 L (39.0-53.0) % Neutrophils # (1.3-7.7) k/uL Lymphocytes # (1.0-4.8) k/uL PT (10.0-12.5) sec INR (<1.2) ABG pH (7.35-7.45) ABG pCO2 (35-45) mmHg ABG pO2 (83-108) mmHg ABG HCO3 (21-25) mmol/L ABG Total CO2 (19-24) mmol/L ABG O2 Saturation (94-97) % ABG Hematocrit (34.0-46.0) % ABG Potassium (3.4-4.5) mmol/L ABG Ionized Calcium (4.5-5.3) mg/dL ABG Glucose (75-99) mg/dL Hemoglobin (13.0-17.5) gm/dL Sodium 134 L (137-145) mmol/L Chloride 110 H (98-107) mmol/L BUN 24 H (9-20) mg/dL Glucose 123 H (74-99) mg/dL POC Glucose (mg/dL) 135 H (70-110) mg/dL Calcium 7.7 L (8.4-10.2) mg/dL Ionized Calcium Enrrique 4.4 L (4.5-5.3) mg/dL Magnesium 2.7 H (1.6-2.3) mg/dL AST 73 H (17-59) U/L Total Protein 4.9 L (6.3-8.2) g/dL Albumin 3.2 L (3.5-5.0) g/dL Arterial Blood Potassium (3.4-4.5) mmol/L Arterial Blood Glucose (75-99) mg/dL Crossmatch 02/12/24 02/12/24 02/12/24 Range/Units 05:57 06:47 09:11 WBC (3.8-10.6) k/uL RBC (4.30-5.90) m/uL Hgb (13.0-17.5) gm/dL Hct (39.0-53.0) % Neutrophils # (1.3-7.7) k/uL Lymphocytes # (1.0-4.8) k/uL PT (10.0-12.5) sec INR (<1.2) ABG pH (7.35-7.45) ABG pCO2 (35-45) mmHg ABG pO2 218 H (83-108) mmHg ABG HCO3 (21-25) mmol/L ABG Total CO2 (19-24) mmol/L ABG O2 Saturation 100.0 H (94-97) % ABG Hematocrit (34.0-46.0) % ABG Potassium (3.4-4.5) mmol/L ABG Ionized Calcium (4.5-5.3) mg/dL ABG Glucose (75-99) mg/dL Hemoglobin 7.5 L (13.0-17.5) gm/dL Sodium (137-145) mmol/L Chloride (98-107) mmol/L BUN (9-20) mg/dL Glucose (74-99) mg/dL POC Glucose (mg/dL) 121 H 120 H (70-110) mg/dL Calcium (8.4-10.2) mg/dL Ionized Calcium Enrrique (4.5-5.3) mg/dL Magnesium (1.6-2.3) mg/dL AST (17-59) U/L Total Protein (6.3-8.2) g/dL Albumin (3.5-5.0) g/dL Arterial Blood Potassium (3.4-4.5) mmol/L Arterial Blood Glucose (75-99) mg/dL Crossmatch Assessment and Plan Assessment: Postoperative day #1, status post one-vessel bypass, aortic valve replacement, mitral valve repair, closure of patent foramen ovale, modified Valdez-Maze procedure, and insertion of the intra-aortic balloon pump. Routine postoperative ventilator management. History of atrial fibrillation with rapid ventricular response. History of hypertension. History of hyperlipidemia. History of CVA. History of gastroesophageal reflux disease. Lifelong non-smoker. Plan: Plan dated February 10, 2024. The patient is seen in the intensive care unit. The patient just came back from the catheterization laboratory. The patient will have either surgery today or tomorrow. He is anticipated to have an aortic valve replacement and mitral valve repair, as well as a Valdez-Maze procedure. The patient is a lifelong non- smoker. He is currently on nasal O2 at 2 L. He is getting saline at 20 cc an hour. He is also on amiodarone at 1 mg/min. Labs, x-rays, medications are reviewed. We will continue to follow make recommendations along the way. Plan dated February 11, 2024. I will see the patient after surgery, for ventilator management, and general ICU management. Labs, x-rays, medications are reviewed. We will continue to follow make recommendations along the way. No additional recommendations at this time. Plan dated February 12, 2024. The patient is postoperative day #1. He has a number of drips running including propofol, norepinephrine, Primacor, epinephrine, and amiodarone. Blood gases are very excellent. Once the intra-aortic balloon pump is removed later today, the patient can be placed on some pressor support and CPAP, and weaned, and extubated. I suspect the patient will extubate without any difficulty whatsoever. The chest x-ray, labs, and all medications are reviewed. Prognosis is guarded. We will continue to follow the patient, make recommendations along the way. Time with Patient: Greater than 30
[2024-02-12] MEDS: DEXMEDETOMIDINE/0.9% NACL(PMX) 400 MCG in EMPTY BAG 1 BAG IV SCH (09:50)
[2024-02-12 10:04] LABS: Glucose,Whole Blood 118 mg/dL (70-110)
--- NOTE | 2024-02-12 10:33 | P.PCN ---
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 An intra-aortic balloon pump was placed in the operating room by Dr. Ye. He went for coronary artery bypass surgery/aortic valve replacement/mitral valve repair and has done well. This morning he is hemodynamically stable and is no longer in need of intra-aortic balloon pump assistance. Removal of the device was recommended. The risks, benefits, alternatives to this procedure were discussed with the patient. Consent was obtained. Description of Procedure: PROCEDURE IN DETAIL: The right groin was examined. There was no evidence of hematoma. The balloon pump was turned off. The pre-existing sheath and balloon were removed en siomara and artery was allowed to bleed both antegrade and retrograde for several beats. Direct manual pressure was held over the site for 40 minutes. There was no residual bleeding or hematoma noted. The groin itself was soft. The right lower extremity appeared warm and well perfused. There were no immediate complications. He remained hemodynamically stable with a good follow-up cardiac index.
[2024-02-12 11:12] LABS: Glucose,Whole Blood 104 mg/dL (70-110)
[2024-02-12 11:21] LABS: ABG Base Excess -2.5 mmol/L; ABG HCO3 22 mmol/L (21-25); ABG Oxygen Saturation 99.1 % (94-97); ABG PCO2 37 mmHg (35-45); ABG PH 7.39 (7.35-7.45); ABG PO2 117 mmHg (83-108); ABG TCO2 23 mmol/L (19-24); Allen Test Performed? Yes
[2024-02-12] MEDS: ONDANSETRON 4 MG/2 ML VIAL IVP PRN (11:36)
[2024-02-12 12:11] LABS: Glucose,Whole Blood 108 mg/dL (70-110)
--- NOTE | 2024-02-12 12:18 | P.CRDCN ---
History of Present Illness Consult date: 02/12/24 History of present illness: The patient is a 73-year-old male who follows in the office with Dr. Smith. The patient underwent coronary artery bypass x 1 with aortic valve replacement and mitral valve repair yesterday with Dr. Ye. The patient also had a Valdez- Maze procedure as well as left atrial appendage closure. Postoperatively the patient did have a balloon pump which has been removed this morning by CV nurse practitioner. He is currently a paced with underlying junctional rhythm. The patient does have a known history of atrial fibrillation. REVIEW OF SYSTEMS: Patient is currently sedated on ventilator PHYSICAL EXAMINATION: This is a 73-year-old male in no apparent distress at the time of my examination. HEENT: Head is atraumatic, normocephalic. Pupils are equal, round. . There is no jugular venous distention. No carotid bruit is heard. CHEST EXAMINATION: Lungs are clear to auscultation. No chest wall tenderness is noted on palpation or with deep breathing. HEART EXAMINATION: Heart regular rate and rhythm. S1, S2 heard. No murmurs, gallops or rub. ABDOMEN: Soft, nontender. Bowel sounds are heard. No organomegaly noted. EXTREMITIES: 2+ peripheral pulses with no evidence of peripheral edema and no calf tenderness noted. NEUROLOGIC EXAMINATION: Patient is sedated on ventilator. FINAL ASSESSMENT AND PLAN: Severe aortic insufficiency, status post replacement Moderate mitral regurgitation, status post mitral valve repair Coronary artery disease, status post CABG x 1 with SVG to PDA Nonischemic cardiomyopathy, ejection fraction 32% History of hypertension History of hyperlipidemia History of COPD History of CVA/TIA PLAN: Continue supportive treatment Wean from ventilator and pressor support Further recommendations to be based on clinical course I am dictating on behalf of Dr Ryan Garcia's history/physical and assessment/plan. Past Medical History Past Medical History: Atrial Fibrillation, Coronary Artery Disease (CAD), Chest Pain / Angina, Heart Failure, COPD, CVA/TIA, GERD/Reflux, Hyperlipidemia, Hypertension, Osteoarthritis (OA) Additional Past Medical History / Comment(s): Edema in feet. Hx CVA 12-13 yrs ago, had right arm weakness, which resolved. Hx multiple TIA's. Hx kidney stones. Migraines. History of Any Multi-Drug Resistant Organisms: None Reported Past Surgical History: Hernia Repair, Orthopedic Surgery Additional Past Surgical History / Comment(s): Left wrist surgery, inguinal hernia repair with mesh, colonoscopies. Past Anesthesia/Blood Transfusion Reactions: Motion Sickness, Postoperative Nausea & Vomiting (PONV) Additional Past Anesthesia/Blood Transfusion Reaction / Comment(s): "PONV from Iodine." Past Psychological History: No Psychological Hx Reported Smoking Status: Never smoker Past Alcohol Use History: None Reported Past Drug Use History: None Reported - Past Family History Father Family Medical History: Cancer Mother Family Medical History: Cancer Brother(s) Family Medical History: Cancer Daughter(s) Family Medical History: Cancer Medications and Allergies Home Medications Medication Instructions Recorded Confirmed Type Albuterol Nebulized [Ventolin 2.5 mg INHALATION QID PRN 02/07/24 02/10/24 History Nebulized] Diltiazem Cd [Cardizem CD] 240 mg PO HS 02/07/24 02/10/24 History Empagliflozin [Jardiance] 10 mg PO DAILY 02/07/24 02/10/24 History Evolocumab [Repatha Sureclick] 0 mg SQ Q14D 02/07/24 02/10/24 History Furosemide [Lasix] 40 mg PO DAILY 02/07/24 02/10/24 History Losartan [Cozaar] 50 mg PO DAILY 02/07/24 02/10/24 History Metoprolol Succinate (ER) [Toprol 50 mg PO BID 02/07/24 02/10/24 History Xl] Nitroglycerin Sl Tabs [Nitrostat] 0.4 mg SUBLINGUAL Q5M PRN 02/07/24 02/10/24 History Rivaroxaban [Xarelto] 15 mg PO DAILY 02/07/24 02/10/24 History Allergies Allergy/AdvReac Type Severity Reaction Status Date / Time adhesive tape AdvReac Rash/Hives Verified 02/04/24 13:22 Iodinated Contrast Media AdvReac Nausea & Verified 02/04/24 13:22 Vomiting steroids Allergy Heart Uncoded 02/04/24 13:34 racing SLEEPING AIDS AdvReac Hallucinati Uncoded 02/04/24 13:22 ons Physical Exam Vitals: Vital Signs Temp Pulse Resp BP Pulse Ox FiO2 02/12/24 12:00 80 16 100/69 99 02/12/24 11:49 60 02/12/24 11:40 80 18 109/72 100 02/12/24 11:35 66 02/12/24 11:33 98 02/12/24 11:10 40 02/12/24 11:00 98.1 F 66 29 H 100 02/12/24 10:40 69 21 98 02/12/24 10:15 69 17 99 02/12/24 10:00 66 16 98 02/12/24 09:45 79 21 98 02/12/24 09:30 70 17 98 02/12/24 09:17 70 02/12/24 09:15 70 18 99 02/12/24 09:08 70 02/12/24 09:00 70 15 100 40 02/12/24 08:55 40 02/12/24 08:54 40 02/12/24 08:45 70 20 100 02/12/24 08:30 69 15 99 02/12/24 08:15 70 15 100 02/12/24 08:00 98.1 F 69 16 100 50 02/12/24 07:45 69 14 99 02/12/24 07:30 69 17 100 02/12/24 07:00 69 17 99 02/12/24 06:45 70 17 98 02/12/24 06:30 69 17 96 02/12/24 06:15 70 17 98 02/12/24 06:06 40 02/12/24 06:00 56 L 16 96 02/12/24 05:45 80 19 100 02/12/24 05:30 80 16 98 02/12/24 05:15 57 L 16 97 02/12/24 05:00 80 20 97 02/12/24 04:45 58 L 27 H 96 02/12/24 04:30 80 7 L 98 02/12/24 04:15 80 16 100 02/12/24 04:00 98.4 F 80 16 100 50 02/12/24 03:45 80 16 99 02/12/24 03:39 50 02/12/24 03:30 80 16 99 02/12/24 03:15 80 16 100 02/12/24 03:00 80 16 100 02/12/24 02:45 80 16 100 02/12/24 02:30 80 18 100 02/12/24 02:15 80 16 100 02/12/24 02:00 80 16 100 02/12/24 01:45 80 16 100 02/12/24 01:30 80 16 100 02/12/24 01:15 80 16 99 02/12/24 01:00 80 17 98 02/12/24 00:45 80 16 100 02/12/24 00:30 80 16 98 02/12/24 00:19 50 02/12/24 00:15 80 17 99 02/12/24 00:04 80 17 99 02/12/24 00:00 97.7 F 80 16 99 50 02/11/24 23:57 50 02/11/24 23:45 80 16 97 02/11/24 23:30 77 13 99 02/11/24 23:15 79 12 100 02/11/24 23:00 80 15 100 02/11/24 22:45 80 16 99 02/11/24 22:30 80 15 100 02/11/24 22:15 80 15 100 02/11/24 22:00 96.6 F L 80 16 100 50 02/11/24 21:45 80 14 100 02/11/24 21:30 80 13 100 02/11/24 21:15 80 14 100 02/11/24 21:00 80 15 100 02/11/24 20:45 80 16 99 02/11/24 20:30 80 19 99 02/11/24 20:28 96 02/11/24 20:18 80 50 02/11/24 20:15 80 19 100 02/11/24 20:00 80 14 100 50 02/11/24 19:45 80 14 100 02/11/24 19:30 80 23 100 02/11/24 19:15 80 15 100 02/11/24 19:00 80 14 99 02/11/24 18:45 80 14 100 02/11/24 18:30 80 14 100 02/11/24 18:15 80 14 100 02/11/24 18:00 80 14 100 02/11/24 17:45 80 14 100 02/11/24 17:38 50 02/11/24 17:30 80 14 100 02/11/24 17:15 80 14 99 02/11/24 17:00 80 0 L 98 02/11/24 16:45 80 14 98 02/11/24 16:30 80 14 96 02/11/24 16:15 79 23 95 02/11/24 16:00 80 15 94 L 50 02/11/24 15:45 80 19 93 L 02/11/24 15:30 80 30 H 93 L 02/11/24 15:15 103 H 13 97 02/11/24 15:11 50 02/11/24 15:00 122 H 14 98 02/11/24 14:56 97.0 F L 80 14 114/72 02/11/24 14:45 142 H 14 98 02/11/24 14:30 80 13 98 02/11/24 14:24 100 Intake and Output 02/11/24 02/12/24 02/12/24 22:59 06:59 14:59 Intake Total 5226.998 0657.206 675.874 Output Total 955 570 315 Balance 654.998 7625.206 360.874 Intake: IV 1713 1082 395 ACETAMINOPHEN IV (For NPO 200 ) 1,000 mg In Empty Bag 1 bag @ 400 mls/hr IVPB Q6HR [facility] Rx#:[id number] Albumin Human 5% 250 ml 1000 250 In Empty Bag 1 bag @ 250 mls/hr IVPB Q1HR PRN Rx#: [id number] CO/CI 300 110 89 Sodium Chloride 0.9% 1, 350 400 220 000 ml @ 30 mls/hr IV . Q24H [facility] Rx#:[id number] ceFAZolin 2 gm In Sodium 50 50 Chloride 0.9% 50 ml @ 100 mls/hr IVPB ONCE ONE Rx# :[id number] pressure bag 63 72 36 Intake, IV Titration 218.725 516.206 280.874 Amount Amiodarone 450 mg In 250 Dextrose 5% in Water 250 ml @ 0.5 MG/MIN 16.667 mls/hr IV .Q15H [facility] Rx#: [id number] Calcium Gluconate in NaCl 100 1 gm In Saline 1 100ml. bag @ 100 mls/hr IVPB ONCE ONE Rx#:[id number] Dexmedetomidine/0.9% NaCl 1.820 (Pmx) 400 mcg In Empty Bag 1 bag @ Titrate IV . Q0M [facility] Rx#:[id number] EPINEPHrine 4 mg In 18.177 105.866 12.719 Dextrose 5% in Water 250 ml @ 0.01 MCG/KG/MIN 2. 775 mls/hr IV .Q24H [facility] Rx#:[id number] Insulin Regular 100 unit 24.678 20.781 6.843 In Sodium Chloride 0.9% 100 ml @ Per Protocol IV .Q0M [facility] Rx#:[id number] Milrinone-D5w Pmx 20 mg 59.968 76.368 In Dextrose/Water 1 100ml .bag @ 0.2 MCG/KG/MIN 4. 44 mls/hr IV .[id number] [facility] Rx#:[id number] Norepinephrine 4 mg In 32.8 72.034 9.679 Sodium Chloride 0.9% 250 ml @ 0.02 MCG/KG/MIN 5. 639 mls/hr IV .Q24H [facility] Rx#:[id number] propofoL 1,000 mg In 83.102 67.525 73.445 Empty Bag 1 bag @ Titrate IV .Q0M [facility] Rx#: [id number] Output: Chest Tube Drainage 440 290 150 Chest Tube Left Pleural 0 90 30 Chest Tube Mediastinal 440 200 120 Urine 515 280 165 Other: Voiding Method Indwelling Catheter Indwelling Catheter Indwelling Catheter Weight 80.1 kg 80.1 kg ABP, PAP, CO, CI - Last 8 Hours Arterial Blood Pressure 97/60 Arterial Blood Pressure 95/61 Arterial Blood Pressure 109/64 Arterial Blood Pressure 109/65 Arterial Blood Pressure 122/71 Arterial Blood Pressure 125/69 Arterial Blood Pressure 134/80 Arterial Blood Pressure 121/63 Arterial Blood Pressure 123/60 Arterial Blood Pressure 126/62 Arterial Blood Pressure 126/69 Arterial Blood Pressure 115/63 Arterial Blood Pressure 104/60 Arterial Blood Pressure 119/64 Arterial Blood Pressure 119/64 Arterial Blood Pressure 111/59 Arterial Blood Pressure 112/58 Arterial Blood Pressure 102/62 Arterial Blood Pressure 107/53 Arterial Blood Pressure 98/56 Arterial Blood Pressure 98/55 Arterial Blood Pressure 108/63 Arterial Blood Pressure 105/60 Arterial Blood Pressure 109/60 Arterial Blood Pressure 113/63 Arterial Blood Pressure 89/54 Arterial Blood Pressure 98/56 Arterial Blood Pressure 94/55 Pulmonary Artery Pressure 31/13 Pulmonary Artery Pressure 24/13 Pulmonary Artery Pressure 37/20 Pulmonary Artery Pressure 31/16 Pulmonary Artery Pressure 33/16 Pulmonary Artery Pressure 39/17 Pulmonary Artery Pressure 44/23 Pulmonary Artery Pressure 39/17 Pulmonary Artery Pressure 38/18 Pulmonary Artery Pressure 36/17 Pulmonary Artery Pressure 37/17 Pulmonary Artery Pressure 36/17 Pulmonary Artery Pressure 35/17 Pulmonary Artery Pressure 34/17 Pulmonary Artery Pressure 34/17 Pulmonary Artery Pressure 33/16 Pulmonary Artery Pressure 34/17 Pulmonary Artery Pressure 35/17 Pulmonary Artery Pressure 34/17 Pulmonary Artery Pressure 33/17 Pulmonary Artery Pressure 37/22 Pulmonary Artery Pressure 35/17 Pulmonary Artery Pressure 32/17 Pulmonary Artery Pressure 37/18 Pulmonary Artery Pressure 34/16 Pulmonary Artery Pressure 33/18 Pulmonary Artery Pressure 31/16 Pulmonary Artery Pressure 34/19 Cardiac Output 4.1 Cardiac Output 4.3 Cardiac Output 4.4 Cardiac Output 4.4 Cardiac Output 4.9 Cardiac Output 4.8 Cardiac Output 3.8 Cardiac Index 2.2 Cardiac Index 2.2 Cardiac Index 2.3 Cardiac Index 2.3 Cardiac Index 2.6 Cardiac Index 2.6 Cardiac Index 2 Results 02/12/24 05:30 02/12/24 05:30 Cardiac Enzymes 02/11/24 02/12/24 Range/Units 14:38 05:30 AST 70 H 73 H (17-59) U/L Coagulation 02/11/24 Range/Units 14:38 PT 12.7 H (10.0-12.5) sec APTT 25.3 (22.0-30.0) sec CBC 02/11/24 02/11/24 02/11/24 Range/Units 14:38 17:30 20:30 WBC 15.5 H 15.6 H 13.5 H (3.8-10.6) k/uL RBC 2.90 L 2.86 L 2.66 L (4.30-5.90) m/uL Hgb 9.1 L D 9.2 L 8.6 L (13.0-17.5) gm/dL Hct 28.4 L 28.1 L 26.0 L (39.0-53.0) % Plt Count 196 202 186 (150-450) k/uL 02/12/24 Range/Units 05:30 WBC 9.4 (3.8-10.6) k/uL RBC 2.24 L (4.30-5.90) m/uL Hgb 7.3 L (13.0-17.5) gm/dL Hct 21.8 L (39.0-53.0) % Plt Count 152 (150-450) k/uL Comprehensive Metabolic Panel 02/11/24 02/12/24 Range/Units 14:38 05:30 Sodium 139 134 L (137-145) mmol/L Potassium 4.4 4.5 (3.5-5.1) mmol/L Chloride 109 H 110 H (98-107) mmol/L Carbon Dioxide 24 25 (22-30) mmol/L BUN 21 H 24 H (9-20) mg/dL Creatinine 1.01 1.13 (0.66-1.25) mg/dL Glucose 136 H 123 H (74-99) mg/dL Calcium 7.6 L 7.7 L (8.4-10.2) mg/dL AST 70 H 73 H (17-59) U/L ALT 16 12 (4-49) U/L Alkaline Phosphatase 49 49 (38-126) U/L Total Protein 4.6 L 4.9 L (6.3-8.2) g/dL Albumin 2.7 L 3.2 L (3.5-5.0) g/dL Current Medications Generic Name Dose Route Start Last Admin Trade Name Freq PRN Reason Stop Dose Admin Acetaminophen 650 mg 02/12/24 13:00 Acetaminophen Tab 325 Mg Tab PO Q4HR PRN Fever and/ or Pain Albuterol/Ipratropium 3 ml 02/11/24 13:57 Ipratropium-Albuterol 3 Ml Neb INHALATION RT-Q2H PRN Shortness Of Breath Or Wheezing Albuterol/Ipratropium 3 ml 02/11/24 20:00 02/12/24 11:33 Ipratropium-Albuterol 3 Ml Neb INHALATION 3 ml RT-QID [facility] Administration Amiodarone HCl 400 mg 02/12/24 09:00 02/12/24 09:20 Amiodarone 200 Mg Tab PO 400 mg BID [facility] Administration Aspirin 325 mg 02/12/24 09:00 02/12/24 08:13 Aspirin 325 Mg Tab PO 325 mg DAILY [facility] Administration Atorvastatin Calcium 40 mg 02/12/24 09:00 02/12/24 08:13 Atorvastatin 40 Mg Tab PO 40 mg DAILY [facility] Administration Benzocaine/Menthol 1 each 02/11/24 13:57 Benzocaine/Menthol Lozeng 1 Each Lozenge MUCOUS MEM Q2H PRN Sore Throat Bisacodyl 10 mg 02/12/24 09:00 Bisacodyl 10 Mg Supp RECTAL DAILY PRN Constipation Clopidogrel Bisulfate 75 mg 02/12/24 09:00 02/12/24 08:13 Clopidogrel 75 Mg Tab PO 75 mg DAILY [facility] Administration Dextrose/Water 25 ml 02/11/24 13:57 Dextrose 50% Syringe 50 Ml IVP PER PROTOCOL PRN Hypoglycemia Protocol Dextrose/Water 50 ml 02/11/24 13:57 Dextrose 50% Syringe 50 Ml IVP PER PROTOCOL PRN Hypoglycemia Protocol Heparin Sodium (Porcine) 5,000 unit 02/11/24 16:00 02/12/24 08:13 Heparin Sodium,Porcine 5,000 Unit/Ml 1 Ml Vial SQ 5,000 unit Q8HR [facility] Administration Hydralazine HCl 10 mg 02/11/24 13:57 Hydralazine Hcl 20 Mg/Ml 1 Ml Vial IVP Q1H PRN Blood Pressure - High Norepinephrine Bitartrate 4 mg 254 mls @ 5.639 mls/hr 02/11/24 13:57 02/12/24 09:48 / Sodium Chloride IV 0 mcg/kg/min .Q24H [facility] 0 mls/hr Titration Protocol 0.02 MCG/KG/MIN Dexmedetomidine HCl 400 mcg/ 100 mls @ 0 mls/hr 02/11/24 13:57 02/12/24 10:45 IV Solution IV 02/12/24 13:59 0.04 mcg/kg/hr .Q0M [facility] 0.74 mls/hr Titration Protocol Titrate Acetaminophen 1,000 mg/ IV 100 mls @ 400 mls/hr 02/11/24 18:00 02/12/24 05:49 Solution IVPB 02/12/24 12:14 400 mls/hr Q6HR [facility] Administration Insulin Human Regular 100 unit 101 mls @ 0 mls/hr 02/11/24 13:57 02/12/24 11:10 / Sodium Chloride IV 0 units/hr .Q0M [facility] 0 mls/hr Titration Protocol Per Protocol Milrinone Lactate/Dextrose 20 100 mls @ 4.44 mls/hr 02/11/24 14:00 02/12/24 10:27 mg/ IV Solution IV 0.2 mcg/kg/min .[id number] [facility] 4.44 mls/hr Infusion 0.2 MCG/KG/MIN Sodium Chloride 1,000 mls @ 30 mls/hr 02/11/24 13:57 02/11/24 15:24 Saline 0.9% IV 50 mls/hr .Q24H [facility] Administration Magnesium Hydroxide 2,400 mg 02/12/24 09:00 Magnesium Hydroxide 2,400 Mg/30 Ml Cup PO BID PRN Constipation Metoclopramide HCl 10 mg 02/11/24 13:57 Metoclopramide 5 Mg/Ml 2 Ml Vial IVP Q4H PRN Nausea And Vomiting Miscellaneous Information 1 each 02/11/24 13:57 Potassium Replacement Protocol 1 Each Misc MISCELLANE DAILY PRN Per Protocol Protocol Miscellaneous Information 1 each 02/11/24 13:57 Magnesium Replacement Protocol 1 Each Misc MISCELLANE DAILY PRN Per Protocol Protocol Ondansetron HCl 4 mg 02/11/24 13:57 02/12/24 11:36 Ondansetron 4 Mg/2 Ml Vial IVP 4 mg Q6HR PRN Administration Nausea And Vomiting Oxycodone HCl 5 mg 02/11/24 13:57 02/12/24 09:24 Oxycodone Hcl 5 Mg Tab PO 5 mg Q4HR PRN Administration Moderate Pain (Scale 4 to 6) Oxycodone HCl 10 mg 02/11/24 13:57 Oxycodone Hcl 5 Mg Tab PO Q4HR PRN Severe Pain (Scale 7 to 10) Pantoprazole Sodium 40 mg 02/12/24 09:00 02/12/24 08:13 Pantoprazole 40 Mg/10 Ml Vial IVP 40 mg DAILY [facility] Administration Senna/Docusate Sodium 2 each 02/11/24 21:00 02/11/24 21:43 Sennosides-Docusate Sodium 1 Each Tab PO 2 each HS [facility] Administration Sodium Chloride 10 ml 02/11/24 21:00 02/12/24 09:21 Sodium Chloride 0.9% Flush 10 Ml Syringe IV 10 ml BID [facility] Administration Intake and Output 02/11/24 02/12/24 02/12/24 22:59 06:59 14:59 Intake Total 2784.522 9829.206 675.874 Output Total 955 570 315 Balance 267.466 7110.206 360.874 Intake: IV 1713 1082 395 ACETAMINOPHEN IV (For NPO 200 ) 1,000 mg In Empty Bag 1 bag @ 400 mls/hr IVPB Q6HR [facility] Rx#:[id number] Albumin Human 5% 250 ml 1000 250 In Empty Bag 1 bag @ 250 mls/hr IVPB Q1HR PRN Rx#: [id number] CO/CI 300 110 89 Sodium Chloride 0.9% 1, 350 400 220 000 ml @ 30 mls/hr IV . Q24H [facility] Rx#:[id number] ceFAZolin 2 gm In Sodium 50 50 Chloride 0.9% 50 ml @ 100 mls/hr IVPB ONCE ONE Rx# :[id number] pressure bag 63 72 36 Intake, IV Titration 218.725 516.206 280.874 Amount Amiodarone 450 mg In 250 Dextrose 5% in Water 250 ml @ 0.5 MG/MIN 16.667 mls/hr IV .Q15H [facility] Rx#: [id number] Calcium Gluconate in NaCl 100 1 gm In Saline 1 100ml. bag @ 100 mls/hr IVPB ONCE ONE Rx#:[id number] Dexmedetomidine/0.9% NaCl 1.820 (Pmx) 400 mcg In Empty Bag 1 bag @ Titrate IV . Q0M [facility] Rx#:[id number] EPINEPHrine 4 mg In 18.177 105.866 12.719 Dextrose 5% in Water 250 ml @ 0.01 MCG/KG/MIN 2. 775 mls/hr IV .Q24H [facility] Rx#:[id number] Insulin Regular 100 unit 24.678 20.781 6.843 In Sodium Chloride 0.9% 100 ml @ Per Protocol IV .Q0M [facility] Rx#:[id number] Milrinone-D5w Pmx 20 mg 59.968 76.368 In Dextrose/Water 1 100ml .bag @ 0.2 MCG/KG/MIN 4. 44 mls/hr IV .[id number] [facility] Rx#:[id number] Norepinephrine 4 mg In 32.8 72.034 9.679 Sodium Chloride 0.9% 250 ml @ 0.02 MCG/KG/MIN 5. 639 mls/hr IV .Q24H [facility] Rx#:[id number] propofoL 1,000 mg In 83.102 67.525 73.445 Empty Bag 1 bag @ Titrate IV .Q0M [facility] Rx#: [id number] Output: Chest Tube Drainage 440 290 150 Chest Tube Left Pleural 0 90 30 Chest Tube Mediastinal 440 200 120 Urine 515 280 165 Other: Voiding Method Indwelling Catheter Indwelling Catheter Indwelling Catheter Weight 80.1 kg 80.1 kg Patient Weight 02/13/24 06:59 Weight 80.1 kg 02/12/24 05:30 02/12/24 05:30
[2024-02-12 13:31] LABS: Glucose,Whole Blood 122 mg/dL (70-110)
[2024-02-12 15:01] LABS: Glucose,Whole Blood 121 mg/dL (70-110)
[2024-02-12 17:09] LABS: Glucose,Whole Blood 131 mg/dL (70-110)
[2024-02-12 18:20] LABS: Glucose,Whole Blood 231 mg/dL (70-110)
[2024-02-12 19:11] LABS: Glucose,Whole Blood 181 mg/dL (70-110)
[2024-02-12 20:08] LABS: Glucose,Whole Blood 124 mg/dL (70-110)
--- NOTE | 2024-02-12 20:19 | PN ---
PROGRESS NOTE DATE OF SERVICE: 02/12/2024 SUBJECTIVE: This is a 73-year-old gentleman, who was admitted with severe aortic insufficiency, underwent CABG x1, aortic valve replacement with bovine pericardial valve, mitral valve annuloplasty, Valdez-maze procedure by Cardiothoracic Surgery. The patient extubated. The blood sugars are slightly elevated. IV insulin drip is off. PAST MEDICAL HISTORY: Reviewed. REVIEW OF SYSTEMS: A 14-point review is negative except as mentioned earlier. CURRENT MEDICATIONS: Reviewed include Cordarone. PHYSICAL EXAMINATION: VITAL SIGNS: Pulse is 60, blood pressure is 97/60, respirations 16. HEENT: Conjunctivae normal. CARDIOVASCULAR: S1, S2. RESPIRATIONS: Breath sounds diminished at the bases. A few scattered rhonchi. ABDOMEN: Soft. LABORATORY DATA: Reviewed. Glucose 122. ASSESSMENT: 1. Severe aortic insufficiency, moderate mitral and tricuspid regurgitation, status post aortic valve replacement with bovine pericardial valve and mitral valve annuloplasty. 2. Coronary artery disease, status post coronary artery bypass graft x1 with posterior descending artery to endovascular vein harvest. 3. Status post modified Valdez-maze procedure. 4. Cardiomyopathy. 5. History of coronary artery disease. 6. Hypertension. 7. Hyperlipidemia. 8. Chronic obstructive pulmonary disease. RECOMMENDATIONS: Recommend to continue current management and continue symptomatic treatment, Continue with bronchodilators. Continue with incentive spirometry. I would recommend continue with Accu-Cheks before meals and at bedtime and once the patient is taking p.o. home medication, Jardiance may be continued. We will continue to monitor. Further recommendations to follow. MMRAJINDER / ANGELN: [id number] /
[2024-02-12] MEDS: IPRATROPIUM-ALBUTEROL 3 ML NEB INHALATION PRN (21:39)
[2024-02-12 22:02] LABS: Glucose,Whole Blood 118 mg/dL (70-110)
[2024-02-12] MEDS: PROCHLORPERAZINE INJ 10 MG/2 ML VIAL IVP PRN (22:02)
[2024-02-13 00:01] LABS: Glucose,Whole Blood 123 mg/dL (70-110)
[2024-02-13 01:58] LABS: Glucose,Whole Blood 130 mg/dL (70-110)
[2024-02-13] MEDS: ACETAMINOPHEN TAB 325 MG TAB PO PRN (02:16)
[2024-02-13] MEDS: BENZOCAINE/MENTHOL LOZENG 1 EACH LOZENGE MUCOUS MEM PRN (03:00)
[2024-02-13 03:38] LABS: Glucose,Whole Blood 129 mg/dL (70-110)
[2024-02-13 04:22] LABS: Basophils % (A) 0 %; Eosinophils % (A) 0 %; HCT 24.7 % (39.0-53.0); HGB 8.1 gm/dL (13.0-17.5); Lymphocytes % (A) 7 %; MCH 32.2 pg (25.0-35.0); MCHC 32.9 g/dL (31.0-37.0); MCV 97.9 fL (80.0-100.0); Mean Platelet Volume 8.5; Monocytes # (A) 0.4 k/uL (0-1.0); Monocytes % (A) 3 %; Neutrophils # (A) 12.1 k/uL (1.3-7.7); Neutrophils % (A) 89 %; Platelet Count 157 k/uL (150-450); RBC 2.52 m/uL (4.30-5.90); RDW 14.9 % (11.5-15.5); WBC 13.7 k/uL (3.8-10.6)
[2024-02-13 04:51] LABS: Ionized Calcium 4.5 mg/dL (4.5-5.3)
[2024-02-13 05:03] LABS: ALT 13 U/L (4-49); AST 67 U/L (17-59); African American GFR (CKD) >90 (>60 ml/min/1.73 sqM); Albumin 3.4 g/dL (3.5-5.0); Alkaline Phosphatase 62 U/L (38-126); Anion Gap 6 mmol/L; Blood Urea Nitrogen 22 mg/dL (9-20); Carbon Dioxide 22 mmol/L (22-30); Chloride 109 mmol/L (98-107); Glucose 116 mg/dL (74-99); Non-African American GFR(CKD) 78 (>60 ml/min/1.73 sqM); Potassium 4.7 mmol/L (3.5-5.1); Sodium 137 mmol/L (137-145); Total Protein 5.4 g/dL (6.3-8.2)
[2024-02-13 05:59] LABS: Glucose,Whole Blood 112 mg/dL (70-110)
[2024-02-13] MEDS: PANTOPRAZOLE 40 MG TABLET PO SCH (06:52)
--- NOTE | 2024-02-13 07:38 | XR ---
EXAMINATION TYPE: XR chest 1V portable DATE OF EXAM: 02/13/2024 COMPARISON: 02/12/2024 INDICATION: Postop cardiac surgery TECHNIQUE: Single frontal view of the chest is obtained. FINDINGS: The heart size is large. The pulmonary vasculature is normal. Retrocardiac infiltrate appears to be present. There is silhouetting of the left diaphragm. Paradis-Edin catheter is present with tip in the main pulmonary artery region. Mediastinal tube is prese nt. Left-sided chest tube is present. IMPRESSION: 1. Cardiomegaly. 2. Left lower lobe infiltrate. 3. Lines and catheters discussed above [facility], , 02/13/2024 7:35 AM
[2024-02-13 08:00] LABS: Glucose,Whole Blood 162 mg/dL (70-110)
--- NOTE | 2024-02-13 08:27 | P.PN ---
Subjective Progress Note Date: 02/13/24 Principal diagnosis: Severe aortic insufficiency, moderate mitral regurgitation, persistent atrial fibrillation, on Xarelto for anticoagulation, patent foramen ovale, cardiomyopathy/chronic heart failure with reduced ejection fraction, coronary artery disease. History of hypertension, hyperlipidemia, COPD, obstructive sleep apnea without home CPAP use, CVA/TIA, lifelong non-smoker POD #2 CABG x 1 with vein graft to PDA and endovascular vein harvest, aortic valve replacement with 23 mm Avalus bovine pericardial valve, mitral valve annuloplasty with 28 mm physio 2 ring, modified Valdez-Maze procedure with complete left-sided lesion sets including both RF and cryoablation and 40 mm AtriCure clip to base of left atrial appendage, closure of patent foramen ovale, right femoral transcutaneous placement of intra-aortic balloon pump The patient was seen and examined this morning sitting up in a recliner in the intensive care unit in no acute distress. He was successfully extubated yesterday at 11:25. Currently atrially paced at 80 bpm, underlying rhythm juncional in the 50s. Hemodynamically stable on low dose Primacor. Intra- aortic balloon pump discontinued yesterday. Patient reports mild expected postoperative pain, denies shortness of breath. He did have an episode last night of dizziness and was given Compazine, reports he does get migraines at home and has had episodes of dizziness like this before, not new. Denies any dizziness or lightheadedness this morning. Right internal jugular Moraga/Cordis, right brachial arterial line, mediastinal/left pleural chest tubes present. Chest x-ray, labs reviewed. Objective - Vital Signs Vital signs: Vital Signs Temp 99.3 F 02/13/24 08:00 Pulse 80 02/13/24 08:11 Resp 31 H 02/13/24 08:00 BP 138/89 02/13/24 08:00 Pulse Ox 95 02/13/24 08:00 FiO2 40 02/12/24 11:10 Intake & Output 02/12/24 02/13/24 02/13/24 18:59 06:59 18:59 Intake Total 2225.547 9823.446 755.034 Output Total 750 1035 65 Balance 426.475 259.446 690.034 Weight 80.1 kg 79.4 kg Intake: IV 868 768 138 CO/CI 180 60 20 Sodium Chloride 0.9% 1, 530 600 100 000 ml @ 30 mls/hr IV . Q24H [facility] Rx#:[id number] ceFAZolin 2 gm In Sodium 50 Chloride 0.9% 50 ml @ 100 mls/hr IVPB ONCE ONE Rx# :[id number] pressure bag 108 108 18 Intake, IV Titration 308.475 26.446 77.034 Amount Calcium Gluconate in NaCl 100 1 gm In Saline 1 100ml. bag @ 100 mls/hr IVPB ONCE ONE Rx#:[id number] Dexmedetomidine/0.9% NaCl 2.437 (Pmx) 400 mcg In Empty Bag 1 bag @ Titrate IV . Q0M [facility] Rx#:[id number] EPINEPHrine 4 mg In 12.719 Dextrose 5% in Water 250 ml @ 0.01 MCG/KG/MIN 2. 775 mls/hr IV .Q24H [facility] Rx#:[id number] Insulin Regular 100 unit 14.957 26.446 0 In Sodium Chloride 0.9% 100 ml @ Per Protocol IV .Q0M [facility] Rx#:[id number] Milrinone-D5w Pmx 20 mg 95.238 77.034 In Dextrose/Water 1 100ml .bag @ 0.1 MCG/KG/MIN 2. 22 mls/hr IV .Q24H [facility] Rx #:[id number] Norepinephrine 4 mg In 9.679 Sodium Chloride 0.9% 250 ml @ 0.02 MCG/KG/MIN 5. 639 mls/hr IV .Q24H [facility] Rx#:[id number] propofoL 1,000 mg In 73.445 Empty Bag 1 bag @ Titrate IV .Q0M [facility] Rx#: [id number] Oral 500 540 Output: Chest Tube Drainage 330 580 10 Chest Tube Left Pleural 90 80 10 Chest Tube Mediastinal 240 500 0 Urine 420 455 55 Other: Voiding Method Indwelling Catheter Indwelling Catheter ABP, PAP, CO, CI - Last Documented Arterial Blood Pressure 130/75 Pulmonary Artery Pressure 43/16 Cardiac Output 3.9 Cardiac Index 2.1 - Exam CONSTITUTIONAL: Appears comfortable, cooperative, no acute distress RESPIRATORY: Lungs sounds diminished bilaterally. Respirations even, nonlabored. Currently on room air with oxygen saturation 95%. Able to achieve 1000 mL on incentive spirometry. Strong cough. CARDIOVASCULAR: S1, S2 present. Regular rate and rhythm, atrially paced at 80 bpm on telemetry with underlying rhythm junctional in the 50s. Sternum stable. Palpable peripheral pulses bilaterally. No edema present. No calf pain or tenderness noted. Heart hugger in place with patient demonstrating appropriate use. Antiembolism stockings, SCDs present. GASTROINTESTINAL: Abdomen soft, nontender, nondistended. Hypoctive bowel sounds present 4 quadrants. Tolerating minimal clear liquids. Denies flatus, positive belching GENITOURINARY: Osuna present draining clear, yellow urine. Output overnight 30-45 mL per hour, 875 mL in the last 24 hours INTEGUMENTARY: Skin is warm and dry with evidence of good perfusion. Anterior chest incision well approximated and covered with dry intact dressing. Left thigh EVH site well approximated without redness or drainage. Right groin soft, nontender NEUROLOGIC: Cranial nerves II through XII intact MUSKULOSKELETAL: Able to move all extremities, strength equal bilaterally PSYCHIATRIC: Alert and oriented to person place and time, appropriate affect, intact judgment and insight INVASIVE LINES AND TUBES: Mediastinal/left pleural chest tubes present and connected to wall suction, no air leaks present. Mediastinal tube with 420 mL serosanguineous drainage overnight, 800 mL in the last 24 hours. Left pleural chest tube with 80 mL serosanguineous drainage overnight, 190 mL in the last 24 hours. A/V epicardial pacemaker wires present, connected to generator, AAI mode with rate 80 bpm. Right internal jugular Moraga/Cordis, right brachial arterial line present. Last CO/CI 4.6/2.4, PA 43/15, CVP 11. - Allied health notes Allied health notes reviewed: nursing - Labs CBC & Chem 7: 02/13/24 03:30 02/13/24 03:30 Labs: Abnormal Lab Results - Last 24 Hours (Table) 02/12/24 02/12/24 02/12/24 Range/Units 09:11 10:02 11:13 WBC (3.8-10.6) k/uL RBC (4.30-5.90) m/uL Hgb (13.0-17.5) gm/dL Hct (39.0-53.0) % Neutrophils # (1.3-7.7) k/uL ABG pO2 117 H (83-108) mmHg ABG O2 Saturation 99.1 H (94-97) % Hemoglobin 7.1 L (13.0-17.5) gm/dL Chloride (98-107) mmol/L BUN (9-20) mg/dL Glucose (74-99) mg/dL POC Glucose (mg/dL) 120 H 118 H (70-110) mg/dL Calcium (8.4-10.2) mg/dL AST (17-59) U/L Total Protein (6.3-8.2) g/dL Albumin (3.5-5.0) g/dL 02/12/24 02/12/24 02/12/24 Range/Units 13:29 14:58 17:07 WBC (3.8-10.6) k/uL RBC (4.30-5.90) m/uL Hgb (13.0-17.5) gm/dL Hct (39.0-53.0) % Neutrophils # (1.3-7.7) k/uL ABG pO2 (83-108) mmHg ABG O2 Saturation (94-97) % Hemoglobin (13.0-17.5) gm/dL Chloride (98-107) mmol/L BUN (9-20) mg/dL Glucose (74-99) mg/dL POC Glucose (mg/dL) 122 H 121 H 131 H (70-110) mg/dL Calcium (8.4-10.2) mg/dL AST (17-59) U/L Total Protein (6.3-8.2) g/dL Albumin (3.5-5.0) g/dL 02/12/24 02/12/24 02/12/24 Range/Units 18:19 19:09 20:07 WBC (3.8-10.6) k/uL RBC (4.30-5.90) m/uL Hgb (13.0-17.5) gm/dL Hct (39.0-53.0) % Neutrophils # (1.3-7.7) k/uL ABG pO2 (83-108) mmHg ABG O2 Saturation (94-97) % Hemoglobin (13.0-17.5) gm/dL Chloride (98-107) mmol/L BUN (9-20) mg/dL Glucose (74-99) mg/dL POC Glucose (mg/dL) 231 H 181 H 124 H (70-110) mg/dL Calcium (8.4-10.2) mg/dL AST (17-59) U/L Total Protein (6.3-8.2) g/dL Albumin (3.5-5.0) g/dL 02/12/24 02/12/24 02/13/24 Range/Units 22:00 23:56 01:56 WBC (3.8-10.6) k/uL RBC (4.30-5.90) m/uL Hgb (13.0-17.5) gm/dL Hct (39.0-53.0) % Neutrophils # (1.3-7.7) k/uL ABG pO2 (83-108) mmHg ABG O2 Saturation (94-97) % Hemoglobin (13.0-17.5) gm/dL Chloride (98-107) mmol/L BUN (9-20) mg/dL Glucose (74-99) mg/dL POC Glucose (mg/dL) 118 H 123 H 130 H (70-110) mg/dL Calcium (8.4-10.2) mg/dL AST (17-59) U/L Total Protein (6.3-8.2) g/dL Albumin (3.5-5.0) g/dL 02/13/24 02/13/24 02/13/24 Range/Units 03:30 03:30 03:37 WBC 13.7 H (3.8-10.6) k/uL RBC 2.52 L (4.30-5.90) m/uL Hgb 8.1 L (13.0-17.5) gm/dL Hct 24.7 L (39.0-53.0) % Neutrophils # 12.1 H (1.3-7.7) k/uL ABG pO2 (83-108) mmHg ABG O2 Saturation (94-97) % Hemoglobin (13.0-17.5) gm/dL Chloride 109 H (98-107) mmol/L BUN 22 H (9-20) mg/dL Glucose 116 H (74-99) mg/dL POC Glucose (mg/dL) 129 H (70-110) mg/dL Calcium 8.0 L (8.4-10.2) mg/dL AST 67 H (17-59) U/L Total Protein 5.4 L (6.3-8.2) g/dL Albumin 3.4 L (3.5-5.0) g/dL 02/13/24 02/13/24 Range/Units 05:57 07:59 WBC (3.8-10.6) k/uL RBC (4.30-5.90) m/uL Hgb (13.0-17.5) gm/dL Hct (39.0-53.0) % Neutrophils # (1.3-7.7) k/uL ABG pO2 (83-108) mmHg ABG O2 Saturation (94-97) % Hemoglobin (13.0-17.5) gm/dL Chloride (98-107) mmol/L BUN (9-20) mg/dL Glucose (74-99) mg/dL POC Glucose (mg/dL) 112 H 162 H (70-110) mg/dL Calcium (8.4-10.2) mg/dL AST (17-59) U/L Total Protein (6.3-8.2) g/dL Albumin (3.5-5.0) g/dL - Imaging and Cardiology Chest x-ray: report reviewed, image reviewed Assessment and Plan Assessment: Severe aortic insufficiency, status post aortic valve replacement Moderate mitral regurgitation, status post mitral valve annuloplasty Persistent atrial fibrillation, on Xarelto for anticoagulation, last dose 02/06/24, status post modified Valdez-Maze procedure with complete left-sided lesion sets including both RF and cryoablation and 40 mm AtriCure clip to base of left atrial appendage Patent foramen ovale, status post closure Cardiomyopathy/chronic heart failure with reduced ejection fraction, EF 30-35%, status post placement of intra-aortic balloon pump Coronary artery disease, status post single-vessel CABG History of hypertension Hyperlipidemia Diabetes with preoperative hemoglobin A1c 7%, on [facility] outpatient Moderate COPD, preoperative FEV1 55% of predicted, DLCO 77% of predicted Obstructive sleep apnea without home CPAP use CVA 12 years ago Lifelong non-smoker Family history of premature coronary artery disease with father diagnosed in his 50s Plan: Continue to maximize medical therapy with aspirin, statin, Plavix. Hold beta- jane for now while patient has underlying bradycardia. Will start low-dose losartan for afterload reduction Continue Primacor at 0.1 mcg/kg/min Continue amiodarone for A-fib prophylaxis, decreased to 200 mg twice daily. Will restart anticoagulation at discharge Encourage incentive spirometry use 10 times every hour while awake. Bronchodilators per pulmonology Increase activity, ambulate as tolerated. PT/OT/cardiac rehab consulted Will monitor daily labs and x-rays. Electrolyte replacement per protocol GI/DVT prophylaxis Insulin management per internal medicine Pain control per current medication regimen Continue chest tubes for another 24 hours, monitor output Continue Osuna catheter for another 24 hours, continue to record strict accurate intake and output Continue Moraga/Cordis for another 24 hours More recommendations to follow
[2024-02-13 09:24] LABS: Glucose,Whole Blood 147 mg/dL (70-110)
[2024-02-13] MEDS: FUROSEMIDE 10 MG/ML 2 ML VIAL IV ONE (09:45)
[2024-02-13] MEDS: CALCIUM GLUCONATE IN NACL 1 GM in SALINE 1 100ML.BAG IVPB ONE (09:46)
--- NOTE | 2024-02-13 10:44 | P.PN ---
Subjective Progress Note Date: 02/13/24 Principal diagnosis: Valvular heart disease. Pulmonary consult dated February 10, 2024. This is a 73-year-old male who is scheduled to have aortic valve replacement, mitral valve repair, and a Valdez-Maze procedure. Apparently, the surgery will be done on February 10. He comes to the intensive care unit, for further monitoring and management. He is placed in room 251. The patient is currently on a couple liters of oxygen. He is getting saline at 20 cc an hour. He is ge tting amiodarone drip at 1 mg/min. The surgery will be done either today or tomorrow. The patient also has a history of atrial fibrillation. The patient apparently will be coming back to the intensive care unit, with a balloon pump. In addition to atrial fibrillation, and valvular heart disease, the patient does have a history of hypertension. Also, the patient has a history of hyperlipidemia, gastroesophageal reflux disease, CVA, and angina. Laboratory data today includes a white count 7.5, hemoglobin 13.6, hematocrit 42.8, and a platelet count of 301,000. Glucose is 103. Magnesium is 1.9. Progress note dated February 11, 2024. 73-year-old male seen in consultation yesterday. The patient has a history of valvular heart disease, and will have surgery today, with Dr. Ye. The patient is expected to have an aortic valve replacement, mitral valve replacement, possible tricuspid valve replacement, possible bypass grafting, and insertion of the intra-aortic balloon pump. Currently, the patient is on room air. In no acute distress. No new laboratory data today. Laboratory data from yesterday have been reviewed. The patient was on amiodarone, for his atrial fibrillation, but that has been discontinued. Progress note dated February 12, 2024. This is a 74-year-old male who is postoperative day #1. The patient had a one- vessel bypass grafting, aortic valve replacement, mitral valve repair, a modified Valdez-Maze procedure, closure of a patent foramen ovale, insertion of an intra-aortic balloon pump. The patient is seen today in room 267. The patient remains on mechanical ventilator. Ventilator settings include volume assist- control, rate 14, tidal volume 500, FiO2 40%, PEEP of 5. Blood gases done on the same settings, except 50%, show pO2 of 218, pCO2 of 37, and pH is 7.39. The patient is on a number of drips including epinephrine at 0.01 mcg/kg/min, saline at 50 cc an hour, amiodarone at 0.5 mcg/min, Primacor 0.3 mcg/kg/min, norepinephrine at 0.8 mcg/min, propofol at 25 mcg/kg/min, and insulin is currently on hold. White count is 9.4, hemoglobin 7.3, hematocrit 21.8, platelet count is 152,000. Sodium 134, potassium 4.5, chlorides 110, CO2 25, BUN 24, and creatinine 1.13. Glucose is 120. Calcium is 7.7. Albumin is 3.2. Chest x-ray shows some small effusion, and left lower lobe atelectasis. Progress note dated February 13, 2024. 74-year-old male, postop day #2. The patient had a one-vessel bypass surgery, aortic valve replacement, mitral valve repair, modified Valdez-Maze procedure, closure of a PFO, and insertion of an intra-aortic balloon pump. The patient was extubated yesterday. He is doing relatively well. The patient is currently on room air. He is getting insulin at 3 units an hour. He is also on Primacor 0.1 mcg/kg/min. He is getting saline at 50 cc an hour. He is not having any difficulty in his breathing. White count of 13.7, hemoglobin 8.1, hematocrit 24.7, and platelet count of 157,000. Sodium 137, potassium 4.7, chlorides 109, CO2 22, BUN 22, and creatinine 0.97. Glucose is 147. Calcium is 8. Albumin 3.4. Chest x-ray shows a left lower lobe infiltrate or atelectasis. There is cardiomegaly. Objective - Vital Signs Vital signs: Vital Signs Temp 99.3 F 02/13/24 08:00 Pulse 80 02/13/24 10:00 Resp 24 02/13/24 10:00 BP 138/89 02/13/24 09:30 Pulse Ox 97 02/13/24 10:00 FiO2 40 02/12/24 11:10 Intake & Output 02/12/24 02/13/24 02/13/24 18:59 06:59 18:59 Intake Total 3038.648 9326.446 850.262 Output Total 750 1035 135 Balance 426.475 259.446 715.262 Weight 80.1 kg 79.4 kg Intake: IV 868 768 227 CO/CI 180 60 50 Sodium Chloride 0.9% 1, 530 600 150 000 ml @ 30 mls/hr IV . Q24H [facility] Rx#:[id number] ceFAZolin 2 gm In Sodium 50 Chloride 0.9% 50 ml @ 100 mls/hr IVPB ONCE ONE Rx# :[id number] pressure bag 108 108 27 Intake, IV Titration 308.475 26.446 83.262 Amount Calcium Gluconate in NaCl 100 1 gm In Saline 1 100ml. bag @ 100 mls/hr IVPB ONCE ONE Rx#:[id number] Dexmedetomidine/0.9% NaCl 2.437 (Pmx) 400 mcg In Empty Bag 1 bag @ Titrate IV . Q0M [facility] Rx#:[id number] EPINEPHrine 4 mg In 12.719 Dextrose 5% in Water 250 ml @ 0.01 MCG/KG/MIN 2. 775 mls/hr IV .Q24H [facility] Rx#:[id number] Insulin Regular 100 unit 14.957 26.446 6.228 In Sodium Chloride 0.9% 100 ml @ Per Protocol IV .Q0M [facility] Rx#:[id number] Milrinone-D5w Pmx 20 mg 95.238 77.034 In Dextrose/Water 1 100ml .bag @ 0.1 MCG/KG/MIN 2. 22 mls/hr IV .Q24H [facility] Rx #:[id number] Norepinephrine 4 mg In 9.679 Sodium Chloride 0.9% 250 ml @ 0.02 MCG/KG/MIN 5. 639 mls/hr IV .Q24H [facility] Rx#:[id number] propofoL 1,000 mg In 73.445 Empty Bag 1 bag @ Titrate IV .Q0M [facility] Rx#: [id number] Oral 500 540 Output: Chest Tube Drainage 330 580 20 Chest Tube Left Pleural 90 80 20 Chest Tube Mediastinal 240 500 0 Urine 420 455 115 Other: Voiding Method Indwelling Catheter Indwelling Catheter Indwelling Catheter ABP, PAP, CO, CI - Last Documented Arterial Blood Pressure 120/72 Pulmonary Artery Pressure 34/12 Cardiac Output 4.2 Cardiac Index 2.2 - Exam No acute distress, extubated, currently on room air. HEENT examination is grossly unremarkable. Mucous membranes are moist. No oral lesions. Neck supple. Full range of motion. No adenopathy thyromegaly or neck vein distention. Cardiovascular examination reveals an irregular rhythm and rate. Heart rate 80 bpm. No heart murmur. Lungs reveal clear breath sounds. Breath sounds are equal bilaterally. No adventitious lung sounds including wheezes rhonchi or crackles. Abdomen soft bowel sounds are heard. No masses or tenderness. Extremities are intact. No cyanosis clubbing or edema. Skin is without rash or lesion. Neurologic examination is brief but not focal. - Labs CBC & Chem 7: 02/13/24 03:30 02/13/24 03:30 Labs: Abnormal Lab Results - Last 24 Hours (Table) 02/12/24 02/12/24 02/12/24 Range/Units 11:13 13:29 14:58 WBC (3.8-10.6) k/uL RBC (4.30-5.90) m/uL Hgb (13.0-17.5) gm/dL Hct (39.0-53.0) % Neutrophils # (1.3-7.7) k/uL ABG pO2 117 H (83-108) mmHg ABG O2 Saturation 99.1 H (94-97) % Hemoglobin 7.1 L (13.0-17.5) gm/dL Chloride (98-107) mmol/L BUN (9-20) mg/dL Glucose (74-99) mg/dL POC Glucose (mg/dL) 122 H 121 H (70-110) mg/dL Calcium (8.4-10.2) mg/dL AST (17-59) U/L Total Protein (6.3-8.2) g/dL Albumin (3.5-5.0) g/dL 02/12/24 02/12/24 02/12/24 Range/Units 17:07 18:19 19:09 WBC (3.8-10.6) k/uL RBC (4.30-5.90) m/uL Hgb (13.0-17.5) gm/dL Hct (39.0-53.0) % Neutrophils # (1.3-7.7) k/uL ABG pO2 (83-108) mmHg ABG O2 Saturation (94-97) % Hemoglobin (13.0-17.5) gm/dL Chloride (98-107) mmol/L BUN (9-20) mg/dL Glucose (74-99) mg/dL POC Glucose (mg/dL) 131 H 231 H 181 H (70-110) mg/dL Calcium (8.4-10.2) mg/dL AST (17-59) U/L Total Protein (6.3-8.2) g/dL Albumin (3.5-5.0) g/dL 02/12/24 02/12/24 02/12/24 Range/Units 20:07 22:00 23:56 WBC (3.8-10.6) k/uL RBC (4.30-5.90) m/uL Hgb (13.0-17.5) gm/dL Hct (39.0-53.0) % Neutrophils # (1.3-7.7) k/uL ABG pO2 (83-108) mmHg ABG O2 Saturation (94-97) % Hemoglobin (13.0-17.5) gm/dL Chloride (98-107) mmol/L BUN (9-20) mg/dL Glucose (74-99) mg/dL POC Glucose (mg/dL) 124 H 118 H 123 H (70-110) mg/dL Calcium (8.4-10.2) mg/dL AST (17-59) U/L Total Protein (6.3-8.2) g/dL Albumin (3.5-5.0) g/dL 02/13/24 02/13/24 02/13/24 Range/Units 01:56 03:30 03:30 WBC 13.7 H (3.8-10.6) k/uL RBC 2.52 L (4.30-5.90) m/uL Hgb 8.1 L (13.0-17.5) gm/dL Hct 24.7 L (39.0-53.0) % Neutrophils # 12.1 H (1.3-7.7) k/uL ABG pO2 (83-108) mmHg ABG O2 Saturation (94-97) % Hemoglobin (13.0-17.5) gm/dL Chloride 109 H (98-107) mmol/L BUN 22 H (9-20) mg/dL Glucose 116 H (74-99) mg/dL POC Glucose (mg/dL) 130 H (70-110) mg/dL Calcium 8.0 L (8.4-10.2) mg/dL AST 67 H (17-59) U/L Total Protein 5.4 L (6.3-8.2) g/dL Albumin 3.4 L (3.5-5.0) g/dL 02/13/24 02/13/24 02/13/24 Range/Units 03:37 05:57 07:59 WBC (3.8-10.6) k/uL RBC (4.30-5.90) m/uL Hgb (13.0-17.5) gm/dL Hct (39.0-53.0) % Neutrophils # (1.3-7.7) k/uL ABG pO2 (83-108) mmHg ABG O2 Saturation (94-97) % Hemoglobin (13.0-17.5) gm/dL Chloride (98-107) mmol/L BUN (9-20) mg/dL Glucose (74-99) mg/dL POC Glucose (mg/dL) 129 H 112 H 162 H (70-110) mg/dL Calcium (8.4-10.2) mg/dL AST (17-59) U/L Total Protein (6.3-8.2) g/dL Albumin (3.5-5.0) g/dL 02/13/24 Range/Units 09:21 WBC (3.8-10.6) k/uL RBC (4.30-5.90) m/uL Hgb (13.0-17.5) gm/dL Hct (39.0-53.0) % Neutrophils # (1.3-7.7) k/uL ABG pO2 (83-108) mmHg ABG O2 Saturation (94-97) % Hemoglobin (13.0-17.5) gm/dL Chloride (98-107) mmol/L BUN (9-20) mg/dL Glucose (74-99) mg/dL POC Glucose (mg/dL) 147 H (70-110) mg/dL Calcium (8.4-10.2) mg/dL AST (17-59) U/L Total Protein (6.3-8.2) g/dL Albumin (3.5-5.0) g/dL Assessment and Plan Assessment: Postoperative day #2, status post one-vessel bypass, aortic valve replacement, mitral valve repair, closure of patent foramen ovale, modified Valdez-Maze procedure, and insertion of the intra-aortic balloon pump. Routine postoperative ventilator management, with successful extubation on February 12, 2024. History of atrial fibrillation with rapid ventricular response. History of hypertension. History of hyperlipidemia. History of CVA. History of gastroesophageal reflux disease. Lifelong non-smoker. Plan: Plan dated February 10, 2024. The patient is seen in the intensive care unit. The patient just came back from the catheterization laboratory. The patient will have either surgery today or tomorrow. He is anticipated to have an aortic valve replacement and mitral valve repair, as well as a Valdez-Maze procedure. The patient is a lifelong non- smoker. He is currently on nasal O2 at 2 L. He is getting saline at 20 cc an hour. He is also on amiodarone at 1 mg/min. Labs, x-rays, medications are reviewed. We will continue to follow make recommendations along the way. Plan dated February 11, 2024. I will see the patient after surgery, for ventilator management, and general ICU management. Labs, x-rays, medications are reviewed. We will continue to follow make recommendations along the way. No additional recommendations at this time. Plan dated February 12, 2024. The patient is postoperative day #1. He has a number of drips running including propofol, norepinephrine, Primacor, epinephrine, and amiodarone. Blood gases are very excellent. Once the intra-aortic balloon pump is removed later today, the patient can be placed on some pressor support and CPAP, and weaned, and extubated. I suspect the patient will extubate without any difficulty whatsoever. The chest x-ray, labs, and all medications are reviewed. Prognosis is guarded. We will continue to follow the patient, make recommendations along the way. Plan dated February 13, 2024. The patient is postop day #2. The patient was extubated yesterday. The patient is doing reasonably well. He is on room air. He is getting saline at 50 cc an hour. He is on an insulin drip at 3 units an hour, Primacor 0.1 mcg/kg/min. La bs, x-rays, medications are reviewed. We encourage deep breathing, coughing, clearing of secretions. We also recommend hourly use of the incentive spirometer. We will continue to follow. Time with Patient: Greater than 30
[2024-02-13 11:26] LABS: Glucose,Whole Blood 115 mg/dL (70-110)
--- NOTE | 2024-02-13 11:54 | P.PN ---
Subjective Progress Note Date: 02/13/24 The patient is a 73-year-old male who follows in the office with Dr. Smith. The patient underwent coronary artery bypass x 1 with aortic valve replacement and mitral valve repair on Wednesday with Dr. Ye. The patient also had a Valdez- Maze procedure as well as left atrial appendage closure. Postoperatively the patient did have a balloon pump which was discontinued yesterday. He has also regained his intrinsic rhythm over the last 24 hours. Patient was interviewed and examined resting in the recliner chair. He states he does have some sternal discomfort but is using his heart hugger. No presynco pe. No difficulty breathing. PHYSICAL EXAMINATION: This is a 73-year-old male in no apparent distress at the time of my examination. HEENT: Head is atraumatic, normocephalic. Pupils are equal, round. There is no jugular venous distention. No carotid bruit is heard. CHEST EXAMINATION: Lungs are clear to auscultation. No chest wall tenderness is noted on palpation or with deep breathing. HEART EXAMINATION: Heart regular rate and rhythm. S1, S2 heard. No murmurs, gallops or rub. ABDOMEN: Soft, nontender. Bowel sounds are heard. No organomegaly noted. EXTREMITIES: 2+ peripheral pulses with no evidence of peripheral edema and no calf tenderness noted. NEUROLOGIC EXAMINATION: Patient is alert and oriented x 3 TELEMETRY: Sinus rhythm overnight LAB DATA: WBC 13.7, hemoglobin 8.1, hematocrit 24.7, platelet 89, sodium 137, potassium 4.7, BUN 22, creatinine 0.97, AST 67, ALT 13 FINAL ASSESSMENT AND PLAN: Severe aortic insufficiency, status post replacement Moderate mitral regurgitation, status post mitral valve repair Coronary artery disease, status post CABG x 1 with SVG to PDA Nonischemic cardiomyopathy, ejection fraction 32% History of hypertension History of hyperlipidemia History of COPD History of CVA/TIA PLAN: Continue supportive treatment Discussed the importance of aggressive pulmonary hygiene with the patient Further recommendations to be based on clinical course I am dictating on behalf of Dr Ryan Garcia's history/physical and assessment/plan. Objective - Vital Signs Vital signs: Vital Signs Temp 99.3 F 02/13/24 08:00 Pulse 80 02/13/24 11:00 Resp 30 H 02/13/24 11:00 BP 138/89 02/13/24 11:00 Pulse Ox 96 02/13/24 11:00 FiO2 40 02/12/24 11:10 Intake & Output 02/12/24 02/13/24 02/13/24 18:59 06:59 18:59 Intake Total 6604.598 6535.446 1090.181 Output Total 750 1035 305 Balance 426.475 259.446 785.181 Weight 80.1 kg 79.4 kg Intake: IV 868 768 465 CO/CI 180 60 70 Calcium Gluconate in NaCl 100 1 gm In Saline 1 100ml. bag @ 100 mls/hr IVPB ONCE ONE Rx#:[id number] Sodium Chloride 0.9% 1, 530 600 250 000 ml @ 30 mls/hr IV . Q24H [facility] Rx#:[id number] ceFAZolin 2 gm In Sodium 50 Chloride 0.9% 50 ml @ 100 mls/hr IVPB ONCE ONE Rx# :[id number] pressure bag 108 108 45 Intake, IV Titration 308.475 26.446 85.181 Amount Calcium Gluconate in NaCl 100 1 gm In Saline 1 100ml. bag @ 100 mls/hr IVPB ONCE ONE Rx#:[id number] Dexmedetomidine/0.9% NaCl 2.437 (Pmx) 400 mcg In Empty Bag 1 bag @ Titrate IV . Q0M [facility] Rx#:[id number] EPINEPHrine 4 mg In 12.719 Dextrose 5% in Water 250 ml @ 0.01 MCG/KG/MIN 2. 775 mls/hr IV .Q24H [facility] Rx#:[id number] Insulin Regular 100 unit 14.957 26.446 8.147 In Sodium Chloride 0.9% 100 ml @ Per Protocol IV .Q0M [facility] Rx#:[id number] Milrinone-D5w Pmx 20 mg 95.238 77.034 In Dextrose/Water 1 100ml .bag @ 0.1 MCG/KG/MIN 2. 22 mls/hr IV .Q24H [facility] Rx #:[id number] Norepinephrine 4 mg In 9.679 Sodium Chloride 0.9% 250 ml @ 0.02 MCG/KG/MIN 5. 639 mls/hr IV .Q24H [facility] Rx#:[id number] propofoL 1,000 mg In 73.445 Empty Bag 1 bag @ Titrate IV .Q0M [facility] Rx#: [id number] Oral 500 540 Output: Chest Tube Drainage 330 580 40 Chest Tube Left Pleural 90 80 40 Chest Tube Mediastinal 240 500 0 Urine 420 455 265 Other: Voiding Method Indwelling Catheter Indwelling Catheter Indwelling Catheter ABP, PAP, CO, CI - Last Documented Arterial Blood Pressure 130/78 Pulmonary Artery Pressure 33/11 Cardiac Output 3.8 Cardiac Index 2 - Labs CBC & Chem 7: 02/13/24 03:30 02/13/24 03:30 Labs: Abnormal Lab Results - Last 24 Hours (Table) 02/12/24 02/12/24 02/12/24 Range/Units 13:29 14:58 17:07 WBC (3.8-10.6) k/uL RBC (4.30-5.90) m/uL Hgb (13.0-17.5) gm/dL Hct (39.0-53.0) % Neutrophils # (1.3-7.7) k/uL Chloride (98-107) mmol/L BUN (9-20) mg/dL Glucose (74-99) mg/dL POC Glucose (mg/dL) 122 H 121 H 131 H (70-110) mg/dL Calcium (8.4-10.2) mg/dL AST (17-59) U/L Total Protein (6.3-8.2) g/dL Albumin (3.5-5.0) g/dL 02/12/24 02/12/24 02/12/24 Range/Units 18:19 19:09 20:07 WBC (3.8-10.6) k/uL RBC (4.30-5.90) m/uL Hgb (13.0-17.5) gm/dL Hct (39.0-53.0) % Neutrophils # (1.3-7.7) k/uL Chloride (98-107) mmol/L BUN (9-20) mg/dL Glucose (74-99) mg/dL POC Glucose (mg/dL) 231 H 181 H 124 H (70-110) mg/dL Calcium (8.4-10.2) mg/dL AST (17-59) U/L Total Protein (6.3-8.2) g/dL Albumin (3.5-5.0) g/dL 02/12/24 02/12/24 02/13/24 Range/Units 22:00 23:56 01:56 WBC (3.8-10.6) k/uL RBC (4.30-5.90) m/uL Hgb (13.0-17.5) gm/dL Hct (39.0-53.0) % Neutrophils # (1.3-7.7) k/uL Chloride (98-107) mmol/L BUN (9-20) mg/dL Glucose (74-99) mg/dL POC Glucose (mg/dL) 118 H 123 H 130 H (70-110) mg/dL Calcium (8.4-10.2) mg/dL AST (17-59) U/L Total Protein (6.3-8.2) g/dL Albumin (3.5-5.0) g/dL 02/13/24 02/13/24 02/13/24 Range/Units 03:30 03:30 03:37 WBC 13.7 H (3.8-10.6) k/uL RBC 2.52 L (4.30-5.90) m/uL Hgb 8.1 L (13.0-17.5) gm/dL Hct 24.7 L (39.0-53.0) % Neutrophils # 12.1 H (1.3-7.7) k/uL Chloride 109 H (98-107) mmol/L BUN 22 H (9-20) mg/dL Glucose 116 H (74-99) mg/dL POC Glucose (mg/dL) 129 H (70-110) mg/dL Calcium 8.0 L (8.4-10.2) mg/dL AST 67 H (17-59) U/L Total Protein 5.4 L (6.3-8.2) g/dL Albumin 3.4 L (3.5-5.0) g/dL 02/13/24 02/13/24 02/13/24 Range/Units 05:57 07:59 09:21 WBC (3.8-10.6) k/uL RBC (4.30-5.90) m/uL Hgb (13.0-17.5) gm/dL Hct (39.0-53.0) % Neutrophils # (1.3-7.7) k/uL Chloride (98-107) mmol/L BUN (9-20) mg/dL Glucose (74-99) mg/dL POC Glucose (mg/dL) 112 H 162 H 147 H (70-110) mg/dL Calcium (8.4-10.2) mg/dL AST (17-59) U/L Total Protein (6.3-8.2) g/dL Albumin (3.5-5.0) g/dL 02/13/24 Range/Units 11:15 WBC (3.8-10.6) k/uL RBC (4.30-5.90) m/uL Hgb (13.0-17.5) gm/dL Hct (39.0-53.0) % Neutrophils # (1.3-7.7) k/uL Chloride (98-107) mmol/L BUN (9-20) mg/dL Glucose (74-99) mg/dL POC Glucose (mg/dL) 115 H (70-110) mg/dL Calcium (8.4-10.2) mg/dL AST (17-59) U/L Total Protein (6.3-8.2) g/dL Albumin (3.5-5.0) g/dL
[2024-02-13 12:03] LABS: Glucose,Whole Blood 121 mg/dL (70-110)
[2024-02-13] MEDS: LOSARTAN 25 MG TAB PO SCH (12:28)
[2024-02-13] MEDS: INSULIN ASPART (NovoLOG) 100 UNIT/ML VIAL SQ SCH (12:32)
[2024-02-13 17:10] LABS: Glucose,Whole Blood 156 mg/dL (70-110)
[2024-02-13 19:57] LABS: Glucose,Whole Blood 136 mg/dL (70-110)
[2024-02-13] MEDS: AMIODARONE 200 MG TAB PO SCH (20:06)
[2024-02-14 05:06] LABS: Basophils % (A) 0 %; Eosinophils % (A) 0 %; HCT 25.6 % (39.0-53.0); Hypochromasia Slight; Lymphocytes # (A) 1.8 k/uL (1.0-4.8); Lymphocytes % (A) 11 %; MCH 30.9 pg (25.0-35.0); MCHC 31.3 g/dL (31.0-37.0); MCV 98.7 fL (80.0-100.0); Macrocytosis Slight; Mean Platelet Volume 8.9; Monocytes # (A) 0.6 k/uL (0-1.0); Monocytes % (A) 4 %; Neutrophils # (A) 13.5 k/uL (1.3-7.7); Neutrophils % (A) 84 %; Platelet Count 165 k/uL (150-450); RBC 2.59 m/uL (4.30-5.90); RDW 15.4 % (11.5-15.5); WBC 16.2 k/uL (3.8-10.6)
[2024-02-14 05:39] LABS: ALT 12 U/L (4-49); AST 40 U/L (17-59); African American GFR (CKD) 81 (>60 ml/min/1.73 sqM); Albumin 3.2 g/dL (3.5-5.0); Alkaline Phosphatase 87 U/L (38-126); Anion Gap 6 mmol/L; Blood Urea Nitrogen 23 mg/dL (9-20); Calcium 8.5 mg/dL (8.4-10.2); Carbon Dioxide 18 mmol/L (22-30); Chloride 113 mmol/L (98-107); Glucose 148 mg/dL (74-99); Non-African American GFR(CKD) 70 (>60 ml/min/1.73 sqM); Potassium 5.1 mmol/L (3.5-5.1); Sodium 137 mmol/L (137-145); Total Bilirubin 1.2 mg/dL (0.2-1.3); Total Protein 5.3 g/dL (6.3-8.2)
[2024-02-14 06:14] LABS: Glucose,Whole Blood 156 mg/dL (70-110)
--- NOTE | 2024-02-14 07:39 | P.PN ---
Subjective Progress Note Date: 02/14/24 Principal diagnosis: Severe aortic insufficiency, moderate mitral regurgitation, persistent atrial fibrillation, on Xarelto for anticoagulation, patent foramen ovale, cardiomyopathy/chronic heart failure with reduced ejection fraction, coronary artery disease. History of hypertension, hyperlipidemia, COPD, obstructive sleep apnea without home CPAP use, CVA/TIA, lifelong non-smoker POD #3 CABG x 1 with vein graft to PDA and endovascular vein harvest, aortic valve replacement with 23 mm Avalus bovine pericardial valve, mitral valve annuloplasty with 28 mm physio 2 ring, modified Valdez-Maze procedure with complete left-sided lesion sets including both RF and cryoablation and 40 mm AtriCure clip to base of left atrial appendage, closure of patent foramen ovale, right femoral transcutaneous placement of intra-aortic balloon pump The patient was seen and examined this morning sitting up in a recliner in the intensive care unit in no acute distress. Currently atrially paced at 80 bpm, underlying rhythm remains junctional in the 50s. Hemodynamically stable on low dose Primacor. His Primacor was decreased to 0.1 yesterday but cardiac index dropped to 1.7 so was placed back to 0.2 mcg/kg/min. Patient reports mild expected postoperative pain, denies shortness of breath. Reports not getting very much sleep last night. He did ambulate with nursing out to the hallway this morning and tolerated well. Right internal jugular Tullos/Cordis, right brachial arterial line, mediastinal/left pleural chest tubes present. Chest x- ray, labs reviewed. Objective - Vital Signs Vital signs: Vital Signs Temp 98.2 F 02/14/24 04:00 Pulse 80 02/14/24 07:00 Resp 19 02/14/24 07:00 BP 138/89 02/13/24 20:00 Pulse Ox 95 02/14/24 07:00 FiO2 40 02/12/24 11:10 Intake & Output 02/13/24 02/14/24 02/14/24 18:59 06:59 18:59 Intake Total 1637.107 668 589 Output Total 995 815 25 Balance 642.107 -147 564 Weight 79 kg Intake: IV 988 668 49 CO/CI 240 80 Calcium Gluconate in NaCl 100 1 gm In Saline 1 100ml. bag @ 100 mls/hr IVPB ONCE ONE Rx#:[id number] Sodium Chloride 0.9% 1, 540 480 40 000 ml @ 30 mls/hr IV . Q24H [facility] Rx#:[id number] pressure bag 108 108 9 Intake, IV Titration 109.107 Amount Insulin Regular 100 unit 9.107 In Sodium Chloride 0.9% 100 ml @ Per Protocol IV .Q0M [facility] Rx#:[id number] Milrinone-D5w Pmx 20 mg 100.000 In Dextrose/Water 1 100ml .bag @ 0.1 MCG/KG/MIN 2. 22 mls/hr IV .Q24H [facility] Rx #:[id number] Oral 540 540 Output: Chest Tube Drainage 180 290 Chest Tube Left Pleural 100 160 Chest Tube Mediastinal 80 130 Urine 815 525 25 Other: Voiding Method Indwelling Catheter Indwelling Catheter # Bowel Movements 1 ABP, PAP, CO, CI - Last Documented Arterial Blood Pressure 132/74 Pulmonary Artery Pressure 32/11 Cardiac Output 4.6 Cardiac Index 2.4 - Exam CONSTITUTIONAL: Appears comfortable, cooperative, no acute distress RESPIRATORY: Lungs sounds diminished bilaterally. Respirations even, nonlabored. Currently on room air with oxygen saturation 95%. Able to achieve 1000 mL on incentive spirometry. Strong cough. CARDIOVASCULAR: S1, S2 present. Regular rate and rhythm, atrially paced at 80 bpm on telemetry with underlying rhythm junctional in the 50s. Sternum stable. Palpable peripheral pulses bilaterally. No edema present. No calf pain or tenderness noted. Heart hugger in place with patient demonstrating appropriate use. Antiembolism stockings, SCDs present. GASTROINTESTINAL: Abdomen soft, nontender, nondistended. Active bowel sounds present 4 quadrants. Tolerating minimal diet. Positive small bowel movement this morning GENITOURINARY: Osuna present draining blood-tinged urine. Output overnight 35- 75 mL per hour, 1370 mL in the last 24 hours INTEGUMENTARY: Skin is warm and dry with evidence of good perfusion. Anterior chest incision well approximated and covered with dry intact dressing. Left thigh EVH site well approximated without redness or drainage. Right groin soft, nontender NEUROLOGIC: Cranial nerves II through XII intact MUSKULOSKELETAL: Able to move all extremities, strength equal bilaterally PSYCHIATRIC: Alert and oriented to person place and time, appropriate affect, intact judgment and insight INVASIVE LINES AND TUBES: Mediastinal/left pleural chest tubes present and connected to wall suction, very tiny air leak present in mediastinal chest tube with coughing. Mediastinal tube with 110 mL serosanguineous drainage overnight, 250 mL in the last 24 hours. Left pleural chest tube with 120 mL serosanguineous drainage overnight, 300 mL in the last 24 hours. A/V epicardial pacemaker wires present, connected to generator, AAI mode with rate 80 bpm. Right internal jugular Tullos/Cordis, right brachial arterial line present. Last CO/CI 4.6/2.4, PA 31/10, CVP 6. - Allied health notes Allied health notes reviewed: nursing - Labs CBC & Chem 7: 02/14/24 04:45 02/14/24 04:45 Labs: Abnormal Lab Results - Last 24 Hours (Table) 02/13/24 02/13/24 02/13/24 Range/Units 07:59 09:21 11:15 WBC (3.8-10.6) k/uL RBC (4.30-5.90) m/uL Hgb (13.0-17.5) gm/dL Hct (39.0-53.0) % Neutrophils # (1.3-7.7) k/uL Chloride (98-107) mmol/L Carbon Dioxide (22-30) mmol/L BUN (9-20) mg/dL Glucose (74-99) mg/dL POC Glucose (mg/dL) 162 H 147 H 115 H (70-110) mg/dL Total Protein (6.3-8.2) g/dL Albumin (3.5-5.0) g/dL 02/13/24 02/13/24 02/13/24 Range/Units 12:02 17:08 19:55 WBC (3.8-10.6) k/uL RBC (4.30-5.90) m/uL Hgb (13.0-17.5) gm/dL Hct (39.0-53.0) % Neutrophils # (1.3-7.7) k/uL Chloride (98-107) mmol/L Carbon Dioxide (22-30) mmol/L BUN (9-20) mg/dL Glucose (74-99) mg/dL POC Glucose (mg/dL) 121 H 156 H 136 H (70-110) mg/dL Total Protein (6.3-8.2) g/dL Albumin (3.5-5.0) g/dL 02/14/24 02/14/24 02/14/24 Range/Units 04:45 04:45 06:12 WBC 16.2 H (3.8-10.6) k/uL RBC 2.59 L (4.30-5.90) m/uL Hgb 8.0 L (13.0-17.5) gm/dL Hct 25.6 L (39.0-53.0) % Neutrophils # 13.5 H (1.3-7.7) k/uL Chloride 113 H (98-107) mmol/L Carbon Dioxide 18 L (22-30) mmol/L BUN 23 H (9-20) mg/dL Glucose 148 H (74-99) mg/dL POC Glucose (mg/dL) 156 H (70-110) mg/dL Total Protein 5.3 L (6.3-8.2) g/dL Albumin 3.2 L (3.5-5.0) g/dL - Imaging and Cardiology Chest x-ray: image reviewed Assessment and Plan Assessment: Severe aortic insufficiency, status post aortic valve replacement Moderate mitral regurgitation, status post mitral valve annuloplasty Persistent atrial fibrillation, on Xarelto for anticoagulation, last dose 02/06/24, status post modified Valdez-Maze procedure with complete left-sided lesion sets including both RF and cryoablation and 40 mm AtriCure clip to base of left atrial appendage Patent foramen ovale, status post closure Cardiomyopathy/chronic heart failure with reduced ejection fraction, EF 30-35%, status post placement of intra-aortic balloon pump Coronary artery disease, status post single-vessel CABG History of hypertension Hyperlipidemia Diabetes with preoperative hemoglobin A1c 7%, on Jardiance outpatient Moderate COPD, preoperative FEV1 55% of predicted, DLCO 77% of predicted Obstructive sleep apnea without home CPAP use CVA 12 years ago Lifelong non-smoker Family history of premature coronary artery disease with father diagnosed in his 50s Plan: Continue to maximize medical therapy with aspirin, statin, Plavix. Hold beta-b locker for now while patient has underlying bradycardia. Continue low-dose losartan for afterload reduction, increased to 50 mg daily today Decrease Primacor to 0.1 mcg/kg/min Continue amiodarone for A-fib prophylaxis. Will restart anticoagulation at discharge Encourage incentive spirometry use 10 times every hour while awake. Bronchodilators per pulmonology Increase activity, ambulate as tolerated. PT/OT/cardiac rehab consulted Will monitor daily labs and x-rays. Electrolyte replacement per protocol. Will give 20 mg IVP lasix today GI/DVT prophylaxis Insulin management per internal medicine Pain control per current medication regimen Continue chest tubes for another 24 hours, monitor output Continue Osuna catheter for another 24 hours, continue to record strict accurate intake and output Continue Tullos/Cordis for another 24 hours More recommendations to follow
--- NOTE | 2024-02-14 07:41 | XR ---
EXAMINATION TYPE: XR chest 1V portable DATE OF EXAM: 02/14/2024 COMPARISON: 02/13/2024 INDICATION: Post cardiac surgery TECHNIQUE: Single frontal view of the chest is obtained. FINDINGS: The heart size is enlarged. The pulmonary vasculature is normal. There is retrocardiac infiltrate. Mild infiltrates at the right base slightly increased from comparis on. Minimal bilateral pleural effusions are present Henriette-Edin catheter is present with tip in the main pulmonary artery. Mediastinal tube is in the midli ne. Left-sided chest tube is present. No pneumothorax IMPRESSION: 1. Basilar atelectasis atelectasis lung bases. 2. Small minimal pleural effusions may be present. 3. Lines and catheters discussed above [facility], , 02/14/2024 7:39 AM
--- NOTE | 2024-02-14 08:15 | P.PN ---
Subjective Progress Note Date: 02/14/24 PROGRESS NOTE The patient is a 73-year-old male who has been having progressive dyspnea and was found to have significant mitral and aortic regurgitation and chronically occlusion of his mid RCA. He underwent mitral valve repair, aortic valve replacement and single bypass to the RCA with Maze procedure and left atrial appendage closure. He had an intra-aortic balloon pump that was removed. He is feeling better, sitting up in the chair, being paced because of junctional rhythm. He has chest soreness. His breathing is stable, he ambulated. He denies any dizziness or palpitations. He is on no vasopressors. He has a known history of cardiomyopathy preintervention. Postprocedure on the DOLORES it was estimated to be 40%. Medications: Aspirin, Lipitor 40 mg daily, amiodarone 200 mg twice a day, Plavix 75 mg daily, Farxiga 10 mg daily, insulin, losartan 50 mg daily, Protonix PHYSICAL EXAMINATION: Blood pressure 132/70 heart rate 80 LUNGS: Mild decrease in the breath sounds at the bases HEART: Regular rate and rhythm, S1, S2. No S3. Systolic ejection murmur ABDOMEN: Soft, nontender, no organomegaly EXTREMETIES: No edema LAB: Hemoglobin 8, BUN 23, creatinine 1.06, potassium 5.1 IMPRESSION: 1. Status post aortic valve replacement and mitral valve repair with single bypass to the RCA 2. Status post maze procedure with closure of the left atrial appendage 3. Paroxysmal atrial fibrillation 4. Cardiomyopathy PLAN: 1. Continue present therapy 2. Increase physical activity 3. Follow rhythm and initiate beta-jane if tolerated 4. The patient will require anticoagulation because of paroxysmal atrial fibrillation in the past 5. Incentive spirometry 6. Depending on his progress further recommendations will be made Objective - Vital Signs Vital signs: Vital Signs Temp 98.2 F 02/14/24 04:00 Pulse 80 02/14/24 07:00 Resp 19 02/14/24 07:00 BP 138/89 02/13/24 20:00 Pulse Ox 95 02/14/24 07:00 FiO2 40 02/12/24 11:10 Intake & Output 02/13/24 02/14/24 02/14/24 18:59 06:59 18:59 Intake Total 1637.107 668 589 Output Total 995 815 25 Balance 642.107 -147 564 Weight 79 kg Intake: IV 988 668 49 CO/CI 240 80 Calcium Gluconate in NaCl 100 1 gm In Saline 1 100ml. bag @ 100 mls/hr IVPB ONCE ONE Rx#:[id number] Sodium Chloride 0.9% 1, 540 480 40 000 ml @ 30 mls/hr IV . Q24H [facility] Rx#:[id number] pressure bag 108 108 9 Intake, IV Titration 109.107 Amount Insulin Regular 100 unit 9.107 In Sodium Chloride 0.9% 100 ml @ Per Protocol IV .Q0M [facility] Rx#:[id number] Milrinone-D5w Pmx 20 mg 100.000 In Dextrose/Water 1 100ml .bag @ 0.1 MCG/KG/MIN 2. 22 mls/hr IV .Q24H [facility] Rx #:[id number] Oral 540 540 Output: Chest Tube Drainage 180 290 Chest Tube Left Pleural 100 160 Chest Tube Mediastinal 80 130 Urine 815 525 25 Other: Voiding Method Indwelling Catheter Indwelling Catheter # Bowel Movements 1 ABP, PAP, CO, CI - Last Documented Arterial Blood Pressure 132/74 Pulmonary Artery Pressure 32/11 Cardiac Output 4.6 Cardiac Index 2.4 - Labs CBC & Chem 7: 02/14/24 04:45 02/14/24 04:45 Labs: Abnormal Lab Results - Last 24 Hours (Table) 02/13/24 02/13/24 02/13/24 Range/Units 09:21 11:15 12:02 WBC (3.8-10.6) k/uL RBC (4.30-5.90) m/uL Hgb (13.0-17.5) gm/dL Hct (39.0-53.0) % Neutrophils # (1.3-7.7) k/uL Chloride (98-107) mmol/L Carbon Dioxide (22-30) mmol/L BUN (9-20) mg/dL Glucose (74-99) mg/dL POC Glucose (mg/dL) 147 H 115 H 121 H (70-110) mg/dL Total Protein (6.3-8.2) g/dL Albumin (3.5-5.0) g/dL 02/13/24 02/13/24 02/14/24 Range/Units 17:08 19:55 04:45 WBC 16.2 H (3.8-10.6) k/uL RBC 2.59 L (4.30-5.90) m/uL Hgb 8.0 L (13.0-17.5) gm/dL Hct 25.6 L (39.0-53.0) % Neutrophils # 13.5 H (1.3-7.7) k/uL Chloride (98-107) mmol/L Carbon Dioxide (22-30) mmol/L BUN (9-20) mg/dL Glucose (74-99) mg/dL POC Glucose (mg/dL) 156 H 136 H (70-110) mg/dL Total Protein (6.3-8.2) g/dL Albumin (3.5-5.0) g/dL 02/14/24 02/14/24 Range/Units 04:45 06:12 WBC (3.8-10.6) k/uL RBC (4.30-5.90) m/uL Hgb (13.0-17.5) gm/dL Hct (39.0-53.0) % Neutrophils # (1.3-7.7) k/uL Chloride 113 H (98-107) mmol/L Carbon Dioxide 18 L (22-30) mmol/L BUN 23 H (9-20) mg/dL Glucose 148 H (74-99) mg/dL POC Glucose (mg/dL) 156 H (70-110) mg/dL Total Protein 5.3 L (6.3-8.2) g/dL Albumin 3.2 L (3.5-5.0) g/dL
[2024-02-14] MEDS: DAPAGLIFLOZIN PROPANEDIOL 10 MG TABLET PO SCH (08:29)
[2024-02-14] MEDS: FUROSEMIDE 10 MG/ML 2 ML VIAL IV ONE (08:42)
[2024-02-14 11:45] LABS: Glucose,Whole Blood 131 mg/dL (70-110)
--- NOTE | 2024-02-14 11:52 | PN ---
PROGRESS NOTE DATE OF SERVICE: 02/13/2024 HISTORY OF PRESENT ILLNESS: This is a 73-year-old gentleman admitted with multiple valve surgery as well as CABG. He has been closely monitored. Chest tubes are in-situ. Blood sugar is improving significantly. The patient is on insulin drip 1 units/hour. PAST MEDICAL HISTORY: Reviewed. REVIEW OF SYSTEMS: 14-point review is negative. CURRENT MEDICATIONS: Reviewed. PHYSICAL EXAMINATION: VITAL SIGNS: Pulse is 80, blood pressure 130/77, respiratory rate 17. CHEST: Few scattered rhonchi. ABDOMEN: Soft. NERVOUS SYSTEM: Nonfocal. LABORATORY DATA: Accu-Cheks noted. ASSESSMENT: Hemoglobin 8.1. ASSESSMENT: 1. Severe aortic insufficiency, moderate mitral and tricuspid regurgitation, status post aortic valve replacement with bovine pericardial valve and mitral valve annuloplasty. 2. Coronary artery disease, coronary artery bypass graft x1 with posterior descending artery with endovascular vein harvest. 3. Status post modified Valdez-Maze procedure. 4. Cardiomyopathy history. 5. History of coronary artery disease. 6. Hypertension. 7. Hyperlipidemia. 8. Diabetes mellitus type 2. RECOMMENDATIONS: Recommend to continue current management and continue symptomatic treatment. Recommend to stop the IV drip and do Accu-Cheks before meals and at bedtime, insulin scale. The patient is taking Jardiance at home, which can be resumed once the p.o. intake improves. We will follow the patient closely with you. DEE DEE / EMILY: [id number] /
[2024-02-14] MEDS: LOSARTAN 50 MG TAB PO SCH (11:58)
--- NOTE | 2024-02-14 16:10 | P.PN ---
Subjective Progress Note Date: 02/14/24 This is a 73-year-old male who is scheduled to have aortic valve replacement, mitral valve repair, and a Valdez-Maze procedure. Apparently, the surgery will be done on February 10. He comes to the intensive care unit, for further monitoring and management. He is placed in room 251. The patient is currently on a couple liters of oxygen. He is getting saline at 20 cc an hour. He is getting amiodarone drip at 1 mg/min. The surgery will be done either today or tomorrow. The patient also has a history of atrial fibrillation. The patient apparently will be coming back to the intensive care unit, with a balloon pump. In addition to atrial fibrillation, and valvular heart disease, the patient does have a history of hypertension. Also, the patient has a history of hyperlipidemia, gastroesophageal reflux disease, CVA, and angina. Laboratory data today includes a white count 7.5, hemoglobin 13.6, hematocrit 42.8, and a platelet count of 301,000. Glucose is 103. Magnesium is 1.9. Progress note dated February 11, 2024. 73-year-old male seen in consultation yesterday. The patient has a history of valvular heart disease, and will have surgery today, with Dr. Ye. The patient is expected to have an aortic valve replacement, mitral valve replacement, possible tricuspid valve replacement, possible bypass grafting, and insertion of the intra-aortic balloon pump. Currently, the patient is on room air. In no acute distress. No new laboratory data today. Laboratory data from yesterday have been reviewed. The patient was on amiodarone, for his atrial fibrillation, but that has been discontinued. Progress note dated February 12, 2024. This is a 74-year-old male who is postoperative day #1. The patient had a one- vessel bypass grafting, aortic valve replacement, mitral valve repair, a modified Valdez-Maze procedure, closure of a patent foramen ovale, insertion of an intra-aortic balloon pump. The patient is seen today in room 267. The patient remains on mechanical ventilator. Ventilator settings include volume assist- control, rate 14, tidal volume 500, FiO2 40%, PEEP of 5. Blood gases done on the same settings, except 50%, show pO2 of 218, pCO2 of 37, and pH is 7.39. The patient is on a number of drips including epinephrine at 0.01 mcg/kg/min, saline at 50 cc an hour, amiodarone at 0.5 mcg/min, Primacor 0.3 mcg/kg/min, norepinephrine at 0.8 mcg/min, propofol at 25 mcg/kg/min, and insulin is currently on hold. White count is 9.4, hemoglobin 7.3, hematocrit 21.8, platelet count is 152,000. Sodium 134, potassium 4.5, chlorides 110, CO2 25, BUN 24, and creatinine 1.13. Glucose is 120. Calcium is 7.7. Albumin is 3.2. Chest x-ray shows some small effusion, and left lower lobe atelectasis. Progress note dated February 13, 2024. 74-year-old male, postop day #2. The patient had a one-vessel bypass surgery, aortic valve replacement, mitral valve repair, modified Valdez-Maze procedure, closure of a PFO, and insertion of an intra-aortic balloon pump. The patient was extubated yesterday. He is doing relatively well. The patient is currently on room air. He is getting insulin at 3 units an hour. He is also on Primacor 0.1 mcg/kg/min. He is getting saline at 50 cc an hour. He is not having any difficulty in his breathing. White count of 13.7, hemoglobin 8.1, hematocrit 24.7, and platelet count of 157,000. Sodium 137, potassium 4.7, chlorides 109, CO2 22, BUN 22, and creatinine 0.97. Glucose is 147. Calcium is 8. Albumin 3.4. Chest x-ray shows a left lower lobe infiltrate or atelectasis. There is cardiomegaly. On 02/14/2024, the patient is being seen for a follow-up. The patient is doing well with no specific complaints. The patient is currently postop day #3 following a coronary artery bypass surgery with single vein to PDA and aortic valve replacement and mitral valve repair. The patient remains paced at a rate of 80. The patient receiving AV pacing at a rate of 80. Underlying rhythm is junctional rhythm in the low 50s. The patient is atrially paced at rate of 80. He remains on Primacor which is running at 0.1 mcg/kg/min. His most recent cardiac index is at 1.7. The patient otherwise has no specific complaints. He is awake and alert. His right IJ Bohemia-Edin catheter remains in place and the patient has a mediastinal/left pleural chest tube in place. Output from the chest tube has been noted and the patient has produced approximately 120 cc of serosanguineous material from the left pleural chest tube and 110 cc over the past 24 hours from the mediastinal chest tube. No evidence of any air leak. S ubsequent cardiac output is at 4.6 with an index of 2.4. PA pressure 31/10 with a CVP of 6. Using incentive spirometer. He is pulling more than 2000. His urine output is adequate around 45 to 50 cc an hour and has produced around 1.3 L of urine output over the past 24 hours. His chest x-ray shows no acute abnormalities. Bohemia-Edin catheter remains in place. There are some atelectatic changes in lung base bilaterally and chest tubes are also in place with minimal amount of pleural effusion present. The patient is known to have COPD, obstructive sleep apnea without the home CPAP, previous history of CVA/TIA along with hyperlipidemia, hypertension coronary artery disease. He has a reduced preop left-ventricular ejection fraction Objective - Vital Signs Vital signs: Vital Signs Temp 98.2 F 02/14/24 04:00 Pulse 80 02/14/24 09:40 Resp 24 02/14/24 09:40 BP 138/89 02/14/24 07:40 Pulse Ox 96 02/14/24 09:40 FiO2 40 02/12/24 11:10 Intake & Output 02/13/24 02/14/24 02/14/24 18:59 06:59 18:59 Intake Total 1637.107 668 813.082 Output Total 995 815 265 Balance 642.107 -147 548.082 Weight 79 kg Intake: IV 988 668 207 CO/CI 240 80 60 Calcium Gluconate in NaCl 100 1 gm In Saline 1 100ml. bag @ 100 mls/hr IVPB ONCE ONE Rx#:[id number] Sodium Chloride 0.9% 1, 540 480 120 000 ml @ 30 mls/hr IV . Q24H [facility] Rx#:[id number] pressure bag 108 108 27 Intake, IV Titration 109.107 66.082 Amount Insulin Regular 100 unit 9.107 In Sodium Chloride 0.9% 100 ml @ Per Protocol IV .Q0M [facility] Rx#:[id number] Milrinone-D5w Pmx 20 mg 100.000 66.082 In Dextrose/Water 1 100ml .bag @ 0.2 MCG/KG/MIN 4. 44 mls/hr IV .[id number] [facility] Rx#:[id number] Oral 540 540 Output: Chest Tube Drainage 180 290 30 Chest Tube Left Pleural 100 160 0 Chest Tube Mediastinal 80 130 30 Urine 815 525 235 Other: Voiding Method Indwelling Catheter Indwelling Catheter # Bowel Movements 1 ABP, PAP, CO, CI - Last Documented Arterial Blood Pressure 121/66 Pulmonary Artery Pressure 23/4 Cardiac Output 4.1 Cardiac Index 2.2 - Exam CONSTITUTIONAL: Appears comfortable, cooperative, no acute distress RESPIRATORY: Lungs sounds diminished bilaterally. Respirations even, nonlabored. Currently on room air with oxygen saturation 95%. Able to achieve 1000 mL on incentive spirometry. Strong cough. CARDIOVASCULAR: S1, S2 present. Regular rate and rhythm, atrially paced at 80 bpm on telemetry with underlying rhythm junctional in the 50s. Sternum stable. Palpable peripheral pulses bilaterally. No edema present. No calf pain or tenderness noted. Heart hugger in place with patient demonstrating appropriate use. Antiembolism stockings, SCDs present. GASTROINTESTINAL: Abdomen soft, nontender, nondistended. Active bowel sounds present 4 quadrants. Tolerating minimal diet. Positive small bowel movement this morning GENITOURINARY: Osuna present draining blood-tinged urine. Output overnight 35- 75 mL per hour, 1370 mL in the last 24 hours INTEGUMENTARY: Skin is warm and dry with evidence of good perfusion. Anterior chest incision well approximated and covered with dry intact dressing. Left thigh EVH site well approximated without redness or drainage. Right groin soft, nontender NEUROLOGIC: Cranial nerves II through XII intact MUSKULOSKELETAL: Able to move all extremities, strength equal bilaterally PSYCHIATRIC: Alert and oriented to person place and time, appropriate affect, intact judgment and insight INVASIVE LINES AND TUBES: Mediastinal/left pleural chest tubes present and connected to wall suction, very tiny air leak present in mediastinal chest tube with coughing. Mediastinal tube with 110 mL serosanguineous drainage overnight, 250 mL in the last 24 hours. Left pleural chest tube with 120 mL serosanguineous drainage overnight, 300 mL in the last 24 hours. A/V epicardial pacemaker wires present, connected to generator, AAI mode with rate 80 bpm. Right internal jugular [place]/Cordis, right brachial arterial line present. Last CO/CI 4.6/2.4, PA 31/10, CVP 6. - Labs CBC & Chem 7: 02/14/24 04:45 02/14/24 04:45 Labs: Abnormal Lab Results - Last 24 Hours (Table) 02/13/24 02/13/24 02/13/24 Range/Units 11:15 12:02 17:08 WBC (3.8-10.6) k/uL RBC (4.30-5.90) m/uL Hgb (13.0-17.5) gm/dL Hct (39.0-53.0) % Neutrophils # (1.3-7.7) k/uL Chloride (98-107) mmol/L Carbon Dioxide (22-30) mmol/L BUN (9-20) mg/dL Glucose (74-99) mg/dL POC Glucose (mg/dL) 115 H 121 H 156 H (70-110) mg/dL Total Protein (6.3-8.2) g/dL Albumin (3.5-5.0) g/dL 02/13/24 02/14/24 02/14/24 Range/Units 19:55 04:45 04:45 WBC 16.2 H (3.8-10.6) k/uL RBC 2.59 L (4.30-5.90) m/uL Hgb 8.0 L (13.0-17.5) gm/dL Hct 25.6 L (39.0-53.0) % Neutrophils # 13.5 H (1.3-7.7) k/uL Chloride 113 H (98-107) mmol/L Carbon Dioxide 18 L (22-30) mmol/L BUN 23 H (9-20) mg/dL Glucose 148 H (74-99) mg/dL POC Glucose (mg/dL) 136 H (70-110) mg/dL Total Protein 5.3 L (6.3-8.2) g/dL Albumin 3.2 L (3.5-5.0) g/dL 02/14/24 Range/Units 06:12 WBC (3.8-10.6) k/uL RBC (4.30-5.90) m/uL Hgb (13.0-17.5) gm/dL Hct (39.0-53.0) % Neutrophils # (1.3-7.7) k/uL Chloride (98-107) mmol/L Carbon Dioxide (22-30) mmol/L BUN (9-20) mg/dL Glucose (74-99) mg/dL POC Glucose (mg/dL) 156 H (70-110) mg/dL Total Protein (6.3-8.2) g/dL Albumin (3.5-5.0) g/dL Assessment and Plan Plan: Postoperative day #3, status post one-vessel bypass, aortic valve replacement, mitral valve repair, closure of patent foramen ovale, modified Valdez-Maze procedure, and insertion of the intra-aortic balloon pump. The patient remains on milrinone for hemodynamic instability. There is improved cardiac output and index on today's evaluation. Normotensive. Has adequate urine output. Routine postoperative ventilator management, with successful extubation on February 12, 2024. The patient isCarrying his mediastinal and left pleural ch est tube. Output has improved and the patient is currently on room air oxygen with a pulse ox of 97%. Chest x-ray shows some postoperative atelectatic changes in lung base bilaterally. History of atrial fibrillation with rapid ventricular response, currently AV paced at a rate of 80 with an underlying junctional rhythm/junctional bradycardia History of hypertension. History of hyperlipidemia. History of CVA. History of gastroesophageal reflux disease. Lifelong non-smoker. Obstructive sleep apnea, not utilizing CPAP therapy on outpatient basis. Plan: The patient will be kept in the intensive care unit. The patient is currently on room air oxygen. Using the incentive spirometer. Keep the cardiac rhythm paced at a rate of 80, underlying rhythm is junctional. Hold beta-blockers for now Wean off Primacor encouraged the patient is on 0.1 mcg/kg/min Hold amiodarone for now Chest tube management is per cardiothoracic surgery Continue aspirin and Plavix Continue low-dose losartan and avoid beta-blockers for now Keep the Bohemia-Edin catheter in place for now as long as the patient remains on inotropes Will continue to follow. The patient will be kept in the intensive care unit. Critical care evaluation was done more than 30 minutes. Time with Patient: Greater than 30
[2024-02-14 16:41] LABS: Glucose,Whole Blood 119 mg/dL (70-110)
[2024-02-14 19:47] LABS: Glucose,Whole Blood 125 mg/dL (70-110)
[2024-02-14] MEDS: INSULIN DETEMIR (LEVEMIR) 100 UNIT/ML SYR SQ SCH (20:38)
[2024-02-15 05:06] LABS: HGB 7.8 gm/dL (13.0-17.5); MCH 31.6 pg (25.0-35.0); MCHC 32.4 g/dL (31.0-37.0); MCV 97.6 fL (80.0-100.0); Macrocytosis Slight; Mean Platelet Volume 8.9; Platelet Count 188 k/uL (150-450); RBC 2.46 m/uL (4.30-5.90); RDW 15.7 % (11.5-15.5); WBC 12.9 k/uL (3.8-10.6)
[2024-02-15 05:18] LABS: Glucose,Whole Blood 116 mg/dL (70-110)
[2024-02-15 05:20] LABS: Sodium 138 mmol/L (137-145)
[2024-02-15 05:21] LABS: African American GFR (CKD) >90 (>60 ml/min/1.73 sqM); Anion Gap 5 mmol/L; Blood Urea Nitrogen 23 mg/dL (9-20); Calcium 7.9 mg/dL (8.4-10.2); Carbon Dioxide 22 mmol/L (22-30); Chloride 111 mmol/L (98-107); Glucose 92 mg/dL (74-99); Magnesium 2.1 mg/dL (1.6-2.3); Non-African American GFR(CKD) 86 (>60 ml/min/1.73 sqM); Potassium 4.1 mmol/L (3.5-5.1)
--- NOTE | 2024-02-15 07:48 | P.PN ---
Subjective Progress Note Date: 02/15/24 PROGRESS NOTE The patient is a 73-year-old male who has been having progressive dyspnea and was found to have significant mitral and aortic regurgitation and chronically occlusion of his mid RCA. He underwent mitral valve repair, aortic valve replacement and single bypass to the RCA with Maze procedure and left atrial appendage closure. He had an intra-aortic balloon pump that was removed. He is feeling better, sitting up in the chair, being paced because of junctional rhythm. He has chest soreness. His breathing is stable, he ambulated. He denies any dizziness or palpitations. He is on no vasopressors. He has a known history of cardiomyopathy preintervention. Postprocedure on the DOLORES it was estimated to be 40%. February 14: The patient is doing well this morning, sitting up in the chair, denies any chest discomfort, dizziness or palpitations. He continues to be paced with atrial pacing. Hemodynamically he is stable, his milrinone was stopped this morning. He has some hematuria. Medications: Aspirin, Lipitor 40 mg daily, Plavix 75 mg daily, Farxiga 10 mg daily, insulin, losartan 50 mg daily, Protonix PHYSICAL EXAMINATION: Blood pressure 143/70 heart rate 80 LUNGS: Mild decrease in the breath sounds at the bases HEART: Regular rate and rhythm, S1, S2. No S3. Systolic ejection murmur ABDOMEN: Soft, nontender, no organomegaly EXTREMETIES: No edema LAB: Hemoglobin 7.8, BUN 23, creatinine 0.89, potassium 4.1 IMPRESSION: 1. Status post aortic valve replacement and mitral valve repair with single bypass to the RCA 2. Status post maze procedure with closure of the left atrial appendage 3. Paroxysmal atrial fibrillation, now in junctional rhythm with paced rhythm 4. Cardiomyopathy PLAN: 1. Continue present therapy 2. Increase physical activity 3. Follow rhythm and if he continues to be in junctional rhythm may require permanent pacemaker implantation 4. Initiate anticoagulation down the road because of history of paroxysmal atrial fibrillation 5. Depending on blood pressure adjust the dose of losartan Objective - Vital Signs Vital signs: Vital Signs Temp 98.8 F 02/15/24 04:00 Pulse 80 02/15/24 07:00 Resp 22 02/15/24 07:00 BP 132/91 02/15/24 06:03 Pulse Ox 96 02/15/24 07:00 FiO2 40 02/12/24 11:10 Intake & Output 02/14/24 02/15/24 02/15/24 18:59 06:59 18:59 Intake Total 4558.064 8431.272 49 Output Total 1710 1060 100 Balance -405.918 78.272 -51 Weight 79.7 kg Intake: IV 698 688 49 CO/CI 110 100 Sodium Chloride 0.9% 1, 480 480 40 000 ml @ 30 mls/hr IV . Q24H [facility] Rx#:[id number] pressure bag 108 108 9 Intake, IV Titration 66.082 50.272 Amount Milrinone-D5w Pmx 20 mg 66.082 50.272 In Dextrose/Water 1 100ml .bag @ 0.2 MCG/KG/MIN 4. 44 mls/hr IV .[id number] [facility] Rx#:[id number] Oral 540 400 Output: Chest Tube Drainage 240 250 Chest Tube Left Pleural 70 90 Chest Tube Mediastinal 170 160 Urine 1470 810 100 Other: Voiding Method Indwelling Catheter Indwelling Catheter # Bowel Movements 1 ABP, PAP, CO, CI - Last Documented Arterial Blood Pressure 143/76 Pulmonary Artery Pressure 27/16 Cardiac Output 5.6 Cardiac Index 3 - Labs CBC & Chem 7: 02/15/24 04:47 02/15/24 04:47 Labs: Abnormal Lab Results - Last 24 Hours (Table) 02/14/24 02/14/24 02/14/24 Range/Units 11:44 16:39 19:46 WBC (3.8-10.6) k/uL RBC (4.30-5.90) m/uL Hgb (13.0-17.5) gm/dL Hct (39.0-53.0) % RDW (11.5-15.5) % Chloride (98-107) mmol/L BUN (9-20) mg/dL POC Glucose (mg/dL) 131 H 119 H 125 H (70-110) mg/dL Calcium (8.4-10.2) mg/dL 02/15/24 02/15/24 02/15/24 Range/Units 04:47 04:47 05:16 WBC 12.9 H (3.8-10.6) k/uL RBC 2.46 L (4.30-5.90) m/uL Hgb 7.8 L (13.0-17.5) gm/dL Hct 24.0 L (39.0-53.0) % RDW 15.7 H (11.5-15.5) % Chloride 111 H (98-107) mmol/L BUN 23 H (9-20) mg/dL POC Glucose (mg/dL) 116 H (70-110) mg/dL Calcium 7.9 L (8.4-10.2) mg/dL
--- NOTE | 2024-02-15 08:00 | XR ---
EXAMINATION TYPE: XR chest 1V portable DATE OF EXAM: 02/15/2024 COMPARISON: 02/14/2024 INDICATION: Heart surgery TECHNIQUE: Single frontal view of the chest is obtained. FINDINGS: The heart size is prominent. The pulmonary vasculature is normal. Small left pleural effusion is present [place]-Edin catheter is present with tip in the main pulmonary artery. Mediastinal tubes present. Left- sided chest tube is present. No pneumothorax is evident. IMPRESSION: 1. Mild left lower lobe filtrate and/or small left pleural effusion. 2. Lines and catheters discussed above [facility], , 02/15/2024 7:58 AM
[2024-02-15] MEDS: LOSARTAN 50 MG TAB PO SCH (09:09)
--- NOTE | 2024-02-15 10:18 | P.PN ---
Subjective Progress Note Date: 02/15/24 Principal diagnosis: Severe aortic insufficiency, moderate mitral regurgitation, persistent atrial fibrillation, on Xarelto for anticoagulation, patent foramen ovale, cardiomyopathy/chronic heart failure with reduced ejection fraction, coronary artery disease. History of hypertension, hyperlipidemia, COPD, obstructive sleep apnea without home CPAP use, CVA/TIA, lifelong non-smoker POD #4 CABG x 1 with vein graft to PDA and endovascular vein harvest, aortic valve replacement with 23 mm Avalus bovine pericardial valve, mitral valve annuloplasty with 28 mm physio 2 ring, modified Valdez-Maze procedure with complete left-sided lesion sets including both RF and cryoablation and 40 mm AtriCure clip to base of left atrial appendage, closure of patent foramen ovale, right femoral transcutaneous placement of intra-aortic balloon pump The patient was seen and examined this morning with Dr. Ye sitting up in a recliner in the intensive care unit in no acute distress. Currently atrially paced at 80 bpm, underlying rhythm remains bradycardic in the 50s. Hemodynamically stable, Primacor discontinued this morning. Patient reports mild expected postoperative pain, denies shortness of breath. He did ambulate with nursing out in the hallway yesterday several times and tolerated well. Right internal jugular [place]/Cordis, right brachial arterial line, mediastinal/left pleural chest tubes present. Chest x-ray, labs reviewed. No other new concerns. Objective - Vital Signs Vital signs: Vital Signs Temp 99.3 F 02/15/24 08:30 Pulse 70 02/15/24 10:00 Resp 18 02/15/24 10:00 BP 132/91 02/15/24 07:30 Pulse Ox 98 02/15/24 10:00 FiO2 40 02/12/24 11:10 Intake & Output 02/14/24 02/15/24 02/15/24 18:59 06:59 18:59 Intake Total 0785.476 5239.272 285 Output Total 1710 1060 290 Balance -405.918 78.272 -5 Weight 79.7 kg Intake: IV 698 688 167 CO/CI 110 100 40 Sodium Chloride 0.9% 1, 480 480 100 000 ml @ 30 mls/hr IV . Q24H [facility] Rx#:[id number] pressure bag 108 108 27 Intake, IV Titration 66.082 50.272 Amount Milrinone-D5w Pmx 20 mg 66.082 50.272 In Dextrose/Water 1 100ml .bag @ 0.2 MCG/KG/MIN 4. 44 mls/hr IV .[id number] [facility] Rx#:[id number] Oral 540 400 118 Output: Chest Tube Drainage 240 250 40 Chest Tube Left Pleural 70 90 40 Chest Tube Mediastinal 170 160 0 Urine 1470 810 250 Other: Voiding Method Indwelling Catheter Indwelling Catheter # Bowel Movements 1 ABP, PAP, CO, CI - Last Documented Arterial Blood Pressure 137/73 Pulmonary Artery Pressure 26/16 Cardiac Output 3.8 Cardiac Index 2.0 - Exam CONSTITUTIONAL: Appears comfortable, cooperative, no acute distress RESPIRATORY: Lungs sounds diminished bilaterally. Respirations even, nonlabored. Currently on room air with oxygen saturation 95%. Able to achieve 1500 mL on incentive spirometry. Strong cough. CARDIOVASCULAR: S1, S2 present. Regular rate and rhythm, atrially paced at 80 bpm on telemetry with underlying rhythm bradycardic in the 50s. Sternum stable. Palpable peripheral pulses bilaterally. No edema present. No calf pain or tenderness noted. Heart hugger in place with patient demonstrating appropriate use. Antiembolism stockings, SCDs present. GASTROINTESTINAL: Abdomen soft, nontender, nondistended. Active bowel sounds present 4 quadrants. Tolerating minimal diet. Positive bowel movement 02/13 GENITOURINARY: Osuna present draining blood-tinged urine. Output overnight 50- 100 mL per hour, 2280 mL in the last 24 hours INTEGUMENTARY: Skin is warm and dry with evidence of good perfusion. Anterior chest incision well approximated and covered with dry intact dressing. Left thigh EVH site well approximated without redness or drainage. Right groin soft, nontender NEUROLOGIC: Cranial nerves II through XII intact MUSKULOSKELETAL: Able to move all extremities, strength equal bilaterally PSYCHIATRIC: Alert and oriented to person place and time, appropriate affect, intact judgment and insight INVASIVE LINES AND TUBES: Mediastinal/left pleural chest tubes present and connected to wall suction, no air leak present. Mediastinal tube with 105 mL serosanguineous drainage overnight, 250 mL in the last 24 hours. Left pleural chest tube with 50 mL serosanguineous drainage overnight, 170 mL in the last 24 hours. A/V epicardial pacemaker wires present, connected to generator, AAI mode with rate 80 bpm. Right internal jugular [place]/Cordis, right brachial arterial line present. Last CO/CI 3.8/2, PA 26/16, CVP 3. - Allied health notes Allied health notes reviewed: nursing - Labs CBC & Chem 7: 02/15/24 04:47 02/15/24 04:47 Labs: Abnormal Lab Results - Last 24 Hours (Table) 02/14/24 02/14/24 02/14/24 Range/Units 11:44 16:39 19:46 WBC (3.8-10.6) k/uL RBC (4.30-5.90) m/uL Hgb (13.0-17.5) gm/dL Hct (39.0-53.0) % RDW (11.5-15.5) % Chloride (98-107) mmol/L BUN (9-20) mg/dL POC Glucose (mg/dL) 131 H 119 H 125 H (70-110) mg/dL Calcium (8.4-10.2) mg/dL 02/15/24 02/15/24 02/15/24 Range/Units 04:47 04:47 05:16 WBC 12.9 H (3.8-10.6) k/uL RBC 2.46 L (4.30-5.90) m/uL Hgb 7.8 L (13.0-17.5) gm/dL Hct 24.0 L (39.0-53.0) % RDW 15.7 H (11.5-15.5) % Chloride 111 H (98-107) mmol/L BUN 23 H (9-20) mg/dL POC Glucose (mg/dL) 116 H (70-110) mg/dL Calcium 7.9 L (8.4-10.2) mg/dL - Imaging and Cardiology Chest x-ray: report reviewed, image reviewed Assessment and Plan Assessment: Severe aortic insufficiency, status post aortic valve replacement Moderate mitral regurgitation, status post mitral valve annuloplasty Persistent atrial fibrillation, on Xarelto for anticoagulation, last dose 02/06/24, status post modified Valdez-Maze procedure with complete left-sided lesion sets including both RF and cryoablation and 40 mm AtriCure clip to base of left atrial appendage Patent foramen ovale, status post closure Cardiomyopathy/chronic heart failure with reduced ejection fraction, EF 30-35%, status post placement of intra-aortic balloon pump Coronary artery disease, status post single-vessel CABG History of hypertension Hyperlipidemia Diabetes with preoperative hemoglobin A1c 7%, on Jardiance outpatient Moderate COPD, preoperative FEV1 55% of predicted, DLCO 77% of predicted Obstructive sleep apnea without home CPAP use CVA 12 years ago Lifelong non-smoker Family history of premature coronary artery disease with father diagnosed in his 50s Plan: Continue to maximize medical therapy with aspirin, statin, Plavix. Hold beta- jane for now while patient has underlying bradycardia. Continue low-dose losartan for afterload reduction Primacor discontinued Amiodarone discontinued yesterday. Will restart anticoagulation at discharge Encourage incentive spirometry use 10 times every hour while awake. Bronchodilators per pulmonology Increase activity, ambulate as tolerated. PT/OT/cardiac rehab consulted Will monitor daily labs and x-rays. Electrolyte replacement per protocol GI/DVT prophylaxis Insulin management per internal medicine Pain control per current medication regimen Chest tubes discontinued without incident Discontinue Osuna catheter, may bladder scan and straight cath for greater than 300 mL residual Continue to record strict accurate intake and output Discontinue [place]/Cordis, arterial line More recommendations to follow
[2024-02-15 11:42] LABS: Glucose,Whole Blood 94 mg/dL (70-110)
--- NOTE | 2024-02-15 13:29 | P.PN ---
Subjective Progress Note Date: 02/15/24 This is a 73-year-old male who is scheduled to have aortic valve replacement, mitral valve repair, and a Valdez-Maze procedure. Apparently, the surgery will be done on February 10. He comes to the intensive care unit, for further monitoring and management. He is placed in room 251. The patient is currently on a couple liters of oxygen. He is getting saline at 20 cc an hour. He is getting amiodarone drip at 1 mg/min. The surgery will be done either today or tomorrow. The patient also has a history of atrial fibrillation. The patient apparently will be coming back to the intensive care unit, with a balloon pump. In addition to atrial fibrillation, and valvular heart disease, the patient does have a history of hypertension. Also, the patient has a history of hyperlipidemia, gastroesophageal reflux disease, CVA, and angina. Laboratory data today includes a white count 7.5, hemoglobin 13.6, hematocrit 42.8, and a platelet count of 301,000. Glucose is 103. Magnesium is 1.9. Progress note dated February 11, 2024. 73-year-old male seen in consultation yesterday. The patient has a history of valvular heart disease, and will have surgery today, with Dr. Ye. The patient is expected to have an aortic valve replacement, mitral valve replacement, possible tricuspid valve replacement, possible bypass grafting, and insertion of the intra-aortic balloon pump. Currently, the patient is on room air. In no acute distress. No new laboratory data today. Laboratory data from yesterday have been reviewed. The patient was on amiodarone, for his atrial fibrillation, but that has been discontinued. Progress note dated February 12, 2024. This is a 74-year-old male who is postoperative day #1. The patient had a one- vessel bypass grafting, aortic valve replacement, mitral valve repair, a modified Valdez-Maze procedure, closure of a patent foramen ovale, insertion of an intra-aortic balloon pump. The patient is seen today in room 267. The patient remains on mechanical ventilator. Ventilator settings include volume assist- control, rate 14, tidal volume 500, FiO2 40%, PEEP of 5. Blood gases done on the same settings, except 50%, show pO2 of 218, pCO2 of 37, and pH is 7.39. The patient is on a number of drips including epinephrine at 0.01 mcg/kg/min, saline at 50 cc an hour, amiodarone at 0.5 mcg/min, Primacor 0.3 mcg/kg/min, norepinephrine at 0.8 mcg/min, propofol at 25 mcg/kg/min, and insulin is currently on hold. White count is 9.4, hemoglobin 7.3, hematocrit 21.8, platelet count is 152,000. Sodium 134, potassium 4.5, chlorides 110, CO2 25, BUN 24, and creatinine 1.13. Glucose is 120. Calcium is 7.7. Albumin is 3.2. Chest x-ray shows some small effusion, and left lower lobe atelectasis. Progress note dated February 13, 2024. 74-year-old male, postop day #2. The patient had a one-vessel bypass surgery, aortic valve replacement, mitral valve repair, modified Valdez-Maze procedure, closure of a PFO, and insertion of an intra-aortic balloon pump. The patient was extubated yesterday. He is doing relatively well. The patient is currently on room air. He is getting insulin at 3 units an hour. He is also on Primacor 0.1 mcg/kg/min. He is getting saline at 50 cc an hour. He is not having any difficulty in his breathing. White count of 13.7, hemoglobin 8.1, hematocrit 24.7, and platelet count of 157,000. Sodium 137, potassium 4.7, chlorides 109, CO2 22, BUN 22, and creatinine 0.97. Glucose is 147. Calcium is 8. Albumin 3.4. Chest x-ray shows a left lower lobe infiltrate or atelectasis. There is cardiomegaly. On 02/14/2024, the patient is being seen for a follow-up. The patient is doing well with no specific complaints. The patient is currently postop day #3 following a coronary artery bypass surgery with single vein to PDA and aortic valve replacement and mitral valve repair. The patient remains paced at a rate of 80. The patient receiving AV pacing at a rate of 80. Underlying rhythm is junctional rhythm in the low 50s. The patient is atrially paced at rate of 80. He remains on Primacor which is running at 0.1 mcg/kg/min. His most recent cardiac index is at 1.7. The patient otherwise has no specific complaints. He is awake and alert. His right IJ Saint Benedict-Edin catheter remains in place and the patient has a mediastinal/left pleural chest tube in place. Output from the chest tube has been noted and the patient has produced approximately 120 cc of serosanguineous material from the left pleural chest tube and 110 cc over the past 24 hours from the mediastinal chest tube. No evidence of any air leak. S ubsequent cardiac output is at 4.6 with an index of 2.4. PA pressure 31/10 with a CVP of 6. Using incentive spirometer. He is pulling more than 2000. His urine output is adequate around 45 to 50 cc an hour and has produced around 1.3 L of urine output over the past 24 hours. His chest x-ray shows no acute abnormalities. Saint Benedict-Edin catheter remains in place. There are some atelectatic changes in lung base bilaterally and chest tubes are also in place with minimal amount of pleural effusion present. The patient is known to have COPD, obstructive sleep apnea without the home CPAP, previous history of CVA/TIA along with hyperlipidemia, hypertension coronary artery disease. He has a reduced preop left-ventricular ejection fraction 02/15/2024, the patient is being seen for a follow-up. Patient is doing well. No specific complaints. The patient is postop day #4 following a coronary bypass surgery and aortic valve replacement with mitral valve repair. He is using the incentive spirometer. He is still paced at a rate of 70 and the underlying rhythm is sinus bradycardia rate of 50. The patient remains hemodynamically stable. He was weaned off the Primacor and this has been discontinued. The cardiac output is at 3.8 with an index of 2. Pulmonary artery pressures of 26/16 with a CVP of around 3. All of the chest tubes have been removed this morning. The output from the chest tubes are minimal. WBC was 12.9 with a hemoglobin 7.8. BUN 23 with a creatinine of 0.8 and sodium levels at 138. Chest x-ray done this morning shows no acute abnormalities. From atelectatic changes and small effusion left lung base. Lines and catheters are in place. No other significant events overnight. Sitting up in the chair. The patient is calm and comfortable. Objective - Vital Signs Vital signs: Vital Signs Temp 99.3 F 02/15/24 08:30 Pulse 70 02/15/24 09:25 Resp 24 02/15/24 09:00 BP 132/91 02/15/24 07:30 Pulse Ox 94 L 02/15/24 09:00 FiO2 40 02/12/24 11:10 Intake & Output 02/14/24 02/15/24 02/15/24 18:59 06:59 18:59 Intake Total 8575.406 0801.272 285 Output Total 1710 1060 290 Balance -405.918 78.272 -5 Weight 79.7 kg Intake: IV 698 688 167 CO/CI 110 100 40 Sodium Chloride 0.9% 1, 480 480 100 000 ml @ 30 mls/hr IV . Q24H [facility] Rx#:[id number] pressure bag 108 108 27 Intake, IV Titration 66.082 50.272 Amount Milrinone-D5w Pmx 20 mg 66.082 50.272 In Dextrose/Water 1 100ml .bag @ 0.2 MCG/KG/MIN 4. 44 mls/hr IV .[id number] [facility] Rx#:[id number] Oral 540 400 118 Output: Chest Tube Drainage 240 250 40 Chest Tube Left Pleural 70 90 40 Chest Tube Mediastinal 170 160 0 Urine 1470 810 250 Other: Voiding Method Indwelling Catheter Indwelling Catheter # Bowel Movements 1 ABP, PAP, CO, CI - Last Documented Arterial Blood Pressure 140/82 Pulmonary Artery Pressure 31/19 Cardiac Output 3.8 Cardiac Index 2.0 - Exam CONSTITUTIONAL: Appears comfortable, cooperative, no acute distress RESPIRATORY: Lungs sounds diminished bilaterally. Respirations even, nonlabored. Currently on room air with oxygen saturation 95%. Able to achieve 1500 mL on incentive spirometry. Strong cough. CARDIOVASCULAR: S1, S2 present. Regular rate and rhythm, atrially paced at 80 bpm on telemetry with underlying rhythm bradycardic in the 50s. Sternum stable. Palpable peripheral pulses bilaterally. No edema present. No calf pain or tenderness noted. Heart hugger in place with patient demonstrating appropriate use. Antiembolism stockings, SCDs present. GASTROINTESTINAL: Abdomen soft, nontender, nondistended. Active bowel sounds present 4 quadrants. Tolerating minimal diet. Positive bowel movement 02/13 GENITOURINARY: Osuna present draining blood-tinged urine. Output overnight 50- 100 mL per hour, 2280 mL in the last 24 hours INTEGUMENTARY: Skin is warm and dry with evidence of good perfusion. Anterior chest incision well approximated and covered with dry intact dressing. Left thigh EVH site well approximated without redness or drainage. Right groin soft, nontender NEUROLOGIC: Cranial nerves II through XII intact MUSKULOSKELETAL: Able to move all extremities, strength equal bilaterally PSYCHIATRIC: Alert and oriented to person place and time, appropriate affect, intact judgment and insight INVASIVE LINES AND TUBES: Mediastinal/left pleural chest tubes present and connected to wall suction, no air leak present. Mediastinal tube with 105 mL serosanguineous drainage overnight, 250 mL in the last 24 hours. Left pleural chest tube with 50 mL serosanguineous drainage overnight, 170 mL in the last 24 hours. A/V epicardial pacemaker wires present, connected to generator, AAI mode with rate 80 bpm. Right internal jugular Saint Benedict/Cordis, right brachial arterial line present. Last CO/CI 3.8/2, PA 26/16, CVP 3. - Labs CBC & Chem 7: 02/15/24 04:47 02/15/24 04:47 Labs: Abnormal Lab Results - Last 24 Hours (Table) 02/14/24 02/14/24 02/14/24 Range/Units 11:44 16:39 19:46 WBC (3.8-10.6) k/uL RBC (4.30-5.90) m/uL Hgb (13.0-17.5) gm/dL Hct (39.0-53.0) % RDW (11.5-15.5) % Chloride (98-107) mmol/L BUN (9-20) mg/dL POC Glucose (mg/dL) 131 H 119 H 125 H (70-110) mg/dL Calcium (8.4-10.2) mg/dL 02/15/24 02/15/24 02/15/24 Range/Units 04:47 04:47 05:16 WBC 12.9 H (3.8-10.6) k/uL RBC 2.46 L (4.30-5.90) m/uL Hgb 7.8 L (13.0-17.5) gm/dL Hct 24.0 L (39.0-53.0) % RDW 15.7 H (11.5-15.5) % Chloride 111 H (98-107) mmol/L BUN 23 H (9-20) mg/dL POC Glucose (mg/dL) 116 H (70-110) mg/dL Calcium 7.9 L (8.4-10.2) mg/dL Assessment and Plan Plan: Postoperative day #4, status post one-vessel bypass, aortic valve replacement, mitral valve repair, closure of patent foramen ovale, modified Valdez-Maze proce dure, and insertion of the intra-aortic balloon pump. The patient remains on milrinone for hemodynamic instability. There is improved cardiac output and index on today's evaluation. Normotensive. Has adequate urine output. The patient is currently off milrinone Routine postoperative ventilator management, with successful extubation on February 12, 2024. The patient is currently on room air oxygen. All of the chest is on the removed. History of atrial fibrillation with rapid ventricular response, currently AV paced at a rate of 70 with an underlying sinus bradycardia at rate of 50/int rinsic rhythm. History of hypertension. History of hyperlipidemia. History of CVA. History of gastroesophageal reflux disease. Lifelong non-smoker. Obstructive sleep apnea, not utilizing CPAP therapy on outpatient basis. Plan: The patient will be kept in the intensive care unit. The patient is currently on room air oxygen. Using the incentive spirometer. Keep the cardiac rhythm paced at a rate of 70 Hold beta-blockers for now Patient is currently off Primacor Hold amiodarone for now Chest tubes have been removed Continue aspirin and Plavix Continue low-dose losartan and avoid beta-blockers for now Saint Benedict-Edin catheter may be removed Will continue to follow. The patient will be kept in the intensive care unit.
--- NOTE | 2024-02-15 14:42 | P.PN ---
Subjective Progress Note Date: 02/15/24 This is a 73-year-old male who was recently admitted under cardiothoracic services for moderate to severe aortic valve insufficiency and undergoing aortic valve replacement, mitral valve repair, possible tricuspid valve repair, modified Valdez-Maze for his chronic A-fib as well as coronary bypass. Patient remains in surgery and will await official report as he was tentatively scheduled for 02/10/2024 although found to be in atrial fibrillation with RVR. Multiple consultations following and patient will be in the ICU after surgery. Patient follows with Dr. Arredondo outpatient with significant history of COPD, atrial fibrillation, severe aortic insufficiency with moderate mitral regurgitation and tricuspid regurgitation in need of surgical intervention as patient continued to be symptomatic. Patient considered high risk although persistent and adamant to proceed with surgery. Will await official surgery report and follow with consultations in the ICU. 02/15/2024 Patient is seen and evaluated in follow-up and continues to be in the ICU with multiple consultations following. Patient is status post CABG with aortic valve replacement and continues with chest tubes. Patient has been recently transition from the insulin drip to sliding scale and consistent carb diet. Would recommend low-dose long-acting at night and monitor sugars before meals and at bedtime. Blood sugars are well-controlled on current regimen recommend to continue with just sliding scale. Patient has had chest tubes removed along with indwelling Osuna catheter and due to void. . Chest x-ray today shows mild left lower lobe filtrates and/or small left pleural effusion. Swans Edin catheter and chest tubes have been removed. Patient denies shortness of breath other than minimally with exertion and currently 97% on room air. Review of systems: Constitutional: No reports of fatigue, fever, or chills Cardiovascular: No reports of chest pain or palpitations, reports of chest wall discomfort and heart hugger noted Respiratory: reports of occasional shortnessof breath with exertion GI: No reports of nausea, vomiting, or diarrhea : No reports of dysuria or retention Neurovascular: reports of generalized weakness All medications have been reviewed Active Medications Acetaminophen (Acetaminophen Tab 325 Mg Tab) 650 mg PO Q4HR PRN PRN Reason: Fever and/ or Pain Last Admin: 02/15/24 06:07 Dose: 325 mg Albuterol/Ipratropium (Ipratropium-Albuterol 3 Ml Neb) 3 ml INHALATION RT-Q2H PRN PRN Reason: Shortness Of Breath Or Wheezing Last Admin: 02/13/24 00:47 Dose: 3 ml Albuterol/Ipratropium (Ipratropium-Albuterol 3 Ml Neb) 3 ml INHALATION RT-QID [facility] Last Admin: 02/15/24 11:59 Dose: 3 ml Aspirin (Aspirin 325 Mg Tab) 325 mg PO DAILY [facility] Last Admin: 02/15/24 09:09 Dose: 325 mg Atorvastatin Calcium (Atorvastatin 40 Mg Tab) 40 mg PO DAILY [facility] Last Admin: 02/15/24 09:09 Dose: 40 mg Benzocaine/Menthol (Benzocaine/Menthol Lozeng 1 Each Lozenge) 1 each MUCOUS MEM Q2H PRN PRN Reason: Sore Throat Last Admin: 02/14/24 06:30 Dose: 1 each Bisacodyl (Bisacodyl 10 Mg Supp) 10 mg RECTAL DAILY PRN PRN Reason: Constipation Clopidogrel Bisulfate (Clopidogrel 75 Mg Tab) 75 mg PO DAILY [facility] Last Admin: 02/15/24 09:09 Dose: 75 mg Dapagliflozin (Dapagliflozin Propanediol 10 Mg Tablet) 10 mg PO DAILY [facility] Last Admin: 02/15/24 09:09 Dose: 10 mg Dextrose/Water (Dextrose 50% Syringe 50 Ml) 25 ml IVP PER PROTOCOL PRN; Protoco l PRN Reason: Hypoglycemia Heparin Sodium (Porcine) (Heparin Sodium,Porcine 5,000 Unit/Ml 1 Ml Vial) 5,000 unit SQ Q8HR [facility] Last Admin: 02/15/24 09:09 Dose: 5,000 unit Hydralazine HCl (Hydralazine Hcl 20 Mg/Ml 1 Ml Vial) 10 mg IVP Q1H PRN PRN Reason: Blood Pressure - High Insulin Aspart (Insulin Aspart (Novolog) 100 Unit/Ml Vial) 0 unit SQ ACHS [facility]; Protocol Last Admin: 02/15/24 11:44 Dose: Not Given Insulin Detemir (Insulin Detemir (Levemir) 100 Unit/Ml Syr) 5 unit SQ HS [facility] Last Admin: 02/14/24 20:38 Dose: 5 unit Losartan Potassium (Losartan 50 Mg Tab) 50 mg PO DAILY [facility] Last Admin: 02/15/24 09:09 Dose: 50 mg Magnesium Hydroxide (Magnesium Hydroxide 2,400 Mg/30 Ml Cup) 2,400 mg PO BID PRN PRN Reason: Constipation Metoclopramide HCl (Metoclopramide 5 Mg/Ml 2 Ml Vial) 10 mg IVP Q4H PRN PRN Reason: Nausea And Vomiting Miscellaneous Information (Potassium Replacement Protocol 1 Each Misc) 1 each MISCELLANE DAILY PRN; Protocol PRN Reason: Per Protocol Miscellaneous Information (Magnesium Replacement Protocol 1 Each Misc) 1 each MISCELLANE DAILY PRN; Protocol PRN Reason: Per Protocol Ondansetron HCl (Ondansetron 4 Mg/2 Ml Vial) 4 mg IVP Q6HR PRN PRN Reason: Nausea And Vomiting Last Admin: 02/13/24 08:26 Dose: 4 mg Pantoprazole Sodium (Pantoprazole 40 Mg Tablet) 40 mg PO AC-[id number] [facility] Last Admin: 02/15/24 06:34 Dose: Not Given Prochlorperazine Edisylate (Prochlorperazine Inj 10 Mg/2 Ml Vial) 5 mg IVP Q4HR PRN PRN Reason: Nausea And Vomiting Last Admin: 02/12/24 22:02 Dose: 5 mg Senna/Docusate Sodium (Sennosides-Docusate Sodium 1 Each Tab) 2 each PO HS [facility] Last Admin: 02/14/24 20:38 Dose: 2 each Sodium Chloride (Sodium Chloride 0.9% Flush 10 Ml Syringe) 10 ml IV BID [facility] Last Admin: 02/15/24 09:09 Dose: 10 ml PHYSICAL EXAMINATION: GENERAL: The patient is alert and oriented x4, Well developed, well nourished. HEENT: Pupils are round and equally reacting to light. EOMI. no scleral icterus. No conjunctival pallor. Normocephalic, atraumatic. No pharyngeal erythema. No thyromegaly. CARDIOVASCULAR: S1 and S2 muffled PULMONARY: diminished breath sounds bilaterally with no wheezing, or rhonchi noted. ABDOMEN: soft. Nontender on exam. non-distended, normoactive bowel sounds. No palpable organomegaly. MUSCULOSKELETAL: No joint swelling or deformity. EXTREMITIES: No cyanosis, clubbing, or pedal edema. NEUROLOGICAL: Gross neurological examination did not reveal any focal deficits. SKIN: No rashes. Assessment: Severe aortic insufficiency, moderate mitral and tricuspid regurgitation, status post aortic valve replacement with bovine pericardial valve and mitral valve annuloplasty, coronary artery bypass graft x 1 with posterior descending artery and endovascular vein harvest Persistent atrial fibrillation history, acute atrial fibrillation with RVR prior to surgery, currently rate controlled History of cardiomyopathy History of coronary artery disease Status post modified Valdez-Maze procedure History of hypertension History of hyperlipidemia Chronic obstructive pulmonary disease history History of degenerative joint disease History of diabetes, hemoglobin A1c is 7 and preoperative testing, takes Jardiance at home History of CVA GI prophylaxis DVT prophylaxis Full code Plan: Recommend to continue with current medications and management per CT surgery services. Patient having chest tubes and swans catheter removed along with indwelling Osuna catheter and due to void Patient has been transition to sliding scale with Accu-Cheks before meals and at bedtime and 2 AM and have added long-acting insulin at night although blood sugars have been in the 80s and 90s, recommend to use sliding scale and hold on long-acting at night unless blood sugars are consistently above 200 Encouraged incentive spirometer use at least 10 times every hour while awake Recommend PT/OT therapy Plans for moving out of the ICU in the next 1 to 2 days We will continue to follow with CT surgery during hospitalization. Thank you kindly for this consultation. The impression and plan of care has been dictated by Charmaine Stover, nurse practitioner as directed. Dr. Corby MD I have performed a history and examination and MDM of this patient, discussed the same with the dictator, and agree with the dictator's assessment and plan as written ,documented as a scribe. Based on total visit time, I have performed more than 50% of the visit. Any additional findings or plans will be noted. Objective - Vital Signs Vital signs: Vital Signs Temp 99.3 F 02/15/24 08:30 Pulse 70 02/15/24 11:30 Resp 28 H 02/15/24 11:30 BP 132/91 02/15/24 07:30 Pulse Ox 96 02/15/24 11:30 FiO2 40 02/12/24 11:10 Intake & Output 02/14/24 02/15/24 02/15/24 18:59 06:59 18:59 Intake Total 1630.114 2270.272 814 Output Total 1710 1060 365 Balance -405.918 78.272 449 Weight 79.7 kg Intake: IV 698 688 206 CO/CI 110 100 40 Sodium Chloride 0.9% 1, 480 480 130 000 ml @ 30 mls/hr IV . Q24H [facility] Rx#:[id number] pressure bag 108 108 36 Intake, IV Titration 66.082 50.272 Amount Milrinone-D5w Pmx 20 mg 66.082 50.272 In Dextrose/Water 1 100ml .bag @ 0.2 MCG/KG/MIN 4. 44 mls/hr IV .[id number] [facility] Rx#:[id number] Oral 540 400 608 Output: Chest Tube Drainage 240 250 40 Chest Tube Left Pleural 70 90 40 Chest Tube Mediastinal 170 160 0 Urine 1470 810 325 Other: Voiding Method Indwelling Catheter Indwelling Catheter # Bowel Movements 1 ABP, PAP, CO, CI - Last Documented Arterial Blood Pressure 137/73 Pulmonary Artery Pressure 26/16 Cardiac Output 3.8 Cardiac Index 2.0 - Labs CBC & Chem 7: 02/15/24 04:47 02/15/24 04:47 Labs: Abnormal Lab Results - Last 24 Hours (Table) 02/14/24 02/14/24 02/14/24 Range/Units 11:44 16:39 19:46 WBC (3.8-10.6) k/uL RBC (4.30-5.90) m/uL Hgb (13.0-17.5) gm/dL Hct (39.0-53.0) % RDW (11.5-15.5) % Chloride (98-107) mmol/L BUN (9-20) mg/dL POC Glucose (mg/dL) 131 H 119 H 125 H (70-110) mg/dL Calcium (8.4-10.2) mg/dL 02/15/24 02/15/24 02/15/24 Range/Units 04:47 04:47 05:16 WBC 12.9 H (3.8-10.6) k/uL RBC 2.46 L (4.30-5.90) m/uL Hgb 7.8 L (13.0-17.5) gm/dL Hct 24.0 L (39.0-53.0) % RDW 15.7 H (11.5-15.5) % Chloride 111 H (98-107) mmol/L BUN 23 H (9-20) mg/dL POC Glucose (mg/dL) 116 H (70-110) mg/dL Calcium 7.9 L (8.4-10.2) mg/dL
[2024-02-15 17:25] LABS: Glucose,Whole Blood 93 mg/dL (70-110)
[2024-02-15 20:19] LABS: Glucose,Whole Blood 176 mg/dL (70-110)
[2024-02-16 06:15] LABS: Anisocytosis Slight; HGB 8.1 gm/dL (13.0-17.5); MCH 31.7 pg (25.0-35.0); MCHC 32.2 g/dL (31.0-37.0); MCV 98.4 fL (80.0-100.0); Macrocytosis Slight; Mean Platelet Volume 7.6; Platelet Count 227 k/uL (150-450); RBC 2.54 m/uL (4.30-5.90); RDW 16.2 % (11.5-15.5); WBC 10.2 k/uL (3.8-10.6)
[2024-02-16 06:28] LABS: African American GFR (CKD) >90 (>60 ml/min/1.73 sqM); Anion Gap 5 mmol/L; Blood Urea Nitrogen 22 mg/dL (9-20); Calcium 7.7 mg/dL (8.4-10.2); Carbon Dioxide 24 mmol/L (22-30); Chloride 110 mmol/L (98-107); Glucose 84 mg/dL (74-99); Non-African American GFR(CKD) 88 (>60 ml/min/1.73 sqM); Potassium 3.9 mmol/L (3.5-5.1); Sodium 139 mmol/L (137-145)
[2024-02-16 07:07] LABS: Glucose,Whole Blood 98 mg/dL (70-110)
--- NOTE | 2024-02-16 07:48 | P.PN ---
Subjective Progress Note Date: 02/16/24 PROGRESS NOTE The patient is a 73-year-old male who has been having progressive dyspnea and was found to have significant mitral and aortic regurgitation and chronically occlusion of his mid RCA. He underwent mitral valve repair, aortic valve replacement and single bypass to the RCA with Maze procedure and left atrial appendage closure. He had an intra-aortic balloon pump that was removed. He is feeling better, sitting up in the chair, being paced because of junctional rhythm. He has chest soreness. His breathing is stable, he ambulated. He denies any dizziness or palpitations. He is on no vasopressors. He has a known history of cardiomyopathy preintervention. Postprocedure on the DOLORES it was estimated to be 40%. February 14: The patient is doing well this morning, sitting up in the chair, denies any chest discomfort, dizziness or palpitations. He continues to be paced with atrial pacing. Hemodynamically he is stable, his milrinone was stopped this morning. He has some hematuria. February 15: The patient is feeling well this morning, he ambulated, felt tired but no significant chest discomfort. He is in sinus mechanism at a rate of 80. Hemodynamically stable. His urinary output is stable. He has no dizziness or palpitations. He has a mild cough. He is using his incentive spirometry. He has no further episodes of atrial fibrillation. Medications: Aspirin, Lipitor 40 mg daily, Plavix 75 mg daily, Farxiga 10 mg daily, insulin, losartan 100 mg daily, Protonix PHYSICAL EXAMINATION: Blood pressure 153/110 heart rate 70 LUNGS: Mild decrease in the breath sounds at the bases HEART: Regular rate and rhythm, S1, S2. No S3. Systolic ejection murmur ABDOMEN: Soft, nontender, no organomegaly EXTREMETIES: No edema LAB: Hemoglobin 8.1, BUN 22, creatinine 0.82, potassium 3.9 IMPRESSION: 1. Status post aortic valve replacement and mitral valve repair with single byp ass to the RCA 2. Status post maze procedure with closure of the left atrial appendage 3. Paroxysmal atrial fibrillation, now in sinus mechanism 4. Cardiomyopathy PLAN: 1. Continue present therapy 2. Increase physical activity 3. Once temporary pacemaker removed initiate anticoagulation and stop Plavix 4. Follow blood pressure and adjust treatment as needed 5. If rhythm stable consider adding beta-jane because of history of cardiomyopathy Objective - Vital Signs Vital signs: Vital Signs Temp 98.6 F 09/25/24 04:00 Pulse 70 02/16/24 07:00 Resp 21 02/16/24 07:00 BP 153/110 02/16/24 07:00 Pulse Ox 97 02/16/24 07:00 FiO2 40 02/12/24 11:10 Intake & Output 02/15/24 02/16/24 02/16/24 18:59 06:59 18:59 Intake Total 1172 Output Total 650 900 0 Balance 522 -900 0 Weight 79 kg Intake: IV 206 CO/CI 40 Sodium Chloride 0.9% 1, 130 000 ml @ 30 mls/hr IV . Q24H [facility] Rx#:[id number] pressure bag 36 Oral 966 Output: Chest Tube Drainage 40 Chest Tube Left Pleural 40 Chest Tube Mediastinal 0 Urine 610 900 0 Other: Voiding Method Urinal Urinal # Voids 1 1 ABP, PAP, CO, CI - Last Documented Arterial Blood Pressure 137/73 Pulmonary Artery Pressure 26/16 Cardiac Output 3.8 Cardiac Index 2 - Labs CBC & Chem 7: 02/16/24 06:01 02/16/24 06:01 Labs: Abnormal Lab Results - Last 24 Hours (Table) 02/15/24 02/16/24 02/16/24 Range/Units 20:17 06:01 06:01 RBC 2.54 L (4.30-5.90) m/uL Hgb 8.1 L (13.0-17.5) gm/dL Hct 25.0 L (39.0-53.0) % RDW 16.2 H (11.5-15.5) % Chloride 110 H (98-107) mmol/L BUN 22 H (9-20) mg/dL POC Glucose (mg/dL) 176 H (70-110) mg/dL Calcium 7.7 L (8.4-10.2) mg/dL
--- NOTE | 2024-02-16 08:11 | P.PN ---
Subjective Progress Note Date: 02/16/24 Principal diagnosis: Severe aortic insufficiency, moderate mitral regurgitation, persistent atrial fibrillation, on Xarelto for anticoagulation, patent foramen ovale, cardiomyopathy/chronic heart failure with reduced ejection fraction, coronary artery disease. History of hypertension, hyperlipidemia, COPD, obstructive sleep apnea without home CPAP use, CVA/TIA, lifelong non-smoker POD #5 CABG x 1 with vein graft to PDA and endovascular vein harvest, aortic valve replacement with 23 mm Avalus bovine pericardial valve, mitral valve annuloplasty with 28 mm physio 2 ring, modified Valdez-Maze procedure with complete left-sided lesion sets including both RF and cryoablation and 40 mm AtriCure clip to base of left atrial appendage, closure of patent foramen ovale, right femoral transcutaneous placement of intra-aortic balloon pump The patient was seen and examined this morning sitting up in a recliner in the intensive care unit in no acute distress. Currently sinus rhythm in the 60s to 70s. Hemodynamically stable. Patient reports mild expected postoperative pain with coughing, denies shortness of breath. He did ambulate with nursing out in the hallway yesterday several times and tolerated well. Chest x-ray, labs reviewed. No other new concerns. Objective - Vital Signs Vital signs: Vital Signs Temp 98.6 F 02/16/24 08:00 Pulse 85 02/16/24 08:00 Resp 9 L 02/16/24 08:00 BP 144/81 02/16/24 08:00 Pulse Ox 95 02/16/24 08:00 FiO2 40 02/12/24 11:10 Intake & Output 02/15/24 02/16/24 02/16/24 18:59 06:59 18:59 Intake Total 1172 118 Output Total 650 900 150 Balance 522 -900 -32 Weight 79 kg Intake: IV 206 CO/CI 40 Sodium Chloride 0.9% 1, 130 000 ml @ 30 mls/hr IV . Q24H [facility] Rx#:[id number] pressure bag 36 Oral 966 118 Output: Chest Tube Drainage 40 Chest Tube Left Pleural 40 Chest Tube Mediastinal 0 Urine 610 900 150 Other: Voiding Method Urinal Urinal # Voids 1 1 ABP, PAP, CO, CI - Last Documented Arterial Blood Pressure 137/73 Pulmonary Artery Pressure 26/16 Cardiac Output 3.8 Cardiac Index 2 - Exam CONSTITUTIONAL: Appears comfortable, cooperative, no acute distress RESPIRATORY: Lungs sounds diminished bilaterally. Respirations even, nonlabored. Currently on room air with oxygen saturation 96%. Able to achieve 1500 mL on incentive spirometry. Strong cough. CARDIOVASCULAR: S1, S2 present. Regular rate and rhythm, sinus rhythm on telemetry. Sternum stable. Palpable peripheral pulses bilaterally. No edema present. No calf pain or tenderness noted. Heart hugger in place with patient demonstrating appropriate use. Antiembolism stockings, SCDs present. GASTROINTESTINAL: Abdomen soft, nontender, nondistended. Active bowel sounds present 4 quadrants. Tolerating minimal diet. Positive bowel movement 02/13 GENITOURINARY: Osuna present draining blood-tinged urine. Output 1410 mL in the last 24 hours INTEGUMENTARY: Skin is warm and dry with evidence of good perfusion. Anterior chest incision well approximated. Left thigh EVH site well approximated without redness or drainage. Right groin soft, nontender NEUROLOGIC: Cranial nerves II through XII intact MUSKULOSKELETAL: Able to move all extremities, strength equal bilaterally PSYCHIATRIC: Alert and oriented to person place and time, appropriate affect, intact judgment and insight INVASIVE LINES AND TUBES: A/V epicardial pacemaker wires present, connected to generator, generator turned off - Allied health notes Allied health notes reviewed: nursing - Labs CBC & Chem 7: 02/16/24 06:01 02/16/24 06:01 Labs: Abnormal Lab Results - Last 24 Hours (Table) 02/15/24 02/16/24 02/16/24 Range/Units 20:17 06:01 06:01 RBC 2.54 L (4.30-5.90) m/uL Hgb 8.1 L (13.0-17.5) gm/dL Hct 25.0 L (39.0-53.0) % RDW 16.2 H (11.5-15.5) % Chloride 110 H (98-107) mmol/L BUN 22 H (9-20) mg/dL POC Glucose (mg/dL) 176 H (70-110) mg/dL Calcium 7.7 L (8.4-10.2) mg/dL - Imaging and Cardiology Chest x-ray: image reviewed Assessment and Plan Assessment: Severe aortic insufficiency, status post aortic valve replacement Moderate mitral regurgitation, status post mitral valve annuloplasty Persistent atrial fibrillation, on Xarelto for anticoagulation, last dose 02/06/24, status post modified Valdez-Maze procedure with complete left-sided lesion sets including both RF and cryoablation and 40 mm AtriCure clip to base of left atrial appendage Patent foramen ovale, status post closure Cardiomyopathy/chronic heart failure with reduced ejection fraction, EF 30-35%, status post placement of intra-aortic balloon pump Coronary artery disease, status post single-vessel CABG History of hypertension Hyperlipidemia Diabetes with preoperative hemoglobin A1c 7%, [facility] Moderate COPD, preoperative FEV1 55% of predicted, DLCO 77% of predicted Obstructive sleep apnea without home CPAP use CVA 12 years ago Lifelong non-smoker Family history of premature coronary artery disease with father diagnosed in his 50s Plan: Continue to maximize medical therapy with aspirin, statin, Plavix. Hold beta- jane for now, will initiate when able. Continue losartan for afterload reduction, increased to 100 mg daily today Will restart anticoagulation at discharge Encourage incentive spirometry use 10 times every hour while awake. Bronchodilators per pulmonology Increase activity, ambulate as tolerated. PT/OT/cardiac rehab consulted Will monitor daily labs and x-rays. Electrolyte replacement per protocol GI/DVT prophylaxis Insulin management per internal medicine Pain control per current medication regimen Continue to record strict accurate intake and output If patient continues with his own rhythm may place transfer orders for 3 S. cardiac stepdown unit later this afternoon More recommendations to follow
--- NOTE | 2024-02-16 08:16 | XR ---
EXAMINATION TYPE: XR chest 1V portable DATE OF EXAM: 02/16/2024 COMPARISON: 02/15/2024 INDICATION: Post cardiac surgery TECHNIQUE: Single frontal view of the chest is obtained. FINDINGS: The heart size is enlarged. The pulmonary vasculature is normal. Retrocardiac infiltrate appears to be present. Small effusion on the left is not excluded. Minimal ri ght pleural effusion costophrenic angle is present. [place] catheter is been removed. IMPRESSION: 1. Cardiomegaly. 2. Small left lower lobe infiltrate and effusion. 3. Minimal right costophrenic angle pleural effusion may also be present. [facility], , 02/16/2024 8:14 AM
[2024-02-16] MEDS: POTASSIUM CHLORIDE ER 20 MEQ TAB.ER PO SCH (08:21)
[2024-02-16] MEDS: LOSARTAN 50 MG TAB PO SCH (08:22)
[2024-02-16 10:22] VITALS: BMI 26.4
--- NOTE | 2024-02-16 11:48 | P.PN ---
Subjective Progress Note Date: 02/16/24 This is a 73-year-old male who is scheduled to have aortic valve replacement, mitral valve repair, and a Valdez-Maze procedure. Apparently, the surgery will be done on February 10. He comes to the intensive care unit, for further monitoring and management. He is placed in room 251. The patient is currently on a couple liters of oxygen. He is getting saline at 20 cc an hour. He is getting amiodarone drip at 1 mg/min. The surgery will be done either today or tomorrow. The patient also has a history of atrial fibrillation. The patient apparently will be coming back to the intensive care unit, with a balloon pump. In addition to atrial fibrillation, and valvular heart disease, the patient does have a history of hypertension. Also, the patient has a history of hyperlipidemia, gastroesophageal reflux disease, CVA, and angina. Laboratory data today includes a white count 7.5, hemoglobin 13.6, hematocrit 42.8, and a platelet count of 301,000. Glucose is 103. Magnesium is 1.9. Progress note dated February 11, 2024. 73-year-old male seen in consultation yesterday. The patient has a history of valvular heart disease, and will have surgery today, with Dr. Ye. The patient is expected to have an aortic valve replacement, mitral valve replacement, possible tricuspid valve replacement, possible bypass grafting, and insertion of the intra-aortic balloon pump. Currently, the patient is on room air. In no acute distress. No new laboratory data today. Laboratory data from yesterday have been reviewed. The patient was on amiodarone, for his atrial fibrillation, but that has been discontinued. Progress note dated February 12, 2024. This is a 74-year-old male who is postoperative day #1. The patient had a one- vessel bypass grafting, aortic valve replacement, mitral valve repair, a modified Valdez-Maze procedure, closure of a patent foramen ovale, insertion of an intra-aortic balloon pump. The patient is seen today in room 267. The patient remains on mechanical ventilator. Ventilator settings include volume assist- control, rate 14, tidal volume 500, FiO2 40%, PEEP of 5. Blood gases done on the same settings, except 50%, show pO2 of 218, pCO2 of 37, and pH is 7.39. The patient is on a number of drips including epinephrine at 0.01 mcg/kg/min, saline at 50 cc an hour, amiodarone at 0.5 mcg/min, Primacor 0.3 mcg/kg/min, norepinephrine at 0.8 mcg/min, propofol at 25 mcg/kg/min, and insulin is currently on hold. White count is 9.4, hemoglobin 7.3, hematocrit 21.8, platelet count is 152,000. Sodium 134, potassium 4.5, chlorides 110, CO2 25, BUN 24, and creatinine 1.13. Glucose is 120. Calcium is 7.7. Albumin is 3.2. Chest x-ray shows some small effusion, and left lower lobe atelectasis. Progress note dated February 13, 2024. 74-year-old male, postop day #2. The patient had a one-vessel bypass surgery, aortic valve replacement, mitral valve repair, modified Valdez-Maze procedure, closure of a PFO, and insertion of an intra-aortic balloon pump. The patient was extubated yesterday. He is doing relatively well. The patient is currently on room air. He is getting insulin at 3 units an hour. He is also on Primacor 0.1 mcg/kg/min. He is getting saline at 50 cc an hour. He is not having any difficulty in his breathing. White count of 13.7, hemoglobin 8.1, hematocrit 24.7, and platelet count of 157,000. Sodium 137, potassium 4.7, chlorides 109, CO2 22, BUN 22, and creatinine 0.97. Glucose is 147. Calcium is 8. Albumin 3.4. Chest x-ray shows a left lower lobe infiltrate or atelectasis. There is cardiomegaly. On 02/14/2024, the patient is being seen for a follow-up. The patient is doing well with no specific complaints. The patient is currently postop day #3 following a coronary artery bypass surgery with single vein to PDA and aortic valve replacement and mitral valve repair. The patient remains paced at a rate of 80. The patient receiving AV pacing at a rate of 80. Underlying rhythm is junctional rhythm in the low 50s. The patient is atrially paced at rate of 80. He remains on Primacor which is running at 0.1 mcg/kg/min. His most recent cardiac index is at 1.7. The patient otherwise has no specific complaints. He is awake and alert. His right IJ [place] catheter remains in place and the patient has a mediastinal/left pleural chest tube in place. Output from the chest tube has been noted and the patient has produced approximately 120 cc of serosanguineous material from the left pleural chest tube and 110 cc over the past 24 hours from the mediastinal chest tube. No evidence of any air leak. S ubsequent cardiac output is at 4.6 with an index of 2.4. PA pressure 31/10 with a CVP of 6. Using incentive spirometer. He is pulling more than 2000. His urine output is adequate around 45 to 50 cc an hour and has produced around 1.3 L of urine output over the past 24 hours. His chest x-ray shows no acute abnormalities. [place] catheter remains in place. There are some atelectatic changes in lung base bilaterally and chest tubes are also in place with minimal amount of pleural effusion present. The patient is known to have COPD, obstructive sleep apnea without the home CPAP, previous history of CVA/TIA along with hyperlipidemia, hypertension coronary artery disease. He has a reduced preop left-ventricular ejection fraction 02/15/2024, the patient is being seen for a follow-up. Patient is doing well. No specific complaints. The patient is postop day #4 following a coronary bypass surgery and aortic valve replacement with mitral valve repair. He is using the incentive spirometer. He is still paced at a rate of 70 and the underlying rhythm is sinus bradycardia rate of 50. The patient remains hemodynamically stable. He was weaned off the Primacor and this has been discontinued. The cardiac output is at 3.8 with an index of 2. Pulmonary artery pressures of 26/16 with a CVP of around 3. All of the chest tubes have been removed this morning. The output from the chest tubes are minimal. WBC was 12.9 with a hemoglobin 7.8. BUN 23 with a creatinine of 0.8 and sodium levels at 138. Chest x-ray done this morning shows no acute abnormalities. From atelectatic changes and small effusion left lung base. Lines and catheters are in place. No other significant events overnight. Sitting up in the chair. The patient is calm and comfortable. On 02/16/2024, the patient is being seen for a follow-up. Awake and alert and communicating. No significant complaints for now. The patient is postop day #5 following aortic valve replacement of mitral valve repair and single-vessel bypass surgery with vein graft to PDA. Postop, the patient developed junctional rhythm and the patient was being paced and current cardiac rhythm is sinus. He remains off amiodarone. He remains off beta-blockers. He is on room air oxygen. Chest x-ray shows no significant abnormalities. The patient is alert and awake and communicating. Hemoglobin is at 8.1 with a white cell count of 7.2. BUN is 22 with a creatinine 0.8 and sodium levels at 139. Denies having any other complaints. No altered mentation. Remains on DuoNeb of chest. Remains on aspirin and Plavix. Remains on Farxiga. Remains on Levemir insulin 5 units daily along with NovoLog sliding scale coverage and the patient is on Cozaar 100 mg p.o. daily. Objective - Vital Signs Vital signs: Vital Signs Temp 98.6 F 02/16/24 08:00 Pulse 70 02/16/24 08:23 Resp 9 L 02/16/24 08:00 BP 144/81 02/16/24 08:00 Pulse Ox 94 L 02/16/24 08:15 FiO2 40 02/12/24 11:10 Intake & Output 02/15/24 02/16/24 02/16/24 18:59 06:59 18:59 Intake Total 1172 118 Output Total 650 900 150 Balance 522 -900 -32 Weight 79 kg Intake: IV 206 CO/CI 40 Sodium Chloride 0.9% 1, 130 000 ml @ 30 mls/hr IV . Q24H [facility] Rx#:[id number] pressure bag 36 Oral [id number] 118 Output: Chest Tube Drainage 40 Chest Tube Left Pleural 40 Chest Tube Mediastinal 0 Urine 610 900 150 Other: Voiding Method Urinal Urinal # Voids 1 1 ABP, PAP, CO, CI - Last Documented Arterial Blood Pressure 137/73 Pulmonary Artery Pressure 26/16 Cardiac Output 3.8 Cardiac Index 2 - Exam CONSTITUTIONAL: Appears comfortable, cooperative, no acute distress RESPIRATORY: Lungs sounds diminished bilaterally. Respirations even, nonlabored. Currently on room air with oxygen saturation 96%. Able to achieve 1500 mL on incentive spirometry. Strong cough. CARDIOVASCULAR: S1, S2 present. Regular rate and rhythm, sinus rhythm on telemetry. Sternum stable. Palpable peripheral pulses bilaterally. No edema present. No calf pain or tenderness noted. Heart hugger in place with patient demonstrating appropriate use. Antiembolism stockings, SCDs present. GASTROINTESTINAL: Abdomen soft, nontender, nondistended. Active bowel sounds present 4 quadrants. Tolerating minimal diet. Positive bowel movement 02/13 GENITOURINARY: Osuna present draining blood-tinged urine. Output 1410 mL in the last 24 hours INTEGUMENTARY: Skin is warm and dry with evidence of good perfusion. Anterior chest incision well approximated. Left thigh EVH site well approximated without redness or drainage. Right groin soft, nontender NEUROLOGIC: Cranial nerves II through XII intact MUSKULOSKELETAL: Able to move all extremities, strength equal bilaterally PSYCHIATRIC: Alert and oriented to person place and time, appropriate affect, intact judgment and insight INVASIVE LINES AND TUBES: A/V epicardial pacemaker wires present, connected to generator, generator turned off - Labs CBC & Chem 7: 02/16/24 06:01 02/16/24 06:01 Labs: Abnormal Lab Results - Last 24 Hours (Table) 02/15/24 02/16/24 02/16/24 Range/Units 20:17 06:01 06:01 RBC 2.54 L (4.30-5.90) m/uL Hgb 8.1 L (13.0-17.5) gm/dL Hct 25.0 L (39.0-53.0) % RDW 16.2 H (11.5-15.5) % Chloride 110 H (98-107) mmol/L BUN 22 H (9-20) mg/dL POC Glucose (mg/dL) 176 H (70-110) mg/dL Calcium 7.7 L (8.4-10.2) mg/dL Assessment and Plan Plan: Postoperative day #5 status post one-vessel bypass, aortic valve replacement, mitral valve repair, closure of patent foramen ovale, modified Valdez-Maze procedure, and insertion of the intra-aortic balloon pump. The patient remains on milrinone for hemodynamic instability. No pressors and the patient's cardiac rhythm is back into normal sinus and a pacemaker is on standby Routine postoperative ventilator management, with successful extubation on February 12, 2024. The patient is currently on room air oxygen. All of the chest is on the removed. History of atrial fibrillation with rapid ventricular response, currently in n ormal sinus rhythm. History of hypertension. History of hyperlipidemia. History of CVA. History of gastroesophageal reflux disease. Lifelong non-smoker. Obstructive sleep apnea, not utilizing CPAP therapy on outpatient basis. Plan: The patient will be kept in the intensive care unit. The patient is currently on room air oxygen. Using the incentive spirometer. May gradually introduce beta-blockers at a lower dose. This was left up to cardiology Chest tubes have been removed Continue aspirin and Plavix Continue low-dose losartan 100 mg p.o. today for blood pressure control Will continue to follow. The patient will be kept in the intensive care unit.
[2024-02-16 12:01] LABS: Glucose,Whole Blood 118 mg/dL (70-110)
[2024-02-16 16:53] LABS: Glucose,Whole Blood 82 mg/dL (70-110)
[2024-02-16 19:52] LABS: Glucose,Whole Blood 178 mg/dL (70-110)
[2024-02-16] MEDS: METOPROLOL TARTRATE 12.5 MG TAB PO SCH (19:56)
--- NOTE | 2024-02-17 04:58 | P.PN ---
Subjective Progress Note Date: 02/16/24 This is a 73-year-old male who was recently admitted under cardiothoracic services for moderate to severe aortic valve insufficiency and undergoing aortic valve replacement, mitral valve repair, possible tricuspid valve repair, modified Valdez-Maze for his chronic A-fib as well as coronary bypass. Patient remains in surgery and will await official report as he was tentatively scheduled for 02/10/2024 although found to be in atrial fibrillation with RVR. Multiple consultations following and patient will be in the ICU after surgery. Patient follows with Dr. Arredondo outpatient with significant history of COPD, atrial fibrillation, severe aortic insufficiency with moderate mitral regurgitation and tricuspid regurgitation in need of surgical intervention as patient continued to be symptomatic. Patient considered high risk although persistent and adamant to proceed with surgery. Will await official surgery report and follow with consultations in the ICU. 02/15/2024 Patient is seen and evaluated in follow-up and continues to be in the ICU with multiple consultations following. Patient is status post CABG with aortic valve replacement and continues with chest tubes. Patient has been recently transition from the insulin drip to sliding scale and consistent carb diet. Would recommend low-dose long-acting at night and monitor sugars before meals and at bedtime. Blood sugars are well-controlled on current regimen recommend to continue with just sliding scale. Patient has had chest tubes removed along with indwelling Osuna catheter and due to void. . Chest x-ray today shows mild left lower lobe filtrates and/or small left pleural effusion. Swans Edin catheter and chest tubes have been removed. Patient denies shortness of breath other than minimally with exertion and currently 97% on room air. 02/16/2024 Patient is seen in follow-up today currently sitting up in the chair has had the chest tubes removed along with indwelling Osuna catheter and patient is voiding. Patient reports just prior to lunch he felt a little lightheaded and dizzy and will obtain orthostatic vitals. Blood sugars have been well-controlled on current regimen and will continue with Accu-Cheks before meals and at bedtime. Patient is afebrile with no reports of chest pains other than chest wall discomfort, denies any worsening shortness of breath and denies palpitations. Patient is up and working with physical therapy and would recommend daily Review of systems: Constitutional: No reports of fatigue, fever, or chills Cardiovascular: No reports of chest pain or palpitations, reports of chest wall discomfort and heart hugger noted Respiratory: reports of occasional shortness of breath with exertion GI: No reports of nausea, vomiting, or diarrhea : No reports of dysuria or retention Neurovascular: reports of generalized weakness All medications have been reviewed PHYSICAL EXAMINATION: GENERAL: The patient is alert and oriented x4, Well developed, well nourished. HEENT: Pupils are round and equally reacting to light. EOMI. no scleral icterus. No conjunctival pallor. Normocephalic, atraumatic. No pharyngeal erythema. No thyromegaly. CARDIOVASCULAR: S1 and S2 muffled PULMONARY: diminished breath sounds bilaterally with no wheezing, or rhonchi noted. ABDOMEN: soft. Nontender on exam. non-distended, normoactive bowel sounds. No palpable organomegaly. MUSCULOSKELETAL: No joint swelling or deformity. EXTREMITIES: No cyanosis, clubbing, or pedal edema. NEUROLOGICAL: Gross neurological examination did not reveal any focal deficits. SKIN: No rashes. Assessment: Severe aortic insufficiency, moderate mitral and tricuspid regurgitation, status post aortic valve replacement with bovine pericardial valve and mitral valve annuloplasty, coronary artery bypass graft x 1 with posterior descending artery and endovascular vein harvest Persistent atrial fibrillation history, acute atrial fibrillation with RVR prior to surgery, currently rate controlled History of cardiomyopathy History of coronary artery disease Status post modified Valdez-Maze procedure History of hypertension History of hyperlipidemia Chronic obstructive pulmonary disease history History of degenerative joint disease History of diabetes, hemoglobin A1c is 7 and preoperative testing, takes Jardiance at home History of CVA GI prophylaxis DVT prophylaxis Full code Plan: Recommend to continue with current medications and management per CT surgery services. Patient reports to feeling relatively well other than had an episode of feeling lightheaded and dizzy just before lunch. Vital signs are stable Continue monitoring Accu-Cheks before meals and at bedtime and 2 AM and will continue low-dose long-acting insulin at night although blood sugars have been in the 80s and 90s, recommend to use sliding scale and hold on long-acting at night unless blood sugars are consistently above 200 Encouraged incentive spirometer use at least 10 times every hour while awake Recommend PT/OT therapy and increased activity with frequent walks throughout the day Plans for moving out of the ICU in the next 1 to 2 days We will continue to follow with CT surgery during hospitalization. Thank you kindly for this consultation. The impression and plan of care has been dictated by Charmaine Stover, nurse practitioner as directed. Dr. Corby MD I have performed a history and examination and MDM of this patient, discussed the same with the dictator, and agree with the dictator's assessment and plan as written ,documented as a scribe. Based on total visit time, I have performed more than 50% of the visit. Any additional findings or plans will be noted. Objective - Vital Signs Vital signs: Vital Signs Temp 98.6 F 02/16/24 12:00 Pulse 85 02/16/24 13:00 Resp 23 02/16/24 13:00 BP 117/79 02/16/24 13:00 Pulse Ox 96 02/16/24 13:00 FiO2 40 02/12/24 11:10 Intake & Output 02/15/24 02/16/24 02/16/24 18:59 06:59 18:59 Intake Total 1172 726 Output Total 650 900 500 Balance 522 -900 226 Weight 79 kg 79 kg Intake: IV 206 CO/CI 40 Sodium Chloride 0.9% 1, 130 000 ml @ 30 mls/hr IV . Q24H [facility] Rx#:[id number] pressure bag 36 Oral 966 726 Output: Chest Tube Drainage 40 Chest Tube Left Pleural 40 Chest Tube Mediastinal 0 Urine 610 900 500 Other: Voiding Method Urinal Urinal Urinal # Voids 1 1 1 ABP, PAP, CO, CI - Last Documented Arterial Blood Pressure 137/73 Pulmonary Artery Pressure 26/16 Cardiac Output 3.8 Cardiac Index 2 - Labs CBC & Chem 7: 02/16/24 06:01 02/16/24 06:01 Labs: Abnormal Lab Results - Last 24 Hours (Table) 02/15/24 02/16/24 02/16/24 Range/Units 20:17 06:01 06:01 RBC 2.54 L (4.30-5.90) m/uL Hgb 8.1 L (13.0-17.5) gm/dL Hct 25.0 L (39.0-53.0) % RDW 16.2 H (11.5-15.5) % Chloride 110 H (98-107) mmol/L BUN 22 H (9-20) mg/dL POC Glucose (mg/dL) 176 H (70-110) mg/dL Calcium 7.7 L (8.4-10.2) mg/dL 02/16/24 Range/Units 11:59 RBC (4.30-5.90) m/uL Hgb (13.0-17.5) gm/dL Hct (39.0-53.0) % RDW (11.5-15.5) % Chloride (98-107) mmol/L BUN (9-20) mg/dL POC Glucose (mg/dL) 118 H (70-110) mg/dL Calcium (8.4-10.2) mg/dL
[2024-02-17 06:29] LABS: Glucose,Whole Blood 119 mg/dL (70-110)
[2024-02-17 06:36] LABS: Anisocytosis Slight; HCT 25.4 % (39.0-53.0); Hypochromasia Slight; MCH 31.9 pg (25.0-35.0); MCHC 31.4 g/dL (31.0-37.0); MCV 101.5 fL (80.0-100.0); Macrocytosis Slight; Mean Platelet Volume 7.4; Platelet Count 281 k/uL (150-450); RDW 17.2 % (11.5-15.5); WBC 9.4 k/uL (3.8-10.6)
[2024-02-17 07:04] LABS: African American GFR (CKD) >90 (>60 ml/min/1.73 sqM); Anion Gap 6 mmol/L; Blood Urea Nitrogen 17 mg/dL (9-20); Calcium 7.7 mg/dL (8.4-10.2); Carbon Dioxide 23 mmol/L (22-30); Chloride 108 mmol/L (98-107); Glucose 109 mg/dL (74-99); Non-African American GFR(CKD) >90 (>60 ml/min/1.73 sqM); Potassium 3.7 mmol/L (3.5-5.1); Sodium 137 mmol/L (137-145)
--- NOTE | 2024-02-17 08:07 | P.PN ---
Subjective Progress Note Date: 02/17/24 PROGRESS NOTE The patient is a 73-year-old male who has been having progressive dyspnea and was found to have significant mitral and aortic regurgitation and chronically occlusion of his mid RCA. He underwent mitral valve repair, aortic valve replacement and single bypass to the RCA with Maze procedure and left atrial appendage closure. He had an intra-aortic balloon pump that was removed. He is feeling better, sitting up in the chair, being paced because of junctional rhythm. He has chest soreness. His breathing is stable, he ambulated. He denies any dizziness or palpitations. He is on no vasopressors. He has a known history of cardiomyopathy preintervention. Postprocedure on the DOLORES it was estimated to be 40%. February 14: The patient is doing well this morning, sitting up in the chair, denies any chest discomfort, dizziness or palpitations. He continues to be paced with atrial pacing. Hemodynamically he is stable, his milrinone was stopped this morning. He has some hematuria. February 15: The patient is feeling well this morning, he ambulated, felt tired but no significant chest discomfort. He is in sinus mechanism at a rate of 80. Hemodynamically stable. His urinary output is stable. He has no dizziness or palpitations. He has a mild cough. He is using his incentive spirometry. He has no further episodes of atrial fibrillation. February 16: The patient is feeling well, ambulating without difficulties. Continues to be in sinus mechanism. He has no significant dyspnea or chest discomfort. He denies any dizziness or palpitations. He has no nausea or vomiting. He has no evidence of atrial fibrillation or significant pauses. Medications: Aspirin, Lipitor 40 mg daily, Plavix 75 mg daily, Farxiga 10 mg daily, insulin, losartan 100 mg daily, Protonix, metoprolol 12.5 mg twice a day PHYSICAL EXAMINATION: Blood pressure 116/90 heart rate 89 LUNGS: Mild decrease in the breath sounds at the bases HEART: Regular rate and rhythm, S1, S2. No S3. Systolic ejection murmur ABDOMEN: Soft, nontender, no organomegaly EXTREMETIES: No edema LAB: Hemoglobin 8.0, BUN 17, creatinine 0.74, potassium 3.7 IMPRESSION: 1. Status post aortic valve replacement and mitral valve repair with single bypass to the RCA 2. Status post maze procedure with closure of the left atrial appendage 3. Paroxysmal atrial fibrillation, now in sinus mechanism 4. Cardiomyopathy PLAN: 1. Continue present therapy 2. Increase physical activity 3. Once temporary pacemaker removed initiate anticoagulation and stop Plavix 4. Follow blood pressure and adjust treatment as needed 5. Adjust dose of beta-jane depending on heart rate and blood pressure Objective - Vital Signs Vital signs: Vital Signs Temp 97.9 F 02/16/24 20:00 Pulse 89 02/17/24 07:00 Resp 21 02/17/24 07:00 BP 116/93 02/17/24 07:00 Pulse Ox 95 02/17/24 07:00 FiO2 40 02/12/24 11:10 Intake & Output 02/16/24 02/17/24 02/17/24 18:59 06:59 18:59 Intake Total 1216 Output Total 1050 1200 Balance 166 -1200 Weight 79 kg 79.1 kg Intake: Oral 1216 Output: Urine 1050 1200 Other: Voiding Method Urinal Urinal # Voids 1 1 ABP, PAP, CO, CI - Last Documented Arterial Blood Pressure 137/73 Pulmonary Artery Pressure 26/16 Cardiac Output 3.8 Cardiac Index 2 - Labs CBC & Chem 7: 02/17/24 06:16 02/17/24 06:16 Labs: Abnormal Lab Results - Last 24 Hours (Table) 02/16/24 02/16/24 02/17/24 Range/Units 11:59 19:52 06:16 RBC 2.50 L (4.30-5.90) m/uL Hgb 8.0 L (13.0-17.5) gm/dL Hct 25.4 L (39.0-53.0) % MCV 101.5 H (80.0-100.0) fL RDW 17.2 H (11.5-15.5) % Chloride (98-107) mmol/L Glucose (74-99) mg/dL POC Glucose (mg/dL) 118 H 178 H (70-110) mg/dL Calcium (8.4-10.2) mg/dL 02/17/24 02/17/24 Range/Units 06:16 06:27 RBC (4.30-5.90) m/uL Hgb (13.0-17.5) gm/dL Hct (39.0-53.0) % MCV (80.0-100.0) fL RDW (11.5-15.5) % Chloride 108 H (98-107) mmol/L Glucose 109 H (74-99) mg/dL POC Glucose (mg/dL) 119 H (70-110) mg/dL Calcium 7.7 L (8.4-10.2) mg/dL
[2024-02-17] MEDS: POTASSIUM BICARBONATE/CIT AC 20 MEQ TABLET.EFF PO ONE ×2 (08:59→14:17)
[2024-02-17] MEDS: FUROSEMIDE 10 MG/ML 2 ML VIAL IV STA (08:59)
--- NOTE | 2024-02-17 09:07 | P.PN ---
Subjective Progress Note Date: 02/17/24 Principal diagnosis: Severe aortic insufficiency, moderate mitral regurgitation, persistent atrial fibrillation, on Xarelto for anticoagulation, patent foramen ovale, cardiomyopathy/chronic heart failure with reduced ejection fraction, coronary artery disease. History of hypertension, hyperlipidemia, COPD, obstructive sleep apnea without home CPAP use, CVA/TIA, lifelong non-smoker POD #6 CABG x 1 with vein graft to PDA and endovascular vein harvest, aortic valve replacement with 23 mm Avalus bovine pericardial valve, mitral valve annuloplasty with 28 mm physio 2 ring, modified Valdez-Maze procedure with complete left-sided lesion sets including both RF and cryoablation and 40 mm AtriCure clip to base of left atrial appendage, closure of patent foramen ovale, right femoral transcutaneous placement of intra-aortic balloon pump The patient was seen and examined this morning with Dr. Basilio sitting up in a recliner in the intensive care unit in no acute distress. Currently sinus rhythm in the 60s to 80s. Hemodynamically stable. Patient reports mild expected postoperative pain with coughing, denies shortness of breath. He has ambulated with nursing out in the hallway several times and tolerated well. Beta-jane reinitiated last night and patient continues to tolerate. Chest x- ray, labs reviewed. No other new concerns. Objective - Vital Signs Vital signs: Vital Signs Temp 97.9 F 02/16/24 20:00 Pulse 89 02/17/24 07:00 Resp 21 02/17/24 07:00 BP 116/93 02/17/24 07:00 Pulse Ox 95 02/17/24 07:00 FiO2 40 02/12/24 11:10 Intake & Output 02/16/24 02/17/24 02/17/24 18:59 06:59 18:59 Intake Total 1216 Output Total 1050 1200 Balance 166 -1200 Weight 79 kg 79.1 kg Intake: Oral 1216 Output: Urine 1050 1200 Other: Voiding Method Urinal Urinal # Voids 1 1 ABP, PAP, CO, CI - Last Documented Arterial Blood Pressure 137/73 Pulmonary Artery Pressure 26/16 Cardiac Output 3.8 Cardiac Index 2 - Exam CONSTITUTIONAL: Appears comfortable, cooperative, no acute distress RESPIRATORY: Lungs sounds diminished bilaterally. Respirations even, nonlabored. Currently on room air with oxygen saturation 95%. Able to achieve 1500 mL on incentive spirometry. Strong cough. CARDIOVASCULAR: S1, S2 present. Regular rate and rhythm, sinus rhythm on telemetry. Sternum stable. Palpable peripheral pulses bilaterally. No edema present. No calf pain or tenderness noted. Heart hugger in place with patient demonstrating appropriate use. Antiembolism stockings, SCDs present. GASTROINTESTINAL: Abdomen soft, nontender, nondistended. Active bowel sounds present 4 quadrants. Tolerating minimal diet. Positive bowel movement 02/14 GENITOURINARY: Continues to void clear, yellow urine, output 2250 mL in the last 24 hours INTEGUMENTARY: Skin is warm and dry with evidence of good perfusion. Anterior chest incision well approximated. Left thigh EVH site well approximated without redness or drainage. Right groin soft, nontender NEUROLOGIC: Cranial nerves II through XII intact MUSKULOSKELETAL: Able to move all extremities, strength equal bilaterally PSYCHIATRIC: Alert and oriented to person place and time, appropriate affect, intact judgment and insight INVASIVE LINES AND TUBES: A/V epicardial pacemaker wires present, connected to generator, generator turned off - Allied health notes Allied health notes reviewed: nursing - Labs CBC & Chem 7: 02/17/24 06:16 02/17/24 06:16 Labs: Abnormal Lab Results - Last 24 Hours (Table) 02/16/24 02/16/24 02/17/24 Range/Units 11:59 19:52 06:16 RBC 2.50 L (4.30-5.90) m/uL Hgb 8.0 L (13.0-17.5) gm/dL Hct 25.4 L (39.0-53.0) % MCV 101.5 H (80.0-100.0) fL RDW 17.2 H (11.5-15.5) % Chloride (98-107) mmol/L Glucose (74-99) mg/dL POC Glucose (mg/dL) 118 H 178 H (70-110) mg/dL Calcium (8.4-10.2) mg/dL 02/17/24 02/17/24 Range/Units 06:16 06:27 RBC (4.30-5.90) m/uL Hgb (13.0-17.5) gm/dL Hct (39.0-53.0) % MCV (80.0-100.0) fL RDW (11.5-15.5) % Chloride 108 H (98-107) mmol/L Glucose 109 H (74-99) mg/dL POC Glucose (mg/dL) 119 H (70-110) mg/dL Calcium 7.7 L (8.4-10.2) mg/dL - Imaging and Cardiology Chest x-ray: image reviewed Assessment and Plan Assessment: Severe aortic insufficiency, status post aortic valve replacement Moderate mitral regurgitation, status post mitral valve annuloplasty Persistent atrial fibrillation, on Xarelto for anticoagulation, last dose 02/06/24, status post modified Valdez-Maze procedure with complete left-sided lesion sets including both RF and cryoablation and 40 mm AtriCure clip to base of left atrial appendage Patent foramen ovale, status post closure Cardiomyopathy/chronic heart failure with reduced ejection fraction, EF 30-35%, status post placement of intra-aortic balloon pump Coronary artery disease, status post single-vessel CABG History of hypertension Hyperlipidemia Diabetes with preoperative hemoglobin A1c 7%, on Jardiance outpatient Moderate COPD, preoperative FEV1 55% of predicted, DLCO 77% of predicted Obstructive sleep apnea without home CPAP use CVA 12 years ago Lifelong non-smoker Family history of premature coronary artery disease with father diagnosed in his 50s Plan: Continue to maximize medical therapy with low-dose aspirin, statin, beta- jane. Will increase beta-jane therapy as tolerated Continue losartan for afterload reduction Will restart anticoagulation after pacemaker wire removal today Encourage incentive spirometry use 10 times every hour while awake. Bronchodilators per pulmonology Increase activity, ambulate as tolerated. PT/OT/cardiac rehab consulted Will monitor daily labs and x-rays. Electrolyte replacement per protocol. Will give 20 mg IV push Lasix today GI/DVT prophylaxis Insulin management per internal medicine Pain control per current medication regimen Continue to record strict accurate intake and output Will discontinue epicardial pacemaker wires today, patient to remain on bedrest for 1 hour post wire removal Will place transfer orders for 3 S. cardiac stepdown unit, may transfer when bed available Likely discharge to home with home care in the morning More recommendations to follow
[2024-02-17] MEDS: ASPIRIN 81 MG PO SCH (11:03)
[2024-02-17 11:46] LABS: Glucose,Whole Blood 147 mg/dL (70-110)
[2024-02-17] MEDS ORDERED: RIVAROXABAN 15 MG TAB PO SCH (12:00)
[2024-02-17] MEDS: RIVAROXABAN 20 MG TAB PO SCH (14:18)
--- NOTE | 2024-02-17 14:47 | PN ---
PROGRESS NOTE DATE OF SERVICE: 02/14/2024 SUBJECTIVE: This is a 73-year-old gentleman, who was admitted with multiple valve surgery as well as CABG, has improved significantly. Sugars are slightly elevated. No chest pain. No palpitations. The patient is eating good at this time. Most recent chest x-ray, which I reviewed personally showed some atelectasis on exam. PAST MEDICAL HISTORY: Reviewed. MEDICATIONS: Reviewed. REVIEW OF SYSTEMS: A 14-point review is negative except as mentioned earlier. PHYSICAL EXAMINATION: VITAL SIGNS: Pulse is 80, blood pressure is 120/60, respirations 18. CHEST: A few scattered rhonchi and crackles. Chest tubes in-situ. ABDOMEN: Soft. NERVOUS SYSTEM: Nonfocal. LABORATORY DATA: Reviewed. Glucose 148, 136, 156, 131. ASSESSMENT: 1. Severe aortic insufficiency, moderate mitral and tricuspid regurgitation, status post aortic valve replacement and bovine pericardial valve and mitral valve annuloplasty. 2. Coronary artery disease, coronary artery bypass graft x1. 3. Status post modified Valdez-Maze procedure. 4. Diabetes mellitus, type 2. 5. Cardiomyopathy history. 6. History of coronary artery disease. 7. Hypertension. 8. Hyperlipidemia. RECOMMENDATIONS: Recommend to continue current management and continue symptomatic treatment. I recommend a small dose of Lantus at night 5 units and hold if Accu-Cheks less than 120. Incentive spirometry. Continue rest of the medications. We will follow. DEE DEE / ANGELN: [id number] /
--- NOTE | 2024-02-17 16:28 | P.PN ---
Subjective Progress Note Date: 02/17/24 This is a 73-year-old male who is scheduled to have aortic valve replacement, mitral valve repair, and a Valdez-Maze procedure. Apparently, the surgery will be done on February 10. He comes to the intensive care unit, for further monitoring and management. He is placed in room 251. The patient is currently on a couple liters of oxygen. He is getting saline at 20 cc an hour. He is getting amiodarone drip at 1 mg/min. The surgery will be done either today or tomorrow. The patient also has a history of atrial fibrillation. The patient apparently will be coming back to the intensive care unit, with a balloon pump. In addition to atrial fibrillation, and valvular heart disease, the patient does have a history of hypertension. Also, the patient has a history of hyperlipidemia, gastroesophageal reflux disease, CVA, and angina. Laboratory data today includes a white count 7.5, hemoglobin 13.6, hematocrit 42.8, and a platelet count of 301,000. Glucose is 103. Magnesium is 1.9. Progress note dated February 11, 2024. 73-year-old male seen in consultation yesterday. The patient has a history of valvular heart disease, and will have surgery today, with Dr. Ye. The patient is expected to have an aortic valve replacement, mitral valve replacement, possible tricuspid valve replacement, possible bypass grafting, and insertion of the intra-aortic balloon pump. Currently, the patient is on room air. In no acute distress. No new laboratory data today. Laboratory data from yesterday have been reviewed. The patient was on amiodarone, for his atrial fibrillation, but that has been discontinued. Progress note dated February 12, 2024. This is a 74-year-old male who is postoperative day #1. The patient had a one- vessel bypass grafting, aortic valve replacement, mitral valve repair, a modified Valdez-Maze procedure, closure of a patent foramen ovale, insertion of an intra-aortic balloon pump. The patient is seen today in room 267. The patient remains on mechanical ventilator. Ventilator settings include volume assist- control, rate 14, tidal volume 500, FiO2 40%, PEEP of 5. Blood gases done on the same settings, except 50%, show pO2 of 218, pCO2 of 37, and pH is 7.39. The patient is on a number of drips including epinephrine at 0.01 mcg/kg/min, saline at 50 cc an hour, amiodarone at 0.5 mcg/min, Primacor 0.3 mcg/kg/min, norepinephrine at 0.8 mcg/min, propofol at 25 mcg/kg/min, and insulin is currently on hold. White count is 9.4, hemoglobin 7.3, hematocrit 21.8, platelet count is 152,000. Sodium 134, potassium 4.5, chlorides 110, CO2 25, BUN 24, and creatinine 1.13. Glucose is 120. Calcium is 7.7. Albumin is 3.2. Chest x-ray shows some small effusion, and left lower lobe atelectasis. Progress note dated February 13, 2024. 74-year-old male, postop day #2. The patient had a one-vessel bypass surgery, aortic valve replacement, mitral valve repair, modified Valdez-Maze procedure, closure of a PFO, and insertion of an intra-aortic balloon pump. The patient was extubated yesterday. He is doing relatively well. The patient is currently on room air. He is getting insulin at 3 units an hour. He is also on Primacor 0.1 mcg/kg/min. He is getting saline at 50 cc an hour. He is not having any difficulty in his breathing. White count of 13.7, hemoglobin 8.1, hematocrit 24.7, and platelet count of 157,000. Sodium 137, potassium 4.7, chlorides 109, CO2 22, BUN 22, and creatinine 0.97. Glucose is 147. Calcium is 8. Albumin 3.4. Chest x-ray shows a left lower lobe infiltrate or atelectasis. There is cardiomegaly. On 02/14/2024, the patient is being seen for a follow-up. The patient is doing well with no specific complaints. The patient is currently postop day #3 following a coronary artery bypass surgery with single vein to PDA and aortic valve replacement and mitral valve repair. The patient remains paced at a rate of 80. The patient receiving AV pacing at a rate of 80. Underlying rhythm is junctional rhythm in the low 50s. The patient is atrially paced at rate of 80. He remains on Primacor which is running at 0.1 mcg/kg/min. His most recent cardiac index is at 1.7. The patient otherwise has no specific complaints. He is awake and alert. His right IJ [place] catheter remains in place and the patient has a mediastinal/left pleural chest tube in place. Output from the chest tube has been noted and the patient has produced approximately 120 cc of serosanguineous material from the left pleural chest tube and 110 cc over the past 24 hours from the mediastinal chest tube. No evidence of any air leak. S ubsequent cardiac output is at 4.6 with an index of 2.4. PA pressure 31/10 with a CVP of 6. Using incentive spirometer. He is pulling more than 2000. His urine output is adequate around 45 to 50 cc an hour and has produced around 1.3 L of urine output over the past 24 hours. His chest x-ray shows no acute abnormalities. [place] catheter remains in place. There are some atelectatic changes in lung base bilaterally and chest tubes are also in place with minimal amount of pleural effusion present. The patient is known to have COPD, obstructive sleep apnea without the home CPAP, previous history of CVA/TIA along with hyperlipidemia, hypertension coronary artery disease. He has a reduced preop left-ventricular ejection fraction 02/15/2024, the patient is being seen for a follow-up. Patient is doing well. No specific complaints. The patient is postop day #4 following a coronary bypass surgery and aortic valve replacement with mitral valve repair. He is using the incentive spirometer. He is still paced at a rate of 70 and the underlying rhythm is sinus bradycardia rate of 50. The patient remains hemodynamically stable. He was weaned off the Primacor and this has been discontinued. The cardiac output is at 3.8 with an index of 2. Pulmonary artery pressures of 26/16 with a CVP of around 3. All of the chest tubes have been removed this morning. The output from the chest tubes are minimal. WBC was 12.9 with a hemoglobin 7.8. BUN 23 with a creatinine of 0.8 and sodium levels at 138. Chest x-ray done this morning shows no acute abnormalities. From atelectatic changes and small effusion left lung base. Lines and catheters are in place. No other significant events overnight. Sitting up in the chair. The patient is calm and comfortable. On 02/16/2024, the patient is being seen for a follow-up. Awake and alert and communicating. No significant complaints for now. The patient is postop day #5 following aortic valve replacement of mitral valve repair and single-vessel bypass surgery with vein graft to PDA. Postop, the patient developed junctional rhythm and the patient was being paced and current cardiac rhythm is sinus. He remains off amiodarone. He remains off beta-blockers. He is on room air oxygen. Chest x-ray shows no significant abnormalities. The patient is alert and awake and communicating. Hemoglobin is at 8.1 with a white cell count of 7.2. BUN is 22 with a creatinine 0.8 and sodium levels at 139. Denies having any other complaints. No altered mentation. Remains on DuoNeb of chest. Remains on aspirin and Plavix. Remains on Farxiga. Remains on Levemir insulin 5 units daily along with NovoLog sliding scale coverage and the patient is on Cozaar 100 mg p.o. daily. 02/17/2024, the patient is being seen for a follow-up. The patient is supposed #6 following single-vessel bypass surgery, aortic valve replacement and mitral valve annuloplasty. The cardiac rhythm is sinus follow-up. The patient is on room air oxygen. Beta-blockers was restarted yesterday and the patient is currently on metoprolol 12.5 mg p.o. twice a day. The patient was also started on anticoagulation with Xarelto 20 mg p.o. daily. The patient has no other specific complaints. All of the chest tubes were removed. No nausea. No emesi s. No chest pain. No shortness of breath. Using incentive spirometer. Chest x-ray from today shows small bilateral pleural effusions. Some increased interstitial markings bilaterally. There is no evidence of any pneumothorax. The WBC count is at 9.4 with a hemoglobin of 8 and a platelet count of 281. BUN 70 and a sodium is at 137. Calcium level is at 7.7. The patient is ambulating. No other dizziness. No altered mentation. Objective - Vital Signs Vital signs: Vital Signs Temp 98.3 F 02/17/24 08:00 Pulse 95 02/17/24 09:00 Resp 20 02/17/24 09:00 BP 114/81 02/17/24 09:00 Pulse Ox 97 02/17/24 09:00 FiO2 40 02/12/24 11:10 Intake & Output 09/02/17/24 02/17/24 18:59 06:59 18:59 Intake Total 1216 320 Output Total 1050 1200 Balance 166 -1200 320 Weight 79 kg 79.1 kg Intake: Oral 1216 320 Output: Urine 1050 1200 Other: Voiding Method Urinal Urinal # Voids 1 1 1 # Bowel Movements 1 ABP, PAP, CO, CI - Last Documented Arterial Blood Pressure 137/73 Pulmonary Artery Pressure 26/16 Cardiac Output 3.8 Cardiac Index 2 - Exam CONSTITUTIONAL: Appears comfortable, cooperative, no acute distress RESPIRATORY: Lungs sounds diminished bilaterally. Respirations even, no nlabored. Currently on room air with oxygen saturation 96%. Able to achieve 1500 mL on incentive spirometry. Strong cough. CARDIOVASCULAR: S1, S2 present. Regular rate and rhythm, sinus rhythm on telemetry. Sternum stable. Palpable peripheral pulses bilaterally. No edema present. No calf pain or tenderness noted. Heart hugger in place with patient demonstrating appropriate use. Antiembolism stockings, SCDs present. GASTROINTESTINAL: Abdomen soft, nontender, nondistended. Active bowel sounds present 4 quadrants. Tolerating minimal diet. Positive bowel movement 02/13 GENITOURINARY: [place] present draining blood-tinged urine. Output 1410 mL in the last 24 hours INTEGUMENTARY: Skin is warm and dry with evidence of good perfusion. Anterior chest incision well approximated. Left thigh EVH site well approximated without redness or drainage. Right groin soft, nontender NEUROLOGIC: Cranial nerves II through XII intact MUSKULOSKELETAL: Able to move all extremities, strength equal bilaterally PSYCHIATRIC: Alert and oriented to person place and time, appropriate affect, intact judgment and insight INVASIVE LINES AND TUBES: A/V epicardial pacemaker wires present, connected to generator, generator turned off - Labs CBC & Chem 7: 02/17/24 06:16 02/17/24 06:16 Labs: Abnormal Lab Results - Last 24 Hours (Table) 02/16/24 02/16/24 02/17/24 Range/Units 11:59 19:52 06:16 RBC 2.50 L (4.30-5.90) m/uL Hgb 8.0 L (13.0-17.5) gm/dL Hct 25.4 L (39.0-53.0) % MCV 101.5 H (80.0-100.0) fL RDW 17.2 H (11.5-15.5) % Chloride (98-107) mmol/L Glucose (74-99) mg/dL POC Glucose (mg/dL) 118 H 178 H (70-110) mg/dL Calcium (8.4-10.2) mg/dL 02/17/24 02/17/24 Range/Units 06:16 06:27 RBC (4.30-5.90) m/uL Hgb (13.0-17.5) gm/dL Hct (39.0-53.0) % MCV (80.0-100.0) fL RDW (11.5-15.5) % Chloride 108 H (98-107) mmol/L Glucose 109 H (74-99) mg/dL POC Glucose (mg/dL) 119 H (70-110) mg/dL Calcium 7.7 L (8.4-10.2) mg/dL Assessment and Plan Plan: Postoperative day #6 status post one-vessel bypass, aortic valve replacement, mitral valve repair, closure of patent foramen ovale, modified Valdez-Maze procedure, and insertion of the intra-aortic balloon pump. The patient remains on milrinone for hemodynamic instability. No pressors and the patient's cardiac rhythm is back into normal sinus and patient was started on metoprolol 12.5 mg p.o. twice a day. Hemodynamically stable. Cardiac rhythm remains sinus. Routine postoperative ventilator management, with successful extubation on February 12, 2024. The patient is currently on room air oxygen. All of the chest tubes have been removed and the patient remains on room air oxygen. History of atrial fibrillation with rapid ventricular response, currently in normal sinus rhythm. History of hypertension. History of hyperlipidemia. History of CVA. History of gastroesophageal reflux disease. Lifelong non-smoker. Obstructive sleep apnea, not utilizing CPAP therapy on outpatient basis. Plan: The patient will be kept in the intensive care unit. The patient is currently on room air oxygen. Using the incentive spirometer. Started metoprolol 12.5 mg twice a day. The patient was also started on anticoagulation with Xarelto. Chest tubes have been removed Continue aspirin and Plavix has been discontinued as the patient was started on anticoagulation with Xarelto. Continue low-dose losartan 100 mg p.o. today for blood pressure control Will continue to follow. The patient will be kept in the intensive care unit.
[2024-02-17 16:44] LABS: Glucose,Whole Blood 125 mg/dL (70-110)
[2024-02-17 20:23] LABS: Glucose,Whole Blood 124 mg/dL (70-110)
[2024-02-18 04:06] LABS: African American GFR (CKD) >90 (>60 ml/min/1.73 sqM); Anion Gap 2 mmol/L; Blood Urea Nitrogen 18 mg/dL (9-20); Calcium 8.1 mg/dL (8.4-10.2); Carbon Dioxide 28 mmol/L (22-30); Chloride 108 mmol/L (98-107); Glucose 103 mg/dL (74-99); Non-African American GFR(CKD) 90 (>60 ml/min/1.73 sqM); Potassium 4.3 mmol/L (3.5-5.1); Sodium 138 mmol/L (137-145)
[2024-02-18 04:31] LABS: Anisocytosis Slight; HCT 26.4 % (39.0-53.0); HGB 8.4 gm/dL (13.0-17.5); Hypochromasia Slight; MCHC 31.9 g/dL (31.0-37.0); MCV 100.5 fL (80.0-100.0); Macrocytosis Slight; Mean Platelet Volume 7.6; Platelet Count 342 k/uL (150-450); RBC 2.63 m/uL (4.30-5.90); RDW 17.5 % (11.5-15.5); WBC 10.2 k/uL (3.8-10.6)
--- NOTE | 2024-02-18 07:49 | P.PN ---
Subjective Progress Note Date: 02/18/24 PROGRESS NOTE The patient is a 73-year-old male who has been having progressive dyspnea and was found to have significant mitral and aortic regurgitation and chronically occlusion of his mid RCA. He underwent mitral valve repair, aortic valve replacement and single bypass to the RCA with Maze procedure and left atrial appendage closure. He had an intra-aortic balloon pump that was removed. He is feeling better, sitting up in the chair, being paced because of junctional rhythm. He has chest soreness. His breathing is stable, he ambulated. He denies any dizziness or palpitations. He is on no vasopressors. He has a known history of cardiomyopathy preintervention. Postprocedure on the DOLORES it was estimated to be 40%. February 14: The patient is doing well this morning, sitting up in the chair, denies any chest discomfort, dizziness or palpitations. He continues to be paced with atrial pacing. Hemodynamically he is stable, his milrinone was stopped this morning. He has some hematuria. February 15: The patient is feeling well this morning, he ambulated, felt tired but no significant chest discomfort. He is in sinus mechanism at a rate of 80. Hemodynamically stable. His urinary output is stable. He has no dizziness or palpitations. He has a mild cough. He is using his incentive spirometry. He has no further episodes of atrial fibrillation. February 16: The patient is feeling well, ambulating without difficulties. Continues to be in sinus mechanism. He has no significant dyspnea or chest discomfort. He denies any dizziness or palpitations. He has no nausea or vomiting. He has no evidence of atrial fibrillation or significant pauses. February 17: The patient feels tired this morning but denies any anginal pain. He was mildly nauseated. He has mild dizziness. He ambulated. He has mild nausea this morning. He continues to be in sinus mechanism with no evidence of significant pauses. His chest x-ray shows small pleural effusion. Medications: Aspirin, Lipitor 40 mg daily, Farxiga 10 mg daily, insulin, losartan 100 mg daily, Protonix, metoprolol 12.5 mg twice a day, Xarelto 20 mg daily PHYSICAL EXAMINATION: Blood pressure 126/70 heart rate 76 LUNGS: Clear to auscultation HEART: Regular rate and rhythm, S1, S2. No S3. Systolic ejection murmur ABDOMEN: Soft, nontender, no organomegaly EXTREMETIES: No edema LAB: Hemoglobin 8.4, BUN 18, creatinine 0.80, potassium 4.3 IMPRESSION: 1. Status post aortic valve replacement and mitral valve repair with single bypass to the RCA 2. Status post maze procedure with closure of the left atrial appendage 3. Paroxysmal atrial fibrillation, now in sinus mechanism 4. Cardiomyopathy, no evidence of acute CHF PLAN: 1. Continue present therapy 2. Increase physical activity 3. Adjust dose of beta-jane depending on heart rate 4. Probable discharge home soon and follow-up as an outpatient Objective - Vital Signs Vital signs: Vital Signs Temp 97.6 F 02/18/24 04:00 Pulse 76 02/18/24 04:00 Resp 18 02/18/24 04:00 BP 126/72 02/18/24 04:00 Pulse Ox 95 02/18/24 04:00 FiO2 40 02/12/24 11:10 Intake & Output 02/17/24 02/18/24 02/18/24 18:59 06:59 18:59 Intake Total 1000 Output Total 2475 300 Balance -1475 -300 Weight 77.8 kg Intake: Oral 1000 Output: Urine 2475 300 Other: Voiding Method Urinal Urinal # Voids 1 # Bowel Movements 1 1 ABP, PAP, CO, CI - Last Documented Arterial Blood Pressure 137/73 Pulmonary Artery Pressure 26/16 Cardiac Output 3.8 Cardiac Index 2 - Labs CBC & Chem 7: 02/18/24 03:01 02/18/24 03:01 Labs: Abnormal Lab Results - Last 24 Hours (Table) 02/17/24 02/17/24 02/17/24 Range/Units 11:44 16:42 20:21 RBC (4.30-5.90) m/uL Hgb (13.0-17.5) gm/dL Hct (39.0-53.0) % MCV (80.0-100.0) fL RDW (11.5-15.5) % Chloride (98-107) mmol/L Glucose (74-99) mg/dL POC Glucose (mg/dL) 147 H 125 H 124 H (70-110) mg/dL Calcium (8.4-10.2) mg/dL 02/18/24 02/18/24 Range/Units 03:01 03:01 RBC 2.63 L (4.30-5.90) m/uL Hgb 8.4 L (13.0-17.5) gm/dL Hct 26.4 L (39.0-53.0) % MCV 100.5 H (80.0-100.0) fL RDW 17.5 H (11.5-15.5) % Chloride 108 H (98-107) mmol/L Glucose 103 H (74-99) mg/dL POC Glucose (mg/dL) (70-110) mg/dL Calcium 8.1 L (8.4-10.2) mg/dL
--- NOTE | 2024-02-18 09:00 | P.PN ---
Subjective Progress Note Date: 02/18/24 Principal diagnosis: Severe aortic insufficiency, moderate mitral regurgitation, persistent atrial fibrillation, on Xarelto for anticoagulation, patent foramen ovale, cardiomyopathy/chronic heart failure with reduced ejection fraction, coronary artery disease. History of hypertension, hyperlipidemia, COPD, obstructive sleep apnea without home CPAP use, CVA/TIA, lifelong non-smoker POD #7 CABG x 1 with vein graft to PDA and endovascular vein harvest, aortic valve replacement with 23 mm Avalus bovine pericardial valve, mitral valve annuloplasty with 28 mm physio 2 ring, modified Valdez-Maze procedure with complete left-sided lesion sets including both RF and cryoablation and 40 mm AtriCure clip to base of left atrial appendage, closure of patent foramen ovale, right femoral transcutaneous placement of intra-aortic balloon pump The patient was seen and examined this morning with Dr. Ye sitting up in a recliner in the intensive care unit in no acute distress. Currently sinus rhythm in the 60s to 80s. Hemodynamically stable. Patient reports mild expected postoperative pain with coughing, denies shortness of breath. He has ambulated with nursing out in the hallway several times and tolerated well. Patient states he does have periodic episodes of dizziness but this is not new, has been going on for quite some time at home. Chest x-ray, labs reviewed, ches t x-ray shows some postoperative atelectasis which is expected after surgery. Anticipates discharge to home today and states he feels ready. No other new concerns. Objective - Vital Signs Vital signs: Vital Signs Temp 98 F 02/18/24 08:00 Pulse 87 02/18/24 08:34 Resp 20 02/18/24 08:00 BP 110/86 02/18/24 08:00 Pulse Ox 97 02/18/24 08:00 FiO2 40 02/12/24 11:10 Intake & Output 02/17/24 02/18/24 02/18/24 18:59 06:59 18:59 Intake Total 1000 Output Total 2475 300 Balance -1475 -300 Weight 77.8 kg Intake: Oral 1000 Output: Urine 2475 300 Other: Voiding Method Urinal Urinal Urinal # Voids 1 1 # Bowel Movements 1 1 1 ABP, PAP, CO, CI - Last Documented Arterial Blood Pressure 137/73 Pulmonary Artery Pressure 26/16 Cardiac Output 3.8 Cardiac Index 2 - Exam CONSTITUTIONAL: Appears comfortable, cooperative, no acute distress RESPIRATORY: Lungs sounds diminished bilaterally. Respirations even, nonlabored. Currently on room air with oxygen saturation 97%. Able to achieve 1500 mL on incentive spirometry. Strong cough. CARDIOVASCULAR: S1, S2 present. Regular rate and rhythm, sinus rhythm on telemetry. Sternum stable. Palpable peripheral pulses bilaterally. No edema present. No calf pain or tenderness noted. Heart hugger in place with patient demonstrating appropriate use. Antiembolism stockings, SCDs present. GASTROINTESTINAL: Abdomen soft, nontender, nondistended. Active bowel sounds present 4 quadrants. Tolerating minimal diet. Positive bowel movement 02/17 GENITOURINARY: Continues to void clear, yellow urine, output 2775 mL in the last 24 hours INTEGUMENTARY: Skin is warm and dry with evidence of good perfusion. Anterior chest incision well approximated. Left thigh EVH site well approximated without redness or drainage. Right groin soft, nontender NEUROLOGIC: Cranial nerves II through XII intact MUSKULOSKELETAL: Able to move all extremities, strength equal bilaterally PSYCHIATRIC: Alert and oriented to person place and time, appropriate affect, intact judgment and insight - Allied health notes Allied health notes reviewed: nursing - Labs CBC & Chem 7: 02/18/24 03:01 02/18/24 03:01 Labs: Abnormal Lab Results - Last 24 Hours (Table) 02/17/24 02/17/24 02/17/24 Range/Units 11:44 16:42 20:21 RBC (4.30-5.90) m/uL Hgb (13.0-17.5) gm/dL Hct (39.0-53.0) % MCV (80.0-100.0) fL RDW (11.5-15.5) % Chloride (98-107) mmol/L Glucose (74-99) mg/dL POC Glucose (mg/dL) 147 H 125 H 124 H (70-110) mg/dL Calcium (8.4-10.2) mg/dL 02/18/24 02/18/24 Range/Units 03:01 03:01 RBC 2.63 L (4.30-5.90) m/uL Hgb 8.4 L (13.0-17.5) gm/dL Hct 26.4 L (39.0-53.0) % MCV 100.5 H (80.0-100.0) fL RDW 17.5 H (11.5-15.5) % Chloride 108 H (98-107) mmol/L Glucose 103 H (74-99) mg/dL POC Glucose (mg/dL) (70-110) mg/dL Calcium 8.1 L (8.4-10.2) mg/dL - Imaging and Cardiology Chest x-ray: image reviewed Assessment and Plan Assessment: Severe aortic insufficiency, status post aortic valve replacement Moderate mitral regurgitation, status post mitral valve annuloplasty Persistent atrial fibrillation, on Xarelto for anticoagulation, last dose 02/06/24, status post modified Valdez-Maze procedure with complete left-sided lesion sets including both RF and cryoablation and 40 mm AtriCure clip to base of left atrial appendage Patent foramen ovale, status post closure Cardiomyopathy/chronic heart failure with reduced ejection fraction, EF 30-35%, status post placement of intra-aortic balloon pump Coronary artery disease, status post single-vessel CABG History of hypertension Hyperlipidemia Diabetes with preoperative hemoglobin A1c 7%, on Jardiance outpatient Moderate COPD, preoperative FEV1 55% of predicted, DLCO 77% of predicted Obstructive sleep apnea without home CPAP use CVA 12 years ago Lifelong non-smoker Family history of premature coronary artery disease with father diagnosed in his 50s Plan: Continue to maximize medical therapy with low-dose aspirin, statin, beta- jane, Xarelto for anticoagulation Continue losartan for afterload reduction Encourage incentive spirometry use 10 times every hour while awake. Bronchodilators per pulmonology Increase activity, ambulate as tolerated. PT/OT/cardiac rehab consulted Will monitor daily labs and x-rays. Electrolyte replacement per protocol GI/DVT prophylaxis Insulin management per internal medicine Pain control per current medication regimen Continue to record strict accurate intake and output Will discharge to home with home care today More recommendations to follow
--- NOTE | 2024-02-18 09:54 | XR ---
EXAMINATION TYPE: XR chest 2V DATE OF EXAM: 02/17/2024 COMPARISON: 02/17/2024 INDICATION: Postcardiac surgery TECHNIQUE: Frontal and lateral views of the chest are obtained. FINDINGS: The heart size is prominent. The pulmonary vasculature is normal. Small left pleural effusion is present. Small right pleural effusion is present.. Sternotomy aren't cardiac valve surgery IMPRESSION: 1. Normal bilateral pleural effusions and mild cardiomegaly. [facility], , 02/18/2024 9:37 AM
--- NOTE | 2024-02-18 10:12 | P.PN ---
Subjective Progress Note Date: 02/17/24 This is a 73-year-old male who was recently admitted under cardiothoracic services for moderate to severe aortic valve insufficiency and undergoing aortic valve replacement, mitral valve repair, possible tricuspid valve repair, modified Valdez-Maze for his chronic A-fib as well as coronary bypass. Patient remains in surgery and will await official report as he was tentatively scheduled for 02/10/2024 although found to be in atrial fibrillation with RVR. Multiple consultations following and patient will be in the ICU after surgery. Patient follows with Dr. Arredondo outpatient with significant history of COPD, atrial fibrillation, severe aortic insufficiency with moderate mitral regurgitation and tricuspid regurgitation in need of surgical intervention as patient continued to be symptomatic. Patient considered high risk although persistent and adamant to proceed with surgery. Will await official surgery report and follow with consultations in the ICU. 02/15/2024 Patient is seen and evaluated in follow-up and continues to be in the ICU with multiple consultations following. Patient is status post CABG with aortic valve replacement and continues with chest tubes. Patient has been recently transition from the insulin drip to sliding scale and consistent carb diet. Would recommend low-dose long-acting at night and monitor sugars before meals and at bedtime. Blood sugars are well-controlled on current regimen recommend to continue with just sliding scale. Patient has had chest tubes removed along with indwelling Osuna catheter and due to void. . Chest x-ray today shows mild left lower lobe filtrates and/or small left pleural effusion. Swans Edin catheter and chest tubes have been removed. Patient denies shortness of breath other than minimally with exertion and currently 97% on room air. 02/16/2024 Patient is seen in follow-up today currently sitting up in the chair has had the chest tubes removed along with indwelling Osuna catheter and patient is voiding. Patient reports just prior to lunch he felt a little lightheaded and dizzy and will obtain orthostatic vitals. Blood sugars have been well-controlled on current regimen and will continue with Accu-Cheks before meals and at bedtime. Patient is afebrile with no reports of chest pains other than chest wall discomfort, denies any worsening shortness of breath and denies palpitations. Patient is up and working with physical therapy and would recommend daily 02/17/2024 Patient is seen in follow-up today currently sitting up in the chair reporting some left leg pain at the site of the vein graft and appears slightly swollen with a small hematoma noted with no drainage which is most likely to be expected. Recommend elevating lower extremities while at rest. Patient reports to feeling well otherwise and no further dizziness episodes or lightheadedness. Patient has been tolerating diet and blood sugars are well-controlled on current regimen. Patient is afebrile and has also received a dose of Lasix for some mild swelling. Follow-up on chest x-ray in the a.m. Review of systems: Constitutional: No reports of fatigue, fever, or chills Cardiovascular: No reports of chest pain or palpitations, reports of chest wall discomfort and heart hugger noted Respiratory: reports of occasional shortness of breath with exertion GI: No reports of nausea, vomiting, or diarrhea : No reports of dysuria or retention Neurovascular: reports of generalized weakness All medications have been reviewed PHYSICAL EXAMINATION: GENERAL: The patient is alert and oriented x4, Well developed, well nourished. HEENT: Pupils are round and equally reacting to light. EOMI. no scleral icterus. No conjunctival pallor. Normocephalic, atraumatic. No pharyngeal erythema. No thyromegaly. CARDIOVASCULAR: S1 and S2 muffled PULMONARY: diminished breath sounds bilaterally with no wheezing, or rhonchi noted. ABDOMEN: soft. Nontender on exam. non-distended, normoactive bowel sounds. No palpable organomegaly. MUSCULOSKELETAL: No joint swelling or deformity. EXTREMITIES: No cyanosis, clubbing, or pedal edema. Left inner thigh vein graft site with a mild hematoma and swelling noted, suture is intact with dried blood crusted and no active bleeding or draining noted. NEUROLOGICAL: Gross neurological examination did not reveal any focal deficits. SKIN: No rashes. Assessment: Severe aortic insufficiency, moderate mitral and tricuspid regurgitation, status post aortic valve replacement with bovine pericardial valve and mitral valve annuloplasty, coronary artery bypass graft x 1 with posterior descending artery and endovascular vein harvest Persistent atrial fibrillation history, acute atrial fibrillation with RVR prior to surgery, currently rate controlled History of cardiomyopathy History of coronary artery disease Status post modified Valdez-Maze procedure History of hypertension History of hyperlipidemia Chronic obstructive pulmonary disease history History of degenerative joint disease History of diabetes, hemoglobin A1c is 7 in preoperative testing, takes Jardiance at home History of CVA GI prophylaxis DVT prophylaxis Full code Plan: Recommend to continue with current medications and management per CT surgery services. Continue monitoring Accu-Cheks before meals and at bedtime and 2 AM and will continue low-dose long-acting insulin at night although blood sugars have been in the 80s and 90s, recommend to use sliding scale and hold on long-acting at night unless blood sugars are consistently above 200 Encouraged incentive spirometer use at least 10 times every hour while awake Recommend PT/OT therapy and increased activity with frequent walks throughout the day Plans for moving out of the ICU in the next day once a bed is available on 3 S. We will continue to follow with CT surgery during hospitalization. Thank you kindly for this consultation. The impression and plan of care has been dictated by Charmaine Stover, nurse practitioner as directed. Dr. Nakita MD I have performed a history and examination and MDM of this patient, discussed the same with the dictator, and agree with the dictator's assessment and plan as written ,documented as a scribe. Based on total visit time, I have performed more than 50% of the visit. Any additional findings or plans will be noted. Objective - Vital Signs Vital signs: Vital Signs Temp 98 F 02/18/24 08:00 Pulse 87 02/18/24 08:34 Resp 20 02/18/24 08:00 BP 110/86 02/18/24 08:00 Pulse Ox 97 02/18/24 08:00 FiO2 40 02/12/24 11:10 Intake & Output 02/17/24 02/18/24 02/18/24 18:59 06:59 18:59 Intake Total 1000 Output Total 2475 300 Balance -1475 -300 Weight 77.8 kg Intake: Oral 1000 Output: Urine 2475 300 Other: Voiding Method Urinal Urinal Urinal # Voids 1 1 # Bowel Movements 1 1 1 ABP, PAP, CO, CI - Last Documented Arterial Blood Pressure 137/73 Pulmonary Artery Pressure 26/16 Cardiac Output 3.8 Cardiac Index 2 - Labs CBC & Chem 7: 02/18/24 03:01 02/18/24 03:01 Labs: Abnormal Lab Results - Last 24 Hours (Table) 02/17/24 02/17/24 02/17/24 Range/Units 11:44 16:42 20:21 RBC (4.30-5.90) m/uL Hgb (13.0-17.5) gm/dL Hct (39.0-53.0) % MCV (80.0-100.0) fL RDW (11.5-15.5) % Chloride (98-107) mmol/L Glucose (74-99) mg/dL POC Glucose (mg/dL) 147 H 125 H 124 H (70-110) mg/dL Calcium (8.4-10.2) mg/dL 02/18/24 02/18/24 Range/Units 03:01 03:01 RBC 2.63 L (4.30-5.90) m/uL Hgb 8.4 L (13.0-17.5) gm/dL Hct 26.4 L (39.0-53.0) % MCV 100.5 H (80.0-100.0) fL RDW 17.5 H (11.5-15.5) % Chloride 108 H (98-107) mmol/L Glucose 103 H (74-99) mg/dL POC Glucose (mg/dL) (70-110) mg/dL Calcium 8.1 L (8.4-10.2) mg/dL
[2024-02-18 11:26] LABS: Glucose,Whole Blood 98 mg/dL (70-110)
--- NOTE | 2024-02-18 12:00 | P.DS ---
Providers Date of admission: 02/10/24 05:54 Expected date of discharge: 02/18/24 Attending physician: Kee Ye Consults: 02/10/24 08:22 Consult Physician Stat Consulting Provider: Ian Garcia Consult Reason/Comments: preop open heart Do you want consulting provider notified?: Already Contacted 02/10/24 09:35 Consult Physician Routine Consulting Provider: Jai Moeller Consult Reason/Comments: pre open heart: Sarah patient Do you want consulting provider notified?: Yes 02/10/24 09:37 Consult Physician Routine Consulting Provider: Eugenio Mace Consult Reason/Comments: med mgmt; Arnulfo patient Do you want consulting provider notified?: Yes 02/10/24 13:49 Consult to Anesthesia Routine Consulting Provider: Anesthesia,Services Consult Reason/Comments: Cardiac Surgery Pre-Op Primary care physician: Rosibel Arredondo Hospital Course: FINAL DIAGNOSIS: Severe aortic insufficiency Moderate mitral regurgitation Persistent atrial fibrillation, on Xarelto for anticoagulation Patent foramen ovale Cardiomyopathy/chronic heart failure with reduced ejection fraction, EF 30-35% Coronary artery disease History of hypertension Hyperlipidemia Diabetes with preoperative hemoglobin A1c 7%, on Jardiance outpatient Moderate COPD, preoperative FEV1 55% of predicted, DLCO 77% of predicted Obstructive sleep apnea without home CPAP use CVA 12 years ago Lifelong non-smoker Family history of premature coronary artery disease with father diagnosed in his 50s PRINCIPAL PROCEDURE: CABG x 1 with vein graft to PDA and endovascular vein harvest Aortic valve replacement with 23 mm Avalus bovine pericardial valve Mitral valve annuloplasty with 28 mm physio 2 ring Modified Valdez-Maze procedure with complete left-sided lesion sets including both RF and cryoablation and 40 mm AtriCure clip to base of left atrial appendage Closure of patent foramen ovale Right femoral transcutaneous placement of intra-aortic balloon pump HISTORY OF PRESENT ILLNESS: This is a 73-year-old gentleman who follows outpatient with Dr. Arredondo for primary care and Dr. Smith for cardiology. He has been coming increasingly fatigued and dyspneic to the point where he really could not do much at all. He was evaluated by Dr. Smith with echocardiogram and heart catheterization. Echo demonstrated reduced ejection fraction around 32%, global hypokinesis with severe inferobasilar akinesis, moderate aortic sufficiency with moderate to severe mitral insufficiency and moderate tricuspid insufficiency. Heart catheterization demonstrated occlusion of the right coronary artery with filling of the PDA by [id number] collaterals, large acute marginal branch that fills from the occluded right coronary artery and mild disease of the left sided vessels. Of note the patient has had stenting to the RCA in the past. For further evaluation the patient underwent DOLORES confirming presence of 3+ mitral regurgitation, 3+ aortic insufficiency, as well as moderate tricuspid regurgitation with diminished left ventricular systolic function and right ventricular function. The patient was seen by Dr. Ye in the office on January 20, 2024. He was recommended to undergo aortic valve replacement, mitral valve repair, possible tricuspid valve repair, modified Valdez- Maze for his chronic atrial fibrillation, as well as coronary bypass. At that time it was explained to the patient that he would be considered very high risk and he may take some time to think about it, at which time the patient was adamant he wanted surgery. He did have to obtain dental clearance and then would be scheduled for surgery electively. Unfortunately not long after the patient did present to the emergency room at [facility] with heart failure symptoms and rapid atrial ventricular response. He was treated and released, obtained dental clearance and presented back to [facility] for elective surgery this morning February 10, 2024. Again he was found to be in rapid atrial fibrillation and surgery was postponed until 02/11/24 to try and gain control of his heart rate. HOSPITAL COURSE: The patient was brought to the preoperative area 02/11/24, prepared in the usual fashion, and subsequently taken to the operating room where Dr. Ye performed aortic valve replacement, mitral valve repair, single-vessel CABG, closure of patent foramen ovale, modified Valdez-Maze, and placement of intra-aortic balloon pump. Upon completion of surgery the patient was transferred to the cardiovascular intensive care unit where he was recovered and monitored hemodynamically. He was extubated, all lines, tubes, and drips were discontinued when appropriate, and transfer orders were placed for 3 S. cardiac stepdown unit, however there was no bed availability and the patient remained on ICU as a stepdown patient until discharge. His oxygen was titrated down, he continued to work with physical and occupational therapy, he was tolerating oral diet, his pain was controlled, and he was ready to be discharged to home with [facility] on [facility] day [facility]7. He received written and verbal instruction regarding his medications, activity restrictions, signs and symptoms requiring physician notification, and follow-up appointments. Patient Condition at Discharge: Stable Plan - Discharge Summary Discharge Rx Participant: No New Discharge Prescriptions: New Atorvastatin [Lipitor] 40 mg PO DAILY #30 tab Metoprolol Tartrate [Lopressor] 12.5 mg PO BID #60 tab Sennosides-Docusate Sodium [Senokot-S] 2 each PO HS PRN tab PRN Reason: Constipation Acetaminophen Tab [Tylenol] 650 mg PO Q4HR PRN tab PRN Reason: Fever And/ Or Pain Rivaroxaban [Xarelto] 20 mg PO W/SUPPER #30 tab Aspirin 81 mg PO DAILY #30 tab Pantoprazole [Protonix] 40 mg PO AC-BRKFST #30 tab Continue Furosemide [Lasix] 40 mg PO DAILY Albuterol Nebulized [Ventolin Nebulized] 2.5 mg INHALATION QID PRN PRN Reason: Shortness Of Breath Empagliflozin [Jardiance] 10 mg PO DAILY Evolocumab [Repatha Sureclick] 0 mg SQ Q14D Changed Losartan [Cozaar] 100 mg PO DAILY #30 tab Discontinued Metoprolol Succinate (ER) [Toprol Xl] 50 mg PO BID Rivaroxaban [Xarelto] 15 mg PO DAILY Nitroglycerin Sl Tabs [Nitrostat] 0.4 mg SUBLINGUAL Q5M PRN PRN Reason: Chest Pain Diltiazem Cd [Cardizem CD] 240 mg PO HS Discharge Medication List Albuterol Nebulized [Ventolin Nebulized] 2.5 mg INHALATION QID PRN 02/07/24 [History] Empagliflozin [Jardiance] 10 mg PO DAILY 02/07/24 [History] Evolocumab [Repatha Sureclick] 0 mg SQ Q14D 02/07/24 [History] Furosemide [Lasix] 40 mg PO DAILY 02/07/24 [History] Acetaminophen Tab [Tylenol] 650 mg PO Q4HR PRN tab 02/18/24 [Rx] Aspirin 81 mg PO DAILY #30 tab 02/18/24 [Rx] Atorvastatin [Lipitor] 40 mg PO DAILY #30 tab 02/18/24 [Rx] Losartan [Cozaar] 100 mg PO DAILY #30 tab 02/18/24 [Rx] Metoprolol Tartrate [Lopressor] 12.5 mg PO BID #60 tab 09/27/24 [Rx] Pantoprazole [Protonix] 40 mg PO AC-BRKFST #30 tab 02/18/24 [Rx] Rivaroxaban [Xarelto] 20 mg PO W/SUPPER #30 tab 02/18/24 [Rx] Sennosides-Docusate Sodium [Senokot-S] 2 each PO HS PRN tab 02/18/24 [Rx] Follow up Appointment(s)/Referral(s): Yani Macedo MD [STAFF PHYSICIAN] - 03/07/24 8:30 am Arianne Connell NPC [Nurse Practitioner] - 02/25/24 12:00 pm (You will be seen in the surgeon's office behind the hospital in [facility], [address] Office phone number is ) Judy Smith MD [STAFF PHYSICIAN] - 02/28/24 3:00 pm [facility],Card[facility] [NON-STAFF] - 4 Weeks (You will receive a phone call in approximately 4-6 weeks for evaluation for cardiac rehab) Kee Ye MD [STAFF PHYSICIAN] - 03/09/24 2:15 pm [facility] [NON-STAFF] - As Needed (HOME CARE SHOULD CONTACT YOU AND SEE YOU ON 02.18.24) Rosibel Arredondo MD [Primary Care Provider] - 1 Week (please call for appointment- office is closed on Fridays) Ambulatory/Diagnostic Orders: Complete Blood Count w/diff [LAB.AMB] Time Frame: 3 Days, Location: None Selected Comprehensive Metabolic Panel [LAB.AMB] Time Frame: 3 Days, Location: None Selected Activity/Diet/Wound Care/Special Instructions: DISCHARGE INSTRUCTIONS: 1. No driving for 4 weeks, or until physician gives their ok. 2. The patient should sleep in their own bed, no medical bed needed. 3. Stairs are not an issue. If the bedroom is upstairs, it is advised that the patient go up at night and down in the morning for the first week. Go slowly, using handrail and take 1 step at a time. 4. JAGDEEP hose are to be worn for 30 days post surgery or until physician discontinues. 5. Heart hugger is to be worn 100% of the time until physician discontinues.(except when showering) 6. No lifting, pushing, or pulling more than 10 pounds for 12 weeks. The physician will advise of any restriction changes. 7. The patient is expected to continue the prescribed walking program. 8. Continue pain control per as needed orders. 9. Continue with incentive spirometry and splinting/heart hugger until otherwise directed by the physician. 10. Must shower daily using liquid antibacterial soap 11. Routine sternal incision care. No powders, lotions, ointments on incisions. No dressings are necessary on incisions unless they are draining. Dermabond tape is to remain on sternal incision until surgeon follow-up. 12. Please call surgeon/REGULATORY COMPLIANCE SPECIALIST for temp greater than 101 F or purulent drainage from incisions. 13. You should weigh yourself daily, record and bring log with you to follow up appointments. 14. All prescriptions given by surgeon for 30 days. Refills need to be filled through tobacco sampler/primary care physician. 15. A Red armband has been placed on the patient. It should be worn for 30 days post discharge from surgery and will be removed by the cardiac surgeons. If an ER visit is necessary, please make sure the number on the Red armband is called before going to ER. 16. You have been referred to and are expected to begin Cardiac Rehab in approximately 4-6 weeks. 17. Quitting smoking is the most important step you can take to improve your health. For additional information and assistance to quit smoking, please call the [place] tobacco quit line (2-176-SMNA-NOW/ ) or online: [email or web address] HEALTH SERVICES TO PROVIDE: RN SKILLED HOME CARE SERVICES FOR POST-OP SURGICAL PATIENTS WITH THE FOLLOWING: Coronary Artery Bypass Surgery (CABG), Mitral Valve Replacement/Repair ( MVR), Aortic Valve Replacement/Repair (AVR) RN TO CONTINUE EDUCATION FROM ``ROAD TO A HEALTH HEART PATIENT EDUCATION MANUAL (GIVEN TO PATIENT IN THE HOSPITAL) MEDICATION RECONCILIATION WITH EDUCATION NEEDED ON FIRST HOME VISIT EMPHASIZE IMPORTANCE OF WEARING BREAST SUPPORT/HEART HUGGER ENCOURAGE USE OF INCENTIVE SPIROMETER 10 X EVERY HOUR WHILE AWAKE ENCOURAGE UTILIZATION OF LOWER EXTREMITY COMPRESSION STOCKINGS/JAGDEEP HOSE and ELEVATE LEGS ABOVE LEVEL OF HEART WHILE AT REST. ENCOURAGE AMBULATION 3-5x/day INCREASING TOLERATES, WHILE AVOIDING EXTREMES IN TEMPERATURE FREQUENCY: RN TO OPEN THE PATIENT WITHIN 24 HOURS OF DISCHARGE FROM THE HOSPITAL WITH TELEHEALTH INSTALLED AT [facility] – [place], [place], RN TO VISIT 2-3 X A WEEK FOR 4 WEEKS ESTABLISHED BY PATIENT NEEDS. LABORATORY: CBC, CMP TO BE DRAWN ON THE THIRD DAY HOME, (RAN STAT) FAX RESULTS TO [phone]. TELEHEALTH PARAMETERS: WEIGHT: NOTIFY MD OF WEIGHT GAIN OF 2 LBS IN 24 HOURS OR 5 LBS IN ONE WEEK HR: NOTIFY MD OF HR <55 BPM OR HR>100 BPM BP: NOTIFY MD IF BP <90/55 OR BP>140/100 O2 SAT: NOTIFY MD IF PO2<93% ON ROOM AIR SEND TELEHEALTH REPORT TO JACQUARD LOOM FIXER AND CARDIOVASCULAR SURGEON THE FIRST WEEK OF CARE AND THEN BI-WEEKLY. PLEASE ADDITIONALLY COMMUNICATE ANY ABNORMALS AND NEW FINDINGS TO THE SURGEONS OFFICE.
--- NOTE | 2024-02-18 13:50 | P.PN ---
Subjective Progress Note Date: 02/18/24 This is a 73-year-old male who is scheduled to have aortic valve replacement, mitral valve repair, and a Valdez-Maze procedure. Apparently, the surgery will be done on February 10. He comes to the intensive care unit, for further monitoring and management. He is placed in room 251. The patient is currently on a couple liters of oxygen. He is getting saline at 20 cc an hour. He is getting amiodarone drip at 1 mg/min. The surgery will be done either today or tomorrow. The patient also has a history of atrial fibrillation. The patient apparently will be coming back to the intensive care unit, with a balloon pump. In addition to atrial fibrillation, and valvular heart disease, the patient does have a history of hypertension. Also, the patient has a history of hyperlipidemia, gastroesophageal reflux disease, CVA, and angina. Laboratory data today includes a white count 7.5, hemoglobin 13.6, hematocrit 42.8, and a platelet count of 301,000. Glucose is 103. Magnesium is 1.9. Progress note dated February 11, 2024. 73-year-old male seen in consultation yesterday. The patient has a history of valvular heart disease, and will have surgery today, with Dr. Ye. The patient is expected to have an aortic valve replacement, mitral valve replacement, possible tricuspid valve replacement, possible bypass grafting, and insertion of the intra-aortic balloon pump. Currently, the patient is on room air. In no acute distress. No new laboratory data today. Laboratory data from yesterday have been reviewed. The patient was on amiodarone, for his atrial fibrillation, but that has been discontinued. Progress note dated February 12, 2024. This is a 74-year-old male who is postoperative day #1. The patient had a one- vessel bypass grafting, aortic valve replacement, mitral valve repair, a modified Valdez-Maze procedure, closure of a patent foramen ovale, insertion of an intra-aortic balloon pump. The patient is seen today in room 267. The patient remains on mechanical ventilator. Ventilator settings include volume assist- control, rate 14, tidal volume 500, FiO2 40%, PEEP of 5. Blood gases done on the same settings, except 50%, show pO2 of 218, pCO2 of 37, and pH is 7.39. The patient is on a number of drips including epinephrine at 0.01 mcg/kg/min, saline at 50 cc an hour, amiodarone at 0.5 mcg/min, Primacor 0.3 mcg/kg/min, norepinephrine at 0.8 mcg/min, propofol at 25 mcg/kg/min, and insulin is currently on hold. White count is 9.4, hemoglobin 7.3, hematocrit 21.8, platelet count is 152,000. Sodium 134, potassium 4.5, chlorides 110, CO2 25, BUN 24, and creatinine 1.13. Glucose is 120. Calcium is 7.7. Albumin is 3.2. Chest x-ray shows some small effusion, and left lower lobe atelectasis. Progress note dated February 13, 2024. 74-year-old male, postop day #2. The patient had a one-vessel bypass surgery, aortic valve replacement, mitral valve repair, modified Valdez-Maze procedure, closure of a PFO, and insertion of an intra-aortic balloon pump. The patient was extubated yesterday. He is doing relatively well. The patient is currently on room air. He is getting insulin at 3 units an hour. He is also on Primacor 0.1 mcg/kg/min. He is getting saline at 50 cc an hour. He is not having any difficulty in his breathing. White count of 13.7, hemoglobin 8.1, hematocrit 24.7, and platelet count of 157,000. Sodium 137, potassium 4.7, chlorides 109, CO2 22, BUN 22, and creatinine 0.97. Glucose is 147. Calcium is 8. Albumin 3.4. Chest x-ray shows a left lower lobe infiltrate or atelectasis. There is cardiomegaly. On 02/14/2024, the patient is being seen for a follow-up. The patient is doing well with no specific complaints. The patient is currently postop day #3 following a coronary artery bypass surgery with single vein to PDA and aortic valve replacement and mitral valve repair. The patient remains paced at a rate of 80. The patient receiving AV pacing at a rate of 80. Underlying rhythm is junctional rhythm in the low 50s. The patient is atrially paced at rate of 80. He remains on Primacor which is running at 0.1 mcg/kg/min. His most recent cardiac index is at 1.7. The patient otherwise has no specific complaints. He is awake and alert. His right IJ [place] catheter remains in place and the patient has a mediastinal/left pleural chest tube in place. Output from the chest tube has been noted and the patient has produced approximately 120 cc of serosanguineous material from the left pleural chest tube and 110 cc over the past 24 hours from the mediastinal chest tube. No evidence of any air leak. S ubsequent cardiac output is at 4.6 with an index of 2.4. PA pressure 31/10 with a CVP of 6. Using incentive spirometer. He is pulling more than 2000. His urine output is adequate around 45 to 50 cc an hour and has produced around 1.3 L of urine output over the past 24 hours. His chest x-ray shows no acute abnormalities. [place] catheter remains in place. There are some atelectatic changes in lung base bilaterally and chest tubes are also in place with minimal amount of pleural effusion present. The patient is known to have COPD, obstructive sleep apnea without the home CPAP, previous history of CVA/TIA along with hyperlipidemia, hypertension coronary artery disease. He has a reduced preop left-ventricular ejection fraction 02/15/2024, the patient is being seen for a follow-up. Patient is doing well. No specific complaints. The patient is postop day #4 following a coronary bypass surgery and aortic valve replacement with mitral valve repair. He is using the incentive spirometer. He is still paced at a rate of 70 and the underlying rhythm is sinus bradycardia rate of 50. The patient remains hemodynamically stable. He was weaned off the Primacor and this has been discontinued. The cardiac output is at 3.8 with an index of 2. Pulmonary artery pressures of 26/16 with a CVP of around 3. All of the chest tubes have been removed this morning. The output from the chest tubes are minimal. WBC was 12.9 with a hemoglobin 7.8. BUN 23 with a creatinine of 0.8 and sodium levels at 138. Chest x-ray done this morning shows no acute abnormalities. From atelectatic changes and small effusion left lung base. Lines and catheters are in place. No other significant events overnight. Sitting up in the chair. The patient is calm and comfortable. On 02/16/2024, the patient is being seen for a follow-up. Awake and alert and communicating. No significant complaints for now. The patient is postop day #5 following aortic valve replacement of mitral valve repair and single-vessel bypass surgery with vein graft to PDA. Postop, the patient developed junctional rhythm and the patient was being paced and current cardiac rhythm is sinus. He remains off amiodarone. He remains off beta-blockers. He is on room air oxygen. Chest x-ray shows no significant abnormalities. The patient is alert and awake and communicating. Hemoglobin is at 8.1 with a white cell count of 7.2. BUN is 22 with a creatinine 0.8 and sodium levels at 139. Denies having any other complaints. No altered mentation. Remains on DuoNeb of chest. Remains on aspirin and Plavix. Remains on Farxiga. Remains on Levemir insulin 5 units daily along with NovoLog sliding scale coverage and the patient is on Cozaar 100 mg p.o. daily. 02/17/2024, the patient is being seen for a follow-up. The patient is supposed #6 following single-vessel bypass surgery, aortic valve replacement and mitral valve annuloplasty. The cardiac rhythm is sinus follow-up. The patient is on room air oxygen. Beta-blockers was restarted yesterday and the patient is currently on metoprolol 12.5 mg p.o. twice a day. The patient was also started on anticoagulation with Xarelto 20 mg p.o. daily. The patient has no other specific complaints. All of the chest tubes were removed. No nausea. No emesi s. No chest pain. No shortness of breath. Using incentive spirometer. Chest x-ray from today shows small bilateral pleural effusions. Some increased interstitial markings bilaterally. There is no evidence of any pneumothorax. The WBC count is at 9.4 with a hemoglobin of 8 and a platelet count of 281. BUN 70 and a sodium is at 137. Calcium level is at 7.7. The patient is ambulating. No other dizziness. No altered mentation. On 02/18/2024, seen the patient for a follow-up. The patient is doing well. No specific complaints. The patient is ambulating. Cardiac rhythm is sinus. The patient was started on beta-blockers. The chest x-ray from today shows no acute abnormalities. The white cell count is at 10 with a hemoglobin of 8.4 and a platelet count of 342. BUN is 18 with a creatinine of 0.8 and sodium levels at 138. The patient is on Lipitor 40 mg p.o. daily. The patient is also on metoprolol at a dose of 12.5 mg twice daily. He remains on anticoagulation with Xarelto. Cozaar for blood pressure control and Levemir insulin 5 units in combination with Farxiga. He is having adequate bowel movements. The plan is to discharge patient home today. No other significant events overnight. Clinically and hemodynamically stable. Objective - Vital Signs Vital signs: Vital Signs Temp 98 F 02/18/24 08:00 Pulse 87 02/18/24 08:34 Resp 20 02/18/24 08:00 BP 110/86 02/18/24 08:00 Pulse Ox 97 02/18/24 08:00 FiO2 40 02/12/24 11:10 Intake & Output 02/17/24 02/18/24 02/18/24 18:59 06:59 18:59 Intake Total 1000 Output Total 2475 300 Balance -1475 -300 Weight 77.8 kg Intake: Oral 1000 Output: Urine 2475 300 Other: Voiding Method Urinal Urinal Urinal # Voids 1 1 # Bowel Movements 1 1 1 ABP, PAP, CO, CI - Last Documented Arterial Blood Pressure 137/73 Pulmonary Artery Pressure 26/16 Cardiac Output 3.8 Cardiac Index 2 - Exam CONSTITUTIONAL: Appears comfortable, cooperative, no acute distress RESPIRATORY: Lungs sounds diminished bilaterally. Respirations even, nonlabored. Currently on room air with oxygen saturation 96%. Able to achieve 1500 mL on incentive spirometry. Strong cough. CARDIOVASCULAR: S1, S2 present. Regular rate and rhythm, sinus rhythm on telemetry. Sternum stable. Palpable peripheral pulses bilaterally. No edema present. No calf pain or tenderness noted. Heart hugger in place with patient demonstrating appropriate use. Antiembolism stockings, SCDs present. GASTROINTESTINAL: Abdomen soft, nontender, nondistended. Active bowel sounds present 4 quadrants. Tolerating minimal diet. Positive bowel movement 02/13 GENITOURINARY: Osuna present draining blood-tinged urine. Output 1410 mL in the last 24 hours INTEGUMENTARY: Skin is warm and dry with evidence of good perfusion. Anterior chest incision well approximated. Left thigh EVH site well approximated without redness or drainage. Right groin soft, nontender NEUROLOGIC: Cranial nerves II through XII intact MUSKULOSKELETAL: Able to move all extremities, strength equal bilaterally PSYCHIATRIC: Alert and oriented to person place and time, appropriate affect, intact judgment and insight INVASIVE LINES AND TUBES: A/V epicardial pacemaker wires present, connected to generator, generator turned off - Labs CBC & Chem 7: 02/18/24 03:01 02/18/24 03:01 Labs: Abnormal Lab Results - Last 24 Hours (Table) 02/17/24 02/17/24 02/17/24 Range/Units 11:44 16:42 20:21 RBC (4.30-5.90) m/uL Hgb (13.0-17.5) gm/dL Hct (39.0-53.0) % MCV (80.0-100.0) fL RDW (11.5-15.5) % Chloride (98-107) mmol/L Glucose (74-99) mg/dL POC Glucose (mg/dL) 147 H 125 H 124 H (70-110) mg/dL Calcium (8.4-10.2) mg/dL 02/18/24 02/18/24 Range/Units 03:01 03:01 RBC 2.63 L (4.30-5.90) m/uL Hgb 8.4 L (13.0-17.5) gm/dL Hct 26.4 L (39.0-53.0) % MCV 100.5 H (80.0-100.0) fL RDW 17.5 H (11.5-15.5) % Chloride 108 H (98-107) mmol/L Glucose 103 H (74-99) mg/dL POC Glucose (mg/dL) (70-110) mg/dL Calcium 8.1 L (8.4-10.2) mg/dL Assessment and Plan Plan: Postoperative day # 7, status post one-vessel bypass, aortic valve replacement, mitral valve repair, closure of patent foramen ovale, modified Valdez-Maze procedure, and insertion of the intra-aortic balloon pump. The patient remains on milrinone for hemodynamic instability. No pressors and the patient's cardiac rhythm is back into normal sinus and patient was started on metoprolol 12.5 mg p.o. twice a day. Hemodynamically stable. Cardiac rhythm remains sinus. Routine postoperative ventilator management, with successful extubation on February 12, 2024. The patient is currently on room air oxygen. All of the chest tubes have been removed and the patient remains on room air oxygen. History of atrial fibrillation with rapid ventricular response, currently in normal sinus rhythm. History of hypertension. History of hyperlipidemia. History of CVA. History of gastroesophageal reflux disease. Lifelong non-smoker. Obstructive sleep apnea, not utilizing CPAP therapy on outpatient basis. Plan: Encouraged use of incentive spirometer. The patient is ambulating. The patient be able to get discharged home today. Continue metoprolol 12.5 mg twice a day. The patient was also started on anticoagulation with Xarelto. Continue aspirin and Plavix has been discontinued as the patient was started on anticoagulation with Xarelto. Continue low-dose losartan 100 mg p.o. today for blood pressure control Levemir insulin combination with Farxiga Cleared for discharge from pulmonary standpoint
--- NOTE | 2024-02-18 14:55 | P.PN ---
Subjective Progress Note Date: 02/18/24 This is a 73-year-old male who was recently admitted under cardiothoracic services for moderate to severe aortic valve insufficiency and undergoing aortic valve replacement, mitral valve repair, possible tricuspid valve repair, modified Valdez-Maze for his chronic A-fib as well as coronary bypass. Patient r emains in surgery and will await official report as he was tentatively scheduled for 02/10/2024 although found to be in atrial fibrillation with RVR. Multiple consultations following and patient will be in the ICU after surgery. Patient follows with Dr. Arredondo outpatient with significant history of COPD, atrial fibrillation, severe aortic insufficiency with moderate mitral regurgitation and tricuspid regurgitation in need of surgical intervention as patient continued to be symptomatic. Patient considered high risk although persistent and adamant to proceed with surgery. Will await official surgery report and follow with consultations in the ICU. 02/15/2024 Patient is seen and evaluated in follow-up and continues to be in the ICU with multiple consultations following. Patient is status post CABG with aortic valve replacement and continues with chest tubes. Patient has been recently tr ansition from the insulin drip to sliding scale and consistent carb diet. Would recommend low-dose long-acting at night and monitor sugars before meals and at bedtime. Blood sugars are well-controlled on current regimen recommend to continue with just sliding scale. Patient has had chest tubes removed along with indwelling Osuna catheter and due to void. . Chest x-ray today shows mild left lower lobe filtrates and/or small left pleural effusion. [place] catheter and chest tubes have been removed. Patient denies shortness of breath other than minimally with exertion and currently 97% on room air. 02/16/2024 Patient is seen in follow-up today currently sitting up in the chair has had the chest tubes removed along with indwelling Osuna catheter and patient is voiding. Patient reports just prior to lunch he felt a little lightheaded and dizzy and will obtain orthostatic vitals. Blood sugars have been well-controlled on current regimen and will continue with Accu-Cheks before meals and at bedtime. Patient is afebrile with no reports of chest pains other than chest wall discomfort, denies any worsening shortness of breath and denies palpitations. Patient is up and working with physical therapy and would recommend daily 02/17/2024 Patient is seen in follow-up today currently sitting up in the chair reporting some left leg pain at the site of the vein graft and appears slightly swollen with a small hematoma noted with no drainage which is most likely to be expected. Recommend elevating lower extremities while at rest. Patient reports to feeling well otherwise and no further dizziness episodes or lightheadedness. Patient has been tolerating diet and blood sugars are well-controlled on current regimen. Patient is afebrile and has also received a dose of Lasix for some mild swelling. Follow-up on chest x-ray in the a.m. 02/18/2024 Patient is evaluated in follow-up in the intensive care unit. Patient has been cleared by cardiothoracic and will be discharging home today. Chest x-ray today reveals normal bilateral pleural effusions and mild cardiomegaly. Blood work today reveals a white blood cell count of 10.2, hemoglobin 8.4, sodium of 138, potassium of 4.3, BUN of 18, creatinine of 0.80. Review of systems: Constitutional: No reports of fatigue, fever, or chills Cardiovascular: No reports of chest pain or palpitations, reports of chest wall discomfort and heart hugger noted Respiratory: reports of occasional shortness of breath with exertion GI: No reports of nausea, vomiting, or diarrhea : No reports of dysuria or retention Neurovascular: reports of generalized weakness All medications have been reviewed PHYSICAL EXAMINATION: GENERAL: The patient is alert and oriented x4, Well developed, well nourished. HEENT: Pupils are round and equally reacting to light. EOMI. no scleral icterus. No conjunctival pallor. Normocephalic, atraumatic. No pharyngeal erythema. No thyromegaly. CARDIOVASCULAR: S1 and S2 muffled PULMONARY: diminished breath sounds bilaterally with no wheezing, or rhonchi noted. ABDOMEN: soft. Nontender on exam. non-distended, normoactive bowel sounds. No palpable organomegaly. MUSCULOSKELETAL: No joint swelling or deformity. EXTREMITIES: No cyanosis, clubbing, or pedal edema. Left inner thigh vein graft site with a mild hematoma and swelling noted, suture is intact with dried blood crusted and no active bleeding or draining noted. NEUROLOGICAL: Gross neurological examination did not reveal any focal deficits. SKIN: No rashes. Assessment: Severe aortic insufficiency, moderate mitral and tricuspid regurgitation, status post aortic valve replacement with bovine pericardial valve and mitral valve annuloplasty, coronary artery bypass graft x 1 with posterior descending artery and endovascular vein harvest Persistent atrial fibrillation history, acute atrial fibrillation with RVR prior to surgery, currently rate controlled History of cardiomyopathy History of coronary artery disease Status post modified Valdez-Maze procedure History of hypertension History of hyperlipidemia Chronic obstructive pulmonary disease history History of degenerative joint disease History of diabetes, hemoglobin A1c is 7 in preoperative testing, takes Jardiance at home History of CVA GI prophylaxis DVT prophylaxis Full code Plan: Recommend to continue with current medications and management per CT surgery services. Continue monitoring Accu-Cheks before meals and at bedtime and 2 AM and will continue low-dose long-acting insulin at night although blood sugars have been in the 80s and 90s, recommend to use sliding scale and hold on long-acting at night unless blood sugars are consistently above 200 Encouraged incentive spirometer use at least 10 times every hour while awake Recommend PT/OT therapy and increased activity with frequent walks throughout the day Plans for moving out of the ICU in the next day once a bed is available on 3 S. We will continue to follow with CT surgery during hospitalization. Thank you kindly for this consultation. The impression and plan of care has been dictated by Erica Bardales, Nurse Practitioner as directed. Dr. Nakita MD I have performed a history and physical examination and medical decision making of this patient, discussed the same with the dictator, and agree with the dictators assessment and plan as written, documented as a scribe. Based on total visit time, I have performed more than 50% of this visit. Objective - Vital Signs Vital signs: Vital Signs Temp 98 F 02/18/24 08:00 Pulse 87 02/18/24 08:34 Resp 20 02/18/24 08:00 BP 110/86 02/18/24 08:00 Pulse Ox 97 02/18/24 08:00 FiO2 40 02/12/24 11:10 Intake & Output 02/17/24 02/18/24 02/18/24 18:59 06:59 18:59 Intake Total 1000 Output Total 2475 300 500 Balance -1475 -300 -500 Weight 77.8 kg Intake: Oral 1000 Output: Urine 2475 300 500 Other: Voiding Method Urinal Urinal Urinal # Voids 1 1 # Bowel Movements 1 1 1 ABP, PAP, CO, CI - Last Documented Arterial Blood Pressure 137/73 Pulmonary Artery Pressure 26/16 Cardiac Output 3.8 Cardiac Index 2 - Labs CBC & Chem 7: 02/18/24 03:01 02/18/24 03:01 Labs: Abnormal Lab Results - Last 24 Hours (Table) 02/17/24 02/17/24 02/18/24 Range/Units 16:42 20:21 03:01 RBC 2.63 L (4.30-5.90) m/uL Hgb 8.4 L (13.0-17.5) gm/dL Hct 26.4 L (39.0-53.0) % MCV 100.5 H (80.0-100.0) fL RDW 17.5 H (11.5-15.5) % Chloride (98-107) mmol/L Glucose (74-99) mg/dL POC Glucose (mg/dL) 125 H 124 H (70-110) mg/dL Calcium (8.4-10.2) mg/dL 02/18/24 Range/Units 03:01 RBC (4.30-5.90) m/uL Hgb (13.0-17.5) gm/dL Hct (39.0-53.0) % MCV (80.0-100.0) fL RDW (11.5-15.5) % Chloride 108 H (98-107) mmol/L Glucose 103 H (74-99) mg/dL POC Glucose (mg/dL) (70-110) mg/dL Calcium 8.1 L (8.4-10.2) mg/dL Assessment and Plan Time with Patient: Less than 30
[2024-02-18 15:07] VITALS: BP 124/74; PULSE 95; RESP 18; TEMP 97.8
--- NOTE | 2024-02-21 00:17 | XR ---
EXAMINATION TYPE: XR chest 2V DATE OF EXAM: 02/17/2024 COMPARISON: 02/18/2024 INDICATION: Postcardiac surgery TECHNIQUE: Frontal and lateral views of the chest are obtained. FINDINGS: The heart size is prominent. The pulmonary vasculature is normal. Small bibasilar infiltrates are present. Small effusions are present.. IMPRESSION: 1. Cardiomegaly with small bilateral pleural effusions. [facility], , 02/21/2024 12:15 AM
== END 2024-02-18 15:15 | disposition home or self-care (01) | DRG 220 ==
LOC: 2ORMAIN 05:54 → 2SICU 08:22
PROVIDERS: ADMIT Thoracic Surgery (Cardiothoracic Vascular Surgery); ATTEND Thoracic Surgery (Cardiothoracic Vascular Surgery)
PROC: 5A1221Z Performance of Cardiac Output, Continuous (ICD-10-PCS; principal; 2024-02-11 08:00)
PROC: 30233R1 Transfusion of Nonautologous Platelets into Peripheral Vein, Percutaneous Approach (ICD-10-PCS; principal; 2024-02-11 08:00)
PROC: 02RF08Z Replacement of Aortic Valve with Zooplastic Tissue, Open Approach (ICD-10-PCS; principal; 2024-02-11 08:00)
PROC: 021009W Bypass Coronary Artery, One Artery from Aorta with Autologous Venous Tissue, Open Approach (ICD-10-PCS; principal; 2024-02-11 08:00)
PROC: 5A02210 Assistance with Cardiac Output using Balloon Pump, Continuous (ICD-10-PCS; principal; 2024-02-11 08:00)
PROC: 02583ZZ Destruction of Conduction Mechanism, Percutaneous Approach (ICD-10-PCS; principal; 2024-02-11 08:00)
PROC: 02UG0JZ Supplement Mitral Valve with Synthetic Substitute, Open Approach (ICD-10-PCS; principal; 2024-02-11 08:00)
PROC: 30233K1 Transfusion of Nonautologous Frozen Plasma into Peripheral Vein, Percutaneous Approach (ICD-10-PCS; principal; 2024-02-11 08:00)
PROC: 06BP4ZZ Excision of Right Saphenous Vein, Percutaneous Endoscopic Approach (ICD-10-PCS; principal; 2024-02-11 08:00)
PROC: 02Q50ZZ Repair Atrial Septum, Open Approach (ICD-10-PCS; principal; 2024-02-11 08:00)
PROC: 02L73CK Occlusion of Left Atrial Appendage with Extraluminal Device, Percutaneous Approach (ICD-10-PCS; principal; 2024-02-11 08:00)
PROC: B24BZZ4 Ultrasonography of Heart with Aorta, Transesophageal (ICD-10-PCS; principal; 2024-02-11 08:00)
PROC: 4A133B3 Monitoring of Arterial Pressure, Pulmonary, Percutaneous Approach (ICD-10-PCS; 2024-02-11 08:00)
PROC: 02HQ32Z Insertion of Monitoring Device into Right Pulmonary Artery, Percutaneous Approach (ICD-10-PCS; 2024-02-11 08:00)
PROC: 4A1239Z Monitoring of Cardiac Output, Percutaneous Approach (ICD-10-PCS; 2024-02-11 08:00)
PROC: 02P Heart and Great Vessels, Removal (ICD-10-PCS; 2024-02-12)
DX: I08.3 Combined rheumatic disorders of mitral, aortic and tricuspid valves (principal); Z00.6 Encounter for examination for normal comparison and control in clinical research program; I42.8 Other cardiomyopathies; I48.19 Other persistent atrial fibrillation; I50.22 Chronic systolic (congestive) heart failure; J98.11 Atelectasis; Q21.12 Patent foramen ovale; I25.10 Atherosclerotic heart disease of native coronary artery without angina pectoris; E11.9 Type 2 diabetes mellitus without complications; K21.9 Gastro-esophageal reflux disease without esophagitis; E78.5 Hyperlipidemia, unspecified; G43.909 Migraine, unspecified, not intractable, without status migrainosus; G47.33 Obstructive sleep apnea (adult) (pediatric); I11.0 Hypertensive heart disease with heart failure; I25.82 Chronic total occlusion of coronary artery; J44.9 Chronic obstructive pulmonary disease, unspecified; M19.90 Unspecified osteoarthritis, unspecified site; Z79.01 Long term (current) use of anticoagulants; Z79.82 Long term (current) use of aspirin; Z79.84 Long term (current) use of oral hypoglycemic drugs; Z79.899 Other long term (current) drug therapy; Z86.73 Personal history of transient ischemic attack (TIA), and cerebral infarction without residual deficits; Z87.442 Personal history of urinary calculi; Z95.5 Presence of coronary angioplasty implant and graft; Z88.8 Allergy status to other drugs, medicaments and biological substances; Z91.041 Radiographic dye allergy status
CPT/HCPCS: 36430; 71045; 71046; 80048; 80053; 82330; 82805; 83735; 84132; 85025; 85027; 85610; 85730; 86891; 88305; 94002; 94003; 94640

== ENCOUNTER 2024-03-01 17:35 | Observation (INO) | payer MEDICARE ==
--- NOTE | 2024-03-01 18:17 | ED ---
Chest Pain HPI - General Chief Complaint: Chest Pain Stated Complaint: high blood pressure Time Seen by Provider: 03/01/24 17:46 Source: patient Mode of arrival: wheelchair Limitations: no limitations - History of Present Illness Initial Comments: Patient is a 73-year-old male past medical history of atrial fibrillation on Xarelto, recent open heart surgery about 3 weeks ago, CAD, hypertension, hyperlipidemia, COPD, CHF presenting for shortness of breath. Patient states shortness of breath started on and is gradually worsened throughout the weekend. He feels like he can feel his heart pounding in his chest with exertion. He denies chest pain. He states he is being monitored by home health nurse who noted him to be hypertensive this morning and shows me his vitals chart, blood pressures running 148/100. Patient states he takes his medications as prescribed. Endorses lower extremity edema that has improved since his recent hospitalization. Denies cough or hemoptysis. Denies fevers or chills. Denies nausea vomiting or diarrhea. States that he had an echocardiogram done this afternoon through Dr. Arias office. Patient was not sent here by another healthcare professional but states that he came in after having his labs drawn and echocardiogram due to his persistent shortness of breath. He endorses associated lightheadedness. - Related Data Home Medications Medication Instructions Recorded Confirmed Albuterol Nebulized [Ventolin 2.5 mg INHALATION QID PRN 02/07/24 02/10/24 Nebulized] Empagliflozin [Jardiance] 10 mg PO DAILY 02/07/24 02/10/24 Evolocumab [Repatha Sureclick] 0 mg SQ Q14D 02/07/24 02/10/24 Furosemide [Lasix] 40 mg PO DAILY 02/07/24 02/10/24 Previous Rx's Medication Instructions Recorded Acetaminophen Tab [Tylenol] 650 mg PO Q4HR PRN tab 02/18/24 Aspirin 81 mg PO DAILY #30 tab 02/18/24 Atorvastatin [Lipitor] 40 mg PO DAILY #30 tab 02/18/24 Losartan [Cozaar] 100 mg PO DAILY #30 tab 02/18/24 Metoprolol Tartrate [Lopressor] 12.5 mg PO BID #60 tab 02/18/24 Pantoprazole [Protonix] 40 mg PO AC-BRKFST #30 tab 09/27/24 Rivaroxaban [Xarelto] 20 mg PO W/SUPPER #30 tab 02/18/24 Sennosides-Docusate Sodium 2 each PO HS PRN tab 02/18/24 [Senokot-S] Potassium Chloride ER [K-Dur 20] 20 meq PO DAILY #30 tab 02/23/24 Allergies Allergy/AdvReac Type Severity Reaction Status Date / Time adhesive tape AdvReac Rash/Hives Verified 03/01/24 17:39 Iodinated Contrast Media AdvReac Nausea & Verified 03/01/24 17:39 Vomiting steroids Allergy Heart Uncoded 02/04/24 13:34 racing SLEEPING AIDS AdvReac Hallucinati Uncoded 02/04/24 13:22 ons Review of Systems ROS Statement: Those systems with pertinent positive or pertinent negative responses have been documented in the HPI. ROS Other: All systems not noted in ROS Statement are negative. EKG Findings - EKG Comments: EKG Findings:: Atrial fibrillation with RVR, rate 116 bpm, TN interval unable to calculate, QRS duration 105 ms, QT/QTc 350/419 ms, normal axis, [address] elevation in V1, V2 T wave inversion V5 V6 no reciprocal depressions. Compared to EKG on 02/11/2024, patient was in an atrial paced rhythm at that time, T waves down turned in leads V1, V2, Past Medical History Past Medical History: Atrial Fibrillation, Coronary Artery Disease (CAD), Chest Pain / Angina, Heart Failure, COPD, CVA/TIA, GERD/Reflux, Hyperlipidemia, Hypertension, Osteoarthritis (OA) Additional Past Medical History / Comment(s): Edema in feet. Hx CVA 12-13 yrs ago, had right arm weakness, which resolved. Hx multiple TIA's. Hx kidney stones. Migraines. History of Any Multi-Drug Resistant Organisms: None Reported Past Surgical History: Hernia Repair, Orthopedic Surgery Additional Past Surgical History / Comment(s): wrist surgery Past Anesthesia/Blood Transfusion Reactions: Motion Sickness, Postoperative Nausea & Vomiting (PONV) Additional Past Anesthesia/Blood Transfusion Reaction / Comment(s): "PONV from Iodine." Past Psychological History: No Psychological Hx Reported Smoking Status: Never smoker Past Alcohol Use History: None Reported Past Drug Use History: None Reported - Past Family History Father Family Medical History: Cancer Mother Family Medical History: Cancer Brother(s) Family Medical History: Cancer Daughter(s) Family Medical History: Cancer General Exam - General Exam Comments Initial Comments: PE: CONSTITUTIONAL: no apparent distress, ill-appearing, nontoxic SKIN: Cool, dry, no jaundice, hives or petechiae EYES: Pupils are equally round, extraocular movements intact without nystagmus, clear conjunctiva, non-icteric sclera HENT: Normocephalic, atraumatic, moist mucus membranes, oropharynx clear without exudates NECK: , Full range of motion, normal appearance PULMONARY: Scant Rales in the bilateral lower lung bates, no wheezes no rhonchi no stridor no accessory muscle use, stational dyspnea CARDIOVASCULAR: Irregularly irregular rate and rhythm, tachycardia normal S1 and S2. No appreciated murmurs, rubs or gallops. Strong radial pulses with intact distal perfusion bilaterally, 1+ bilateral LE pitting edema GASTROINTESTINAL: Soft, active bowel sounds throughout, non-tender, non- distended, no palpable masses, no rebound or guarding. No hepatosplenomegaly MUSCULOSKELETAL: Extremities have no gross deformity, redness, or swelling. No calf swelling NEUROLOGIC:_a/o x 3, GCS 15, normal mentation and speech. Moves all extremities x 4 without motor or sensory deficit, cranial nerves: II (visual bates without defects), III, IV and (extraocular movements are intact, pupils are equal with normal reaction to light), V (intact facial sensation and jaw opening), VII (no facial droop), IX and X (normal palate movement, midline uvula, normal voice), XI (symmetrical shoulder shrug and lateral head rotation against resistance), XII (midline tongue protrusion). Motor strength is 5/5 in all extremities. No abnormal movements. Normal muscle tone. Sensation to light touch is intact bilaterally. No cerebellar signs ([id number], [id number] are normal) PSYCHIATRIC:_normal mood and affect, thought process is clear and linear Limitations: no limitations Course Vital Signs 03/01/24 03/01/24 03/01/24 17:36 19:15 21:05 Temperature 98.7 F Pulse Rate 118 H 108 H 128 H Respiratory 16 18 16 Rate Blood Pressure 130/96 141/108 136/109 O2 Sat by Pulse 97 98 97 Oximetry 03/01/24 23:10 Temperature Pulse Rate 96 Respiratory 18 Rate Blood Pressure 122/95 O2 Sat by Pulse 93 L Oximetry - Reevaluation(s) Reevaluation #1: On reassessment patient remains tachycardic, received metoprolol 10 minutes ago, will monitor for additional 10 to 15 minutes if remains tachycardic will give Cardizem bolus and reassess. I do anticipate admission given patient's persistent tachycardia and ill appearance. Patient states that he felt much better than this when discharged post open heart. 03/01/24 20:56 03/02/24 00:19 Chest Pain MDM - MDM Was pt. sent in by a medical professional or institution (, PA, SENIOR TECHNICAL SUPPORT ENGINEER, urgent care, hospital, or prison...) When possible be specific @ -No Did you speak to anyone other than the patient for history (EMS, parent, family, police, friend...)? What history was obtained from this source @ -No Did you review nursing and triage notes (agree or disagree)? Why? @ -I reviewed and agree with nursing and triage notes Were old charts reviewed (outside hosp., previous admission, EMS record, old EKG, old radiological studies, urgent care reports/EKG's, prison records)? Report findings @ -Old charts reviewed-Reviewed discharge summary from 02/18/24 patient had aortic valve replacement, mitral valve repair single-vessel CABG and closure of a patent foramen ovale and placement of an intra-aortic balloon pump Differential Diagnosis (chest pain, altered mental status, abdominal pain women, abdominal pain men, vaginal bleeding, weakness, fever, dyspnea, syncope, headache, dizziness, GI bleed, back pain, seizure, CVA, palpatations, mental health, musculoskeletal)? @ -Differential diagnosis remains broad however top considerations include congestive heart failure/pulmonary edema, ACS, COPD exacerbation, pneumonia, A- fib with RVR/arrhythmia, anemia, PE, this is not inclusive list EKG interpreted by me (3pts min.). @ -As above X-rays interpreted by me (1pt min.). @Cardiomegaly, small bilateral pleural effusions, similar to prior x-ray performed January CT interpreted by me (1pt min.). @ -No massive or submassive PE visible U/S interpreted by me (1pt. min.). @ -None done What testing was considered but not performed or refused? (CT, X-rays, U/S, labs)? Why? @ -None What meds were considered but not given or refused? Why? @ -None Did you discuss the management of the patient with other professionals (professionals i.e. ELDA Noble, SENIOR TECHNICAL SUPPORT ENGINEER, lab, RT, psych nurse, social service agency director, tax lawyer, teacher, traffic officer, case work aide)? Give summary @ -Case was discussed with CARLOS Acuña with Dr. Ye, cardiothoracic surgery Was smoking cessation discussed for >3mins.? @ -No Was critical care preformed (if so, how long)? @Yes, 45 minutes Were there social determinants of health that impacted care today? How? (Homelessness, low income, unemployed, alcoholism, drug addiction, tr ansportation, low edu. Level, literacy, decrease access to med. care, [facility], rehab)? @ -No Was there de-escalation of care discussed even if they declined (Discuss DNR or withdrawal of care, Hospice)? @ -No What co-morbidities impacted this encounter? (DM, HTN, Smoking, COPD, CAD, Cancer, CVA, ARF, Chemo, Hep., AIDS, mental health diagnosis, sleep apnea, morbid obesity)? @ -History atrial fibrillation, CAD, COPD, CVA GERD, hyperlipidemia, hypertension Was patient admitted / discharged? Hospital course, mention meds given and route, prescriptions, significant lab abnormalities, going to OR and other pertinent info. @ -Hospital course - Admission to obs Patient is a pleasant 73 y/o male, PMH recent open heart surgery, HTN, HLD, COPD, CAD presenting today for gradually worsening shortness of breath since . On assessment patient chronically ill appearing, nontoxic, in NAD, conversational dyspnea, scant crackles/rhonchi in bilateral LL bates, 1+ pitting edema LE, hands are cool but pink and well perfused, 2+ radial pulses bilaterally, no neurologic deficits. Discussed with patient plan for imaging, labs, will discuss with cardiothoracic surgery given discharge within [address] Case discussed with CARLOS Acuña with cardiothoracic surgery, she recommends 150 mg bolus amiodarone, [address] PE study. Appreciate recs. Patient does have a contrast allergy stating he is very sick and nauseous when he received contrast, Solu-Medrol, Zofran ordered. Per CT technicians radiologist protocol is also had Cathleen and Jackelyn so this will be added. Called by Arianne, who has been following alongside with patient's labs, notes elevated BNP but states this is not unexpected from recent heart surgery, feels patient can likely be discharged home if CT negative for PE. On reassessment patient remains tachycardic status post amiodarone, he is not hypoxic, pulse ox 95% on room air with good pleth, pending PE study. Will give patient his nighttime dose of metoprolol to attempt to control rate. BP stable. BNP elevated at approximately 6000, I suspect this is elevated post open heart as well as due to heart failure. Troponin elevated 0.113, patient denies any chest pain currently again I suspect this is due to secondary due to recent open heart, will obtain repeat continue to monitor. On reassessment post metoprolol, patient remains tachycardic. Will administer cardizem if remains tachycardic in next 10-15 minutes. Patient to go for PE study. Will hold xarelto until PE study complete should patient need heparin. Updated patient to plan of care, patient agreeable with plan. Cardizem bolus ordered, 20 mg and drip. Rate improved with cardizem bolus, rate in 90s. Updated patient to findings thus far and plans for admission. Patient is agreeable and comfortable with plan. Repeat troponin .104. Downtrending. Discussed with Arianne SENIOR TECHNICAL SUPPORT ENGINEER, with Dr. Ye, agrees with admit for obs. Admit order placed. Undiagnosed new problem with uncertain prognosis? @ -No Drug Therapy requiring intensive monitoring for toxicity (Heparin, Nitro, Insulin, Cardizem)? @ -Cardizem Were any procedures done? @ -No Diagnosis/symptom? @ -Atrial fibrillation with RVR, CHF Acute, or Chronic, or Acute on Chronic? @ -Acute Uncomplicated (without systemic symptoms) or Complicated (systemic symptoms)? @ -Complicated Side effects of treatment? @ -No Exacerbation, Progression, or Severe Exacerbation? @ -No Poses a threat to life or bodily function? How? (Chest pain, [place], [place], pneumonia, PE, COPD, DKA, ARF, appy, cholecystitis, CVA, Diverticulitis, Homicidal, Suicidal, threat to staff... and all critical care pts) @ -Yes Disposition Clinical Impression: Atrial fibrillation with RVR, Congestive heart failure Disposition: ADMITTED IP TO THIS HOSP Condition: Stable
[2024-03-01] MEDS: methylPREDNISolone SOD SUCCI 125 MG/2 ML VIAL IV STA (18:50)
[2024-03-01] MEDS: FUROSEMIDE 10 MG/ML 4 ML VIAL IV STA (18:51)
[2024-03-01] MEDS: DEXTROSE 5% IN WATER 100 ML with AMIODARONE 150 MG IV ONE (18:54)
--- NOTE | 2024-03-01 18:57 | XR ---
EXAMINATION TYPE: XR chest 2V DATE OF EXAM: 03/01/2024 COMPARISON: 02/18/2024 HISTORY: Shortness of breath TECHNIQUE: Frontal and lateral views of the chest are obtained. FINDINGS: Scattered senescent parenchymal changes noted. Hyperinflation compatible with COPD. No evidence for infiltrate. No evidence for atelectasis. There is pulmonary venous congestion with basilar effusions and cardiomegaly compatible with the mild congestive failure. Median sternotomy changes seen. Mediastinal structures are stable and grossly unremarkable. No evidence for hilar prominence. Degenerative changes dorsal spine. IMPRESSION: 1. There is pulmonary venous congestion with basilar effusions and cardiomegaly compatible with the m ild congestive failure. [facility], , 03/01/2024 6:55 PM
[2024-03-01 18:58] LABS: INR 1.2 (<1.2); Partial Thromboplastin Time 22.9 sec (22.0-30.0); Prothrombin Time 12.5 sec (10.0-12.5)
[2024-03-01 19:29] LABS: ALT 19 U/L (4-49); AST 24 U/L (17-59); African American GFR (CKD) 64 (>60 ml/min/1.73 sqM); Albumin 3.9 g/dL (3.5-5.0); Alkaline Phosphatase 193 U/L (38-126); Anion Gap 6 mmol/L; Anisocytosis Slight; Basophils % (A) 0 %; Blood Urea Nitrogen 20 mg/dL (9-20); Calcium 9.3 mg/dL (8.4-10.2); Carbon Dioxide 26 mmol/L (22-30); Chloride 107 mmol/L (98-107); Eosinophils # (A) 0.2 k/uL (0-0.7); Eosinophils % (A) 2 %; Glucose 111 mg/dL (74-99); HCT 32.3 % (39.0-53.0); HGB 10.3 gm/dL (13.0-17.5); Hypochromasia Moderate; Lymphocytes # (A) 1.4 k/uL (1.0-4.8); Lymphocytes % (A) 16 %; MCH 31.1 pg (25.0-35.0); MCHC 31.9 g/dL (31.0-37.0); MCV 97.4 fL (80.0-100.0); Macrocytosis Slight; Magnesium 1.9 mg/dL (1.6-2.3); Mean Platelet Volume 8.2; Monocytes # (A) 0.5 k/uL (0-1.0); Monocytes % (A) 5 %; Neutrophils # (A) 6.8 k/uL (1.3-7.7); Neutrophils % (A) 75 %; Non-African American GFR(CKD) 56 (>60 ml/min/1.73 sqM); Platelet Count 612 k/uL (150-450); Poikilocytosis Slight; Potassium 4.9 mmol/L (3.5-5.1); RBC 3.32 m/uL (4.30-5.90); RDW 16.1 % (11.5-15.5); Sodium 139 mmol/L (137-145); Total Bilirubin 1.2 mg/dL (0.2-1.3); Total Protein 7.1 g/dL (6.3-8.2); WBC 9.1 k/uL (3.8-10.6)
[2024-03-01 19:37] LABS: NT-Pro-B-Type Natriuretic Pept 6420 pg/mL
[2024-03-01] MEDS: diphenhydrAMINE 50 MG/ML 1 ML VIAL IVP STA (19:42)
[2024-03-01] MEDS: FAMOTIDINE 20 MG/2 ML VIAL IV STA (19:44)
[2024-03-01] MEDS: ONDANSETRON 4 MG/2 ML VIAL IVP STA (19:46)
[2024-03-01] MEDS: METOPROLOL TARTRATE 50 MG TAB PO STA (20:46)
[2024-03-01] MEDS ORDERED: ALBUTEROL NEBULIZED 2.5 MG/3 ML INHALATION PRN (21:34)
[2024-03-01] MEDS ORDERED: ACETAMINOPHEN TAB 325 MG TAB PO PRN (21:34)
[2024-03-01] MEDS ORDERED: SENNOSIDES-DOCUSATE SODIUM 1 EACH TAB PO PRN (21:34)
[2024-03-01] MEDS ORDERED: NALOXONE 0.4 MG/ML 1 ML VIAL IV PRN (21:43)
--- NOTE | 2024-03-01 22:01 | P.GSHP ---
History of Present Illness H&P Date: 03/01/24 Chief Complaint: shortness of breath This is a 73-year-old gentleman who follows outpatient with Dr. Arredondo for primary care and Dr. Smith for cardiology. He has a previous medical history of severe aortic insufficiency status post aortic valve replacement, moderate mitral regurgitation status post mitral valve repair, persistent atrial fibrillation, on Xarelto for anticoagulation status post maze procedure and ligation of left atrial appendage, patent foramen ovale status post closure, cardiomyopathy/chronic heart failure with reduced ejection fraction, coronary artery disease staus post single vessel cabg, hypertension, hyperlipidemia, diabetes, moderate COPD, obstructive sleep apnea without home CPAP use, CVA 12 years ago, lifelong non-smoker, and family history of premature coronary artery disease with father diagnosed in his 50s. He had been increasingly fatigued and dyspneic to the point where he really could not do much at all. He was evaluated by Dr. Smith with echocardiogram and heart catheterization. Echo demonstrated reduced ejection fraction around 32%, global hypokinesis with severe inferobasilar akinesis, moderate aortic sufficiency with moderate to severe mitral insufficiency and moderate tricuspid insufficiency. Heart catheterization demonstrated occlusion of the right coronary artery with filling of the PDA by [id number] collaterals, large acute marginal branch that fills from the occluded right coronary artery and mild disease of the left sided vessels. Of note the patient has had stenting to the RCA in the past. For further evaluation the patient underwent DOLORES confirming presence of 3+ mitral regurgitation, 3+ aortic insufficiency, as well as moderate tricuspid regurgitation with diminished left ventricular systolic function and right ventricular function. The patient was seen by Dr. Ye in the office on January 20, 2024. He was recommended to undergo aortic valve replacement, mitral valve repair, possible tricuspid valve repair, modified Cavazos-Maze for his chronic atrial fibrillation, as well as coronary bypass. At that time it was explained to the patient that he would be considered very high risk and he may take some time to think about it, at which time the patient was adamant he wanted surgery. He did have to obtain dental clearance and then would be scheduled for surgery electively. Unfortunately not long after the patient did present to the emergency room at [facility] with heart failure symptoms and rapid atrial ventricular response. He was treated and released, obtained dental cl earance and presented back to [facility] for elective surgery February 10, 2024. Again he was found to be in rapid atrial fibrillation and surgery was postponed until 02/11/24 to try and gain control of his heart rate. He underwent successful surgery 02/11/24 and was discharged to home with home care on post operative day #7. He followed up with CV surgery last and with Dr. Smith Wednesday. His home care nurse contacted us this morning regarding high blood pressure, and his beta jane was increased. Unfortunately he continued to have hypertension and was progressively more short of breath so he presented to [facility] for evaluation and treatment. He was in afib with rapid rate in the 120s, and a bit hypertensive. He does state he took his increased metoprolol earlier. CV surgery was contacted, we ordered IV lasix, amio bolus, and because of report of hypoxia PE protocol CTA was ordered even though suspicion was low as he has been on anticoagulation. He continued to have afib with heart rate above 100 and was to be admitted for overnight observation with IV cardizem started in the ER. Past Medical History Past Medical History: Atrial Fibrillation, Coronary Artery Disease (CAD), Chest Pain / Angina, Heart Failure, COPD, CVA/TIA, GERD/Reflux, Hyperlipidemia, Hypertension, Osteoarthritis (OA) Additional Past Medical History / Comment(s): Edema in feet. Hx CVA 12-13 yrs ago, had right arm weakness, which resolved. Hx multiple TIA's. Hx kidney stones. Migraines. History of Any Multi-Drug Resistant Organisms: None Reported Past Surgical History: Cardiac Valve Replacement, Coronary Bypass/CABG, Hernia Repair, Orthopedic Surgery Additional Past Surgical History / Comment(s): wrist surgery ; AVR/MV repair/cavazos maze/PFO closure/MARY ligation on 02/11/24 Past Anesthesia/Blood Transfusion Reactions: Motion Sickness, Postoperative Nausea & Vomiting (PONV) Additional Past Anesthesia/Blood Transfusion Reaction / Comment(s): "PONV from Iodine." Past Psychological History: No Psychological Hx Reported Smoking Status: Never smoker Past Alcohol Use History: None Reported Past Drug Use History: None Reported - Past Family History Father Family Medical History: Cancer Mother Family Medical History: Cancer Brother(s) Family Medical History: Cancer Daughter(s) Family Medical History: Cancer Medications and Allergies Home Medications Medication Instructions Recorded Confirmed Type Albuterol Nebulized [Ventolin 2.5 mg INHALATION RT-QID PRN 02/07/24 03/02/24 Hi story Nebulized] Empagliflozin [Jardiance] 10 mg PO DAILY 02/07/24 03/02/24 History Evolocumab [Repatha Sureclick] 140 mg SQ Q14D 02/07/24 03/02/24 History Furosemide [Lasix] 40 mg PO DAILY 02/07/24 03/02/24 History Acetaminophen Tab [Tylenol] 650 mg PO Q4HR PRN tab 02/18/24 03/02/24 Rx Aspirin 81 mg PO DAILY #30 tab 02/18/24 03/02/24 Rx Atorvastatin [Lipitor] 40 mg PO DAILY #30 tab 02/18/24 03/02/24 Rx Pantoprazole [Protonix] 40 mg PO AC-BRKFST #30 tab 02/18/24 03/02/24 Rx Rivaroxaban [Xarelto] 20 mg PO W/SUPPER #30 tab 02/18/24 03/02/24 Rx Potassium Chloride ER [K-Dur 20] 20 meq PO DAILY #30 tab 02/23/24 03/02/24 Rx Losartan Potassium [Cozaar] 100 mg PO DAILY 03/02/24 03/02/24 History Metoprolol Tartrate [Lopressor] 12.5 mg PO BID 03/02/24 03/02/24 History Sennosides-Docusate Sodium 2 tab PO HS PRN 03/02/24 03/02/24 History [Senokot-S] Allergies Allergy/AdvReac Type Severity Reaction Status Date / Time adhesive tape AdvReac Rash/Hives Verified 03/02/24 07:31 Iodinated Contrast Media AdvReac Nausea & Verified 03/02/24 07:31 Vomiting steroids Allergy Heart Uncoded 03/02/24 07:31 racing SLEEPING AIDS AdvReac Hallucinati Uncoded 03/02/24 07:31 ons Surgical - Exam Vital Signs Temp Pulse Resp BP Pulse Ox 98.7 F 118 H 16 130/96 97 03/01/24 17:36 03/01/24 17:36 03/01/24 17:36 03/01/24 17:36 03/01/24 17:36 CONSTITUTIONAL: Awake and alert, appears comfortable, cooperative, well- developed, well-nourished, no pain, no acute distress EYES: Pupils equal, round, reactive to light, normal ocular movement ENT: Moist mucous membranes without oral lesions present NECK: No masses, no bruits, trachea midline RESPIRATORY: Lungs sounds diminished in the bases bilaterally. Respirations even, nonlabored. Currently on room air with oxygen saturation 97%. Strong cough. No chest wall deformities. No clubbing or cyanosis present CARDIOVASCULAR: S1, S2 present. Regular rate and rhythm, sinus rhythm on telemetry. Sternum stable. Palpable peripheral pulses bilaterally. No edema present. No calf pain or tenderness noted GASTROINTESTINAL: Abdomen soft, nontender, nondistended without masses or organomegaly noted. There is no rebound or guarding present. Active bowel sounds present 4 quadrants. GENITOURINARY: States he has voided quite a bit, not recorded by nursing INTEGUMENTARY: Skin is warm and dry with evidence of good perfusion. Anterior chest incision well-approximated, no drainage NEUROLOGIC: Cranial nerves II through XII intact, normal coordination, no obvious motor or sensory deficits, speech is normal MUSKULOSKELETAL: Able to move all extremities, strength equal bilaterally, normal posture PSYCHIATRIC: Alert and oriented to person place and time, appropriate affect, intact judgment and insight Results - Labs 03/02/24 06:47 03/02/24 06:47 Abnormal Lab Results - Last 24 Hours (Table) 03/01/24 03/01/24 03/01/24 Range/Units 18:28 18:28 18:28 RBC 3.32 L (4.30-5.90) m/uL Hgb 10.3 L (13.0-17.5) gm/dL Hct 32.3 L (39.0-53.0) % RDW 16.1 H (11.5-15.5) % Plt Count 612 H (150-450) k/uL INR 1.2 H (<1.2) Creatinine 1.28 H (0.66-1.25) mg/dL Glucose 111 H (74-99) mg/dL Alkaline Phosphatase 193 H (38-126) U/L Troponin I (0.000-0.034) ng/mL 03/01/24 Range/Units 18:28 RBC (4.30-5.90) m/uL Hgb (13.0-17.5) gm/dL Hct (39.0-53.0) % RDW (11.5-15.5) % Plt Count (150-450) k/uL INR (<1.2) Creatinine (0.66-1.25) mg/dL Glucose (74-99) mg/dL Alkaline Phosphatase (38-126) U/L Troponin I 0.113 H* (0.000-0.034) ng/mL Diabetes panel 03/01/24 Range/Units 18:28 Sodium 139 (137-145) mmol/L Potassium 4.9 (3.5-5.1) mmol/L Chloride 107 (98-107) mmol/L Carbon Dioxide 26 (22-30) mmol/L BUN 20 (9-20) mg/dL Creatinine 1.28 H (0.66-1.25) mg/dL Glucose 111 H (74-99) mg/dL Calcium 9.3 (8.4-10.2) mg/dL AST 24 (17-59) U/L ALT 19 (4-49) U/L Alkaline Phosphatase 193 H (38-126) U/L Total Protein 7.1 (6.3-8.2) g/dL Albumin 3.9 (3.5-5.0) g/dL Calcium panel 03/01/24 Range/Units 18:28 Calcium 9.3 (8.4-10.2) mg/dL Albumin 3.9 (3.5-5.0) g/dL Pituitary panel 03/01/24 Range/Units 18:28 Sodium 139 (137-145) mmol/L Potassium 4.9 (3.5-5.1) mmol/L Chloride 107 (98-107) mmol/L Carbon Dioxide 26 (22-30) mmol/L BUN 20 (9-20) mg/dL Creatinine 1.28 H (0.66-1.25) mg/dL Glucose 111 H (74-99) mg/dL Calcium 9.3 (8.4-10.2) mg/dL Adrenal panel 03/01/24 Range/Units 18:28 Sodium 139 (137-145) mmol/L Potassium 4.9 (3.5-5.1) mmol/L Chloride 107 (98-107) mmol/L Carbon Dioxide 26 (22-30) mmol/L BUN 20 (9-20) mg/dL Creatinine 1.28 H (0.66-1.25) mg/dL Glucose 111 H (74-99) mg/dL Calcium 9.3 (8.4-10.2) mg/dL Total Bilirubin 1.2 (0.2-1.3) mg/dL AST 24 (17-59) U/L ALT 19 (4-49) U/L Alkaline Phosphatase 193 H (38-126) U/L Total Protein 7.1 (6.3-8.2) g/dL Albumin 3.9 (3.5-5.0) g/dL - Imaging Chest x-ray: report reviewed, image reviewed CT scan - chest: image reviewed EKG: image reviewed Assessment and Plan Assessment: Afib with RVR, patient has history of Hypertension AMILCAR Shortness of breath History of severe aortic insufficiency status post aortic valve replacement Moderate mitral regurgitation status post mitral valve repair Persistent atrial fibrillation, on Xarelto for anticoagulation status post maze procedure and ligation of left atrial appendage Patent foramen ovale status post closure Cardiomyopathy/chronic heart failure with reduced ejection fraction Coronary artery disease staus post single vessel cabg Hypertension Hyperlipidemia Diabetes Moderate COPD Obstructive sleep apnea without home CPAP use CVA 12 years ago Lifelong non-smoker Family history of premature coronary artery disease with father diagnosed in his 50s Plan: Continue home medications, metoprolol increased. Cardizem gtt overnight as started by ER. Will switch to oral Cardizem CD Lasix 40 mg IVP BID, will discharge on 40 mg twice daily orally Sternal precautions Incentive spirometry ordered and should be encouraged Increase activity, ambulate as tolerated. Strict, accurate I/O. No fernando, patient void per urinal Will repeat labs, CXR in AM Continue Xarelto for anticoagulation, no need for heparin gtt Shower daily Patient seen and discussed with Dr. Ye, patient back into sinus rhythm this morning Patient will be discharged to home. He already has a follow-up appointment next with Dr. Ye. Patient was counseled to come to the office for any further questions versus coming back to the emergency room.
[2024-03-01] MEDS ORDERED: DEXTROSE 50% SYRINGE 50 ML IVP PRN ×2 (22:02)
[2024-03-01] MEDS ORDERED: ONDANSETRON 4 MG/2 ML VIAL IVP PRN (22:03)
[2024-03-01] MEDS: DILTIAZEM DRIP BOLUS FROM BAG 1 MG SOLN IV ONE (22:08)
[2024-03-01] MEDS: DILTIAZEM 125 MG in SODIUM CHLORIDE 0.9% 100 ML IV SCH (22:09)
[2024-03-01] MEDS: RIVAROXABAN 20 MG TAB PO SCH (23:17)
[2024-03-01 23:45] LABS: Glucose,Whole Blood 160 mg/dL (70-110)
--- NOTE | 2024-03-01 23:50 | CT ---
EXAMINATION TYPE: CT angio chest CT DLP: 344.8 mGycm, Automated exposure control for dose reduction was used. DATE OF EXAM: 03/01/2024 9:12 PM COMPARISON: Same day chest x-ray CLINICAL INDICATION:Male, 73 years old with history of BRITTON, recent open heart; c/o high blood pressur e, palpatations and SOB, pt was just d/c 2 weeks ago after open heart TECHNIQUE/CONTRAST: CTA scan of the thorax is performed with IV Contrast, patient injected with 100ml mL of Isovue 370, M IP images are created and reviewed these are created on a separate workstation.. FINDINGS: There is adequate contrast bolus and timing. PULMONARY ARTERIES: There is no evidence for a filling defect within the pulmonary vasculature to sug gest acute pulmonary embolism. Pulmonary trunk is normal in size. Trunk measures 2.6 cm. AORTA: Prosthetic aortic valve appears to be present. There is fusiform dilatation of the ascending aorta which measures up to 4.3 cm. Mild atherosclerotic calcification along the aortic arch. Arch is ectatic and tortuous. The proximal descending portion is 3.7 cm and steadily reduces in size to 2.8 c m by the hiatus. Phase of enhancement is suboptimal for the aorta but no dissection flap is seen.. HEART: Heart is moderately enlarged. There are apparently prosthetic mitral and aortic valves. Likely some calcifications of the [place] coronary arteries. There are some surgical clips seen anteriorly. Small amounts of fluid in the pericardial space without significant effusion seen. Left atrial appendage occlusion device. LOWER NECK: No significant findings. Grossly unremarkable thyroid. MEDIASTINUM: No enlarged nodes by CT size criteria. SOFT TISSUES/AXILLA: Unremarkable soft tissues. No axillary adenopathy. LUNGS/ PLEURA: Moderate bilateral pleural effusions with adjacent consolidative opacities in the lowe r lobes. AIRWAY: Central airways are patent. MUSCULOSKELETAL: No acute osseous abnormality. Mild/moderate degenerative changes of the spine. Mult iple sternotomy wires UPPER ABDOMEN: Reflux of contrast to the hepatic veins can be seen with right heart insufficiency. Mi ld bilateral perinephric stranding. 4 mm right renal calculus, 2.6 mm left renal calculus. Thickened appearance of the adrenals could be from hyperplasia. Small sliding hiatal hernia. IMPRESSION: 1. No evidence of pulmonary embolism. 2. Cardiomegaly with prosthetic aortic and mitral valves. Left atrial appendage occlusion device. 3. Fusiform dilatation of the ascending aorta to 4.3 cm. 4. Moderate bilateral pleural effusions likely related to CHF. 5. Bibasilar pulmonary opacities likely edema and atelectasis, with superimposed infection possible in the proper clinical setting. Correlate clinically. 6. Other chronic and likely incidental findings, as described above. [facility], , 03/01/2024 11:47 PM
[2024-03-02 06:58] LABS: HCT 34.2 % (39.0-53.0); HGB 10.3 gm/dL (13.0-17.5); Hypochromasia Marked; MCH 30.4 pg (25.0-35.0); MCV 101.3 fL (80.0-100.0); Macrocytosis Slight; Mean Platelet Volume 6.8; Platelet Count 712 k/uL (150-450); RBC 3.38 m/uL (4.30-5.90); RDW 15.8 % (11.5-15.5); WBC 5.7 k/uL (3.8-10.6)
[2024-03-02] MEDS: METOPROLOL TARTRATE 50 MG TAB PO SCH (06:59)
[2024-03-02 07:42] LABS: African American GFR (CKD) 57 (>60 ml/min/1.73 sqM); Anion Gap 13 mmol/L; Blood Urea Nitrogen 24 mg/dL (9-20); Calcium 9.4 mg/dL (8.4-10.2); Carbon Dioxide 22 mmol/L (22-30); Chloride 105 mmol/L (98-107); Glucose 146 mg/dL (74-99); Magnesium 2.1 mg/dL (1.6-2.3); Non-African American GFR(CKD) 49 (>60 ml/min/1.73 sqM); Potassium 5.4 mmol/L (3.5-5.1); Sodium 140 mmol/L (137-145)
--- NOTE | 2024-03-02 07:50 | XR ---
EXAMINATION TYPE: XR chest 1V portable DATE OF EXAM: 03/02/2024 HISTORY: Shortness of breath. COMPARISON: 03/01/2024 TECHNIQUE: Single view of the chest is submitted. FINDINGS: Demonstrated are scattered senescent parenchymal change. Cardiomegaly with pulmonary venous congestion scattered infiltrates as well as small effusions. Statu s post CABG changes. No pneumothorax. Hilar and mediastinal structures are within normal limits. Degenerative changes are seen of the dorsal spine. IMPRESSION: 1. Overall stable chest. [facility], , 03/02/2024 7:48 AM
[2024-03-02 07:55] VITALS: TEMP 97
[2024-03-02 08:35] LABS: Glucose,Whole Blood 168 mg/dL (70-110)
[2024-03-02] MEDS: FUROSEMIDE 10 MG/ML 4 ML VIAL IV SCH (08:39)
[2024-03-02] MEDS: DILTIAZEM CD 240 MG CAP.ER.24H PO SCH (08:49)
[2024-03-02] MEDS: POTASSIUM CHLORIDE ER 20 MEQ TAB.ER PO SCH (08:49)
[2024-03-02] MEDS: ASPIRIN 81 MG PO SCH (08:49)
[2024-03-02] MEDS: PANTOPRAZOLE 40 MG TABLET PO SCH (08:49)
[2024-03-02] MEDS: ATORVASTATIN 40 MG TAB PO SCH (08:49)
[2024-03-02] MEDS: LOSARTAN 50 MG TAB PO SCH (08:49)
[2024-03-02] MEDS: DAPAGLIFLOZIN PROPANEDIOL 5 MG TABLET PO SCH (08:49)
[2024-03-02] MEDS: INSULIN ASPART (NovoLOG) 100 UNIT/ML VIAL SQ SCH (08:59)
[2024-03-02 09:02] VITALS: PULSE 93; RESP 20
[2024-03-02 09:51] VITALS: BP 109/86
== END 2024-03-02 09:50 | disposition home health service (06) ==
LOC: EC 17:35 → 3SCARD 21:40
PROVIDERS: ADMIT Thoracic Surgery (Cardiothoracic Vascular Surgery); ATTEND Thoracic Surgery (Cardiothoracic Vascular Surgery)
DX: I48.19 Other persistent atrial fibrillation (principal); N17.9 Acute kidney failure, unspecified; J44.9 Chronic obstructive pulmonary disease, unspecified; I11.0 Hypertensive heart disease with heart failure; I50.22 Chronic systolic (congestive) heart failure; I25.10 Atherosclerotic heart disease of native coronary artery without angina pectoris; I42.9 Cardiomyopathy, unspecified; E11.9 Type 2 diabetes mellitus without complications; E78.5 Hyperlipidemia, unspecified; G47.33 Obstructive sleep apnea (adult) (pediatric); Z86.73 Personal history of transient ischemic attack (TIA), and cerebral infarction without residual deficits; Z95.2 Presence of prosthetic heart valve; Z95.1 Presence of aortocoronary bypass graft; Z79.01 Long term (current) use of anticoagulants; Z79.82 Long term (current) use of aspirin; Z79.84 Long term (current) use of oral hypoglycemic drugs; Z79.899 Other long term (current) drug therapy; Z87.442 Personal history of urinary calculi; Z82.49 Family history of ischemic heart disease and other diseases of the circulatory system; Z91.041 Radiographic dye allergy status
CPT/HCPCS: 96365; 96366 ×2; 96375; 99285; 36415; 93005; 83880; 80053; 80048; 83735 ×2; 84484; 85025; 85027; 85610; 85730; 87636; 71045; 71046; 71275; G0378 ×2; J1200; J1940; J0282; J2405; J3490; Q9967; J2919

== ENCOUNTER → 2024-03-01 | Outpatient (CLI) | payer MEDICARE ==
--- NOTE | 2024-03-02 07:22 | CA ---
Transthoracic Echo Report Name: Nicolas Goff Age: 73 Gender: M : 1950 Exam Date: 03/01/2024 17:06 Exam Location: [facility] Ht (in): 69 Wt (lb): 166 Ordering Physician: Judy Smith MD ([id number]) Attending/Referring Phys: Shim Plug Cutter Rose Mares RDCS Procedure CPT: Indications: Congestive heart failure Cardiac Hx: AO and MV replaced Technical Quality: Good Contrast 1: Total Dose (mL): Contrast 2: Total Dose (mL): MEASUREMENTS (Male / Female) Normal Values 2D ECHO LV Diastolic Diameter PLAX 4.6 cm 4.2 - 5.9 / 3.9 - 5.3 cm LV Systolic Diameter PLAX 4.5 cm IVS Diastolic Thickness 1.4 cm 0.6 - 1.0 / 0.6 - 0.9 cm LVPW Diastolic Thickness 1.2 cm 0.6 - 1.0 / 0.6 - 0.9 cm LV Relative Wall Thickness 0.6 RV Internal Dim ED PLAX 3.8 cm LVOT Diameter 2.2 cm LA Systolic Diameter LX 5.0 cm 3.0 - 4.0 / 2.7 - 3.8 cm LV Diastolic Volume MOD BP 174.8 cm??? 67 - 155 / 56 - 104 cm??? LV Systolic Volume MOD BP 138.5 cm??? 22 - 58 / 19 - 49 cm??? LV Ejection Fraction MOD BP 20.8 % >= 55 % LV Cardiac Index MOD BP 2231.8 cm???/min???m??? LV Diastolic Volume MOD 4C 154.7 cm??? LV Systolic Volume MOD 4C 120.5 cm??? LV Ejection Fraction MOD 4C 22.1 % LV Cardiac Index MOD 4C 2098.6 cm???/min???m??? LV Diastolic Length 4C 9.0 cm LV Systolic Length 4C 7.9 cm LV Diastolic Volume MOD 2C 198.2 cm??? LV Systolic Volume MOD 2C 143.6 cm??? LV Ejection Fraction MOD 2C 27.6 % LV Cardiac Index MOD 2C 3355.4 cm???/min???m??? LV Diastolic Length 2C 8.9 cm LV Systolic Length 2C 8.8 cm LA Volume 117.5 cm??? 18 - 58 / 22 - 52 cm??? LA Volume Index 61.1 cm???/m??? 16 - 28 cm???/m??? M-MODE Aortic Root Diameter MM 3.3 cm AV Cusp Separation MM 1.8 cm DOPPLER AV Peak Velocity 168.7 cm/s AV Peak Gradient 11.4 mmHg AV Mean Velocity 113.5 cm/s AV Mean Gradient 5.9 mmHg AV Velocity Time Integral 25.6 cm LVOT Peak Velocity 103.3 cm/s LVOT Peak Gradient 4.3 mmHg LVOT Velocity Time Integral 15.8 cm LVOT Stroke Volume 58.0 cm??? LVOT Stroke Volume Index 30.4 ml/m??? LVOT Cardiac Index 3559.4 cm???/min???m??? AV Area Cont Eq vti 2.3 cm??? AV Area Cont Eq pk 2.2 cm??? MV Peak Velocity 102.9 cm/s MV Peak Gradient 4.2 mmHg MV Mean Velocity 55.0 cm/s MV Mean Gradient 2.9 mmHg MV Velocity Time Integral 14.0 cm MV Area PHT 4.3 cm??? MR Peak Velocity 491.4 cm/s MR Peak Gradient 96.6 mmHg MV Deceleration Time 139.5 ms TR Peak Velocity 292.5 cm/s TR Peak Gradient 34.2 mmHg Right Ventricular Systolic Press 48.0 mmHg FINDINGS Left Ventricle Left ventricular ejection fraction is estimated at 20 to 25 %. Left ventricular cavity size normal. Mildly increased left ventricular diastolic volume. Severely increased left ventricular systolic volume. Severely decreased left ventricular ejection fraction.Mildly increased left ventricular wall thickness. Right Ventricle Mild right ventricular dilatation. Moderate pulmonary hypertension. Right ventricular systolic pressure estimated at 48 mm hg. Right Atrium Severe right atrial dilatation. No right atrial thrombus or mass seen. Left Atrium Moderately increased left atrial diameter. Severely increased left atrial volume. Moderately increased left atrial area. No left atrial thrombus or mass present. Mitral Valve Mitral valve annulus repair with mean gradient of 3 mmHg. Xrbq-zo-qrssanct mitral regurgitation. Aortic Valve Normally functioning bioprosthetic aortic valve without stenosis with a peak velocity of 1.7 m/s, peak gradient 11 mmHg, mean gradient 6 mmHg, and estimated aortic valve area of 2.3 cm???. Tricuspid Valve Structurally normal tricuspid valve. Moderate tricuspid regurgitation. Pulmonic Valve Pulmonic valve not well visualized. No pulmonic regurgitation. Pericardium No pericardial effusion. Aorta Normal size aortic root and proximal ascending aorta. CONCLUSIONS 1. Severe global hypokinesis of the left ventricle 2. Bioprosthetic aortic valve with normal function 3. Mitral valve annuloplasty with mild to moderate mitral regurgitation 4. Moderate tricuspid regurgitation with moderate pulmonary hypertension Previewed by: Dr. Judy Smith MD (Electronically Signed) Final Date: 02 March 2024 07:21
== END | disposition home or self-care (01) ==
LOC: RADECHMAIN 16:50
PROVIDERS: ATTEND Internal Medicine Interventional Cardiology
DX: I50.9 Heart failure, unspecified
CPT/HCPCS: 93306

== ENCOUNTER 2024-03-14 10:23 | Day surgery (SDC) | payer MEDICARE ==
[~2024-03-14 10:23] MED LIST changes: -ALBUMIN HUMAN 25% 50 ML IV ONE; -ALBUMIN HUMAN 5% 500 ML IVPB ONE; -ATORVASTATIN 10 MG TAB PO ONE; -CALCIUM CHLORIDE 100 MG/ML 10 ML SYRINGE IV ONE; -CARDIOPLEGIC SOLN (K+ 16 MEQ/L 1,000 ML with SODIUM BICARB (1 MEQ/ML) 20 ML, LIDOCAINE ... PERFUSION ONE; -CHLORHEXIDINE GLUCONATE 15 ML CUP MUCOUS MEM ONE; -CLEVIDIPINE BUTYRATE 25 MG in EMPTY BAG 1 BAG IV ONE; -HEPARIN SODIUM 1,000 UN/ML (10ML VL) IV ONE; -HEPARIN SODIUM,PORCINE (1 ML) 5,000 UNIT in SODIUM CHLORIDE 0.9% 500 ML 500 ML IV ONE; -INSULIN REGULAR 100 UNIT in SODIUM CHLORIDE 0.9% 100 ML IV ONE; -MAGNESIUM SULFATE 16.24 MEQ in EMPTY SYRINGE 1 SYR IV ONE; -MANNITOL 25% 12.5 GM/50 ML VIAL IV ONE; -NITROGLYCERIN SL TABS 0.4 MG TAB SUBLINGUAL ONE; -NITROGLYCERIN-D5W PMX 25 MG/250 ML BTL IV ONE; -NITROGLYCERIN-D5W PMX 50 MG in DEXTROSE/WATER 1 250ML.BAG IV ONE; -NOREPINEPHRINE 4 MG in SODIUM CHLORIDE 0.9% 250 ML IV ONE; -PAPAVERINE 360 MG in SODIUM CHLORIDE 0.9% 90 ML IV ONE; -PHENYLEPHRINE 10 MG/ML VIAL IV ONE; -PHENYLEPHRINE 40 MG in SODIUM CHLORIDE 0.9% 250 ML IV ONE; -PROTAMINE SULFATE 10 MG/ML 25 ML VIAL IV ONE; -PROTAMINE SULFATE 250 MG in EMPTY BAG 1 BAG IV ONE; -SODIUM BICARB 8.4% 50 ML SYR (1 MEQ/ML) IV ONE; -SODIUM CHLORIDE 0.9% 1,000 ML IV ONE; +SODIUM CHLORIDE 0.9% 1,000 ML IV SCH; -TRANEXAMIC ACID 2,000 MG in SODIUM CHLORIDE 0.9% 80 ML IV ONE; -ceFAZolin 1,000 MG in SODIUM CHLORIDE 0.9% IRRIGATIO 1,000 ML IRRIGATION ONE; -propofoL 1,000 MG/100 ML VIAL IV ONE
[2024-03-14 11:33] VITALS: TEMP 98.3
[2024-03-14 12:12] LABS: Glucose,Whole Blood 94 mg/dL (70-110)
[2024-03-14] MEDS: IV FLUID CONTINUATION 1,000 ML IV ONE (12:14)
[2024-03-14] MEDS: SODIUM CHLORIDE 0.9% 500 ML 500 ML IV ONE (12:16)
[2024-03-14] MEDS: BENZOCAINE SPRAY 1 EACH MM ONE (12:31)
[2024-03-14] MEDS ORDERED: PROPOFOL 10 MG/ML 20 ML VIAL IV ONE (12:43)
--- NOTE | 2024-03-14 13:06 | P.PCN ---
Date of Procedure: 03/14/24 Description of Procedure: Indication: Atrial fibrillation and atrial tachycardia Procedure Description: After explaining the procedure to the patient, it's risk and complications, blood pressure, heart rate and O2 saturation were monitored. The throat was sprayed with Cetacaine. Patient received sedation per anesthesia department. The probe was introduced into the esophagus without difficulty. Images were obtained. Following that, the probe was removed. There was no immediate complication. Findings: Biatrial enlargement was noted. The left atrial appendage was closed. The low ventricle systolic function was severely impaired with an ejection fraction of 30 to 35% with inferior wall severe hypokinesis. A bioprosthetic aortic valve was noted. Mitral valve annuloplasty was noted. Tricuspid valve appears to be normal. No pericardial effusion was noted. Contrast bubble study revealed no shunting across the interatrial septum. Doppler: Pulse wave and color Doppler were obtained, and revealed mild to moderate central mitral regurgitation with trace to mild aortic regurgitation and modera te tricuspid regurgitation. The estimated right ventricle systolic pressure was 40-45 mmHg. There was no shunting by color Doppler study Conclusion: 1. Biatrial enlargement with occlusion of the left atrial appendage and no flow noted 2. Severely impaired left ventricular systolic function with segmental wall motion abnormality 3. Bioprosthetic aortic valve with trace to mild aortic regurgitation 4. Mitral valve repair with mild to moderate mitral regurgitation 5. Moderate tricuspid regurgitation 6. No shunting across the interatrial septum Cardioversion: After obtaining DOLORES and sedated state a synchronized biphasic cardioversion using 150 J was performed with adventism of sinus mechanism. Patient was in sinus tachycardia. There was no immediate complications.
[2024-03-14] MEDS ORDERED: AMIODARONE 200 MG TAB PO SCH (13:15)
[2024-03-14 14:29] VITALS: BP 135/84; PULSE 106; RESP 18
[2024-03-14] MEDS ORDERED: RIVAROXABAN 20 MG TAB PO SCH (17:30)
[2024-03-15] MEDS ORDERED: SPIRONOLACTONE 25 MG TAB PO SCH (09:00)
[2024-03-15] MEDS ORDERED: POTASSIUM CHLORIDE ER 20 MEQ TAB.ER PO SCH (09:00)
[2024-03-15] MEDS ORDERED: NON FORMULARY DRUG (Empagliflozin [Jardiance] 10 MG Tablet) PO SCH (09:00)
[2024-03-15] MEDS ORDERED: ATORVASTATIN 40 MG TAB PO SCH (09:00)
[2024-03-15] MEDS ORDERED: METOPROLOL SUCCINATE (ER) 50 MG TAB.ER.24H PO SCH (09:00)
[2024-03-15] MEDS ORDERED: ASPIRIN 81 MG PO SCH (09:00)
[2024-03-15] MEDS ORDERED: NON FORMULARY DRUG (Losartan Potassium [Cozaar] 100 MG Tablet) PO SCH (09:00)
[2024-03-15] MEDS ORDERED: FUROSEMIDE 40 MG TAB PO SCH (09:00)
== END 2024-03-14 14:49 | disposition home or self-care (01) ==
LOC: OR 10:23
PROVIDERS: ATTEND Internal Medicine Interventional Cardiology
DX: I25.119 Atherosclerotic heart disease of native coronary artery with unspecified angina pectoris (principal); I50.22 Chronic systolic (congestive) heart failure; I11.0 Hypertensive heart disease with heart failure; I08.3 Combined rheumatic disorders of mitral, aortic and tricuspid valves; I48.91 Unspecified atrial fibrillation; I47.19 Other supraventricular tachycardia; E78.5 Hyperlipidemia, unspecified; J44.9 Chronic obstructive pulmonary disease, unspecified; I67.9 Cerebrovascular disease, unspecified; M19.90 Unspecified osteoarthritis, unspecified site; K21.9 Gastro-esophageal reflux disease without esophagitis; G43.909 Migraine, unspecified, not intractable, without status migrainosus; L23.1 Allergic contact dermatitis due to adhesives; Z79.82 Long term (current) use of aspirin; Z79.899 Other long term (current) drug therapy; Z79.83 Long term (current) use of bisphosphonates; Z79.02 Long term (current) use of antithrombotics/antiplatelets; Z79.01 Long term (current) use of anticoagulants; Z91.041 Radiographic dye allergy status
CPT/HCPCS: 93312; 93320; 93325; 92960; 84132; J2704

== ENCOUNTER 2024-04-03 13:46 | Inpatient (IN) | payer MEDICARE ==
--- NOTE | 2024-04-03 14:25 | ED ---
General Adult HPI - General Source: patient, RN notes reviewed <Jelly Helms - Last Filed: 04/03/24 14:23> - General Source: patient, family, RN notes reviewed Limitations: no limitations <Pako Banerjee - Last Filed: 04/03/24 16:48> - General Stated complaint: Cough,Vomiting Time Seen by Provider: 04/03/24 14:00 - History of Present Illness Initial comments: 74-year-old male with history of COPD presenting to emergency room chief complaint of productive cough that is worsening over the past 3 to 4 days. He feels as though he he will have posttussive emesis due to intensity of coughing. (Jelly Helms) Patient is a 74-year-old male present to the emergency department with concern for cough. Onset of symptoms was around 3 days ago. Cough is dry nonproductive. Patient has associated dyspnea. Patient does have history of similar symptoms previously associated with COPD. Patient is also having some posttussive emesis and questionable posttussive syncope. No chest pain. No fevers. (Pako Banerjee) - Related Data Home Medications Medication Instructions Recorded Confirmed Albuterol Nebulized [Ventolin 2.5 mg INHALATION BID 02/07/24 03/14/24 Nebulized] Empagliflozin [Jardiance] 10 mg PO DAILY 02/07/24 03/14/24 Furosemide [Lasix] 40 mg PO DAILY 02/07/24 03/14/24 Losartan Potassium [Cozaar] 50 mg PO DAILY 03/02/24 03/14/24 Amiodarone [Cordarone] 200 mg PO Q12H 03/13/24 03/14/24 Metoprolol Succinate (ER) [Toprol 50 mg PO DAILY 03/13/24 03/14/24 Xl] Spironolactone [Aldactone] 25 mg PO DAILY 03/13/24 03/14/24 Previous Rx's Medication Instructions Recorded Aspirin 81 mg PO DAILY #30 tab 02/18/24 Atorvastatin [Lipitor] 40 mg PO DAILY #30 tab 02/18/24 Rivaroxaban [Xarelto] 20 mg PO W/SUPPER #30 tab 02/18/24 Potassium Chloride ER [K-Dur 20] 20 meq PO DAILY #30 tab 02/23/24 Allergies Allergy/AdvReac Type Severity Reaction Status Date / Time adhesive tape AdvReac Rash/Hives Verified 03/14/24 10:58 Iodinated Contrast Media AdvReac Nausea & Verified 03/14/24 10:58 Vomiting steroids Allergy Heart Uncoded 03/14/24 10:58 racing SLEEPING AIDS AdvReac Hallucinati Uncoded 03/14/24 10:58 ons Review of Systems ROS Other: All systems not noted in ROS Statement are negative. <Jelly Helms - Last Filed: 04/03/24 14:23> ROS Other: All systems not noted in ROS Statement are negative. Constitutional: Denies: fever Eyes: Denies: eye pain ENT: Denies: ear pain Respiratory: Reports: as per HPI, cough, dyspnea Cardiovascular: Denies: chest pain Endocrine: Denies: fatigue Gastrointestinal: Denies: abdominal pain Skin: Denies: lesions Neurological: Denies: weakness <Pako Banerjee - Last Filed: 04/03/24 16:48> ROS Statement: Those systems with pertinent positive or pertinent negative responses have been documented in the HPI. Past Medical History Past Medical History: Atrial Fibrillation, Coronary Artery Disease (CAD), Chest Pain / Angina, Heart Failure, COPD, CVA/TIA, GERD/Reflux, Hyperlipidemia, Hypertension, Osteoarthritis (OA) Additional Past Medical History / Comment(s): Hx CVA 12-13 yrs ago, had right arm weakness, which resolved. Hx multiple TIA's. Hx kidney stones. Migraines, recent adm. to [facility] for CABG & valve surg 02/10 & then re-adm. 03/01 for dizziness & SOB-had some med changes per pt. History of Any Multi-Drug Resistant Organisms: None Reported Past Surgical History: Cardiac Valve Replacement, Coronary Bypass/CABG, Hernia Repair, Orthopedic Surgery Additional Past Surgical History / Comment(s): wrist surgery ; AVR/MV repair/cavazos maze/PFO closure/MARY ligation on 02/11/24 Past Anesthesia/Blood Transfusion Reactions: Motion Sickness, Postoperative Nausea & Vomiting (PONV) Additional Past Anesthesia/Blood Transfusion Reaction / Comment(s): "PONV from Iodine." Smoking Status: Never smoker - Past Family History Father Family Medical History: Cancer Mother Family Medical History: Cancer Brother(s) Family Medical History: Cancer Daughter(s) Family Medical History: Cancer <Jelly Helms - Last Filed: 04/03/24 14:23> General Exam <Jelly Helms - Last Filed: 04/03/24 14:23> Limitations: no limitations General appearance: alert, in no apparent distress Head exam: Present: normocephalic Eye exam: Present: normal appearance, PERRL, EOMI Neck exam: Present: normal inspection Respiratory exam: Present: wheezes, decreased breath sounds Cardiovascular Exam: Present: regular rate, normal rhythm GI/Abdominal exam: Present: soft. Absent: tenderness, pulsatile mass Extremities exam: Present: normal inspection. Absent: pedal edema, calf tenderness Neurological exam: Present: alert Psychiatric exam: Present: normal affect, normal mood Skin exam: Present: normal color <Pako Banerjee - Last Filed: 04/03/24 16:48> - General Exam Comments Initial Comments: Visual Physical Exam Vital signs reviewed General: Well-appearing, nontoxic, no acute distress. Head: Normocephalic, atraumatic Eyes: PERRLA, EOMI ENT: Airway patent Chest: Nonlabored breathing Skin: No visual rash, normal skin tone Neuro: Alert and oriented 3 Musculoskeletal: No gross abnormalities (Jelly Helms) Course Vital Signs 04/03/24 04/03/24 04/03/24 14:33 14:49 15:41 Temperature 97.8 F Pulse Rate 87 68 Respiratory 16 24 Rate Blood Pressure 118/80 O2 Sat by Pulse 95 Oximetry 04/03/24 04/03/24 15:49 15:51 Temperature 97.8 F Pulse Rate 74 84 Respiratory 20 Rate Blood Pressure 119/82 O2 Sat by Pulse 96 Oximetry EKG Findings - EKG Results: EKG: interpreted by ERMD (Nonspecific intraventricular conduction delay. T wave inversion inferior and lateral), sinus rhythm, normal axis <Pako Banerjee - Last Filed: 04/03/24 16:48> Medical Decision Making <Jelly Helms - Last Filed: 04/03/24 14:23> - Lab Data Result diagrams: 04/03/24 14:31 04/03/24 14:31 <Pako Banerjee - Last Filed: 04/03/24 16:48> - Medical Decision Making I completed the quick note portion of this chart signed Jelly Helms PA-C (Jelly Helms) Was pt. sent in by a medical professional or institution (ELDA Noble, MEAT APPRENTICE, urgent care, hospital, or fdc...) When possible be specific @ -No Did you speak to anyone other than the patient for history (EMS, parent, family, police, friend...)? What history was obtained from this source @ -Family's present helps provide history including history of COPD Did you review nursing and triage notes (agree or disagree)? Why? @ -I reviewed and agree with nursing and triage notes Were old charts reviewed (outside hosp., previous admission, EMS record, old EKG, old radiological studies, urgent care reports/EKG's, fdc records)? Report findings @ -No old charts were reviewed Differential Diagnosis (chest pain, altered mental status, abdominal pain women, abdominal pain men, vaginal bleeding, weakness, fever, dyspnea, syncope, headache, dizziness, GI bleed, back pain, seizure, CVA, palpatations, mental health, musculoskeletal)? @ -Differential Dyspnea: Coronary syndrome, arrhythmia, tamponade, asthma, COPD, pulmonary embolism, pneumonia, pneumothorax, pulmonary effusion, anaphylaxis, diabetic ketoacidosis, flailed chest, pulmonary contusion, diaphragmatic rupture, anemia, neuromuscular, this is not meant to be an all-inclusive list. EKG interpreted by me (3pts min.). @ -As above X-rays interpreted by me (1pt min.). @ -Chest x-ray shows no acute process CT interpreted by me (1pt min.). @ -None done U/S interpreted by me (1pt. min.). @ -None done What testing was considered but not performed or refused? (CT, X-rays, U/S, l abs)? Why? @ -Viral testing will be added What meds were considered but not given or refused? Why? @ -None Did you discuss the management of the patient with other professionals (professionals i.e. ELDA Noble, MEAT APPRENTICE, lab, RT, psych nurse, social service agency director, medical office specialist, teacher, correctional officer, piano case and bench assembler)? Give summary @ -Case discussed with practitioner Malathi Jhaveri who will admit covering Dr. Arredondo Was smoking cessation discussed for >3mins.? @ -No Was critical care preformed (if so, how long)? @ -No Were there social determinants of health that impacted care today? How? (Homelessness, low income, unemployed, alcoholism, drug addiction, transportation, low edu. Level, literacy, decrease access to med. care, detention, rehab)? @ -No Was there de-escalation of care discussed even if they declined (Discuss DNR or withdrawal of care, Hospice)? DNR status @ -No What co-morbidities impacted this encounter? (DM, HTN, Smoking, COPD, CAD, Cancer, CVA, ARF, Chemo, Hep., AIDS, mental health diagnosis, sleep apnea, morbid obesity)? @ -None Was patient admitted / discharged? Hospital course, mention meds given and route, prescriptions, significant lab abnormalities, going to OR and other pertinent info. @ -Patient presents with dyspnea similar to his previous COPD. Patient will be admitted. Admission orders written. Patient reevaluated and updated. Undiagnosed new problem with uncertain prognosis? @ -No Drug Therapy requiring intensive monitoring for toxicity (Heparin, Nitro, Insulin, Cardizem)? @ -No Were any procedures done? @ -No Diagnosis/symptom? @ -COPD Acute, or Chronic, or Acute on Chronic? @ -Acute Uncomplicated (without systemic symptoms) or Complicated (systemic symptoms)? @ -Default Side effects of treatment? @ -No Exacerbation, Progression, or Severe Exacerbation? @ -Exacerbation Poses a threat to life or bodily function? How? (Chest pain, USA, SD, pneumonia, PE, COPD, DKA, ARF, appy, cholecystitis, CVA, Diverticulitis, Homicidal, Suicidal, threat to staff... and all critical care pts) @ -To pulmonary function (Pako Banerjee) - Lab Data Lab Results 04/03/24 04/03/24 04/03/24 Range/Units 14:31 14:31 14:31 WBC 12.4 H (3.8-10.6) k/uL RBC 4.38 (4.30-5.90) m/uL Hgb 13.2 (13.0-17.5) gm/dL Hct 41.0 (39.0-53.0) % MCV 93.6 D (80.0-100.0) fL MCH 30.1 (25.0-35.0) pg MCHC 32.1 (31.0-37.0) g/dL RDW 15.3 (11.5-15.5) % Plt Count 380 (150-450) k/uL MPV 7.1 Neutrophils % 69 % Lymphocytes % 13 % Monocytes % 6 % Eosinophils % 9 % Basophils % 1 % Neutrophils # 8.6 H (1.3-7.7) k/uL Lymphocytes # 1.7 (1.0-4.8) k/uL Monocytes # 0.7 (0-1.0) k/uL Eosinophils # 1.2 H (0-0.7) k/uL Basophils # 0.1 (0-0.2) k/uL Hypochromasia Moderate PT 14.0 H (10.0-12.5) sec INR 1.3 H (<1.2) APTT 35.5 H (22.0-30.0) sec Sodium 137 (137-145) mmol/L Potassium 5.5 H (3.5-5.1) mmol/L Chloride 105 (98-107) mmol/L Carbon Dioxide 27 (22-30) mmol/L Anion Gap 5 mmol/L BUN 31 H (9-20) mg/dL Creatinine 1.35 H (0.66-1.25) mg/dL Est GFR (CKD-EPI)AfAm 60 (>60 ml/min/1.73 sqM) Est GFR (CKD-EPI)NonAf 52 (>60 ml/min/1.73 sqM) Glucose 100 H (74-99) mg/dL Calcium 9.1 (8.4-10.2) mg/dL Magnesium 2.2 (1.6-2.3) mg/dL Total Bilirubin 0.8 (0.2-1.3) mg/dL AST 30 (17-59) U/L ALT 21 (4-49) U/L Alkaline Phosphatase 163 H (38-126) U/L Troponin I (0.000-0.034) ng/mL NT-Pro-B Natriuret Pep 934 pg/mL Total Protein 8.5 H (6.3-8.2) g/dL Albumin 4.4 (3.5-5.0) g/dL 04/03/24 Range/Units 14:31 WBC (3.8-10.6) k/uL RBC (4.30-5.90) m/uL Hgb (13.0-17.5) gm/dL Hct (39.0-53.0) % MCV (80.0-100.0) fL MCH (25.0-35.0) pg MCHC (31.0-37.0) g/dL RDW (11.5-15.5) % Plt Count (150-450) k/uL MPV Neutrophils % % Lymphocytes % % Monocytes % % Eosinophils % % Basophils % % Neutrophils # (1.3-7.7) k/uL Lymphocytes # (1.0-4.8) k/uL Monocytes # (0-1.0) k/uL Eosinophils # (0-0.7) k/uL Basophils # (0-0.2) k/uL Hypochromasia PT (10.0-12.5) sec INR (<1.2) APTT (22.0-30.0) sec Sodium (137-145) mmol/L Potassium (3.5-5.1) mmol/L Chloride (98-107) mmol/L Carbon Dioxide (22-30) mmol/L Anion Gap mmol/L BUN (9-20) mg/dL Creatinine (0.66-1.25) mg/dL Est GFR (CKD-EPI)AfAm (>60 ml/min/1.73 sqM) Est GFR (CKD-EPI)NonAf (>60 ml/min/1.73 sqM) Glucose (74-99) mg/dL Calcium (8.4-10.2) mg/dL Magnesium (1.6-2.3) mg/dL Total Bilirubin (0.2-1.3) mg/dL AST (17-59) U/L ALT (4-49) U/L Alkaline Phosphatase (38-126) U/L Troponin I 0.014 (0.000-0.034) ng/mL NT-Pro-B Natriuret Pep pg/mL Total Protein (6.3-8.2) g/dL Albumin (3.5-5.0) g/dL Disposition <Jelly Helms - Last Filed: 04/03/24 14:23> Is patient prescribed a controlled substance at d/c from ED?: No Time of Disposition: 16:48 <Pako Banerjee - Last Filed: 04/03/24 16:48> Clinical Impression: Acute exacerbation of chronic obstructive pulmonary disease Disposition: ADMITTED IP TO THIS HOSP Referrals: Rosibel Arredondo MD [Primary Care Provider] - 1-2 days
[2024-04-03 14:47] LABS: Basophils # (A) 0.1 k/uL (0-0.2); Basophils % (A) 1 %; Eosinophils # (A) 1.2 k/uL (0-0.7); Eosinophils % (A) 9 %; HGB 13.2 gm/dL (13.0-17.5); Hypochromasia Moderate; Lymphocytes # (A) 1.7 k/uL (1.0-4.8); Lymphocytes % (A) 13 %; MCH 30.1 pg (25.0-35.0); MCHC 32.1 g/dL (31.0-37.0); Mean Platelet Volume 7.1; Monocytes # (A) 0.7 k/uL (0-1.0); Monocytes % (A) 6 %; Neutrophils # (A) 8.6 k/uL (1.3-7.7); Neutrophils % (A) 69 %; Platelet Count 380 k/uL (150-450); RBC 4.38 m/uL (4.30-5.90); RDW 15.3 % (11.5-15.5); WBC 12.4 k/uL (3.8-10.6)
[2024-04-03 15:11] LABS: ALT 21 U/L (4-49); AST 30 U/L (17-59); African American GFR (CKD) 60 (>60 ml/min/1.73 sqM); Albumin 4.4 g/dL (3.5-5.0); Alkaline Phosphatase 163 U/L (38-126); Anion Gap 5 mmol/L; Blood Urea Nitrogen 31 mg/dL (9-20); Calcium 9.1 mg/dL (8.4-10.2); Carbon Dioxide 27 mmol/L (22-30); Chloride 105 mmol/L (98-107); Glucose 100 mg/dL (74-99); Magnesium 2.2 mg/dL (1.6-2.3); Non-African American GFR(CKD) 52 (>60 ml/min/1.73 sqM); Potassium 5.5 mmol/L (3.5-5.1); Sodium 137 mmol/L (137-145); Total Bilirubin 0.8 mg/dL (0.2-1.3); Total Protein 8.5 g/dL (6.3-8.2)
[2024-04-03 15:13] LABS: INR 1.3 (<1.2); Partial Thromboplastin Time 35.5 sec (22.0-30.0)
[2024-04-03 15:17] LABS: MCV 93.6 fL (80.0-100.0)
[2024-04-03 15:21] LABS: NT-Pro-B-Type Natriuretic Pept 934 pg/mL
--- NOTE | 2024-04-03 15:24 | XR ---
EXAMINATION TYPE: XR chest 2V DATE OF EXAM: 04/03/2024 2:59 PM COMPARISON: Chest radiographs from 03/02/2024 CLINICAL INDICATION: Male, 74 years old with history of difficulty breathing, cough; [facility] TECHNIQUE: XR chest 2V Frontal and lateral views of the chest. FINDINGS: Lungs/Pleura: There is flattening of the diaphragm with increased lucency of the lungs. No evidence o f pneumothorax, pleural effusion or focal consolidation. Pulmonary vascularity: Unremarkable. Heart/mediastinum: Cardiomediastinal silhouette is unremarkable. Post aortic valve repair changes. L eft atrial appendage occlusion device is present. Musculoskeletal: No acute osseous pathology. Other findings: None IMPRESSION: 1. No acute cardiopulmonary disease process. 2. COPD changes. [facility], , 04/03/2024 3:21 PM
[2024-04-03] MEDS: IPRATROPIUM-ALBUTEROL 3 ML NEB INHALATION STA (15:41)
[2024-04-03] MEDS ORDERED: ACETAMINOPHEN TAB 325 MG TAB PO PRN (16:49)
[2024-04-03] MEDS ORDERED: NALOXONE 0.4 MG/ML 1 ML VIAL IVP PRN (16:49)
[2024-04-03] MEDS: methylPREDNISolone SOD SUCCI 125 MG/2 ML VIAL IV STA (18:24)
[2024-04-03] MEDS: IPRATROPIUM-ALBUTEROL 3 ML NEB INHALATION SCH (20:27)
[2024-04-03] MEDS: ATORVASTATIN 40 MG TAB PO SCH (21:52)
[2024-04-03] MEDS: AMIODARONE 200 MG TAB PO SCH (21:52)
[2024-04-03] MEDS: guaiFENesin SYRUP 100MG/5ML 200 MG/10 ML CUP PO PRN (21:52)
[2024-04-04] MEDS: IPRATROPIUM-ALBUTEROL 3 ML NEB INHALATION PRN (00:12)
[2024-04-04] MEDS: methylPREDNISolone SOD SUCCI 125 MG/2 ML VIAL IV SCH (01:10)
[2024-04-04] MEDS: ASPIRIN 81 MG PO SCH (09:29)
[2024-04-04] MEDS: METOPROLOL SUCCINATE (ER) 50 MG TAB.ER.24H PO SCH (09:29)
--- NOTE | 2024-04-04 14:27 | P.CNPUL ---
History of Present Illness Consult date: 04/04/24 Requesting physician: Ermias Tavarez Reason for consult: dyspnea, cough Chief complaint: Cough, shortness of breath History of present illness: This is a pleasant 74-year-old male patient who had recently been here for an aortic valve replacement and mitral valve repair, PFO closure, left atrial a ppendage ligation on February 11, 2024. He had been having issues with atrial fibrillation with rapid ventricular response. He had undergone a DOLORES and cardioversion on 03/14/2024. Had been recovering well without incident. He presented here to the emergency room yesterday 3 to 4-day history of increasing shortness of breath cough and congestion. He has had white productive sputum. No fever or chills. Chest x-ray shows no acute cardiopulmonary process. White count 12.4. Hemoglobin 13.2. Platelets 380. INR 1.3. Sodium 137. Potassium 5.5. Bicarb 27. BUN 31. Creatinine 1.35. Glucose 100. proBNP 934. Viral screen negative. He is seen today in consultation on the observation unit. He is currently sitting up at the bedside. Awake and alert in no acute distress. He currently has a dry nonproductive cough. Some chest wall pain from coughing. Maintaining good O2 saturations in the upper 90s on room air. He is afebrile. Hemodynamically stable. Review of Systems REVIEW OF SYSTEMS: CONSTITUTIONAL: Denies any recent significant weight loss or weight gain. EYES: Denies change in vision. EARS, NOSE, MOUTH, THROAT: Denies headaches, denies sore throat. CARDIOVASCULAR: Positive for chest wall pain, palpitations or syncopal episodes. RESPIRATORY: Positive for shortness of breath, cough, congestion no hemoptysis. GASTROINTESTINAL: Denies change in appetite, denies abdominal pain GENITOURINARY: Denies hematuria, denies infections. MUSKULOSKELETAL: Denies pain, denies swelling. INTEGUMENTARY: Denies rash, denies eczema. NEUROLOGICAL: Denies recent memory loss, no recent seizure activity. PSYCHIATRIC: Denies anxiety, denies depression. HEMATOLOGIC/LYMPHATIC: Denies anemia, denies enlarged lymph nodes. Past Medical History Past Medical History: Atrial Fibrillation, Coronary Artery Disease (CAD), Chest Pain / Angina, Heart Failure, COPD, CVA/TIA, GERD/Reflux, Hyperlipidemia, Hypertension, Myocardial Infarction (ND), Osteoarthritis (OA) Additional Past Medical History / Comment(s): Hx CVA 12-13 yrs ago, had right arm weakness, which resolved. Hx multiple TIA's. Hx kidney stones. Migraines, recent adm. to [facility] for CABG & valve surg 02/10 & then re-adm. 03/01 for dizziness & SOB-had some med changes per pt. Last Myocardial Infarction Date:: 2023 History of Any Multi-Drug Resistant Organisms: None Reported Past Surgical History: Cardiac Valve Replacement, Coronary Bypass/CABG, Hernia Repair, Orthopedic Surgery Additional Past Surgical History / Comment(s): wrist surgery ; AVR/MV repair/cavazos maze/PFO closure/MARY ligation on 02/11/24 Past Anesthesia/Blood Transfusion Reactions: Motion Sickness, Postoperative Nausea & Vomiting (PONV) Additional Past Anesthesia/Blood Transfusion Reaction / Comment(s): "PONV from Iodine." Past Psychological History: No Psychological Hx Reported Smoking Status: Never smoker Past Alcohol Use History: None Reported Additional Past Alcohol Use History / Comment(s): No alcohol in many yrs. Past Drug Use History: None Reported - Past Family History Father Family Medical History: Cancer Mother Family Medical History: Cancer Brother(s) Family Medical History: Cancer Daughter(s) Family Medical History: Cancer Medications and Allergies Home Medications Medication Instructions Recorded Confirmed Type Empagliflozin [Jardiance] 10 mg PO W/BRKFST 02/07/24 04/03/24 History Furosemide [Lasix] 40 mg PO DAILY 02/07/24 04/03/24 History Aspirin 81 mg PO DAILY #30 tab 02/18/24 04/03/24 Rx Rivaroxaban [Xarelto] 20 mg PO W/SUPPER #30 tab 02/18/24 04/03/24 Rx Potassium Chloride ER [K-Dur 20] 20 meq PO DAILY #30 tab 02/23/24 04/03/24 Rx Amiodarone [Cordarone] 200 mg PO BID 03/13/24 04/03/24 History Metoprolol Succinate (ER) [Toprol 50 mg PO DAILY 03/13/24 04/03/24 History Xl] Spironolactone [Aldactone] 25 mg PO DAILY 03/13/24 04/03/24 History Atorvastatin [Lipitor] 40 mg PO HS 04/03/24 04/03/24 History Losartan [Cozaar] 50 mg PO DAILY 04/03/24 04/03/24 History Allergies Allergy/AdvReac Type Severity Reaction Status Date / Time adhesive tape AdvReac Rash/Hives Verified 04/03/24 16:48 Iodinated Contrast Media AdvReac Nausea & Verified 04/03/24 16:48 Vomiting steroids Allergy Heart Uncoded 04/03/24 16:48 racing SLEEPING AIDS AdvReac Hallucinati Uncoded 04/03/24 16:48 ons Physical Exam Vitals: Vital Signs Temp Pulse Pulse Resp BP BP Pulse Ox 04/04/24 11:27 84 04/04/24 07:59 82 04/04/24 07:00 97.8 F 81 17 119/80 97 04/04/24 06:37 84 04/04/24 06:27 80 04/04/24 02:00 97.9 F 72 15 123/85 97 04/04/24 00:22 90 04/04/24 00:12 88 04/03/24 20:37 90 04/03/24 20:27 88 04/03/24 20:00 98.8 F 91 17 107/73 94 L 04/03/24 18:22 98 F 86 18 141/72 95 04/03/24 15:51 97.8 F 84 20 119/82 96 04/03/24 15:49 74 04/03/24 15:41 68 04/03/24 14:49 24 04/03/24 14:33 97.8 F 87 16 118/80 95 Intake and Output 04/03/24 04/04/24 04/04/24 22:59 06:59 14:59 Other: # Voids 1 Weight 72.575 kg GENERAL EXAM: Alert, active, pleasant 74-year-old male, on room air, fairly comfortable in no apparent distress. HEAD: Normocephalic. EYES: Normal reaction of pupils, equal size. NOSE: Clear with pink turbinates. THROAT: No erythema or exudates. NECK: No masses, no JVD. CHEST: No chest wall deformity. Sternal incision healing and well-approximated LUNGS: Equal air entry with bilateral scattered rhonchi, wheeze. CVS: S1 and S2 normal with no audible murmur, regular rhythm. ABDOMEN: No hepatosplenomegaly, normal bowel sounds, no guarding or rigidity. SPINE: No scoliosis or deformity SKIN: No rashes CENTRAL NERVOUS SYSTEM: No focal deficits, tone is normal in all 4 extremities. EXTREMITIES: There is no peripheral edema. No clubbing, no cyanosis. Peripheral pulses are intact. Results - Laboratory Findings CBC and BMP: 04/03/24 14:31 04/03/24 14:31 PT/INR, D-dimer PT 14.0 sec (10.0-12.5) H 04/03/24 14:31 INR 1.3 (<1.2) H 04/03/24 14:31 Abnormal lab findings: Abnormal Labs 04/03/24 04/03/24 04/03/24 14:31 14:31 14:31 WBC 12.4 H Neutrophils # 8.6 H Eosinophils # 1.2 H PT 14.0 H INR 1.3 H APTT 35.5 H Potassium 5.5 H BUN 31 H Creatinine 1.35 H Glucose 100 H Alkaline Phosphatase 163 H Total Protein 8.5 H - Diagnostic Findings Chest x-ray: image reviewed Assessment and Plan Assessment: Acute tracheobronchitis with bronchospasm and wheezing. Chest x-ray shows no acute process. Viral screen negative Atrial fibrillation status post cardioversion on 03/12/2024. Currently in sinus rhythm. Anticoagulated with Xarelto Recent CABG x 1 with saphenous vein graft to the PDA, aortic valve replacement, mitral valve repair, PFO closure, left atrial appendage ligation on 02/11/2024 Ischemic cardiomyopathy educed ejection fraction at 30 to 35% History of CVA Diabetes mellitus Hyperlipidemia Hypertension Gastroesophageal reflux disease Lifelong non-smoker Obstructive sleep really apnea not utilizing CPAP Plan: The patient was seen and evaluated Chest x-ray, labs and medications reviewed Continue bronchodilators, steroids Continue Robitussin Anticoagulated with Xarelto Check a procalcitonin Currently stable and on room air We will continue to follow and make further recommendations based on his clinical status I have personally seen and examined the patient, performed the documentation and the assessment and plan as written. Number of minutes spent on the visit: 20 Dictation was produced using [employer] software. Please excuse any grammatical, word or spelling errors.
--- NOTE | 2024-04-04 14:44 | P.HPIM ---
History of Present Illness H&P Date: 04/04/24 History of present illness: This is a 74-year-old male patient with past medical history significant for coronary artery disease status post CABG, status post AV replacement, status post MV repair, PFO closure, left atrial appendage ligation on February 11, 2024, diabetes mellitus, atrial fibrillation status post cardioversion 03/14/2024 who presented to ER with a complaint of 3 to 4 days of cough congestion and increasing shortness of breath with wheezing with clear white sputum production. Patient denied any fever or chills. Patient denied any orthopnea or PND or weight gain or lower extremity edema. Patient stated that his weight has been stable. Chest x-ray negative for acute process. WBC 12.4, hemoglobin 13.2, platelets 380, INR 1.3. Sodium 137, potassium 5.5, bicarbonate 27, BUN 31, creatinine 1.35 on presentation. NT proBNP 934 Viral screen negative. REVIEW OF SYSTEMS: CONSTITUTIONAL: No fever, no malaise, no fatigue. HEENT: No recent visual problems or hearing problems. Denied any sore throat. CARDIOVASCULAR: No chest pain, orthopnea, PND, no palpitations, no syncope. PULMONARY: Complains of shortness of breath, cough, congestion. GASTROINTESTINAL: No diarrhea, no nausea, no vomiting, no abdominal pain. NEUROLOGICAL: No headaches, no weakness, no numbness. HEMATOLOGICAL: Denies any bleeding or petechiae. GENITOURINARY: Denies any burning micturition, frequency, or urgency. MUSCULOSKELETAL/RHEUMATOLOGICAL: Denies any joint pain, swelling, or any muscle pain. ENDOCRINE: Denies any polyuria or polydipsia. The rest of the 14-point review of systems is negative. PHYSICAL EXAMINATION: GENERAL: The patient is A&O x3, NAD HEENT: EOMI, Sclerae anicteric, Moist Mucous membranes Neck: Supple, Non tender, No JVD PULMONARY: Decreased breath sound, bilateral wheezing. CARDIOVASCULAR: S1, S2 present. No murmurs, rubs, or gallops. ABDOMEN: Soft, nontender, nondistended, normoactive bowel sounds. No guarding or rebound tenderness. MUSCULOSKELETAL: No edema, No cyanosis. No clubbing. Normal ROM. Intact peripheral pulses. NEUROLOGICAL: CN 2-12 grossly intact. No FND Assessment and plan: Dyspnea: Acute tracheobronchitis with bronchospasm and wheezing: Atrial fibrillation status post cardioversion 03/12/2024--- on Xarelto Recent CABG, aortic valve replacement, mitral valve repair, PFO closure, left atrial appendage ligation 02/11/2024 Ischemic cardiomyopathy with EF 30 to 35% History of CVA Diabetes mellitus Hypertension Hyperlipidemia GERD Obstructive sleep apneanot on CPAP Acute kidney injury: Hyperkalemia: Plan: Continue aspirin, statin, Xarelto, amiodarone. Metoprolol Solu-Medrol, DuoNeb, Robitussin Hold Lasix, Jardiance, potassium chloride, losartan and Aldactone due to AMILCAR and hyperkalemia Pulmonary consulted Cardiology consulted Cardiac diet, monitor daily weight and I&O's. Monitor renal function. DVT prophylaxis AC Monitor vital signs and labs Labs and medication were reviewed. Continue same treatment. Further recommendations as per clinical course of the patient Dictation was produced using [employer] dictation software. please excuse any grammatical, word or spelling errors. Past Medical History Past Medical History: Atrial Fibrillation, Coronary Artery Disease (CAD), Chest Pain / Angina, Heart Failure, COPD, CVA/TIA, GERD/Reflux, Hyperlipidemia, Hypertension, Myocardial Infarction (IN), Osteoarthritis (OA) Additional Past Medical History / Comment(s): Hx CVA 12-13 yrs ago, had right arm weakness, which resolved. Hx multiple TIA's. Hx kidney stones. Migraines, recent adm. to [facility] for CABG & valve surg 02/10 & then re-adm. 03/01 for dizziness & SOB-had some med changes per pt. Last Myocardial Infarction Date:: 2023 History of Any Multi-Drug Resistant Organisms: None Reported Past Surgical History: Cardiac Valve Replacement, Coronary Bypass/CABG, Hernia Repair, Orthopedic Surgery Additional Past Surgical History / Comment(s): wrist surgery ; AVR/MV repair/cavazos maze/PFO closure/MARY ligation on 02/11/24 Past Anesthesia/Blood Transfusion Reactions: Motion Sickness, Postoperative Nausea & Vomiting (PONV) Additional Past Anesthesia/Blood Transfusion Reaction / Comment(s): "PONV from Iodine." Past Psychological History: No Psychological Hx Reported Smoking Status: Never smoker Past Alcohol Use History: None Reported Additional Past Alcohol Use History / Comment(s): No alcohol in many yrs. Past Drug Use History: None Reported - Past Family History Father Family Medical History: Cancer Mother Family Medical History: Cancer Brother(s) Family Medical History: Cancer Daughter(s) Family Medical History: Cancer Medications and Allergies Home Medications Medication Instructions Recorded Confirmed Type Empagliflozin [Jardiance] 10 mg PO W/BRKFST 02/07/24 04/03/24 History Furosemide [Lasix] 40 mg PO DAILY 02/07/24 04/03/24 History Aspirin 81 mg PO DAILY #30 tab 02/18/24 04/03/24 Rx Rivaroxaban [Xarelto] 20 mg PO W/SUPPER #30 tab 02/18/24 04/03/24 Rx Potassium Chloride ER [K-Dur 20] 20 meq PO DAILY #30 tab 02/23/24 04/03/24 Rx Amiodarone [Cordarone] 200 mg PO BID 03/13/24 04/03/24 History Metoprolol Succinate (ER) [Toprol 50 mg PO DAILY 03/13/24 04/03/24 History Xl] Spironolactone [Aldactone] 25 mg PO DAILY 03/13/24 04/03/24 History Atorvastatin [Lipitor] 40 mg PO HS 04/03/24 04/03/24 History Losartan [Cozaar] 50 mg PO DAILY 04/03/24 04/03/24 History Allergies Allergy/AdvReac Type Severity Reaction Status Date / Time adhesive tape AdvReac Rash/Hives Verified 04/03/24 16:48 Iodinated Contrast Media AdvReac Nausea & Verified 04/03/24 16:48 Vomiting steroids Allergy Heart Uncoded 04/03/24 16:48 racing SLEEPING AIDS AdvReac Hallucinati Uncoded 04/03/24 16:48 ons Physical Exam Vitals: Vital Signs Temp Pulse Pulse Resp BP BP Pulse Ox 04/04/24 11:27 84 04/04/24 07:59 82 04/04/24 07:00 97.8 F 81 17 119/80 97 04/04/24 06:37 84 04/04/24 06:27 80 04/04/24 02:00 97.9 F 72 15 123/85 97 04/04/24 00:22 90 04/04/24 00:12 88 04/03/24 20:37 90 04/03/24 20:27 88 04/03/24 20:00 98.8 F 91 17 107/73 94 L 11/11/24 18:22 98 F 86 18 141/72 95 04/03/24 15:51 97.8 F 84 20 119/82 96 04/03/24 15:49 74 04/03/24 15:41 68 04/03/24 14:49 24 Intake and Output 04/03/24 04/04/24 04/04/24 22:59 06:59 14:59 Other: # Voids 1 Weight 72.575 kg Results CBC & Chem 7: 04/03/24 14:31 04/03/24 14:31 Labs: Abnormal Lab Results - Last 24 Hours (Table) 04/03/24 04/03/24 04/03/24 Range/Units 14:31 14:31 14:31 WBC 12.4 H (3.8-10.6) k/uL Neutrophils # 8.6 H (1.3-7.7) k/uL Eosinophils # 1.2 H (0-0.7) k/uL PT 14.0 H (10.0-12.5) sec INR 1.3 H (<1.2) APTT 35.5 H (22.0-30.0) sec Potassium 5.5 H (3.5-5.1) mmol/L BUN 31 H (9-20) mg/dL Creatinine 1.35 H (0.66-1.25) mg/dL Glucose 100 H (74-99) mg/dL Alkaline Phosphatase 163 H (38-126) U/L Total Protein 8.5 H (6.3-8.2) g/dL
[2024-04-04] MEDS: AMOXIC-POT CLAV 875-125MG 1 EACH TAB PO SCH (16:18)
[2024-04-04 16:25] LABS: HCT 40.6 % (39.0-53.0); HGB 12.8 gm/dL (13.0-17.5); Hypochromasia Marked; MCH 30.1 pg (25.0-35.0); MCHC 31.6 g/dL (31.0-37.0); MCV 95.4 fL (80.0-100.0); Mean Platelet Volume 7.3; Platelet Count 380 k/uL (150-450); RBC 4.26 m/uL (4.30-5.90); RDW 15.3 % (11.5-15.5); WBC 12.4 k/uL (3.8-10.6)
[2024-04-04 16:36] LABS: African American GFR (CKD) 54 (>60 ml/min/1.73 sqM); Anion Gap 13 mmol/L; Blood Urea Nitrogen 48 mg/dL (9-20); Carbon Dioxide 17 mmol/L (22-30); Chloride 106 mmol/L (98-107); Glucose 159 mg/dL (74-99); Non-African American GFR(CKD) 47 (>60 ml/min/1.73 sqM); Potassium 5.8 mmol/L (3.5-5.1); Sodium 136 mmol/L (137-145)
[2024-04-04] MEDS: RIVAROXABAN 20 MG TAB PO SCH (18:12)
[2024-04-05 04:04] LABS: Basophils % (A) 0 %; Eosinophils % (A) 0 %; HCT 37.2 % (39.0-53.0); HGB 11.3 gm/dL (13.0-17.5); Hypochromasia Slight; Lymphocytes % (A) 7 %; MCHC 30.4 g/dL (31.0-37.0); MCV 95.5 fL (80.0-100.0); Mean Platelet Volume 7.9; Monocytes # (A) 0.3 k/uL (0-1.0); Monocytes % (A) 2 %; Neutrophils # (A) 13.4 k/uL (1.3-7.7); Neutrophils % (A) 91 %; Platelet Count 350 k/uL (150-450); RDW 15.4 % (11.5-15.5); WBC 14.7 k/uL (3.8-10.6)
[2024-04-05 04:15] LABS: African American GFR (CKD) 54 (>60 ml/min/1.73 sqM); Anion Gap 10 mmol/L; Blood Urea Nitrogen 51 mg/dL (9-20); Calcium 8.9 mg/dL (8.4-10.2); Carbon Dioxide 18 mmol/L (22-30); Chloride 107 mmol/L (98-107); Glucose 141 mg/dL (74-99); Non-African American GFR(CKD) 46 (>60 ml/min/1.73 sqM); Potassium 5.3 mmol/L (3.5-5.1); Sodium 135 mmol/L (137-145)
[2024-04-05] MEDS: PANTOPRAZOLE 40 MG TABLET PO SCH (09:03)
--- NOTE | 2024-04-05 11:11 | P.PN ---
Subjective Progress Note Date: 04/05/24 Principal diagnosis: Acute tracheobronchitis with bronchospasm and persistent cough This is a pleasant 74-year-old male patient who had recently been here for an aortic valve replacement and mitral valve repair, PFO closure, left atrial appendage ligation on February 11, 2024. He had been having issues with atrial fibrillation with rapid ventricular response. He had undergone a DOLORES and cardioversion on 03/14/2024. Had been recovering well without incident. He presented here to the emergency room yesterday 3 to 4-day history of increasing shortness of breath cough and congestion. He has had white productive sputum. No fever or chills. Chest x-ray shows no acute cardiopulmonary process. White count 12.4. Hemoglobin 13.2. Platelets 380. INR 1.3. Sodium 137. Potassium 5.5. Bicarb 27. BUN 31. Creatinine 1.35. Glucose 100. proBNP 934. Viral screen negative. He is seen today in consultation on the observation unit. He is currently sitting up at the bedside. Awake and alert in no acute distress. He currently has a dry nonproductive cough. Some chest wall pain from coughing. Maintaining good O2 saturations in the upper 90s on room air. He is afebrile. Hemodynamically stable. Patient was evaluated today on 04/05/2024, continues to cough and wheeze. Cough is productive with whitish phlegm, no fever no chills no hemoptysis, no chest pain. Patient is on antibiotics, bronchodilators, and steroids, very minimal improvement in the last 24 hours, has the patient is not quite ready to be discharged home Objective - Vital Signs Vital signs: Vital Signs Temp 98.0 F 04/05/24 07:00 Pulse 68 04/05/24 09:00 Resp 18 04/05/24 08:00 BP 126/79 04/05/24 07:00 Pulse Ox 98 04/05/24 07:00 FiO2 Intake & Output 04/04/24 04/05/24 04/05/24 18:59 06:59 18:59 Intake Total 700 180 Balance 700 180 Intake: Oral 700 180 Other: # Voids 2 # Bowel Movements 0 - Exam GENERAL EXAM: Revealed 74-year-old white male in no distress on room air HEAD: Normocephalic. EYES: Normal reaction of pupils, equal size. NOSE: Clear with pink turbinates. THROAT: No erythema or exudates. NECK: No masses, no JVD. CHEST: No chest wall deformity. Sternal incision healing and well-approximated LUNGS: Rhonchi and wheezes noted bilaterally. Diffuse CVS: S1 and S2 normal with no audible murmur, regular rhythm. ABDOMEN: No hepatosplenomegaly, normal bowel sounds, no guarding or rigidity. SKIN: No rashes CENTRAL NERVOUS SYSTEM: Alert oriented x 3 no gross focal deficit EXTREMITIES: No clubbing edema or cyanosis good pulses bilaterally. - Labs CBC & Chem 7: 04/05/24 03:34 04/05/24 03:34 Labs: Abnormal Lab Results - Last 24 Hours (Table) 04/04/24 04/04/24 04/05/24 Range/Units 15:51 15:51 03:34 WBC 12.4 H 14.7 H (3.8-10.6) k/uL RBC 4.26 L 3.90 L (4.30-5.90) m/uL Hgb 12.8 L 11.3 L (13.0-17.5) gm/dL Hct 37.2 L (39.0-53.0) % MCHC 30.4 L (31.0-37.0) g/dL Neutrophils # 13.4 H (1.3-7.7) k/uL Sodium 136 L (137-145) mmol/L Potassium 5.8 H (3.5-5.1) mmol/L Carbon Dioxide 17 L (22-30) mmol/L BUN 48 H (9-20) mg/dL Creatinine 1.47 H (0.66-1.25) mg/dL Glucose 159 H (74-99) mg/dL 04/05/24 Range/Units 03:34 WBC (3.8-10.6) k/uL RBC (4.30-5.90) m/uL Hgb (13.0-17.5) gm/dL Hct (39.0-53.0) % MCHC (31.0-37.0) g/dL Neutrophils # (1.3-7.7) k/uL Sodium 135 L (137-145) mmol/L Potassium 5.3 H (3.5-5.1) mmol/L Carbon Dioxide 18 L (22-30) mmol/L BUN 51 H (9-20) mg/dL Creatinine 1.48 H (0.66-1.25) mg/dL Glucose 141 H (74-99) mg/dL Assessment and Plan Assessment: Impression: Acute tracheobronchitis with bronchospasm and wheezing. Atrial fibrillation status post cardioversion on 03/12/2024. Currently in sinus rhythm. Anticoagulated with Xarelto Recent CABG x 1 with saphenous vein graft to the PDA, aortic valve replacement, mitral valve repair, PFO closure, left atrial appendage ligation on 02/11/2024 Ischemic cardiomyopathy educed ejection fraction at 30 to 35% History of CVA Diabetes mellitus Hyperlipidemia Hypertension Gastroesophageal reflux disease Lifelong non-smoker Obstructive sleep really apnea not utilizing CPAP Recommendation: Continue present medications Continue bronchodilators Continue Solu-Medrol Continue home meds including Xarelto Continue cough suppressant Not ready for discharge, will continue to follow Will add Protonix for his history of GERD Time with Patient: Less than 30
--- NOTE | 2024-04-05 13:07 | P.PN ---
Subjective Progress Note Date: 04/05/24 History of present illness: This is a 74-year-old male patient with past medical history significant for co ronary artery disease status post CABG, status post AV replacement, status post MV repair, PFO closure, left atrial appendage ligation on February 11, 2024, diabetes mellitus, atrial fibrillation status post cardioversion 03/14/2024 who presented to ER with a complaint of 3 to 4 days of cough congestion and increasing shortness of breath with wheezing with clear white sputum production. Patient denied any fever or chills. Patient denied any orthopnea or PND or weight gain or lower extremity edema. Patient stated that his weight has been stable. Chest x-ray negative for acute process. WBC 12.4, hemoglobin 13.2, platelets 380, INR 1.3. Sodium 137, potassium 5.5, bicarbonate 27, BUN 31, creatinine 1.35 on presentation. NT proBNP 934 Viral screen negative. 04/05/2024 Patient was seen and examined today, patient rene on room air, continues complain of cough, history shortness of breath, wheezing and congestion. Remained afebrile, heart rate 68, respiratory rate 18, saturating 98% on 2 L oxygen for comfort. WBC 14.7 likely secondary steroids, hemoglobin 11.3, platelet 350. Sodium 135, potassium 5.3, BUN 51, creatinine 1.48. Patient denied any urinary retention, denied constipation, will give patient Lokelma, will continue monitor potassium. REVIEW OF SYSTEMS: CONSTITUTIONAL: No fever, no malaise, no fatigue. HEENT: No recent visual problems or hearing problems. Denied any sore throat. CARDIOVASCULAR: No chest pain, orthopnea, PND, no palpitations, no syncope. PULMONARY: Planes of shortness of breath, wheezing, congestion. GASTROINTESTINAL: No diarrhea, no nausea, no vomiting, no abdominal pain. NEUROLOGICAL: No headaches, no weakness, no numbness. HEMATOLOGICAL: Denies any bleeding or petechiae. GENITOURINARY: Denies any burning micturition, frequency, or urgency. MUSCULOSKELETAL/RHEUMATOLOGICAL: Denies any joint pain, swelling, or any muscle pain. ENDOCRINE: Denies any polyuria or polydipsia. The rest of the 14-point review of systems is negative. PHYSICAL EXAMINATION: GENERAL: The patient is A&O x3, NAD HEENT: EOMI, Sclerae anicteric, Moist Mucous membranes Neck: Supple, Non tender, No JVD PULMONARY: Decreased breath sound, bilateral wheezing. CARDIOVASCULAR: S1, S2 present. No murmurs, rubs, or gallops. ABDOMEN: Soft, nontender, nondistended, normoactive bowel sounds. No guarding or rebound tenderness. MUSCULOSKELETAL: No edema, No cyanosis. No clubbing. Normal ROM. Intact peripheral pulses. NEUROLOGICAL: CN 2-12 grossly intact. No FND Assessment and plan: Dyspnea: Acute tracheobronchitis with bronchospasm and wheezing: Atrial fibrillation status post cardioversion 03/12/2024--- on Xarelto Recent CABG, aortic valve replacement, mitral valve repair, PFO closure, left atrial appendage ligation 02/11/2024 Ischemic cardiomyopathy with EF 30 to 35% History of CVA Diabetes mellitus Hypertension Hyperlipidemia GERD Obstructive sleep apneanot on CPAP Acute kidney injury: Hyperkalemia: Plan: Continue aspirin, statin, Xarelto, amiodarone. Metoprolol Solu-Medrol, DuoNeb, Robitussin, Augmentin Hold Lasix, Jardiance, potassium chloride, losartan and Aldactone due to AMILCAR and hyperkalemia Pulmonary consulted and following Cardiology consulted Cardiac diet, monitor daily weight and I&O's. Monitor renal function. Lokelma DVT prophylaxis AC DVT prophylaxis Monitor vital signs and labs Labs and medication were reviewed. Continue same treatment. Further recommendations as per clinical course of the patient Dictation was produced using [employer] dictation software. please excuse any grammatical, word or spelling errors. Objective - Vital Signs Vital signs: Vital Signs Temp 98.0 F 04/05/24 07:00 Pulse 76 04/05/24 12:15 Resp 18 04/05/24 08:00 BP 126/79 04/05/24 07:00 Pulse Ox 98 04/05/24 07:00 FiO2 Intake & Output 04/04/24 04/05/24 04/05/24 18:59 06:59 18:59 Intake Total 700 180 Balance 700 180 Intake: Oral 700 180 Other: # Voids 2 # Bowel Movements 0 - Labs CBC & Chem 7: 04/05/24 03:34 04/05/24 03:34 Labs: Abnormal Lab Results - Last 24 Hours (Table) 11/12/24 11/12/24 11/13/24 Range/Units 15:51 15:51 03:34 WBC 12.4 H 14.7 H (3.8-10.6) k/uL RBC 4.26 L 3.90 L (4.30-5.90) m/uL Hgb 12.8 L 11.3 L (13.0-17.5) gm/dL Hct 37.2 L (39.0-53.0) % MCHC 30.4 L (31.0-37.0) g/dL Neutrophils # 13.4 H (1.3-7.7) k/uL Sodium 136 L (137-145) mmol/L Potassium 5.8 H (3.5-5.1) mmol/L Carbon Dioxide 17 L (22-30) mmol/L BUN 48 H (9-20) mg/dL Creatinine 1.47 H (0.66-1.25) mg/dL Glucose 159 H (74-99) mg/dL 04/05/24 Range/Units 03:34 WBC (3.8-10.6) k/uL RBC (4.30-5.90) m/uL Hgb (13.0-17.5) gm/dL Hct (39.0-53.0) % MCHC (31.0-37.0) g/dL Neutrophils # (1.3-7.7) k/uL Sodium 135 L (137-145) mmol/L Potassium 5.3 H (3.5-5.1) mmol/L Carbon Dioxide 18 L (22-30) mmol/L BUN 51 H (9-20) mg/dL Creatinine 1.48 H (0.66-1.25) mg/dL Glucose 141 H (74-99) mg/dL
--- NOTE | 2024-04-05 14:49 | P.CRDCN ---
History of Present Illness Consult date: 04/05/24 Requesting physician: Dirk Gaston Reason for Consult (text): Heart failure, shortness of breath, crackles in the lungs History of present illness: This is a 74-year-old male patient of Dr. Smith with past medical history of coronary artery disease status post CABG, aortic valve replacement, mitral valve repair, mixed hyperlipidemia, nonischemic cardiomyopathy, hypertension, persistent atrial fibrillation maintaining sinus rhythm and on Xarelto. We have been asked to evaluate the patient for heart failure, shortness of breath, crackles in lungs. Patient gives history that he has had a bad cough since before he had his open heart surgery. He occasionally has sputum production. Over the past weekend, states he was coughing so hard that he felt like his sternal incision was bleeding. On Wednesday that cough and shortness of breath worsened. He does have chest pain with the cough. He does state he has orthopnea and does not sleep well in general. No lower extremity edema, no weight gain. He has been taking all of his medications as directed. He has been seen by pulmonary medicine diagnosed with tracheobronchitis. Blood pressure 126/79, heart rate 64, pulse ox 98% on 2 L nasal cannula. Allyson chapman has been started on IV Solu-Medrol and home medications resumed. EKG: Sinus rhythm, first-degree AV block, frequent PACs, compared to office EKG, unchanged. Chest x-ray: No acute process. COPD. Laboratory studies: WBC 14.7, hemoglobin 9.3. Sodium 135, potassium 5.3, BUN 51 creatinine 1.48 up from 1.35 on arrival. Troponin negative x 1. proBNP 934. Influenza A, influenza B, RSV, COVID-19 not detected. Home cardiac medications: Amiodarone 200 mg twice daily, aspirin 81 mg daily, atorvastatin 40 mg at bedtime, Jardiance 10 mg with breakfast, Lasix 40 mg daily, losartan 50 mg daily, Toprol-XL 50 mg daily, potassium chloride 20 mill equivalents daily, Xarelto 20 mg with supper, spironolactone 25 mg daily. Echocardiogram performed in the office on 12/07/2023 revealed EF of 30 to 35%. Large hypokinetic area in the anterior and anterior lateral guerra. Large akinetic area in the inferior and inferior septal guerra. Small hypokinetic area in the anterior septal wall from the base to the mid wall. Small akinetic area in the inferior lateral wall with base to the mid wall. Left ventricular filling cannot be assessed due to atrial fibrillation. Mild left ventricular hypertrophy. Mildly dilated right ventricle and abnormal function. Severely dilated left atrium. Moderately dilated right atrium. Moderate aortic regurgitation. Ascending aorta is enlarged. Moderate to severe mitral regurgitation. Moderate to severe tricuspid regurgitation. PASP 58 mmHg. Trace to mild pulmonic regurgitation. DOLORES and cardioversion performed 03/14/2024 revealed EF of 32%, mild to moderate MR, repair MV, prosthetic AV, moderate TR. Cardiovascular surgery 02/11/2024: One-vessel VG to PDA, tissue AVR, MV repair, modified Cavazos-Maze procedure closure of the left atrial appendage. Review Of Systems: At the time of my exam: CONSTITUTIONAL: Denies fever or chills. HEENT: Denies blurred vision, vision changes, or eye pain. Denies hemoptysis CARDIOVASCULAR: Denies chest pain. Denies orthopnea. Denies PND. Denies palpitations RESPIRATORY: Reports cough, reports shortness of breath. GASTROINTESTINAL: Denies abdominal pain. Denies nausea or vomiting. HEMATOLOGIC: Denies bleeding disorders. GENITOURINARY: Denies any blood in urine. SKIN: Denies puritis. Denies rash. Physical examination: Gen: This is a 74-year-old male in no acute distress VS: reviewed HEENT: Head is atraumatic, normocephalic. Pupils equal, round. Sclerae is anicteric. NECK: Supple. No JVD. LUNGS: Bilateral wheezing. No intercostal retractions. HEART: Regular rate and rhythm. 2/6 systolic murmur. ABDOMEN: Soft No tenderness. EXTREMITIES: No pedal edema. No calf tenderness. NEUROLOGICAL: Patient is awake, alert and oriented x3. Assessment: Tracheobronchitis Acute kidney injury No signs or symptoms of heart failure History of coronary artery disease status post CABG 1 vessel SVG to PDA on 02/11/2024 Valvular heart disease status post tissue AVR and MV repair on 02/11/2024 Hyperlipidemia Nonischemic cardiomyopathy Hypertension Persistent atrial fibrillation maintaining sinus rhythm Plan: Continue patient's home cardiac medications No need to obtain echocardiogram Further recommendations to follow based upon clinical course Thank you kindly for this consultation. Nurse practitioner note has been reviewed, I agree with documented findings and plan of care. Patient was seen and examined. Past Medical History Past Medical History: Atrial Fibrillation, Coronary Artery Disease (CAD), Chest Pain / Angina, Heart Failure, COPD, CVA/TIA, GERD/Reflux, Hyperlipidemia, Hypertension, Myocardial Infarction (NE), Osteoarthritis (OA) Additional Past Medical History / Comment(s): Hx CVA 12-13 yrs ago, had right arm weakness, which resolved. Hx multiple TIA's. Hx kidney stones. Migraines, recent adm. to [facility] for CABG & valve surg 02/10 & then re-adm. 03/01 for dizziness & SOB-had some med changes per pt. Last Myocardial Infarction Date:: 2023 History of Any Multi-Drug Resistant Organisms: None Reported Past Surgical History: Cardiac Valve Replacement, Coronary Bypass/CABG, Hernia Repair, Orthopedic Surgery Additional Past Surgical History / Comment(s): wrist surgery ; AVR/MV repair/cavazos maze/PFO closure/MARY ligation on 02/11/24 Past Anesthesia/Blood Transfusion Reactions: Motion Sickness, Postoperative N ausea & Vomiting (PONV) Additional Past Anesthesia/Blood Transfusion Reaction / Comment(s): "PONV from Iodine." Past Psychological History: No Psychological Hx Reported Smoking Status: Never smoker Past Alcohol Use History: None Reported Additional Past Alcohol Use History / Comment(s): No alcohol in many yrs. Past Drug Use History: None Reported - Past Family History Father Family Medical History: Cancer Mother Family Medical History: Cancer Brother(s) Family Medical History: Cancer Daughter(s) Family Medical History: Cancer Medications and Allergies Home Medications Medication Instructions Recorded Confirmed Type Empagliflozin [Jardiance] 10 mg PO W/BRKFST 02/07/24 04/03/24 History Furosemide [Lasix] 40 mg PO DAILY 02/07/24 04/03/24 History Aspirin 81 mg PO DAILY #30 tab 02/18/24 04/03/24 Rx Rivaroxaban [Xarelto] 20 mg PO W/SUPPER #30 tab 02/18/24 04/03/24 Rx Potassium Chloride ER [K-Dur 20] 20 meq PO DAILY #30 tab 02/23/24 04/03/24 Rx Amiodarone [Cordarone] 200 mg PO BID 03/13/24 04/03/24 History Metoprolol Succinate (ER) [Toprol 50 mg PO DAILY 03/13/24 04/03/24 History Xl] Spironolactone [Aldactone] 25 mg PO DAILY 03/13/24 04/03/24 History Atorvastatin [Lipitor] 40 mg PO HS 04/03/24 04/03/24 History Losartan [Cozaar] 50 mg PO DAILY 04/03/24 04/03/24 History Allergies Allergy/AdvReac Type Severity Reaction Status Date / Time adhesive tape AdvReac Rash/Hives Verified 04/03/24 16:48 Iodinated Contrast Media AdvReac Nausea & Verified 04/03/24 16:48 Vomiting steroids Allergy Heart Uncoded 04/03/24 16:48 racing SLEEPING AIDS AdvReac Hallucinati Uncoded 04/03/24 16:48 ons Physical Exam Vitals: Vital Signs Temp Pulse Pulse Pulse Resp BP Pulse Ox 04/05/24 09:00 68 04/05/24 08:49 64 04/05/24 07:00 98.0 F 77 18 126/79 98 04/05/24 03:11 78 20 123/73 94 L 04/04/24 21:31 126/75 04/04/24 19:44 88 04/04/24 19:33 101 H 26 H 176/116 100 04/04/24 19:31 86 04/04/24 15:28 84 04/04/24 15:16 84 04/04/24 15:15 97.8 F 86 17 120/80 95 04/04/24 11:27 84 Intake and Output 04/04/24 04/05/24 04/05/24 22:59 06:59 14:59 Intake Total 700 Balance 700 Intake: Oral 700 Other: # Voids 2 # Bowel Movements 0 Results 04/05/24 03:34 04/05/24 03:34 CBC 04/04/24 04/05/24 Range/Units 15:51 03:34 WBC 12.4 H 14.7 H (3.8-10.6) k/uL RBC 4.26 L 3.90 L (4.30-5.90) m/uL Hgb 12.8 L 11.3 L (13.0-17.5) gm/dL Hct 40.6 37.2 L (39.0-53.0) % Plt Count 380 350 (150-450) k/uL Comprehensive Metabolic Panel 04/04/24 04/05/24 Range/Units 15:51 03:34 Sodium 136 L 135 L (137-145) mmol/L Potassium 5.8 H 5.3 H (3.5-5.1) mmol/L Chloride 106 107 (98-107) mmol/L Carbon Dioxide 17 L 18 L (22-30) mmol/L BUN 48 H 51 H (9-20) mg/dL Creatinine 1.47 H 1.48 H (0.66-1.25) mg/dL Glucose 159 H 141 H (74-99) mg/dL Calcium 9.0 8.9 (8.4-10.2) mg/dL Current Medications Generic Name Dose Route Start Last Admin Trade Name Freq PRN Reason Stop Dose Admin Acetaminophen 650 mg 04/03/24 16:49 Acetaminophen Tab 325 Mg Tab PO Q4HR PRN Mild Pain or Fever > 100.5 Albuterol/Ipratropium 3 ml 04/03/24 20:00 04/05/24 08:49 Ipratropium-Albuterol 3 Ml Neb INHALATION 3 ml RT-QID SOHAIL Administration Albuterol/Ipratropium 3 ml 04/03/24 16:49 04/04/24 06:27 Ipratropium-Albuterol 3 Ml Neb INHALATION 3 ml RT-Q2H PRN Administration Shortness Of Breath Or Wheezing Amiodarone HCl 200 mg 04/03/24 21:45 04/05/24 09:03 Amiodarone 200 Mg Tab PO 200 mg BID SOHAIL Administration Amoxicillin/Clavulanate Potassium 1 each 04/04/24 14:45 04/05/24 09:03 Amoxic-Pot Clav 875-125mg 1 Each Tab PO 1 each Q12HR SOHAIL Administration Protocol Aspirin 81 mg 04/04/24 09:30 04/05/24 09:04 Aspirin 81 Mg PO 81 mg DAILY SOHAIL Administration Atorvastatin Calcium 40 mg 04/03/24 21:45 04/04/24 20:52 Atorvastatin 40 Mg Tab PO 40 mg HS SOHAIL Administration Guaifenesin 200 mg 04/03/24 21:39 04/05/24 06:10 Guaifenesin Syrup 100mg/5ml 200 Mg/10 Ml Cup PO 200 mg Q6HR PRN Administration Cough Methylprednisolone Sodium Succinate 60 mg 04/04/24 00:00 04/05/24 06:10 Methylprednisolone Sod Succi 125 Mg/2 Ml Vial IV 60 mg Q6HR SOHAIL Administration Metoprolol Succinate 50 mg 04/04/24 09:30 04/05/24 09:04 Metoprolol Succinate (Er) 50 Mg Tab.Er.24h PO 50 mg DAILY SOHAIL Administration Naloxone HCl 0.2 mg 04/03/24 16:49 Naloxone 0.4 Mg/Ml 1 Ml Vial IVP Q2M PRN Opioid Reversal Pantoprazole Sodium 40 mg 04/05/24 08:30 04/05/24 09:03 Pantoprazole 40 Mg Tablet PO 40 mg AC-BRKFST SOHAIL Administration Rivaroxaban 20 mg 04/04/24 17:30 04/04/24 18:12 Rivaroxaban 20 Mg Tab PO 20 mg W/SUPPER SOHAIL Administration Protocol Intake and Output 04/04/24 04/05/24 04/05/24 22:59 06:59 14:59 Intake Total 700 Balance 700 Intake: Oral 700 Other: # Voids 2 # Bowel Movements 0 04/05/24 03:34 04/05/24 03:34
[2024-04-05] MEDS: SODIUM ZIRCONIUM CYCLOSILICATE 10 GM PACKET PO SCH (17:12)
[2024-04-06 06:38] VITALS: BP 123/82; RESP 18; TEMP 97.7
--- NOTE | 2024-04-06 07:30 | P.PN ---
Subjective Progress Note Date: 04/06/24 Reason for Consult (text): Heart failure, shortness of breath, crackles in the lungs History of present illness: This is a 74-year-old male patient of Dr. Smith with past medical history of coronary artery disease status post CABG, aortic valve replacement, mitral valve repair, mixed hyperlipidemia, nonischemic cardiomyopathy, hypertension, persiste nt atrial fibrillation maintaining sinus rhythm and on Xarelto. We have been asked to evaluate the patient for heart failure, shortness of breath, crackles in lungs. Patient gives history that he has had a bad cough since before he had his open heart surgery. He occasionally has sputum production. Over the past weekend, states he was coughing so hard that he felt like his sternal incision was bleeding. On Wednesday that cough and shortness of breath worsened. He does have chest pain with the cough. He does state he has orthopnea and does not sleep well in general. No lower extremity edema, no weight gain. He has been taking all of his medications as directed. He has been seen by pulmonary medicine diagnosed with tracheobronchitis. Blood pressure 126/79, heart rate 64, pulse ox 98% on 2 L nasal cannula. Patient has been started on IV Solu-Medrol and home medications resumed. EKG: Sinus rhythm, first-degree AV block, frequent PACs, compared to office EKG, unchanged. Chest x-ray: No acute process. COPD. Laboratory studies: WBC 14.7, hemoglobin 9.3. Sodium 135, potassium 5.3, BUN 51 creatinine 1.48 up from 1.35 on arrival. Troponin negative x 1. proBNP 934. Influenza A, influenza B, RSV, COVID-19 not detected. Home cardiac medications: Amiodarone 200 mg twice daily, aspirin 81 mg daily, atorvastatin 40 mg at bedtime, Jardiance 10 mg with breakfast, Lasix 40 mg daily , losartan 50 mg daily, Toprol-XL 50 mg daily, potassium chloride 20 mill equivalents daily, Xarelto 20 mg with supper, spironolactone 25 mg daily. Echocardiogram performed in the office on 12/07/2023 revealed EF of 30 to 35%. Large hypokinetic area in the anterior and anterior lateral guerra. Large akinetic area in the inferior and inferior septal guerra. Small hypokinetic area in the anterior septal wall from the base to the mid wall. Small akinetic area in the inferior lateral wall with base to the mid wall. Left ventricular filling cannot be assessed due to atrial fibrillation. Mild left ventricular hypertrophy. Mildly dilated right ventricle and abnormal function. Severely dilated left atrium. Moderately dilated right atrium. Moderate aortic regurgitation. Ascending aorta is enlarged. Moderate to severe mitral regurgitation. Moderate to severe tricuspid regurgitation. PASP 58 mmHg. Trace to mild pulmonic regurgitation. DOLORES and cardioversion performed 03/14/2024 revealed EF of 32%, mild to moderate MR, repair MV, prosthetic AV, moderate TR. Cardiovascular surgery 02/11/2024: One-vessel VG to PDA, tissue AVR, MV repair, modified Valdez-Maze procedure closure of the left atrial appendage. 04/06/2024 Patient seen and examined. Blood pressure 123/82, heart rate in the 60s and 70s, pulse ox 95% on room air. Patient has been afebrile. Patient states that last evening he was able to cough up a peanut size yellow sputum. He still is having some coughing this morning but was relieved for some time during the night. Patient continues to have wheezing. No evidence of heart failure. Physical examination: Gen: This is a 74-year-old male in no acute distress VS: reviewed HEENT: Head is atraumatic, normocephalic. Pupils equal, round. Sclerae is anicteric. NECK: Supple. No JVD. LUNGS: Bilateral wheezing. No intercostal retractions. HEART: Regular rate and rhythm. 2/6 systolic murmur. ABDOMEN: Soft No tenderness. EXTREMITIES: No pedal edema. No calf tenderness. NEUROLOGICAL: Patient is awake, alert and oriented x3. Assessment: Tracheobronchitis Acute kidney injury No signs or symptoms of heart failure History of coronary artery disease status post CABG 1 vessel SVG to PDA on 02/11/2024 Valvular heart disease status post tissue AVR and MV repair on 02/11/2024 Hyperlipidemia Nonischemic cardiomyopathy Hypertension Persistent atrial fibrillation maintaining sinus rhythm Plan: Continue patient's home cardiac medications No need to obtain echocardiogram, No further cardiac work up at this time. Cardiology will sign off this case and follow on an as-needed basis. Please reconsult for any new concerns. Patient may follow-up in the office in one to [address] Smith. Nurse practitioner note has been reviewed, I agree with documented findings and plan of care. Patient was seen and examined. Objective - Vital Signs Vital signs: Vital Signs Temp 97.7 F 04/06/24 06:36 Pulse 70 04/06/24 06:36 Resp 18 04/06/24 06:36 BP 123/82 04/06/24 06:36 Pulse Ox 95 04/06/24 06:36 FiO2 Intake & Output 04/05/24 04/06/24 04/06/24 18:59 06:59 18:59 Intake Total 1007 Balance 1007 Weight 70.1 kg Intake: Oral 1007 Other: Voiding Method Toilet # Voids 2 3 - Labs CBC & Chem 7: 04/05/24 03:34 04/05/24 03:34
[2024-04-06 08:44] LABS: Basophils # (A) 0.01 X 10*3/uL (0.00-0.10); Basophils % (A) 0.1 %; Eosinophils # (A) 0 X 10*3/uL (0.04-0.35); Eosinophils % (A) 0 %; HCT 33.8 % (39.6-50.0); HGB 10.6 g/dL (13.0-17.0); Lymphocytes # (A) 0.89 X 10*3/uL (0.90-5.00); Lymphocytes % (A) 6.3 %; MCH 29.1 pg (27.0-32.0); MCHC 31.4 g/dL (32.0-37.0); MCV 92.9 FL (80.0-97.0); Mean Platelet Volume 10.1 FL (9.5-12.2); Monocytes # (A) 0.27 X 10*3/uL (0.20-1.00); Monocytes % (A) 1.9 %; NRBC Per 100 WBC 0 X 10*3/uL (0.00-0.01); Neutrophils # (A) 12.85 X 10*3/uL (1.80-7.70); Neutrophils % (A) 90.9 %; Platelet Count 361 X 10*3/uL (140-440); RBC 3.64 X 10*6/uL (4.40-5.60); RDW 15.8 % (11.5-14.5); WBC 14.13 X 10*3/uL (4.50-10.00)
[2024-04-06 08:51] LABS: BUN/Creat Ratio 33.33 Ratio (12.00-20.00); Calcium 8.5 mg/dL (8.7-10.3); Chloride 105 mmol/L (96-109); Glucose 133 mg/dL (70-110); Potassium 4.4 mmol/L (3.5-5.5); Sodium 139 mmol/L (135-145)
--- NOTE | 2024-04-06 11:39 | P.PN ---
Subjective Progress Note Date: 04/06/24 This is a pleasant 74-year-old male patient who had recently been here for an aortic valve replacement and mitral valve repair, PFO closure, left atrial appendage ligation on February 11, 2024. He had been having issues with atrial fibrillation with rapid ventricular response. He had undergone a DOLORES and cardioversion on 03/14/2024. Had been recovering well without incident. He presented here to the emergency room yesterday 3 to 4-day history of increasing shortness of breath cough and congestion. He has had white productive sputum. No fever or chills. Chest x-ray shows no acute cardiopulmonary process. White count 12.4. Hemoglobin 13.2. Platelets 380. INR 1.3. Sodium 137. Potassium 5.5. Bicarb 27. BUN 31. Creatinine 1.35. Glucose 100. proBNP 934. Viral screen negative. He is seen today in consultation on the observation unit. He is currently sitting up at the bedside. Awake and alert in no acute distress. He currently has a dry nonproductive cough. Some chest wall pain from coughing. Maintaining good O2 saturations in the upper 90s on room air. He is afebrile. Hemodynamically stable. Patient was evaluated today on 04/05/2024, continues to cough and wheeze. Cough is productive with whitish phlegm, no fever no chills no hemoptysis, no chest pain. Patient is on antibiotics, bronchodilators, and steroids, very minimal improvement in the last 24 hours, has the patient is not quite ready to be discharged home The patient is seen today April 06, 2024 in follow-up on the regular medical floor. He is awake and alert in no acute distress. Up ambulating in his room. Maintaining O2 saturations in the 90s on room air. He has been afebrile. Hemodynamically stable. White count 14.1. Hemoglobin 10.6. Platelets 361. Sodium 139. Potassium 4.4. Bicarb 21. BUN 40. Creatinine 1.2. Glucose 133. He is continued on DuoNeb inhalations, Augmentin, Solu-Medrol. Anticoagulated with Xarelto. Objective - Vital Signs Vital signs: Vital Signs Temp 97.7 F 04/06/24 06:36 Pulse 80 04/06/24 11:24 Resp 18 04/06/24 11:24 BP 123/82 04/06/24 06:36 Pulse Ox 96 04/06/24 08:02 FiO2 Intake & Output 04/05/24 04/06/24 04/06/24 18:59 06:59 18:59 Intake Total 1007 118 Balance 1007 118 Weight 70.1 kg Intake: Oral 1007 118 Other: Voiding Method Toilet # Voids 2 3 - Exam GENERAL EXAM: Alert, active, pleasant 74-year-old male, ambulating in his room, on room air, comfortable in no apparent distress. HEAD: Normocephalic. EYES: Normal reaction of pupils, equal size. NOSE: Clear with pink turbinates. THROAT: No erythema or exudates. NECK: No masses, no JVD. CHEST: No chest wall deformity. LUNGS: Equal air entry with faint end expiratory wheeze. CVS: S1 and S2 normal with no audible murmur, regular rhythm. ABDOMEN: No hepatosplenomegaly, normal bowel sounds, no guarding or rigidity. SPINE: No scoliosis or deformity SKIN: No rashes CENTRAL NERVOUS SYSTEM: No focal deficits, tone is normal in all 4 extremities. EXTREMITIES: There is no peripheral edema. No clubbing, no cyanosis. Peripheral pulses are intact. - Labs CBC & Chem 7: 04/06/24 04:22 04/06/24 04:22 Labs: Abnormal Lab Results - Last 24 Hours (Table) 04/06/24 04/06/24 Range/Units 04:22 04:22 WBC 14.13 H (4.50-10.00) X 10*3/uL RBC 3.64 L (4.40-5.60) X 10*6/uL Hgb 10.6 L (13.0-17.0) g/dL Hct 33.8 L (39.6-50.0) % MCHC 31.4 L (32.0-37.0) g/dL RDW 15.8 H (11.5-14.5) % Immature Gran # 0.11 H (0.00-0.04) X 10*3/uL Neutrophils # 12.85 H (1.80-7.70) X 10*3/uL Lymphocytes # 0.89 L (0.90-5.00) X 10*3/uL Eosinophils # 0 L (0.04-0.35) X 10*3/uL Carbon Dioxide 21.0 L (21.6-31.8) mmol/L Anion Gap 13.00 H (4.00-12.00) mmol/L BUN 40.0 H (9.0-27.0) mg/dL BUN/Creatinine Ratio 33.33 H (12.00-20.00) Ratio Glucose 133 H (70-110) mg/dL Calcium 8.5 L (8.7-10.3) mg/dL Assessment and Plan Assessment: Acute tracheobronchitis with bronchospasm and wheezing. Chest x-ray shows no acute process. Viral screen negative Atrial fibrillation status post cardioversion on 03/12/2024. Currently in sinus rhythm. Anticoagulated with Xarelto Recent CABG x 1 with saphenous vein graft to the PDA, aortic valve replacement, mitral valve repair, PFO closure, left atrial appendage ligation on 02/11/2024 Ischemic cardiomyopathy educed ejection fraction at 30 to 35% History of CVA Diabetes mellitus Hyperlipidemia Hypertension Gastroesophageal reflux disease Lifelong non-smoker Obstructive sleep really apnea not utilizing CPAP Plan: The patient was seen and evaluated Labs and medications reviewed Currently stable and on room air Cleared for discharge Completed course of antibiotics Complete a prednisone taper Continue bronchodilators as needed Follow-up in the office in 1 week This patient was seen independently by the pulmonary nurse practitioner addressing pulmonary issues I have personally seen and examined the patient, performed the documentation and the assessment and plan as written. Number of minutes spent on the visit: 23 Dictation was produced using [employer] dictation software. Please excuse any grammatical, word or spelling errors.
[2024-04-06 13:21] VITALS: PULSE 70
--- NOTE | 2024-04-06 14:25 | P.DS ---
Providers Date of admission: 04/03/24 16:49 Expected date of discharge: 04/06/24 Attending physician: Ermias Tavarez Consults: 04/04/24 10:42 Consult Physician Routine Consulting Provider: Eliceo Victor Consult Reason/Comments: patient with heart failure, SOB, crackles in lungs Do you want consulting provider notified?: Yes 04/04/24 10:52 Consult Physician Routine Consulting Provider: Yani Macedo Consult Reason/Comments: SOB, crackles in lungs, unable to lie flat Do you want consulting provider notified?: Yes Primary care physician: Rosibel Arredondo [place] Hospital Course: Discharge diagnoses; Dyspnea: Acute tracheobronchitis with bronchospasm and wheezing: Atrial fibrillation status post cardioversion 03/12/2024--- on Xarelto Recent CABG, aortic valve replacement, mitral valve repair, PFO closure, left atrial appendage ligation 02/11/2024 Ischemic cardiomyopathy with EF 30 to 35% History of CVA Diabetes mellitus Hypertension Hyperlipidemia GERD Obstructive sleep apneanot on CPAP Acute kidney injury: Hyperkalemia Hospital course; This is a 74-year-old male patient with past medical history significant for coronary artery disease status post CABG, status post AV replacement, status post MV repair, PFO closure, left atrial appendage ligation on February 11, 2024, diabetes mellitus, atrial fibrillation status post cardioversion 03/14/2024 who presented to ER with a complaint of 3 to 4 days of cough congestion and increasing shortness of breath with wheezing with clear white sputum production. Patient denied any fever or chills. Patient denied any orthopnea or PND or weight gain or lower extremity edema. Patient stated that his weight has been stable. Chest x-ray negative for acute process. WBC 12.4, hemoglobin 13.2, platelets 380, INR 1.3. Sodium 137, potassium 5.5, bicarbonate 27, BUN 31, creatinine 1.35 on presentation. NT proBNP 934 Viral screen negative. 04/05/2024 Patient was seen and examined today, patient rene on room air, continues complain of cough, history shortness of breath, wheezing and congestion. Remained afebrile, heart rate 68, respiratory rate 18, saturating 98% on 2 L oxygen for comfort. WBC 14.7 likely secondary steroids, hemoglobin 11.3, platelet 350. Sodium 135, potassium 5.3, BUN 51, creatinine 1.48. Patient denied any urinary retention, denied constipation, will give patient Lokelma, will continue monitor potassium. 04/06. Patient seen and examined. Pulmonology recommended tapering dose of prednisone. Outpatient follow-up with PCP and pulmonary PHYSICAL EXAMINATION: GENERAL: The patient is alert and oriented x3, not in any acute distress. Well developed, well nourished. HEENT: Pupils are round and equally reacting to light. EOMI. No scleral icterus. No conjunctival pallor. Normocephalic, atraumatic. No pharyngeal erythema. No thyromegaly. CARDIOVASCULAR: S1 and S2 present. No murmurs, rubs, or gallops. PULMONARY: Chest is clear to auscultation, no wheezing or crackles. ABDOMEN: Soft, nontender, nondistended, normoactive bowel sounds. No palpable organomegaly. MUSCULOSKELETAL: No joint swelling or deformity. EXTREMITIES: No cyanosis, clubbing, or pedal edema. NEUROLOGICAL: Gross neurological examination did not reveal any focal deficits. SKIN: No rashes. Dictation was produced using [employer] dictation software. please excuse any grammatical, word or spelling errors. Patient Condition at Discharge: Good Plan - Discharge Summary Discharge Rx Participant: Yes New Discharge Prescriptions: New Amoxic-Pot Clav 875-125Mg [Augmentin 875-125] 1 each PO Q12HR 2 Days #4 tab predniSONE 10 mg PO DAILY 8 Days #20 tab Continue Furosemide [Lasix] 40 mg PO DAILY Empagliflozin [Jardiance] 10 mg PO W/BRKFST Rivaroxaban [Xarelto] 20 mg PO W/SUPPER #30 tab Potassium Chloride ER [K-Dur 20] 20 meq PO DAILY #30 tab Amiodarone [Cordarone] 200 mg PO BID Metoprolol Succinate (ER) [Toprol XL] 50 mg PO DAILY Losartan [Cozaar] 50 mg PO DAILY Atorvastatin [Lipitor] 40 mg PO HS Aspirin 81 mg PO DAILY #30 tab Spironolactone [Aldactone] 25 mg PO DAILY Discharge Medication List Empagliflozin [Jardiance] 10 mg PO W/BRKFST 02/07/24 [History] Furosemide [Lasix] 40 mg PO DAILY 02/07/24 [History] Aspirin 81 mg PO DAILY #30 tab 02/18/24 [Rx] Rivaroxaban [Xarelto] 20 mg PO W/SUPPER #30 tab 02/18/24 [Rx] Potassium Chloride ER [K-Dur 20] 20 meq PO DAILY #30 tab 02/23/24 [Rx] Amiodarone [Cordarone] 200 mg PO BID 03/13/24 [History] Metoprolol Succinate (ER) [Toprol XL] 50 mg PO DAILY 03/13/24 [History] Spironolactone [Aldactone] 25 mg PO DAILY 03/13/24 [History] Atorvastatin [Lipitor] 40 mg PO HS 04/03/24 [History] Losartan [Cozaar] 50 mg PO DAILY 04/03/24 [History] Amoxic-Pot Clav 875-125Mg [Augmentin 875-125] 1 each PO Q12HR 2 Days #4 tab 04/06/24 [Rx] predniSONE 10 mg PO DAILY 8 Days #20 tab 04/06/24 [Rx] Follow up Appointment(s)/Referral(s): Rosibel Arredondo MD [Primary Care Provider] - 1-2 days Yani Macedo MD [STAFF PHYSICIAN] - 1 Week Discharge Disposition: HOME SELF-CARE
== END 2024-04-06 16:52 | disposition home or self-care (01) | DRG 202 ==
LOC: EC 13:46 → 1SOBS 16:49 → OBSVTOIN 16:49 → 1SOBS 17:46 → 6NMEDSUR 04-05 13:02
PROVIDERS: ADMIT Hospitalist; ATTEND Hospitalist
DX: J20.9 Acute bronchitis, unspecified (principal); I48.19 Other persistent atrial fibrillation; N17.9 Acute kidney failure, unspecified; J44.0 Chronic obstructive pulmonary disease with (acute) lower respiratory infection; E11.9 Type 2 diabetes mellitus without complications; E78.2 Mixed hyperlipidemia; E78.5 Hyperlipidemia, unspecified; G47.33 Obstructive sleep apnea (adult) (pediatric); I11.0 Hypertensive heart disease with heart failure; I25.5 Ischemic cardiomyopathy; I44.0 Atrioventricular block, first degree; I50.9 Heart failure, unspecified; K21.9 Gastro-esophageal reflux disease without esophagitis; I25.10 Atherosclerotic heart disease of native coronary artery without angina pectoris; E87.5 Hyperkalemia; Z91.041 Radiographic dye allergy status; Z86.73 Personal history of transient ischemic attack (TIA), and cerebral infarction without residual deficits; Z91.048 Other nonmedicinal substance allergy status; Z95.1 Presence of aortocoronary bypass graft; Z88.8 Allergy status to other drugs, medicaments and biological substances; Z79.82 Long term (current) use of aspirin; I25.2 Old myocardial infarction; Z79.01 Long term (current) use of anticoagulants; Z87.442 Personal history of urinary calculi; Z95.2 Presence of prosthetic heart valve
CPT/HCPCS: 36415; 71046; 80048; 80053; 83735; 83880; 84145; 84484; 85025; 85027; 85610; 85730; 87636; 93005; 94640; 94760; 99285

== ENCOUNTER → 2024-07-17 | Outpatient (CLI) | payer MEDICARE ==
--- NOTE | 2024-07-17 13:21 | US ---
EXAMINATION TYPE: US kidneys/renal and bladder DATE OF EXAM: 07/17/2024 COMPARISON: NONE CLINICAL INDICATION: Male, 74 years old with history of N18.2 CHRONIC KIDNEY DISEASE, STAGE 2 (MILD); CKD TECHNIQUE: Grayscale imaging of the bilateral kidneys and urinary bladder: FINDINGS: EXAM MEASUREMENTS: Right Kidney: 9.8x5.4x5.2 cm Left Kidney: 10.3x4.6x4.4 cm Right Kidney: 0.3cm echogenic shadowing focus Left Kidney: No hydronephrosis or masses seen Bladder: wnl as best visualized. poorly distended There is a 0.3 cm echogenic focus with posterior shadowing within the mid right kidney can be compati ble with a nonobstructing renal stone. Distal Aorta appears atherosclerotic and borderline aneurysmal and compared to 07/15/2010 US abdomen . IMPRESSION: 1. Nonobstructing punctate renal stone right kidney. 2. Some fusiform prominence of the distal abdominal aorta with an AP dimension of 3.2 cm. This has in creased from the comparison of 2010. [facility], , 07/17/2024 1:19 PM
== END | disposition home or self-care (01) ==
LOC: RADUSWWP 12:17
PROVIDERS: ATTEND Internal Medicine
DX: N20.0 Calculus of kidney (principal); N18.2 Chronic kidney disease, stage 2 (mild)
CPT/HCPCS: 76770